=== PATIENT | male | born 1935 | race Caucasian/White ===

== ENCOUNTER 2016-06-22 13:12 | Emergency (ER) | payer MEDICARE, BC ==
[2016-06-22 13:40] VITALS: BP 160/91; PULSE 67; RESP 18; TEMP 98
--- NOTE | 2016-06-22 14:08 | ED ---
Extremity Problem HPI - General Chief complaint: Extremity Problem,Nontraumatic Stated complaint: left foot pain Time Seen by Provider: 06/22/16 13:46 Source: patient Mode of arrival: ambulatory Limitations: no limitations - History of Present Illness Initial comments: Patient is an 81-year-old male presenting to the emergency department with complaints of left plantar mid foot and heel pain. Patient states that the bottom of his foot started hurting last night. Patient states that he was able to go to sleep but this morning the pain was worse especially with walking. Patient denies injury or trauma to foot. Patient was able to ambulate at home and in the emergency room. No treatment prior to arrival. Patient currently rates pain 8 out of 10, described as aching. Patient denies recent illness, fevers, chills, nausea, vomiting, shortness of breath, chest pain, abdominal pain, or leg swelling. - Related Data Home Medications Medication Instructions Recorded Confirmed Atenolol [Tenormin] 50 mg PO DAILY 03/13/16 06/22/16 Cholecalciferol [Vitamin D3] 2,000 unit PO DAILY 03/13/16 06/22/16 Gluc/Javier-MSM#1/C/Zach/[place]/Bor 1 each PO DAILY 03/13/16 06/22/16 [Glucosamine-Chondroitin Tablet] Isosorbide Mononitrate 20 mg PO DAILY 03/13/16 06/22/16 Multivitamins, Thera [Multivitamin] 1 tab PO DAILY 03/13/16 06/22/16 [place]-3 Fatty Acids/Fish Oil [Fish 1 each PO DAILY 03/13/16 06/22/16 Oil 1,000 mg Softgel] Omeprazole [PriLOSEC] 20 mg PO BID 03/13/16 06/22/16 Ubidecarenone [Co Q-10] 100 mg PO DAILY 03/13/16 06/22/16 Vitamin E (Dl,Tocopheryl Acet) 400 unit PO DAILY 03/13/16 06/22/16 [Vitamin E] Previous Rx's Medication Instructions Recorded Aspirin 325 mg PO DAILY #30 tab 03/18/16 Clopidogrel [Plavix] 75 mg PO DAILY #30 tab 03/18/16 Lisinopril [Zestril] 20 mg PO DAILY #30 tab 03/18/16 Nitroglycerin Sl Tabs [Nitrostat] 0.4 mg SUBLINGUAL Q5M PRN #25 tab 03/18/16 Naproxen [Naprosyn] 250 mg PO BID #14 tab 06/22/16 Allergies Allergy/AdvReac Type Severity Reaction Status Date / Time latex Allergy Rash/Hives Verified 06/22/16 14:20 venom-honey bee Allergy passed out Verified 06/22/16 14:20 [bee venom (honey bee)] venom-wasp [wasp venom] Allergy passed out Verified 06/22/16 14:20 Review of Systems ROS Statement: Those systems with pertinent positive or pertinent negative responses have been documented in the HPI. ROS Other: All systems not noted in ROS Statement are negative. Past Medical History Past Medical History: Coronary Artery Disease (CAD), COPD, Deep Vein Thrombosis (DVT), GERD/Reflux, Hyperlipidemia, Hypertension, Osteoarthritis (OA) Additional Past Medical History / Comment(s): Nephrolithiasis History of Any Multi-Drug Resistant Organisms: None Reported Past Surgical History: Appendectomy, Hernia Repair Additional Past Surgical History / Comment(s): lithotripsy x 4, 03-17-16 HEART CATH W/ STENT TO RCA Past Anesthesia/Blood Transfusion Reactions: Motion Sickness Additional Past Anesthesia/Blood Transfusion Reaction / Comment(s): HAD MOTION SICKNESS WHEN YOUNGER. Past Psychological History: No Psychological Hx Reported Smoking Status: Former smoker Past Alcohol Use History: None Reported Additional Past Alcohol Use History / Comment(s): quit smoking 40 yrs ago, smoked for 30 yrs- 1-2 PPD Past Drug Use History: None Reported - Past Family History Mother Family Medical History: Cancer, Diabetes Mellitus Father Family Medical History: Myocardial Infarction ([place]) Additional Family Medical History / Comment(s): PT STATED HIS FATHER HAD 14 CO' S AND AT THE AGE OF 58 General Exam Limitations: no limitations General appearance: alert, in no apparent distress Head exam: Present: atraumatic, normocephalic, normal inspection Eye exam: Present: normal appearance ENT exam: Present: normal exam Neck exam: Present: normal inspection Respiratory exam: Present: normal lung sounds bilaterally. Absent: respiratory distress, wheezes, rales, rhonchi, stridor Cardiovascular Exam: Present: regular rate, normal rhythm, normal heart sounds GI/Abdominal exam: Present: soft, normal bowel sounds. Absent: tenderness Left Ankle exam: Present: normal inspection, full ROM. Absent: tenderness, swelling Foot/Toe exam: Present: full ROM, tenderness (Tenderness to plantar aspect of the left midfoot and heel. Skin warm to touch. Mild swelling noted.). Absent : puncture wound, foreign body, calcaneal tenderness Neurovascular tendon exam: Present: no vascular compromise. Absent: abnormal cap refill, motor deficit, sensory deficit, tendon deficit, extremity cold to touch, abnormal 2-point discrimination, decreased fine/light touch, foot drop, peroneal nerve deficit, significant pain with passive ROM of distal joint Gait: observed and limited by pain Back exam: Present: normal inspection Neurological exam: Present: alert, oriented X3, CN II-XII intact Psychiatric exam: Present: normal affect, normal mood Skin exam: Present: warm, dry, intact, normal color. Absent: rash Course Vital Signs 06/22/16 13:37 Temperature 98 F Pulse Rate 67 Respiratory 18 Rate Blood Pressure 160/91 O2 Sat by Pulse 96 Oximetry Medical Decision Making - Medical Decision Making Patient is an 81-year-old male presenting to the emergency department with sudden onset of left mid and hindfoot pain suspect secondary to plantar fasciitis and calcaneal spur. Patient given prescription for naproxen and instructed to rest foot and use good heel insert and orthopedic shoes. Patient instructed to follow-up with primary care physician and orthopedic surgeon as directed. Patient agrees to treatment plan. Return parameters and discharge instructions reviewed. - Radiology Data Radiology results: report reviewed X-ray left foot: Bone mineralization is reduced. Mild degenerative change of the first metatarsophalangeal joint. Vascular calcification present within soft tissues. Spurring, hypertrophic change at the tarsometatarsal joints. There is plantar calcaneal spur. Disposition Clinical Impression: Plantar fasciitis of left foot, Calcaneal spur, left foot Disposition: HOME SELF-CARE Condition: Good Instructions: Plantar Fasciitis (ED) Additional Instructions: Rest foot as much as possible, continue naproxen twice daily for pain, get a good heel insert. Roll arch of the foot with a frozen juice can water bottle. Follow-up with primary care physician as directed. Orthopedic surgeon as needed. Prescriptions: Naproxen [Naprosyn] 250 mg PO BID #14 tab Referrals: Lisha Martinez MD [Primary Care Provider] - 1-2 days Gilson Casillas MD [STAFF PHYSICIAN] - 1-2 days (Follow-up as needed.) Time of Disposition: 15:06
[2016-06-22] MEDS ORDERED: NAPROXEN 250 MG TAB PO STA (14:19)
--- NOTE | 2016-06-22 14:52 | XR ---
Left foot HISTORY: Left foot pain 3 views of the left foot Bone mineralization is reduced. Mild degenerative change of the first metatarsophalangeal joint. Vasc ular calcifications present within the soft tissues. Spurring, hypertrophic change at the tarsometata rsal joints. There is a plantar calcaneal spur. IMPRESSION: Correlate for possible gout, diabetes, osteoarthritis.
== END 2016-06-22 15:28 | disposition home or self-care (01) ==
LOC: EC 13:12
DX: M72.2 Plantar fascial fibromatosis (principal); M77.32 Calcaneal spur, left foot; K21.9 Gastro-esophageal reflux disease without esophagitis; I10 Essential (primary) hypertension; M19.90 Unspecified osteoarthritis, unspecified site; I25.10 Atherosclerotic heart disease of native coronary artery without angina pectoris; Z86.718 Personal history of other venous thrombosis and embolism; Z87.891 Personal history of nicotine dependence; Z79.899 Other long term (current) drug therapy; Z91.030 Bee allergy status; Z91.040 Latex allergy status; Z91.048 Other nonmedicinal substance allergy status
CPT/HCPCS: 99283

== ENCOUNTER 2016-08-20 15:42 | Inpatient (IN) | payer MEDICARE, BC ==
[2016-08-20] MEDS ORDERED: SODIUM CHLORIDE 0.9% 1,000 ML IV STA (16:06)
[2016-08-20] MEDS ORDERED: PANTOPRAZOLE 40 MG/10 ML VIAL IVP STA (16:07)
--- NOTE | 2016-08-20 16:09 | ED ---
General Adult HPI - General Source: RN notes reviewed <Skip Morse - Last Filed: 08/20/16 18:47> <Erwin Rod - Last Filed: 08/20/16 18:57> - General Chief complaint: Syncope Stated complaint: GI BLEED Time Seen by Provider: 08/20/16 16:01 - History of Present Illness Initial comments: Patient a 81-year-old male who presents emergency room today by EMS, with chief complaint of syncopal episode that occurred just prior to arrival. Patient does admit that he was sitting at table picking out pictures for his waist visitation tomorrow when he began feeling very hot and sweaty. States tried to take office which appears his [id number] assumed table and states that he had a syncopal episode. States called EMS. States EMS arrived. States he used bathroom. States that he had an episode of loose stool and noticed some dark blood color in the toilet. Patient denies ever having similar symptoms in the past. States had colostomy approximately one year ago with 2 polyps removed. Patient states still feeling a little lightheaded at this time. Denies any pain. Denies any other complaints or symptoms. Patient denies any recent fever, chills, shortness of breath, chest pain, back pain, abdominal pain , vomiting, numbness or tingling, dysuria or hematuria, constipation or diarrhea , headaches or visual changes, or any other complaints. (Skip Morse) - Related Data Home Medications Medication Instructions Recorded Confirmed Atenolol [Tenormin] 50 mg PO DAILY 03/13/16 08/20/16 Cholecalciferol [Vitamin D3] 2,000 unit PO DAILY 03/13/16 08/20/16 Gluc/Javier-MSM#1/C/Zach/[place]/Bor 1 tab PO DAILY 03/13/16 08/20/16 [Glucosamine-Chondroitin Tablet] Multivitamins, Thera [Multivitamin 1 tab PO DAILY 03/13/16 08/20/16 (formulary)] [place]-3 Fatty Acids/Fish Oil [Fish 1 cap PO DAILY 03/13/16 08/20/16 Oil 1,000 mg Softgel] Omeprazole [PriLOSEC] 20 mg PO BID 03/13/16 08/20/16 Ubidecarenone [Co Q-10] 100 mg PO DAILY 03/13/16 08/20/16 Vitamin E (Dl,Tocopheryl Acet) 400 unit PO DAILY 03/13/16 08/20/16 [Vitamin E] Albuterol Nebulized [Ventolin 2.5 mg INHALATION RT-TID PRN 08/20/16 08/20/16 Nebulized] Isosorbide Mononitrate ER [Imdur] 30 mg PO DAILY 08/20/16 08/20/16 Pravastatin Sodium [Pravachol] 40 mg PO HS 08/20/16 08/20/16 Previous Rx's Medication Instructions Recorded Aspirin 325 mg PO DAILY #30 tab 03/18/16 Clopidogrel [Plavix] 75 mg PO DAILY #30 tab 03/18/16 Lisinopril [Zestril] 20 mg PO DAILY #30 tab 03/18/16 Nitroglycerin Sl Tabs [Nitrostat] 0.4 mg SUBLINGUAL Q5M PRN #25 tab 03/18/16 Allergies Allergy/AdvReac Type Severity Reaction Status Date / Time latex Allergy Rash/Hives Verified 08/20/16 16:45 venom-honey bee Allergy passed out Verified 08/20/16 16:45 [bee venom (honey bee)] venom-wasp [wasp venom] Allergy passed out Verified 08/20/16 16:45 Review of Systems ROS Other: All systems not noted in ROS Statement are negative. <Skip Morse - Last Filed: 08/20/16 18:47> ROS Other: All systems not noted in ROS Statement are negative. <Erwin Rod - Last Filed: 08/20/16 18:57> ROS Statement: Those systems with pertinent positive or pertinent negative responses have been documented in the HPI. Past Medical History Past Medical History: Coronary Artery Disease (CAD), COPD, Deep Vein Thrombosis (DVT), GERD/Reflux, Hyperlipidemia, Hypertension, Osteoarthritis (OA) Additional Past Medical History / Comment(s): Nephrolithiasis History of Any Multi-Drug Resistant Organisms: None Reported Past Surgical History: Appendectomy, Hernia Repair Additional Past Surgical History / Comment(s): lithotripsy x 4, 03-17-16 HEART CATH W/ STENT TO RCA Past Anesthesia/Blood Transfusion Reactions: Motion Sickness Additional Past Anesthesia/Blood Transfusion Reaction / Comment(s): HAD MOTION SICKNESS WHEN YOUNGER. Past Psychological History: No Psychological Hx Reported Smoking Status: Former smoker Past Alcohol Use History: None Reported Additional Past Alcohol Use History / Comment(s): quit smoking 40 yrs ago, smoked for 30 yrs- 1-2 PPD Past Drug Use History: None Reported - Past Family History Mother Family Medical History: Cancer, Diabetes Mellitus Father Family Medical History: Myocardial Infarction ([place]) Additional Family Medical History / Comment(s): PT STATED HIS FATHER HAD 14 NM' S AND AT THE AGE OF 58 <MorseSkip - Last Filed: 08/20/16 18:47> General Exam <LitoSkip - Last Filed: 08/20/16 18:47> General appearance: alert, in no apparent distress, anxious Head exam: Present: atraumatic, normocephalic, normal inspection Eye exam: Present: normal appearance, PERRL, EOMI. Absent: scleral icterus, conjunctival injection, periorbital swelling ENT exam: Present: normal exam, mucous membranes moist Neck exam: Present: normal inspection. Absent: tenderness, meningismus, lymphadenopathy Respiratory exam: Present: normal lung sounds bilaterally. Absent: respiratory distress, wheezes, rales, rhonchi, stridor Cardiovascular Exam: Present: regular rate, normal rhythm, normal heart sounds. Absent: systolic murmur, diastolic murmur, rubs, gallop, clicks GI/Abdominal exam: Present: soft, normal bowel sounds. Absent: distended, tenderness, guarding, rebound, rigid Extremities exam: Present: normal inspection, full ROM, normal capillary refill. Absent: tenderness, pedal edema, joint swelling, calf tenderness Back exam: Present: normal inspection Neurological exam: Present: alert, oriented X3, CN II-XII intact Psychiatric exam: Present: normal affect, normal mood Skin exam: Present: warm, dry, intact, normal color. Absent: rash <Erwin Rod - Last Filed: 08/20/16 18:57> - General Exam Comments Initial Comments: General: The patient is awake and alert, in no distress, and does not appear acutely ill. Eye: Pupils are equal, round and reactive to light, extra-ocular movements are intact. No nystagmus. There is normal conjunctiva bilaterally. No signs of icterus. Ears, nose, mouth and throat: There are moist mucous membranes and no oral lesions. Neck: The neck is supple, there is no tenderness or JVD. Cardiovascular: There is a regular rate and rhythm. No murmur, rub or gallop is appreciated. Respiratory: Lungs are clear to auscultation, respirations are non-labored, breath sounds are equal. No wheezes, stridor, rales, or rhonchi. Gastrointestinal: Soft, non-distended, non-tender abdomen without masses or organomegaly noted. There is no rebound or guarding present. No CVA tenderness. Bowel sounds are unremarkable. Musculoskeletal: Normal ROM, no tenderness. Strength 5/5. Sensation intact. Pulses equal bilaterally 2+. Neurological: A&O x 3. CN II-XII intact, There are no obvious motor or sensory deficits. Coordination appears grossly intact. Speech is normal. Skin: Skin is warm and dry and no rashes or lesions are noted. Psychiatric: Cooperative, appropriate mood & affect, normal judgment. : FLOW NURSEDOMENICA Lewis present for exam. Normal rectal tone. (Skip Morse) Course <Skip Morse - Last Filed: 08/20/16 18:47> <Erwin Rod - Last Filed: 08/20/16 18:57> Vital Signs 08/20/16 08/20/16 08/20/16 16:00 16:03 17:08 Temperature 97 F L Pulse Rate 62 87 59 L Respiratory 18 18 18 Rate Blood Pressure 97/54 122/63 140/64 O2 Sat by Pulse 97 99 100 Oximetry - Reevaluation(s) Reevaluation #1: 08/20/16 18:57 Patient is without symptoms of lightheadedness dizziness or weakness (Erwin Rod) Medical Decision Making - Lab Data Result diagrams: 08/20/16 16:20 08/20/16 16:20 <Skip Morse - Last Filed: 08/20/16 18:47> - Lab Data Result diagrams: 08/20/16 16:20 08/20/16 16:20 <Erwin Rod - Last Filed: 08/20/16 18:57> - Medical Decision Making Patient's labs reviewed. Shows hemoglobin 12.4. Positive guaiac. Patient currently on Plavix. Patient will be admitted to the hospital for serial H&H. Case discussed with attending physician . (Skip Morse) A female ER with near syncopal event, GI bleed, patient will be admitted for monitoring of GI bleed secondary Plavix, (Erwin Rod) - Lab Data Lab Results 08/20/16 08/20/16 08/20/16 Range/Units 15:53 16:20 16:20 WBC 8.6 (3.8-10.6) k/uL RBC 4.16 L (4.30-5.90) m/uL Hgb 12.4 L (13.0-17.5) gm/dL Hct 38.4 L (39.0-53.0) % MCV 92.2 (80.0-100.0) fL MCH 29.8 (25.0-35.0) pg MCHC 32.3 (31.0-37.0) g/dL RDW 13.6 (11.5-15.5) % Plt Count 252 (150-450) k/uL Neutrophils % 85 % Lymphocytes % 8 % Monocytes % 5 % Eosinophils % 1 % Basophils % 0 % Neutrophils # 7.3 (1.3-7.7) k/uL Lymphocytes # 0.7 L (1.0-4.8) k/uL Monocytes # 0.4 (0-1.0) k/uL Eosinophils # 0.0 (0-0.7) k/uL Basophils # 0.0 (0-0.2) k/uL PT (9.0-12.0) sec INR (<1.1) APTT (22.0-30.0) sec Sodium (137-145) mmol/L Potassium (3.5-5.1) mmol/L Chloride (98-107) mmol/L Carbon Dioxide (22-30) mmol/L Anion Gap mmol/L BUN (9-20) mg/dL Creatinine (0.66-1.25) mg/dL Est GFR (MDRD) Af Amer (>60 ml/min/1.73 sqM) Est GFR (MDRD) Non-Af (>60 ml/min/1.73 sqM) Glucose (74-99) mg/dL POC Glucose (mg/dL) 139 H (75-99) mg/dL POC Glu [employer] ID Annyitpren, Gudelia Calcium (8.4-10.2) mg/dL Magnesium (1.6-2.3) mg/dL Total Bilirubin (0.2-1.3) mg/dL AST (17-59) U/L ALT (21-72) U/L Alkaline Phosphatase (38-126) U/L Total Creatine Kinase 222 H (55-170) U/L CK-MB (CK-2) 4.3 H* (0.0-2.4) ng/mL CK-MB (CK-2) Rel Index 1.9 Troponin I <0.012 (0.000-0.034) ng/mL Total Protein (6.3-8.2) g/dL Albumin (3.5-5.0) g/dL Stool Occult Blood (Negative) 08/20/16 08/20/16 08/20/16 Range/Units 16:20 16:20 16:20 WBC (3.8-10.6) k/uL RBC (4.30-5.90) m/uL Hgb (13.0-17.5) gm/dL Hct (39.0-53.0) % MCV (80.0-100.0) fL MCH (25.0-35.0) pg MCHC (31.0-37.0) g/dL RDW (11.5-15.5) % Plt Count (150-450) k/uL Neutrophils % % Lymphocytes % % Monocytes % % Eosinophils % % Basophils % % Neutrophils # (1.3-7.7) k/uL Lymphocytes # (1.0-4.8) k/uL Monocytes # (0-1.0) k/uL Eosinophils # (0-0.7) k/uL Basophils # (0-0.2) k/uL PT 11.7 (9.0-12.0) sec INR 1.2 (<1.1) APTT 20.9 L (22.0-30.0) sec Sodium 143 (137-145) mmol/L Potassium 5.0 (3.5-5.1) mmol/L Chloride 108 H (98-107) mmol/L Carbon Dioxide 27 (22-30) mmol/L Anion Gap 8 mmol/L BUN 47 H (9-20) mg/dL Creatinine 1.27 H (0.66-1.25) mg/dL Est GFR (MDRD) Af Amer >60 (>60 ml/min/1.73 sqM) Est GFR (MDRD) Non-Af 54 (>60 ml/min/1.73 sqM) Glucose 114 H (74-99) mg/dL POC Glucose (mg/dL) (75-99) mg/dL POC Glu [facility] ID Calcium 9.1 (8.4-10.2) mg/dL Magnesium 2.0 (1.6-2.3) mg/dL Total Bilirubin 0.5 (0.2-1.3) mg/dL AST 22 (17-59) U/L ALT 35 (21-72) U/L Alkaline Phosphatase 50 (38-126) U/L Total Creatine Kinase (55-170) U/L CK-MB (CK-2) (0.0-2.4) ng/mL CK-MB (CK-2) Rel Index Troponin I (0.000-0.034) ng/mL Total Protein 6.0 L (6.3-8.2) g/dL Albumin 3.5 (3.5-5.0) g/dL Stool Occult Blood Positive (Negative) Critical Care Time Critical Care Time: Yes Total Critical Care Time: 31 <Erwin Rod - Last Filed: 08/20/16 18:57> Disposition Time of Disposition: 17:25 <Skip Morse - Last Filed: 08/20/16 18:47> <Erwin Rod - Last Filed: 08/20/16 18:57> Clinical Impression: GI bleed, Syncope Disposition: ADMITTED IP TO THIS HOSP Condition: Stable Referrals: Lisha Martinez MD [Primary Care Provider] - 1-2 days
[2016-08-20 16:19] LABS: Glucose,Whole Blood 139 mg/dL (75-99)
[2016-08-20 16:34] LABS: Basophils % (A) 0 %; CH 29.5; CHCM 32.2; Eosinophils % (A) 1 %; HCT 38.4 % (39.0-53.0); HDW 2.51; HGB 12.4 gm/dL (13.0-17.5); Luc # (Auto) 0.15; Luc % (Auto) 2; Lymphocytes # (A) 0.7 k/uL (1.0-4.8); Lymphocytes % (A) 8 %; MCH 29.8 pg (25.0-35.0); MCHC 32.3 g/dL (31.0-37.0); MCV 92.2 fL (80.0-100.0); Mean Platelet Volume 6.9; Monocytes # (A) 0.4 k/uL (0-1.0); Monocytes % (A) 5 %; Neutrophils # (A) 7.3 k/uL (1.3-7.7); Neutrophils % (A) 85 %; RBC 4.16 m/uL (4.30-5.90); RDW 13.6 % (11.5-15.5); WBC 8.6 k/uL (3.8-10.6); WBC (Perox) 9.13
[2016-08-20 16:47] LABS: INR 1.2 (<1.1)
[2016-08-20 16:48] LABS: Prothrombin Time 11.7 sec (9.0-12.0)
[2016-08-20 16:49] LABS: ALT 35 U/L (21-72); AST 22 U/L (17-59); Alkaline Phosphatase 50 U/L (38-126); Anion Gap 8 mmol/L; Blood Urea Nitrogen 47 mg/dL (9-20); Calcium 9.1 mg/dL (8.4-10.2); Carbon Dioxide 27 mmol/L (22-30); Chloride 108 mmol/L (98-107); Glucose 114 mg/dL (74-99); Non-African American GFR(MDRD) 54 (>60 ml/min/1.73 sqM); Sodium 143 mmol/L (137-145); Total Bilirubin 0.5 mg/dL (0.2-1.3)
--- NOTE | 2016-08-20 16:51 | XR ---
EXAMINATION TYPE: XR chest 2V DATE OF EXAM: 08/20/2016 4:48 PM COMPARISON: Chest x-ray June 15, 2012 HISTORY: History of COPD and coronary artery disease presents with chest pain. TECHNIQUE: Frontal and lateral views of the chest are obtained. FINDINGS: Elevated right hemidiaphragm is now present. There is no focal air space opacity, pleural e ffusion, or pneumothorax seen. The cardiac silhouette size is stable and upper limits of normal with atherosclerotic change in the aortic knob. There is prominent multilevel spurring in the spine. IMPRESSION: No acute cardiopulmonary process.
[2016-08-20 16:53] LABS: Creatine Kinase 222 U/L (55-170)
[2016-08-20 16:56] LABS: Partial Thromboplastin Time 20.9 sec (22.0-30.0)
[2016-08-20 17:06] LABS: Troponin I <0.012 ng/mL (0.000-0.034)
[2016-08-20 17:12] LABS: Creatine Kinase MB 4.3 ng/mL (0.0-2.4)
[2016-08-20] MEDS ORDERED: NALOXONE 0.4 MG/ML 1 ML VIAL IV PRN (17:28)
[2016-08-20] MEDS ORDERED: SODIUM CHLORIDE 0.9% 1,000 ML IV ONE (17:28)
[2016-08-20] MEDS ORDERED: ALPRAZolam 0.25 MG TAB PO PRN (22:42)
[2016-08-20] MEDS ORDERED: HYDROmorphone 1 MG/ML 1 ML SYRINGE IVP PRN (22:42)
[2016-08-20] MEDS ORDERED: TEMAZEPAM 15 MG CAP PO PRN (22:42)
[2016-08-20 23:28] LABS: Aty Lym Flag Slight; Basophils % (A) 1 %; CHCM 32.8; Eosinophils % (A) 1 %; HCT 37.2 % (39.0-53.0); HDW 2.51; HGB 12.1 gm/dL (13.0-17.5); Luc % (Auto) 5; Lymphocytes # (A) 1.2 k/uL (1.0-4.8); Lymphocytes % (A) 19 %; MCH 29.9 pg (25.0-35.0); MCHC 32.5 g/dL (31.0-37.0); MCV 91.9 fL (80.0-100.0); Mean Platelet Volume 7.6; Monocytes # (A) 0.4 k/uL (0-1.0); Monocytes % (A) 6 %; Neutrophils # (A) 4.3 k/uL (1.3-7.7); Neutrophils % (A) 69 %; RBC 4.05 m/uL (4.30-5.90); RDW 13.7 % (11.5-15.5); WBC 6.2 k/uL (3.8-10.6); WBC (Perox) 6.64
[2016-08-20 23:33] LABS: Creatine Kinase 164 U/L (55-170)
[2016-08-20 23:44] LABS: Manual Review Performed
[2016-08-20 23:45] LABS: Troponin I <0.012 ng/mL (0.000-0.034)
[2016-08-21 00:01] LABS: Creatine Kinase MB 3.4 ng/mL (0.0-2.4)
[2016-08-21 03:48] LABS: Basophils % (A) 0 %; CH 29.6; Eosinophils # (A) 0.1 k/uL (0-0.7); Eosinophils % (A) 2 %; HCT 35.3 % (39.0-53.0); HDW 2.49; HGB 11.4 gm/dL (13.0-17.5); Luc # (Auto) 0.26; Luc % (Auto) 4; Lymphocytes # (A) 1.3 k/uL (1.0-4.8); Lymphocytes % (A) 21 %; MCH 30.1 pg (25.0-35.0); MCHC 32.4 g/dL (31.0-37.0); MCV 92.8 fL (80.0-100.0); Mean Platelet Volume 6.8; Monocytes # (A) 0.4 k/uL (0-1.0); Monocytes % (A) 6 %; Neutrophils # (A) 4.2 k/uL (1.3-7.7); Neutrophils % (A) 67 %; RDW 13.6 % (11.5-15.5); WBC 6.3 k/uL (3.8-10.6); WBC (Perox) 6.31
[2016-08-21 04:11] LABS: Cholesterol 99 mg/dL (<200); HDL Cholesterol 32 mg/dL (40-60); Triglycerides 98 mg/dL (<150)
[2016-08-21 04:18] LABS: Creatine Kinase 138 U/L (55-170)
[2016-08-21 04:29] LABS: Troponin I <0.012 ng/mL (0.000-0.034)
[2016-08-21 04:33] LABS: Creatine Kinase MB 3.2 ng/mL (0.0-2.4)
[2016-08-21 04:55] LABS: Appearance,Urine Clear (Clear); Bilirubin,Urine Negative (Negative); Glucose,Urine (UA) Negative (Negative); Ketones,Urine Negative (Negative); Leukocyte Esterase,Urine Negative (Negative); Nitrite,Urine Negative (Negative); PH, Urine 5.5 (5.0-8.0); Protein,Urine Negative (Negative); Specific Gravity,Urine 1.019 (1.001-1.035); UA Billing (MACRO vs. MICRO) CHEM; Urobilinogen,Urine <2.0 mg/dL (<2.0)
[2016-08-21] MEDS ORDERED: FORMOTEROL FUMARATE 20 MCG/2 ML NEBU INHALATION SCH (08:00)
[2016-08-21] MEDS ORDERED: BUDESONIDE 1 MG/2 ML NEBU INHALATION SCH (08:00)
[2016-08-21 08:01] LABS: Basophils % (A) 0 %; CH 29.8; Eosinophils # (A) 0.1 k/uL (0-0.7); Eosinophils % (A) 1 %; HCT 36.9 % (39.0-53.0); HDW 2.44; HGB 11.8 gm/dL (13.0-17.5); Luc # (Auto) 0.29; Luc % (Auto) 4; Lymphocytes # (A) 1.3 k/uL (1.0-4.8); Lymphocytes % (A) 19 %; MCV 93.7 fL (80.0-100.0); Mean Platelet Volume 7.8; Monocytes # (A) 0.4 k/uL (0-1.0); Monocytes % (A) 6 %; Neutrophils # (A) 4.8 k/uL (1.3-7.7); Neutrophils % (A) 70 %; RBC 3.93 m/uL (4.30-5.90); RDW 13.6 % (11.5-15.5); WBC 6.8 k/uL (3.8-10.6); WBC (Perox) 6.76
[2016-08-21] MEDS ORDERED: PANTOPRAZOLE 40 MG/10 ML VIAL IVP SCH ×2 (09:00)
[2016-08-21] MEDS ORDERED: ISOSORBIDE MONONITRATE ER 30 MG TAB.ER.24H PO SCH (09:00)
[2016-08-21] MEDS ORDERED: ATENOLOL 50 MG TAB PO SCH (09:00)
[2016-08-21] MEDS: LEVALBUTEROL NEB (CONC) 1.25 MG/0.5 ML AMP INHALATION SCH ×2 (09:22→13:13)
[2016-08-21] MEDS: IPRATROPIUM 0.5 MG/2.5 ML NEBU INHALATION SCH ×2 (09:22→13:13)
--- NOTE | 2016-08-21 10:04 | P.CONS ---
History of Present Illness - Reason for Consult Consult date: 08/21/16 Rectal bleeding Requesting physician: Feroz Molina - History of Present Illness 81-year-old gentleman patient of Dr. Martinez admitted with syncope and rectal bleeding. Past medical history of CAD/PCI stent March 2016 on dual antiplatelet therapy, COPD, DVT, hyperlipidemia, hypertension, GERD, nephrolithiasis, and osteoarthritis. Patient's last day he was at the assisted yesterday with his [id number] became lightheaded and diaphoretic and passed out. Upon admission patient was examined with evidence of dark burgundy colored stool. Denies epigastric pain but reports mild lower abdominal discomfort. Hemoglobin 12.4 on arrival currently 11.8. MCV 93. Platelet 205. INR 1.2. BUN 47. Creatinine 1.2. Troponin less than 0.01 to 3. No history of GI bleeding or peptic ulcer disease. Colonoscopy 1-2 [address] Moody he thinks 2 polyps removed. Unsure if he has history of diverticulosis. No recent antibiotics fever chills gross hematemesis or melena. Denies excessive usage of aspirin or NSAIDs. No alcohol. Review of Systems Constitutional: Denies fever, chills, sweats, weight gain, or loss. HEENT: Negative for migraines, blurred vision or loss, earaches, drainage, tinnitus, oral mucosal lesions, dysphagia, or odynophagia. Cardiac: CAD. Hyperlipidemia. Hypertension. PCI stent. Negative for chest pain, arrhythmias, or palpitation. Respiratory: COPD. Negative for shortness of breath, hemoptysis, cough, or sputum production. Gastrointestinal: See HPI for pertinent findings. Genitourinary: Nephrolithiasis. Negative for hematuria, urgency, frequency, polyuria, dysuria, or penile discharge. Musculoskeletal: Osteoarthritis. Negative for muscle aches, swelling, arthritis , and arthralgias. Neurologic: Negative for stroke or TIA. Endocrine: Negative for thyroid problems. Hematologic: DVT. Skin: Negative for rash or itching. Psychiatric: Negative history for depression and anxiety All systems: negative (See HPI) Past Medical History Past Medical History: Coronary Artery Disease (CAD), COPD, Deep Vein Thrombosis (DVT), GERD/Reflux, Hyperlipidemia, Hypertension, Osteoarthritis (OA) Additional Past Medical History / Comment(s): Nephrolithiasis History of Any Multi-Drug Resistant Organisms: None Reported Past Surgical History: Appendectomy, Hernia Repair Additional Past Surgical History / Comment(s): lithotripsy x 4, 03-17-16 HEART CATH W/ STENT TO RCA Past Anesthesia/Blood Transfusion Reactions: Motion Sickness Additional Past Anesthesia/Blood Transfusion Reaction / Comm: HAD MOTION SICKNESS WHEN YOUNGER. Past Psychological History: No Psychological Hx Reported Smoking Status: Former smoker Past Alcohol Use History: None Reported Additional Past Alcohol Use History / Comment(s): quit smoking 40 yrs ago, smoked for 30 yrs- 1-2 PPD Past Drug Use History: None Reported - Past Family History Mother Family Medical History: Cancer, Diabetes Mellitus Father Family Medical History: Myocardial Infarction ([place]) Additional Family Medical History / Comment(s): PT STATED HIS FATHER HAD 14 AL' S AND AT THE AGE OF 58 Medications and Allergies Home Medications Medication Instructions Recorded Confirmed Type Atenolol [Tenormin] 50 mg PO DAILY 03/13/16 08/20/16 History Cholecalciferol [Vitamin D3] 2,000 unit PO DAILY 03/13/16 08/20/16 History Gluc/Javier-MSM#1/C/Zach/[place]/Bor 1 tab PO DAILY 03/13/16 08/20/16 History [Glucosamine-Chondroitin Tablet] Multivitamins, Thera [Multivitamin 1 tab PO DAILY 03/13/16 08/20/16 History (formulary)] Excel-3 Fatty Acids/Fish Oil [Fish 1 cap PO DAILY 03/13/16 08/20/16 History Oil 1,000 mg Softgel] Omeprazole [PriLOSEC] 20 mg PO BID 03/13/16 08/20/16 History Ubidecarenone [Co Q-10] 100 mg PO DAILY 03/13/16 08/20/16 History Vitamin E (Dl,Tocopheryl Acet) 400 unit PO DAILY 03/13/16 08/20/16 History [Vitamin E] Albuterol Nebulized [Ventolin 2.5 mg INHALATION RT-TID PRN 08/20/16 08/20/16 History Nebulized] Atorvastatin [Lipitor] 80 mg PO HS 08/20/16 08/20/16 History Isosorbide Mononitrate ER [Imdur] 30 mg PO DAILY 08/20/16 08/20/16 History Allergies Allergy/AdvReac Type Severity Reaction Status Date / Time latex Allergy Rash/Hives Verified 08/20/16 16:45 venom-honey bee Allergy passed out Verified 08/20/16 16:45 [bee venom (honey bee)] venom-wasp [wasp venom] Allergy passed out Verified 08/20/16 16:45 Physical Exam Vitals: Vital Signs Temp Pulse Pulse Resp BP BP BP 08/21/16 09:41 70 08/21/16 09:33 70 08/21/16 09:24 70 08/21/16 06:16 134/55 157/69 08/21/16 04:00 97.9 F 58 L 20 08/21/16 00:00 97.5 F L 53 L 22 08/20/16 23:00 54 L 18 08/20/16 22:22 97.3 F L 63 20 08/20/16 19:36 98.0 F 61 18 117/57 08/20/16 18:59 60 18 144/65 BP BP Pulse Ox 08/21/16 09:41 08/21/16 09:33 08/21/16 09:24 98 08/21/16 06:16 131/54 08/21/16 04:00 124/57 98 08/21/16 00:00 119/56 98 08/20/16 23:00 161/74 100 08/20/16 22:22 161/72 99 08/20/16 19:36 98 08/20/16 18:59 100 Intake and Output 08/20/16 08/21/16 08/21/16 22:59 06:59 14:59 Intake Total 600 Output Total 400 401 Balance -400 199 Intake: IV 600 Sodium Chloride 0.9% 1, 600 000 ml @ 50 mls/hr IV . Q20H ONE Rx#:[id number] Output: Urine 400 400 Stool 1 Other: Voiding Method Toilet Bedside Commode # Voids 1 # Bowel Movements 1 Weight 108.1 kg 106.5 kg General appearance: The patient is alert, oriented, in no acute distress. HET: Head is normocephalic and atraumatic. Pupils are equal and reactive. Oropharynx is clear without lesions. Neck: Supple without lymphadenopathy. Trachea midline. Heart: S1 S2. Regular rate and rhythm. Lungs: No crackles or wheezes are heard. Abdomen: Soft, nontender, nondistended with bowel sounds. No peritoneal signs. No palpable organomegaly or masses. Extremities: Normal skin color and turgor. No cyanosis, rash, ulceration, clubbing, or edema. Radial and pedal pulses are 2/4 bilaterally. Neurological: No focal deficits. Strength and sensation are grossly intact. Rectal: Gross amount of dark burgundy blood stool. No palpable masses. Results CBC & Chem 7: 08/21/16 06:49 08/20/16 16:20 Labs: Abnormal Lab Results - Last 24 Hours (Table) 08/20/16 08/20/16 08/21/16 Range/Units 22:18 23:13 03:28 RBC 4.05 L (4.30-5.90) m/uL Hgb 12.1 L (13.0-17.5) gm/dL Hct 37.2 L (39.0-53.0) % CK-MB (CK-2) 3.4 H* 3.2 H* (0.0-2.4) ng/mL HDL Cholesterol (40-60) mg/dL 08/21/16 08/21/16 08/21/16 Range/Units 03:28 03:28 06:49 RBC 3.80 L 3.93 L (4.30-5.90) m/uL Hgb 11.4 L 11.8 L (13.0-17.5) gm/dL Hct 35.3 L 36.9 L (39.0-53.0) % CK-MB (CK-2) (0.0-2.4) ng/mL HDL Cholesterol 32 L (40-60) mg/dL Assessment and Plan (1) GI bleed Narrative/Plan: Dark burgundy bowel movements possible ischemic colitis possible diverticular bleed colonoscopy performed 1-2 years ago reported pending at time of dictation. Status: Acute (2) CAD (coronary artery disease) Status: Acute (3) Acute blood loss anemia Status: Acute (4) Syncope Status: Acute Plan: 1. Colonoscopy report requested to be placed on chart for review. 2. Recommend continued observation today with monitoring of CBC. Recheck CBC at noon. 3. Will allow clear liquid diet. 4. Endoscopic exams not planned at this time but contingent on clinical course. Thank you for this kind referral and the opportunity to participate in the care of your patient. This consultation was discussed with Dr. Fink. The impression and plan of care have been directed as dictated.
--- NOTE | 2016-08-21 10:05 | HP ---
DATE OF ADMISSION: CHIEF COMPLAINT: Syncope and gastrointestinal bleed. HISTORY OF PRESENT ILLNESS: This 81-year-old gentleman with a past medical history of multiple problems, including history of COPD, history of CAD, history of deep venous thrombosis, history of gastroesophageal reflux disease, hypertension, hyperlipidemia, history of degenerative joint disease, history of nephrolithiasis being followed by Dr. Martinez in the outpatient setting had an episode of syncope today and the patient subsequently had an episode of significant gastrointestinal bleed, which was repeated in the ER also. Hemoglobin was found to be 12.5 and patient admitted for evaluation. There is no history of any fever, any abdominal pain, no evidence of any hematemesis. No history of nausea or diarrhea. Recently the patient's passed because of multiple myeloma according to him. The creatinine is 1.27. The patient also had a stent placed last year. Because of progressively worsening shortness of breath, component of COPD also diagnosed by Dr. Villa. PAST MEDICAL HISTORY: History of COPD, history of DVT, history of GERD, hypertension, hyperlipidemia, degenerative joint disease, history of appendectomy, hernia repair. Medications prior to admission include home medications: 1. Lipitor 80 mg q.h.s. 2. Multivitamin 400 mg daily. 3. Coenzyme Q 1000 mg. 4. Prilosec 20 mg b.i.d. 5. Stephenson-3 fatty acids 1 p.o. daily. 6. Nitrostat 0.4 sublingual p.r.n. 7. Multivitamins 1 p.o. daily. 8. Zestril 20 mg daily. 9. Imdur 30 mg daily. 10. Glucosamine chondroitin 1 tablet p.o. daily. 11. Plavix 75 mg daily. 12. Vitamin D3 2000. 13. Tenormin 50 mg p.o. daily. 14. Aspirin 325 mg daily. 15. Ventolin nebulizer 2.5 t.i.d. p.r.n. ALLERGIES: LATEX, HONEYBEE VENOM, AZTREONAM. FAMILY HISTORY: History of cancer, diabetes family. SOCIAL HISTORY: Previous history of smoking, no history of current smoking or alcohol intake. REVIEW OF SYSTEMS: ENT: Diminishing hearing, diminished vision. CARDIOVASCULAR: As mentioned earlier. RESPIRATORY: As mentioned earlier. GI: As mentioned earlier. : No dysuria or retention. NERVOUS SYSTEM: No numbness, weakness or hayfever. ALLERGY/IMMUNOLOGY: No asthma or hayfever. MUSCULOSKELETAL: As mentioned earlier. HEMATOLOGY: No history of anemia. ENDOCRINE: No history of diabetes or hypothyroidism. CONSTITUTIONAL: As mentioned earlier. DERMATOLOGY: Negative. RHEUMATOLOGY: Negative. PSYCHIATRY: As mentioned earlier. PHYSICAL EXAMINATION: Alert and oriented x3. Pulse 63, blood pressure 161/72, respiratory rate 20 temperature 97.3, pulse ox 90% on 2-L. HEENT: Conjunctivae pale. Oral mucosa moist. NECK: No jugular venous distention. No carotid bruit. No lymph node enlargement. CARDIOVASCULAR: S1, S2. RESPIRATORY: Breathing efforts are slightly increased. Bilateral scattered rhonchi and crackles. Expiratory wheezing also present. ABDOMEN: Soft, obese, nontender. No mass palpable. No hepatosplenomegaly. LEGS: No edema, no swelling. NERVOUS SYSTEM: Higher function as mentioned. Moves all four limbs. No focal motor deficits. LYMPHATIC: No lymphadenopathy in the neck, axillae or groin. SKIN: No ulcer, rash or bleeding. LABS: WBC 8, hemoglobin 12.4. Sodium 143, potassium 5, creatinine 1.27 and creatine kinase 222. Stool for O&P is positive. ASSESSMENT: 1. Acute lower gastrointestinal bleeding with acute blood loss anemia for evaluation. 2. Syncope secondary to gastrointestinal bleed. 3. Increased creatinine with acute renal failure, possible prerenal with dehydration. 4. Shortness of breath, possible chronic obstructive pulmonary disease exacerbation. 5. Increased creatine kinase. 6. History of coronary artery disease and stent. 7. History of chronic obstructive pulmonary disease. 8. History of deep venous thrombosis. 9. Gastroesophageal reflux disease. 10. Hypertension. 11. Hyperlipidemia. 12. History of nephrolithiasis. 13. History of hernia repair. 14. History of remote history of nicotine dependence. 15. Obesity; body mass index of 31.4. 16. FULL CODE. RECOMMENDATION: In this 81-year-old gentleman who presented with multiple complex medical issues, we will monitor the patient closely. Continue the current medications, symptomatic treatment. Initiate proton pump inhibitors. Otherwise, I would consult Dr. Moody and Gastroenterology. Otherwise, we will hold antiplatelet agents and bronchodilators. Cardiology and Pulmonary consultation. Guarded prognosis because of multiple complex medical issues. Further recommendations to follow. A copy of this dictation is being forwarded to Dr. Martinez who is the primary physician.
--- NOTE | 2016-08-21 10:56 | ECHOF ---
Referral Reason:Syncope MEASUREMENTS -------- HEIGHT: 180.3 cm WEIGHT: 106.1 kg BP: 131/54 IVSd: 1.5 cm (0.6 - 1.1) LVIDd: 4.7 cm (3.9 - 5.3) LVPWd: 1.5 cm (0.6 - 1.1) IVSs: 1.7 cm LVIDs: 2.2 cm LVPWs: 2.1 cm LAESV Index (A-L): 29.33 ml/m Ao Diam: 3.4 cm (2.0 - 3.7) AV Cusp: 1.5 cm (1.5 - 2.6) LA Diam: 4.9 cm (2.7 - 3.8) MV EXCURSION: 16.074 mm (> 18.000) MV EF SLOPE: 76 mm/s (70 - 150) EPSS: 0.2 cm MV E Jerry: 0.82 m/s MV DecT: 231 ms MV A Jerry: 0.91 m/s MV E/A Ratio: 0.90 AV maxP.09 mmHg AV meanP.19 mmHg RAP: 5.00 mmHg RVSP: 28.35 mmHg FINDINGS -------- Sinus rhythm. This was a technically good study. The left ventricular size is normal. There is moderate concentric left ventricular hypertrophy. Overall left ventricular systolic function is normal with, an EF between 55 - 60 %. The right ventricle is normal in size and function. LA is midly dilated 29-33ml/m2. The right atrium is normal in size. There is mild aortic valve sclerosis. There is mild aortic stenosis present. Peak/mean gradient across the Aortic Valve is 20.09mmHg / 8.19mmHg. Mild mitral annular calcification present. Mild mitral regurgitation is present. Mild tricuspid regurgitation present. The right ventricular systolic pressure, as measured by Doppler, is 28.35mmHg. Trace/mild (physiologic) pulmonic regurgitation. The aortic root size is normal. There is no pericardial effusion. CONCLUSIONS -------- 1. Sinus rhythm. 2. Mild mitral regurgitation is present. 3. Mild tricuspid regurgitation present. 4. The right ventricular systolic pressure, as measured by Doppler, is 28.35mmHg. 5. Trace/mild (physiologic) pulmonic regurgitation. 6. The aortic root size is normal. 7. There is no pericardial effusion. 8. This was a technically good study. 9. There is moderate concentric left ventricular hypertrophy. 10. Overall left ventricular systolic function is normal with, an EF between 55 - 60 %. 11. LA is midly dilated 29-33ml/m2. 12. There is mild aortic valve sclerosis. 13. There is mild aortic stenosis present. 14. Peak/mean gradient across the Aortic Valve is 20.09mmHg / 8.19mmHg. 15. Mild mitral annular calcification present. BALING MACHINE TENDER: Elena Moncada RDCS
--- NOTE | 2016-08-21 11:04 | P.CNPUL ---
History of Present Illness Consult date: 08/21/16 Requesting physician: Feroz Molina Reason for consult: dyspnea Chief complaint: Syncopal episode History of present illness: This is a very pleasant 81-year-old gentleman who follows with Dr. Martinez as his primary care physician. He has a history of coronary artery disease with recent stent placement to the RCA in March 2016, hypertension, hyperlipidemia , DVT, gastroesophageal reflux disease, nephrolithiasis with previous lithotripsy 4, osteoarthritis. He also has a history of chronic obstructive pulmonary disease and follows in our office with Dr. Villa. He has not had any recent episodes of COPD exacerbations. Unfortunately, the patient recently lost his Carlos to multiple myeloma. Yesterday he was sitting with his [id number]-[id number] looking at pictures for the service when he broke out in a sweat, became quite diaphoretic and passed out. He doesn't recall passing out. This was witnessed by his [id number]-ck-src who called EMS. The patient did awaken and needed to have a bowel movement and there was noted blood in the stool. He had a bloody bowel movement in the emergency room and another one while here on the selective care unit last evening. He had undergone a colonoscopy with polypectomy 2 approximately a year to year and half ago with Dr. Moody. No episodes of GI bleeding since that time. He is maintained on Plavix and aspirin due to the recent stenting. He is seen today in consultation. He is awake and alert in no acute distress. His chest x-ray did not reveal any evidence of an acute cardiopulmonary process. He is maintaining good O2 saturations in the upper 90s on 2 L/m per nasal cannula. His hemoglobin is remaining stable currently at 11.8 with a presenting hemoglobin of 12.1. GI services has seen the patient and are planning observation with a repeat CBC at noon today. Clear liquid diet was ordered. No plans for endoscopy. His troponins are negative 2. He denies any chest pain, palpitations, lightheadedness or dizziness. He has been hemodynamically stable. Review of Systems 14 point review of system was conducted. All negative other than as mentioned in the HPI. Past Medical History Past Medical History: Coronary Artery Disease (CAD), COPD, Deep Vein Thrombosis (DVT), GERD/Reflux, Hyperlipidemia, Hypertension, Osteoarthritis (OA) Additional Past Medical History / Comment(s): Nephrolithiasis, stenting to the RCA in March 2016 History of Any Multi-Drug Resistant Organisms: None Reported Past Surgical History: Appendectomy, Hernia Repair Additional Past Surgical History / Comment(s): lithotripsy x 4, 03-17-16 HEART CATH W/ STENT TO RCA Past Anesthesia/Blood Transfusion Reactions: Motion Sickness Additional Past Anesthesia/Blood Transfusion Reaction / Comment(s): HAD MOTION SICKNESS WHEN YOUNGER. Past Psychological History: No Psychological Hx Reported Smoking Status: Former smoker Past Alcohol Use History: None Reported Additional Past Alcohol Use History / Comment(s): quit smoking 40 yrs ago, smoked for 30 yrs- 1-2 PPD Past Drug Use History: None Reported - Past Family History Mother Family Medical History: Cancer, Diabetes Mellitus Father Family Medical History: Myocardial Infarction ([place]) Additional Family Medical History / Comment(s): PT STATED HIS FATHER HAD 14 NC' S AND AT THE AGE OF 58 Medications and Allergies Home Medications Medication Instructions Recorded Confirmed Type Atenolol [Tenormin] 50 mg PO DAILY 03/13/16 08/20/16 History Cholecalciferol [Vitamin D3] 2,000 unit PO DAILY 03/13/16 08/20/16 History Gluc/Javier-MSM#1/C/Zach/[place]/Bor 1 tab PO DAILY 03/13/16 08/20/16 History [Glucosamine-Chondroitin Tablet] Multivitamins, Thera [Multivitamin 1 tab PO DAILY 03/13/16 08/20/16 History (formulary)] Malcom-3 Fatty Acids/Fish Oil [Fish 1 cap PO DAILY 03/13/16 08/20/16 History Oil 1,000 mg Softgel] Omeprazole [PriLOSEC] 20 mg PO BID 03/13/16 08/20/16 History Ubidecarenone [Co Q-10] 100 mg PO DAILY 03/13/16 08/20/16 History Vitamin E (Dl,Tocopheryl Acet) 400 unit PO DAILY 03/13/16 08/20/16 History [Vitamin E] Albuterol Nebulized [Ventolin 2.5 mg INHALATION RT-TID PRN 08/20/16 08/20/16 History Nebulized] Atorvastatin [Lipitor] 80 mg PO HS 08/20/16 08/20/16 History Isosorbide Mononitrate ER [Imdur] 30 mg PO DAILY 08/20/16 08/20/16 History Allergies Allergy/AdvReac Type Severity Reaction Status Date / Time latex Allergy Rash/Hives Verified 08/20/16 16:45 venom-honey bee Allergy passed out Verified 08/20/16 16:45 [bee venom (honey bee)] venom-wasp [wasp venom] Allergy passed out Verified 08/20/16 16:45 Physical Exam Vitals: Vital Signs Temp Pulse Pulse Resp BP BP BP 08/21/16 09:41 70 08/21/16 09:33 70 08/21/16 09:24 70 08/21/16 06:16 134/55 157/69 08/21/16 04:00 97.9 F 58 L 20 08/21/16 00:00 97.5 F L 53 L 22 08/20/16 23:00 54 L 18 08/20/16 22:22 97.3 F L 63 20 08/20/16 19:36 98.0 F 61 18 117/57 08/20/16 18:59 60 18 144/65 BP BP Pulse Ox 08/21/16 09:41 08/21/16 09:33 08/21/16 09:24 98 08/21/16 06:16 131/54 08/21/16 04:00 124/57 98 08/21/16 00:00 119/56 98 08/20/16 23:00 161/74 100 08/20/16 22:22 161/72 99 08/20/16 19:36 98 08/20/16 18:59 100 Intake and Output 08/20/16 08/21/16 08/21/16 22:59 06:59 14:59 Intake Total 600 Output Total 400 401 Balance -400 199 Intake: IV 600 Sodium Chloride 0.9% 1, 600 000 ml @ 50 mls/hr IV . Q20H ONE Rx#:[id number] Output: Urine 400 400 Stool 1 Other: Voiding Method Toilet Bedside Commode # Voids 1 # Bowel Movements 1 Weight 108.1 kg 106.5 kg GENERAL EXAM: Alert, comfortable in no apparent distress. HEAD: Normocephalic. EYES: Normal reaction of pupils, equal size. NOSE: Clear with pink turbinates. THROAT: No erythema or exudates. NECK: No masses, no JVD. CHEST: No chest wall deformity. LUNGS: Equal air entry with no crackles, wheeze, rhonchi or dullness. CVS: S1 and S2 normal with no audible murmurs, regular rhythm. ABDOMEN: No hepatosplenomegaly, normal bowel sounds, no guarding or rigidity. SPINE: No scoliosis or deformity SKIN: No rashes CENTRAL NERVOUS SYSTEM: No focal deficits, tone is normal in all 4 extremities. Extremities: There is no significant peripheral edema. No clubbing, no cyanosis. Peripheral pulses are intact. Results - Laboratory Findings CBC and BMP: 08/21/16 06:49 08/20/16 16:20 PT/INR, D-dimer PT 11.7 sec (9.0-12.0) 08/20/16 16:20 INR 1.2 (<1.1) 08/20/16 16:20 Abnormal lab findings: Abnormal Labs 08/20/16 08/20/16 08/21/16 22:18 23:13 03:28 RBC 4.05 L Hgb 12.1 L Hct 37.2 L CK-MB (CK-2) 3.4 H* 3.2 H* HDL Cholesterol 08/21/16 08/21/16 08/21/16 03:28 03:28 06:49 RBC 3.80 L 3.93 L Hgb 11.4 L 11.8 L Hct 35.3 L 36.9 L CK-MB (CK-2) HDL Cholesterol 32 L - Diagnostic Findings Chest x-ray: image reviewed Assessment and Plan Plan: Impression: #1 Syncopal episode of unclear etiology, possible vasovagal in nature as the patient did have a bowel movement following the episode, also suspect secondary to anemia as there was burgundy stool. #2 Gastrointestinal bleeding with burgundy stool 3. #3 Mild anemia secondary to above current hemoglobin 11.8. #4 Coronary artery disease with stenting to the RCA in March 2016. Maintained on aspirin and Plavix. #5 Chronic obstructive pulmonary disease, currently inactive and stable. #6 Hypertension. #8 Hyperlipidemia. #9 History of DVT. #10 Gastroesophageal reflux disease. #11 Osteoarthritis. #12 Remote history of 30 years at 1-2 packs per day smoking however quit 40 years ago. #13 Anxiety secondary to the recent loss of his of 52 years and the need to get to her . Plan: The patient was seen and evaluated by Dr. Cervantes. His chest x-ray and labs were reviewed. The patient is stable from the pulmonary standpoint. GI and cardiology services are on the case as well. The patient is hoping to be discharged in time to attend the services today and attend the tomorrow but is aware of the continued risk of gastrointestinal bleeding and the need for further evaluation of his syncopal episode. If not home today we' ll continue to follow make further recommendations based on his clinical status.
--- NOTE | 2016-08-21 11:35 | CONS ---
DATE OF CONSULTATION: CLINICAL INFORMATION: Patient admitted to the hospital following a syncopal spell, which happened on the day his . The patient had no abdominal pain. Patient felt weak and had loose motions and had a syncopal spell without any injuries. Patient did not complain of any chest pain or shortness of breath. Patient is known to have long-standing history of atherosclerotic heart disease. The patient is a former smoker; quit smoking 40 years ago. Patient had a stenting of the right coronary done in March of last year without any anginal symptoms. Patient also had a colonoscopy done by Dr. Moody last year. A couple of years ago had 2 polyps removed. Patient did have a positive stools for occult blood test when he came in. Hemoglobins have been stable, 12.4 on admission. Today's hemoglobin is 11.8, which may be dilutional. Patient's has visitations today at 1 to 5. Cardiology-house cardiac enzymes have been normal and no chest pain or pressure. EKGs are unremarkable. In view of troponins being normal, no chest pain, he may be able to go for visitation and common back and have a colonoscopy done before going home, discharged from the hospital, possibly a stress test could be done in the next couple of weeks for followup, which has been scheduled already. Patient follows with my associate, Dr. Cosby. Patient's medications prior to admission include atenolol 50 mg p.o. daily, cholecalciferol 2000 units daily, omega-3 fatty acids 1000 mg p.o. daily, omeprazole 20 mg p.o. daily; Co Q-10, 100 mg p.o. daily; vitamin E 400 units daily, albuterol Ventolin inhaler, isosorbide mononitrate 30 mg, ( ) 40 mg p.o. daily. Patient's aspirin and Plavix on hold. Lisinopril is on hold. Sublingual nitroglycerin as needed. ALLERGIES: Allergic to LATEX, WASP BITES and HONEY BEE.. Review of systems are essentially unremarkable other than what is stated in the presenting illness. Patient quit smoking a long time ago. No history of any alcohol abuse. Patient might have smoked for 30 years prior to quitting smoking 40 years ago. History of nephrolithiasis. History of lithotripsy. History of motion sickness. History of polyp removal as mentioned above. Physical examination revealed well-developed, well-nourished 81-year-old gentleman, not in acute distress, oriented x3. Pulse rate of 53 beats per minute and regular, blood pressure of 119/56 with respirations 20. HEAD: Normocephalic. HEENT: Unremarkable. Patient is also a NO CODE but that could be suspended if needed. Conservative medical therapy recommended. Neck is supple. No JVD. CARDIAC EXAMINATION: Regular rate and rhythm. S1 and S2. Lungs are clinically clear to auscultation and percussion. ABDOMEN: Soft, no organomegaly. Active bowel sounds. No tenderness in the abdomen. EXTREMITIES: Decreased pedal pulses. No pedal edema. MAINTENANCE OPERATOR EXAMINATION: Grossly within normal limits. EKG is normal without any acute ischemic changes. Normal sinus rhythm. Troponin x3 are negative. Hemoglobin no major change from 12.4 on admission to 11. 8 now, which may be dilutional. Positive occult blood test, GI bleed. ASSESSMENT: 1. Syncope, most likely related to gastrointestinal bleed. 2. Atherosclerotic heart disease with stable angina. 3. Hyperlipidemia. 4. History of nephrolithiasis in the past. RECOMMENDATIONS: Cardiology-house the patient does not require any cardiac workup at this time and patient possibly needs coloscopy before he gets discharged from the hospital. Will have Dr. Moody see him for colonoscopy because of the positive occult blood, but patient definitely can go and do his 's visitation from 1 to 5 today then come back to the hospital to complete colonoscopy before he is discharged. Stress test can be done as an outpatient in the cardiology office with Dr. Cosby. Thanks again for this kind referral.
[2016-08-21 12:30] LABS: Basophils % (A) 1 %; CH 30.3; CHCM 33.4; Eosinophils # (A) 0.1 k/uL (0-0.7); Eosinophils % (A) 2 %; HDW 2.59; HGB 12.3 gm/dL (13.0-17.5); Luc # (Auto) 0.25; Luc % (Auto) 4; Lymphocytes # (A) 0.9 k/uL (1.0-4.8); Lymphocytes % (A) 13 %; MCH 31.1 pg (25.0-35.0); MCHC 34.2 g/dL (31.0-37.0); MCV 91.2 fL (80.0-100.0); Mean Platelet Volume 8.7; Monocytes # (A) 0.4 k/uL (0-1.0); Monocytes % (A) 6 %; Neutrophils # (A) 5.1 k/uL (1.3-7.7); Neutrophils % (A) 75 %; RBC 3.95 m/uL (4.30-5.90); RDW 13.7 % (11.5-15.5); WBC 6.8 k/uL (3.8-10.6); WBC (Perox) 6.54
[2016-08-21 17:18] VITALS: RESP 16
[2016-08-21 17:23] VITALS: BP 132/63; PULSE 60; TEMP 98
--- NOTE | 2016-08-21 20:17 | PN ---
DATE OF SERVICE: 08/21/2016 This 81-year-old gentleman who was admitted with acute lower gastrointestinal bleeding with acute blood loss anemia also had syncope. The patient creatinine with acute renal failure, possible prerenal with dehydration. The patient is being closely monitored. No chest pain. No palpitations. Some bleeding was noted. Hemoglobin is 12.3 at this time. On exam, alert and oriented x3. Pulse is 70. Blood pressure 130/58, respirations 20, temperature 97.4, pulse ox 98% on 2 L. HEENT: Conjunctivae normal. NECK: No jugular venous distention. CARDIOVASCULAR: S1, S2 muffled. RESPIRATORY: Breath sounds diminished at the bases. A few rhonchi. No crackles. ABDOMEN: Soft, obese, nontender. LEGS: No edema. No swelling. CENTRAL NERVOUS SYSTEM: No focal deficits. LABS: WBC 6.3, hemoglobin is 10.3. ASSESSMENT: 1. Acute lower gastrointestinal bleeding with acute blood loss anemia for evaluation. 2. Syncope secondary to acute gastrointestinal bleed. 3. Increased creatinine with mild acute renal failure, possible prerenal with dehydration. 4. Shortness of breath, possible chronic obstructive pulmonary disease, acute exacerbation. 5. Increased creatinine kinase. 6. History of coronary artery disease and stent. 7. History of chronic obstructive pulmonary disease. 8. History of deep venous thrombosis. 9. History of gastroesophageal reflux disease. 10. Hypertension. 11. Hyperlipidemia. 12. History of nephrolithiasis. 13. History of hernia repair. 14. History of remote history of nicotine dependence. 15. Obesity body mass index 31.4. 16. FULL CODE. RECOMMENDATIONS AND DISCUSSION: Recommend to continue current medications. Continue with monitoring. Symptomatic treatment. Continue with monitoring hemoglobin. Closely follow with gastroenterology. The patient's recently. The patient would like to attend the . manager sql to coordinate. Further recommendations to follow. Further recommendations to follow. MTDD
--- NOTE | 2016-08-22 14:17 | DS ---
DATE OF ADMISSION: 08/20/2016 DATE OF DISCHARGE: 08/21/2016 FINAL DIAGNOSIS(ES): 1. Acute lower gastrointestinal bleed, with acute blood loss anemia. 2. Syncope secondary to gastrointestinal bleed. 3. Increased creatinine with acute renal failure, possibly prerenal with dehydration. 4. Shortness of breath, possible chronic obstructive pulmonary disease acute exacerbation. 5. Increased creatinine kinase. 6. Coronary artery disease with stent. 7. Chronic obstructive pulmonary disease. 8. History of deep venous thrombosis. 9. History of gastroesophageal reflux disease. 10. Hypertension. 11. Hyperlipidemia. 12. History of nephrolithiasis. 13. History of hernia repair. 14. Remote history of nicotine dependence. 15. Obesity, body mass index 31.4. 16. FULL CODE. DISCHARGE DISPOSITION: The patient left the Hospital AGAINST MEDICAL ADVICE. HISTORY OF PRESENT ILLNESS: This 81 -year-old gentleman with past medical history of multiple medical problems was being followed by Dr. Martinez in the outpatient setting admitted to the hospital with syncope and gastrointestinal bleed. The patient left the Hospital against medical advice to attend the patient's 's . Please refer to the chart for further details. Prognosis remains guarded.
== END 2016-08-21 17:26 | disposition left against medical advice (07) | DRG 378 ==
LOC: EC 15:42 → 6SEL 18:53
PROVIDERS: ADMIT Hospitalist; ATTEND Hospitalist
DX: K92.2 Gastrointestinal hemorrhage, unspecified (principal); N17.9 Acute kidney failure, unspecified; E86.0 Dehydration; J44.9 Chronic obstructive pulmonary disease, unspecified; D62 Acute posthemorrhagic anemia; F06.4 Anxiety disorder due to known physiological condition; I10 Essential (primary) hypertension; K21.9 Gastro-esophageal reflux disease without esophagitis; I25.10 Atherosclerotic heart disease of native coronary artery without angina pectoris; R55 Syncope and collapse; M19.90 Unspecified osteoarthritis, unspecified site; E78.5 Hyperlipidemia, unspecified; H54.7 Unspecified visual loss; H91.90 Unspecified hearing loss, unspecified ear; R53.1 Weakness; E66.9 Obesity, unspecified; Z68.31 Body mass index [BMI] 31.0-31.9, adult; Z87.442 Personal history of urinary calculi; Z86.718 Personal history of other venous thrombosis and embolism; Z87.891 Personal history of nicotine dependence; Z95.5 Presence of coronary angioplasty implant and graft; Z90.49 Acquired absence of other specified parts of digestive tract; Z83.3 Family history of diabetes mellitus; Z79.899 Other long term (current) drug therapy; Z79.82 Long term (current) use of aspirin; Z79.02 Long term (current) use of antithrombotics/antiplatelets; Z82.49 Family history of ischemic heart disease and other diseases of the circulatory system; Z53.21 Procedure and treatment not carried out due to patient leaving prior to being seen by health care provider; Z91.030 Bee allergy status; Z91.040 Latex allergy status; Z80.9 Family history of malignant neoplasm, unspecified; Z86.010 Personal history of colon polyps; Z88.1 Allergy status to other antibiotic agents; Z63.4 Disappearance and death of family member
CPT/HCPCS: 36415; 71020; 80053; 80061; 81003; 82272; 82550; 82553; 83735; 84484; 85025; 85610; 85730; 93005; 93306; 94640; 96361; 96374; 99291

== ENCOUNTER 2016-08-22 15:24 | Inpatient (IN) | payer MEDICARE, BC ==
[2016-08-22] MEDS ORDERED: ONDANSETRON 4 MG/2 ML VIAL IVP STA (16:00)
[2016-08-22] MEDS ORDERED: SODIUM CHLORIDE 0.9% 1,000 ML IV STA (16:00)
[2016-08-22] MEDS ORDERED: PANTOPRAZOLE 40 MG/10 ML VIAL IVP STA (16:00)
[2016-08-22 16:19] LABS: Basophils # (A) 0.1 k/uL (0-0.2); Basophils % (A) 1 %; CH 29.8; CHCM 33.1; Eosinophils # (A) 0.1 k/uL (0-0.7); Eosinophils % (A) 1 %; HCT 37.2 % (39.0-53.0); HDW 2.59; HGB 12.4 gm/dL (13.0-17.5); Luc % (Auto) 3; Lymphocytes # (A) 0.9 k/uL (1.0-4.8); Lymphocytes % (A) 14 %; MCH 30.2 pg (25.0-35.0); MCHC 33.4 g/dL (31.0-37.0); MCV 90.5 fL (80.0-100.0); Mean Platelet Volume 7.6; Monocytes # (A) 0.4 k/uL (0-1.0); Monocytes % (A) 6 %; Neutrophils # (A) 4.8 k/uL (1.3-7.7); Neutrophils % (A) 75 %; RBC 4.11 m/uL (4.30-5.90); RDW 13.8 % (11.5-15.5); WBC 6.4 k/uL (3.8-10.6); WBC (Perox) 6.71
[2016-08-22 16:28] LABS: ALT 27 U/L (21-72); AST 24 U/L (17-59); Alkaline Phosphatase 57 U/L (38-126); Anion Gap 13 mmol/L; Blood Urea Nitrogen 18 mg/dL (9-20); Calcium 9.5 mg/dL (8.4-10.2); Carbon Dioxide 23 mmol/L (22-30); Chloride 107 mmol/L (98-107); Glucose 117 mg/dL (74-99); INR 1.1 (<1.1); Magnesium 1.9 mg/dL (1.6-2.3); Non-African American GFR(MDRD) >60 (>60 ml/min/1.73 sqM); Partial Thromboplastin Time 23.3 sec (22.0-30.0); Potassium 4.5 mmol/L (3.5-5.1); Prothrombin Time 11.3 sec (9.0-12.0); Sodium 143 mmol/L (137-145); Total Bilirubin 0.4 mg/dL (0.2-1.3); Total Protein 6.8 g/dL (6.3-8.2)
--- NOTE | 2016-08-22 16:35 | ED ---
General Adult HPI - General Chief complaint: GI Bleed Stated complaint: Blood in stool Time Seen by Provider: 08/22/16 16:00 Source: patient, family, RN notes reviewed, old records reviewed Mode of arrival: wheelchair Limitations: no limitations - History of Present Illness Initial comments: This is an 79-year-old male here for evaluation of GI bleed. Patient has no history of GI bleed. No recent history of colonoscopy. Patient is not on blood thinners. Patient recently came to the hospital for evaluation of weakness, positive GI bleed and recent or new onset of anemia. Patient is not having bowel movement disease been with no appetite but is not having any bloody stools. Patient denies any abdominal pain. Patient states when he is in the hospital he had to leave secondary to his 's . He relates to be admitted to further evaluate the cause of his GI bleed - Related Data Home Medications Medication Instructions Recorded Confirmed Atenolol [Tenormin] 50 mg PO DAILY 03/13/16 08/22/16 Cholecalciferol [Vitamin D3] 2,000 unit PO DAILY 03/13/16 08/22/16 Gluc/Javier-MSM#1/C/Zach/[place]/Bor 1 tab PO DAILY 03/13/16 08/22/16 [Glucosamine-Chondroitin Tablet] Multivitamins, Thera [Multivitamin 1 tab PO DAILY 03/13/16 08/22/16 (formulary)] Malone-3 Fatty Acids/Fish Oil [Fish 1 cap PO DAILY 03/13/16 08/22/16 Oil 1,000 mg Softgel] Omeprazole [PriLOSEC] 20 mg PO BID 03/13/16 08/22/16 Ubidecarenone [Co Q-10] 100 mg PO DAILY 03/13/16 08/22/16 Vitamin E (Dl,Tocopheryl Acet) 400 unit PO DAILY 03/13/16 08/22/16 [Vitamin E] Albuterol Nebulized [Ventolin 2.5 mg INHALATION RT-TID PRN 08/20/16 08/22/16 Nebulized] Atorvastatin [Lipitor] 80 mg PO HS 08/20/16 08/22/16 Isosorbide Mononitrate ER [Imdur] 30 mg PO DAILY 08/20/16 08/22/16 Previous Rx's Medication Instructions Recorded Lisinopril [Zestril] 20 mg PO DAILY #30 tab 03/18/16 Nitroglycerin Sl Tabs [Nitrostat] 0.4 mg SUBLINGUAL Q5M PRN #25 tab 03/18/16 Allergies Allergy/AdvReac Type Severity Reaction Status Date / Time latex Allergy Rash/Hives Verified 08/22/16 15:54 venom-honey bee Allergy passed out Verified 08/22/16 15:54 [bee venom (honey bee)] venom-wasp [wasp venom] Allergy passed out Verified 08/22/16 15:54 Review of Systems ROS Statement: Those systems with pertinent positive or pertinent negative responses have been documented in the HPI. ROS Other: All systems not noted in ROS Statement are negative. Past Medical History Past Medical History: Coronary Artery Disease (CAD), COPD, Deep Vein Thrombosis (DVT), GERD/Reflux, Hyperlipidemia, Hypertension, Osteoarthritis (OA) Additional Past Medical History / Comment(s): Nephrolithiasis, stenting to the RCA in March 2016 History of Any Multi-Drug Resistant Organisms: None Reported Past Surgical History: Appendectomy, Hernia Repair Additional Past Surgical History / Comment(s): lithotripsy x 4, 03-17-16 HEART CATH W/ STENT TO RCA Past Anesthesia/Blood Transfusion Reactions: Motion Sickness Additional Past Anesthesia/Blood Transfusion Reaction / Comment(s): HAD MOTION SICKNESS WHEN YOUNGER. Past Psychological History: No Psychological Hx Reported Smoking Status: Former smoker Past Alcohol Use History: None Reported Additional Past Alcohol Use History / Comment(s): quit smoking 40 yrs ago, smoked for 30 yrs- 1-2 PPD Past Drug Use History: None Reported - Past Family History Mother Family Medical History: Cancer, Diabetes Mellitus Father Family Medical History: Myocardial Infarction (MD) Additional Family Medical History / Comment(s): PT STATED HIS FATHER HAD 14 MD' S AND AT THE AGE OF 58 General Exam Limitations: no limitations General appearance: alert, in no apparent distress Head exam: Present: atraumatic, normocephalic, normal inspection Eye exam: Present: normal appearance, PERRL, EOMI. Absent: scleral icterus, conjunctival injection, periorbital swelling ENT exam: Present: normal exam, mucous membranes moist Neck exam: Present: normal inspection. Absent: tenderness, meningismus, lymphadenopathy Respiratory exam: Present: normal lung sounds bilaterally. Absent: respiratory distress, wheezes, rales, rhonchi, stridor Cardiovascular Exam: Present: regular rate, normal rhythm, normal heart sounds. Absent: systolic murmur, diastolic murmur, rubs, gallop, clicks GI/Abdominal exam: Present: soft, normal bowel sounds. Absent: distended, tenderness, guarding, rebound, rigid Extremities exam: Present: normal inspection, full ROM, normal capillary refill. Absent: tenderness, pedal edema, joint swelling, calf tenderness Back exam: Present: normal inspection Neurological exam: Present: alert, oriented X3, CN II-XII intact Psychiatric exam: Present: normal affect, normal mood Skin exam: Present: warm, dry, intact, normal color. Absent: rash Course Vital Signs 08/22/16 15:34 Temperature 97.6 F Pulse Rate 71 Respiratory 16 Rate Blood Pressure 175/79 O2 Sat by Pulse 95 Oximetry EKG Findings - EKG Comments: EKG Findings:: EKG shows normal sinus rhythm at 66, WV 170, QRS 88, QTC 421 Medical Decision Making - Medical Decision Making 81 LDF for evaluation of positive GI bleed, recent hospital admission for GI bleed although he had to leave for 's , they she'll be readmitted to be seen by GI for further evaluation and continued management of GI bleed, patient again not on blood thinners - Lab Data Result diagrams: 08/22/16 15:45 08/22/16 15:45 Lab Results 08/22/16 08/22/16 08/22/16 Range/Units 15:45 15:45 15:45 WBC 6.4 (3.8-10.6) k/uL RBC 4.11 L (4.30-5.90) m/uL Hgb 12.4 L (13.0-17.5) gm/dL Hct 37.2 L (39.0-53.0) % MCV 90.5 (80.0-100.0) fL MCH 30.2 (25.0-35.0) pg MCHC 33.4 (31.0-37.0) g/dL RDW 13.8 (11.5-15.5) % Plt Count 248 (150-450) k/uL Neutrophils % 75 % Lymphocytes % 14 % Monocytes % 6 % Eosinophils % 1 % Basophils % 1 % Neutrophils # 4.8 (1.3-7.7) k/uL Lymphocytes # 0.9 L (1.0-4.8) k/uL Monocytes # 0.4 (0-1.0) k/uL Eosinophils # 0.1 (0-0.7) k/uL Basophils # 0.1 (0-0.2) k/uL PT 11.3 (9.0-12.0) sec INR 1.1 (<1.1) APTT 23.3 (22.0-30.0) sec Sodium 143 (137-145) mmol/L Potassium 4.5 (3.5-5.1) mmol/L Chloride 107 (98-107) mmol/L Carbon Dioxide 23 (22-30) mmol/L Anion Gap 13 mmol/L BUN 18 (9-20) mg/dL Creatinine 0.89 (0.66-1.25) mg/dL Est GFR (MDRD) Af Amer >60 (>60 ml/min/1.73 sqM) Est GFR (MDRD) Non-Af >60 (>60 ml/min/1.73 sqM) Glucose 117 H (74-99) mg/dL Calcium 9.5 (8.4-10.2) mg/dL Magnesium 1.9 (1.6-2.3) mg/dL Total Bilirubin 0.4 (0.2-1.3) mg/dL AST 24 (17-59) U/L ALT 27 (21-72) U/L Alkaline Phosphatase 57 (38-126) U/L Total Protein 6.8 (6.3-8.2) g/dL Albumin 4.0 (3.5-5.0) g/dL Lipase 126 (23-300) U/L Disposition Clinical Impression: GI bleed, Acute blood loss anemia Disposition: ADMITTED IP TO THIS HOSP Condition: Fair Referrals: Lisha Martinez MD [Primary Care Provider] - 1-2 days
[2016-08-22 16:42] LABS: Creatine Kinase 116 U/L (55-170)
[2016-08-22 16:55] LABS: Troponin I <0.012 ng/mL (0.000-0.034)
[2016-08-22 16:57] LABS: Creatine Kinase MB 3.4 ng/mL (0.0-2.4)
[2016-08-22] MEDS ORDERED: NITROGLYCERIN SL TABS 0.4 MG TAB SUBLINGUAL PRN (18:49)
[2016-08-22] MEDS ORDERED: TEMAZEPAM 15 MG CAP PO PRN (18:50)
[2016-08-22 20:23] LABS: Appearance,Urine Clear (Clear); Bilirubin,Urine Negative (Negative); Glucose,Urine (UA) Negative (Negative); Ketones,Urine Negative (Negative); Leukocyte Esterase,Urine Negative (Negative); Nitrite,Urine Negative (Negative); PH, Urine 5.5 (5.0-8.0); Protein,Urine Negative (Negative); Specific Gravity,Urine 1.005 (1.001-1.035); UA Billing (MACRO vs. MICRO) CHEM; Urobilinogen,Urine <2.0 mg/dL (<2.0)
[2016-08-22] MEDS: SODIUM CHLORIDE 0.9% 1,000 ML IV SCH (21:26)
[2016-08-22] MEDS: ATORVASTATIN 80 MG TAB PO SCH (21:26)
[2016-08-22] MEDS: ISOSORBIDE MONONITRATE ER 30 MG TAB.ER.24H PO SCH (21:26)
[2016-08-22] MEDS: ATENOLOL 50 MG TAB PO SCH (21:26)
[2016-08-22] MEDS: LISINOPRIL 20 MG TAB PO SCH (21:26)
[2016-08-22] MEDS: PANTOPRAZOLE 40 MG/10 ML VIAL IVP SCH (21:27)
[2016-08-22] MEDS: LEVALBUTEROL NEB (CONC) 1.25 MG/0.5 ML AMP INHALATION SCH (21:43)
[2016-08-22] MEDS: IPRATROPIUM 0.5 MG/2.5 ML NEBU INHALATION SCH (21:43)
[2016-08-22] MEDS: SYMBICORT 160-4.5 MCG INHALER INHALATION SCH (21:44)
[2016-08-23 07:40] LABS: Basophils % (A) 0 %; CH 29.6; CHCM 32.1; Eosinophils # (A) 0.1 k/uL (0-0.7); Eosinophils % (A) 2 %; HCT 33.6 % (39.0-53.0); HGB 10.8 gm/dL (13.0-17.5); Luc # (Auto) 0.15; Luc % (Auto) 3; Lymphocytes # (A) 0.9 k/uL (1.0-4.8); Lymphocytes % (A) 20 %; MCH 29.9 pg (25.0-35.0); MCHC 32.2 g/dL (31.0-37.0); MCV 92.7 fL (80.0-100.0); Mean Platelet Volume 7.2; Monocytes # (A) 0.3 k/uL (0-1.0); Monocytes % (A) 7 %; Neutrophils % (A) 67 %; RBC 3.62 m/uL (4.30-5.90); WBC 4.5 k/uL (3.8-10.6); WBC (Perox) 4.85
[2016-08-23 08:01] LABS: Anion Gap 8 mmol/L; Blood Urea Nitrogen 15 mg/dL (9-20); Calcium 8.9 mg/dL (8.4-10.2); Carbon Dioxide 27 mmol/L (22-30); Chloride 110 mmol/L (98-107); Glucose 94 mg/dL (74-99); Non-African American GFR(MDRD) >60 (>60 ml/min/1.73 sqM); Potassium 4.1 mmol/L (3.5-5.1); Sodium 145 mmol/L (137-145)
--- NOTE | 2016-08-23 09:01 | HP ---
DATE OF ADMISSION: CHIEF COMPLAINT: Gastrointestinal bleed. HISTORY OF PRESENT ILLNESS: This 81-year-old gentleman with a past medical history of multiple medical problems including coronary artery disease, COPD, DVT, history of GERD, hypertension, hyperlipidemia, history of nephrolithiasis, stenting of the RCA, history of appendectomy, hernia repair, lithotripsy, being followed by Dr. Martinez in the outpatient setting was recently admitted with lower gastrointestinal bleeding to [facility]. The patient had acute blood loss anemia also. Apparently the patient left the hospital to attend the patient's 's and now the patient is coming back for further evaluation and treatment. There is no history of fever, rigors. No history of headache, loss of consciousness, seizures at this time. PAST MEDICAL HISTORY: History of CAD, history of COPD, DVT, GERD, hypertension, hyperlipidemia, DJD, history of nephrolithiasis, appendectomy, hernia repair. Medications prior to admission include: 1. Vitamin E 400 units daily. 2. Coenzyme Q 100 mg daily. 3. Prilosec 20 mg p.o. b.i.d. 4. Fish oil 1 p.o. daily. 5. Nitrostat 0.4 sublingual p.r.n. 6. Multivitamin 1 p.o. daily. 7. Zestril 20 mg p.o. daily. 8. Imdur 30 mg p.o. daily. 9. Glucosamine chondroitin 1 p.o. daily. 10. Vitamin D3 2000 daily. 11. Lipitor 80 mg q.6. 12. Tenormin 50 mg p.o. daily. 13. Ventolin 2.5 t.i.d. p.r.n. ALLERGIES: LATEX, BEE VENOM AND WASP VENOM. SOCIAL HISTORY: Remote history of smoking. No history of alcohol intake. REVIEW OF SYSTEMS: HEENT: Diminished hearing, diminished vision. CARDIOVASCULAR: No angina or palpitations. RESPIRATORY: No cough. GI: As mentioned earlier. : No dysuria. NERVOUS SYSTEM: No numbness or weakness. ALLERGY/IMMUNOLOGY: No asthma or hayfever. MUSCULOSKELETAL: As mentioned earlier. HEMATOLOGY/ONCOLOGY: No history of anemia. ENDOCRINE: No history of diabetes or hypothyroidism. CONSTITUTIONAL: As mentioned earlier. DERMATOLOGY: Negative. RHEUMATOLOGY: Negative. PSYCHIATRY: As mentioned earlier. PHYSICAL EXAMINATION: Alert and oriented x3. Pulse 67, blood pressure 172/76, respiratory rate 18, temperature 97.9, pulse ox 90% on room air. HEENT: Conjunctivae normal. Oral mucosa moist. NECK: No jugular venous distention. No carotid bruit. No lymph node enlargement. CARDIOVASCULAR: S1 and S2, muffled. No S3, no S4. RESPIRATORY: Breath sounds diminished at the bases. A few scattered rhonchi, no crackles. ABDOMEN: Soft, obese, nontender. No mass palpable. LEGS: No edema, no swelling. NERVOUS SYSTEM: Higher function as mentioned. Moves all four limbs. No focal motor deficits. LYMPHATIC: No lymphadenopathy in the neck, axillae or groin. SKIN: No ulcer, rash or bleeding. Labs are at this time WBC 6.2, hemoglobin is 12.4 and CK-MB 3.4. ASSESSMENT: 1. Acute lower gastrointestinal bleeding for evaluation, rule out colonic diverticulosis or polyps. 2. Acute blood loss anemia. 3. History of syncope secondary to gastrointestinal bleed. 4. Chronic obstructive pulmonary disease history. 5. History of coronary artery disease and stent. 6. History of deep venous thrombosis. 7. History of gastroesophageal reflux disease. 8. Hypertension. 9. Hyperlipidemia. 10. History of nephrolithiasis. 11. History of hernia repair. 12. Remote history of nicotine dependence. 13. Obesity with body mass index of 31. 14. FULL CODE. RECOMMENDATIONS AND DISCUSSION: In this 81-year-old gentleman who presented with multiple complex medical issues, we will monitor the patient closely. Continue the current medications. Continue symptomatic treatment. Continue proton pump inhibitors. I would recommend consultation with Dr. Moody. Continued monitoring. Otherwise, I would also recommend cardiology consultation as well. Resume the home medications. Hold off antiplatelet medications at this time. Remote tele. Guarded prognosis. Further recommendations to follow. Copy forwarded to Dr. Martinez who is the primary physician.
[2016-08-23] MEDS: ISOSORBIDE MONONITRATE ER 30 MG TAB.ER.24H PO SCH (09:07)
[2016-08-23] MEDS: LISINOPRIL 20 MG TAB PO SCH (09:07)
[2016-08-23] MEDS: ATENOLOL 50 MG TAB PO SCH (09:07)
[2016-08-23] MEDS: PANTOPRAZOLE 40 MG/10 ML VIAL IVP SCH ×2 (09:07→21:20)
[2016-08-23] MEDS: IPRATROPIUM 0.5 MG/2.5 ML NEBU INHALATION SCH ×4 (09:17→20:57)
[2016-08-23] MEDS: LEVALBUTEROL NEB (CONC) 1.25 MG/0.5 ML AMP INHALATION SCH ×4 (09:17→20:57)
[2016-08-23] MEDS: SYMBICORT 160-4.5 MCG INHALER INHALATION SCH ×2 (09:17→20:59)
--- NOTE | 2016-08-23 12:15 | CONS ---
DATE OF CONSULTATION: 08/23/2016 Requesting physician: Dr. Martinez. REASON FOR CONSULTATION: Acute GI bleed. HISTORY OF PRESENT ILLNESS: The patient is an 81-year-old pleasant, white male who was admitted to the hospital 2 weeks ago with acute lower gastrointestinal bleed. He had multiple episodes of bright red blood per rectum and had about 4 episodes. He passed out while he was at visitation for his 's . The patient was admitted to the hospital and he had a hemoglobin of 11.5 g/dL. The patient had to be discharged because of his 's on , however, after the was over, the patient decided to come back to the hospital. He was readmitted yesterday evening for further management. The patient did state that since he left the hospital, he did not have any bowel movements or further bleeding. He denies any abdominal pain. He reports no nausea or vomiting. No fever, chills, night sweats. He does not ever recall having these symptoms in the past. He did have a colonoscopy by Dr. Moody about 2 years ago and according to him it showed small polyps, but does not recall having any diverticulosis. PAST MEDICAL HISTORY: Significant for coronary artery disease, COPD, history of DVT in the past, hypertension, hyperlipidemia, degenerative joint disease. PAST SURGICAL HISTORY: Appendectomy, hernia repair, colonoscopy [address] Moody, report is not available. Medications at home include: 1. Vitamin E. 2. Coenzyme Q. 3. Prilosec. 4. Fish oil. 5. Nitrostat. 6. Multivitamin. 7. Zestril. 8. Imdur. 9. Glucosamine. 10. Vitamin D3. 11. Lipitor. 12. Tenormin. 13. Ventolin. ALLERGIES: LATEX. SOCIAL HISTORY: No smoking. No alcohol use. FAMILY HISTORY: Unremarkable. REVIEW OF SYSTEMS: CARDIOPULMONARY: No chest pain or shortness. GENITOURINARY: No dysuria or hematuria. MUSCULOSKELETAL: Unremarkable. SKIN: Unremarkable. ENDOCRINE: Unremarkable. PSYCHIATRIC: Unremarkable. NEUROLOGY: Unremarkable. ENT: Vision unremarkable. CONSTITUTIONAL: No recent weight loss. No fevers, chills or night sweats. Rheumatology unremarkable. HEMATOLOGY: Unremarkable. On physical examination, appears comfortable in no apparent distress. Vitals as are stable. Blood pressure is 132/63, pulse rate 50, temperature 97.2. HEENT: Unremarkable. Conjunctivae pink. Sclerae anicteric. Oral cavity, no lesions. NECK: No JVD or lymph node enlargement. CHEST: Clear to auscultation. HEART: Regular rate and rhythm. ABDOMEN: Soft. Bowel sounds are positive. No organomegaly. EXTREMITIES: No pedal edema. SKIN: No rashes. NEUROLOGICAL: Alert and oriented times three. No focal deficits. Labs from yesterday, hemoglobin 12.4, today it is 10.8, WBC 4.5, platelets normal. PT, INR is within normal limits. Basic metabolic panel is within normal limits. IMPRESSION: Acute lower gastrointestinal bleed, possibly diverticular in nature. Patient had episode of significant bleeding 3 days ago, but he was discharged from the hospital because of his 's and he was readmitted back yesterday. However, in the last 24 hours, he did not have any further episodes of bleeding. He denies any abdominal pain. He has been hemodynamically stable and hemoglobin is 10.8 g/dL. RECOMMENDATIONS: 1. Obtain a colonoscopy report done 2 years ago. 2. Start him on a clear liquid diet. 3. CBC every day. 4. At this time I would hold off on any endoscopic intervention since it appears most likely we are dealing with a diverticular bleed. The plan was discussed with the patient and he is agreeable to it. We will watch him closely for the next 24 hours and if he has no further bleeding, he will be discharged home tomorrow with outpatient follow-up. Thank you for this consultation.
[2016-08-23] MEDS: MULTIVITAMINS, THERA 1 EACH TAB PO SCH (12:19)
--- NOTE | 2016-08-23 12:20 | P.PN ---
Subjective Date of service 08/23/2016. Progress note being dictated for Dr. Clay. Interval history: This is an 81-year-old gentleman admitted with acute lower GI bleed, acute blood loss anemia in a patient with recent cardiac catheterization with stents in March 2016, and multiple other medical issues. Patient may was recently scheduled for stress test with [facility] on Thursday, but unable to attend, his had passed and attending to the arrangements/. No further bloody stools passed since this admission, but hemoglobin has decreased from 12.4 to 10.8, symptomatic. States upon standing to use urinal developed a headache, increased shortness of breath but without chest pain or palpitations. Denies chest pressure. Headache has subsided .Denies lightheadedness or dizziness, no blurred vision. States has been having exertional shortness prior to stent placement in the fall. Telemetry sinus bradycardia, heart rate in the mid 50s. Troponins negative 2. Objective - Vital Signs Vital signs: Vital Signs Temp 97.2 F L 08/23/16 07:00 Pulse 53 L 08/23/16 07:00 Resp 18 08/23/16 07:13 BP 132/63 08/23/16 07:00 Pulse Ox 96 08/23/16 07:00 Intake & Output 08/22/16 08/23/16 08/23/16 18:59 06:59 18:59 Intake Total 350 Balance 350 Intake: Intake, IV Titration 350 Amount Sodium Chloride 0.9% 1, 350 000 ml @ 50 mls/hr IV . Q20H [facility] Rx#:[id number] Other: Voiding Method Urinal Toilet Diaper Urinal # Voids 2 - Exam PHYSICAL EXAM: VITAL SIGNS: [As above] GENERAL: [Lying in bed, no acute distress] HEENT: [Pupils equal conjunctiva normal.] NECK: [Supple, no JVD] RESPIRATORY EFFORT:[Normal] LUNGS: [Clear with bilateral bases diminished, no wheezes rhonchi or crackles] CARDIOVASCULAR[regular S1 and S2,] GI: [Abdomen soft, nontender, positive bowel sounds.] PSYCH: [Alert and oriented -3, mood and affect normal.] NEURO: No focal deficits, moves all 4 extremities, strength and sensation grossly intact - Labs CBC & Chem 7: 08/23/16 07:12 08/23/16 07:12 Labs: Abnormal Lab Results - Last 24 Hours (Table) 08/23/16 08/23/16 Range/Units 07:12 07:12 RBC 3.62 L (4.30-5.90) m/uL Hgb 10.8 L (13.0-17.5) gm/dL Hct 33.6 L (39.0-53.0) % Lymphocytes # 0.9 L (1.0-4.8) k/uL Chloride 110 H (98-107) mmol/L Assessment and Plan Plan: 1. Acute lower GI bleed for evaluation, rule out colonic diverticulosis or polyps. 2. [Acute blood loss anemia, symptomatic]. 3. [History of syncope secondary to GI bleed]. 4. COPD, stable 5. [DVT history]. 6. Gastroesophageal reflux disease. 7. [Hypertension]. 8. Hyperlipidemia 9. History of nephrolithiasis 10. History of hernia repair 11. Remote history of nicotine dependence 12. Obesity, BMI 31 13. CAD with history of recent stents in March 2016 14. Grieving, 's was this week. Plan: Continue on current medication regime, PPI, monitoring and symptomatic treatment. Spiritual care consulted as patient's this week. Dr. Moody consult in place regarding workup for GI bleed with recommendations pending. Cardiology consult in place with recommendations pending. Repeat CBC at 1600. Maintain remote telemetry. Further recommendations to follow. The impression and plan of care has been dictated as directed. : I performed a H&P examination of this patient and discussed the same with the dictator. I agree with the dictator's note. Any additional findings/opinions/ etc. will be noted.
--- NOTE | 2016-08-23 15:08 | P.CON ---
Consult Note - . Consult date: 08/23/16 Assessment/Plan:: Thank you very much for asking me to see and alert. He is well-known to me. He's had colonoscopies by myself last one being about 2years ago that was unremarkable except for some mild diverticulosis and a benign polyp of the removed. He was admitted a few days ago with some acute lower GI bleed. He went home for his right saphenofemoral came back yesterday. Has not had any bleeding since his admission included today. In fact has not had any bowel movement the last few days. He had been on Plavix and aspirin regular basis but this was discontinued after his bleed. No past history of similar bleeding in the past. Past history social history family history well-documented on recent the admission and reviewed. System review as well was reviewed. On examination the patient is awake alert oriented in no distress. He is ambulating. The vitals are stable. Abdomen is soft and benign without mass or tenderness or organomegaly or hernias. Has surgical scar. Hemoglobin is 10.2 down from 12-2 days ago. However no active bleeding. Last at least 2-1/2 days now. Impression lower GI bleed in the face of Plavix and aspirin probably diverticular in nature now resolved. Recommendation :continued monitoring.If no bleeding in the next 24 hours may resume his Plavix.
--- NOTE | 2016-08-23 15:47 | CONS ---
DATE OF CONSULTATION: This patient's medical records reviewed. This patient was admitted with acute GI bleed and syncope. Patient subsequently left for his 's and came back. He has been feeling well. Denies any dizziness or lightheadedness. Denies any ongoing bleeding. Patient was seen by GI service and at present they are not planning to do any colonoscopy. Patient had small polyps removed about 2 years ago. This patient has a history of coronary artery disease with drug-eluting stent placed in March. Patient denies any history of angina or shortness of breath. Past medical history includes appendectomy, hernia repair, colonoscopy. Medications include Lipitor, Tenormin, Zestril, and Imdur. Physical examination at present reveals an 81-year-old gentleman who does not appear to be in any acute distress. Patient's blood pressure is 132/63 mmHg, heart rate is 60 per minute. Head/ENT examination is negative. Neck is supple. There is no increase in jugular venous pressure. Both the carotid pulses are felt. There is no bruit. Chest is symmetrical. HEART: The PMI is not felt. First and second heart sounds are normal. Lungs are clinically clear to auscultation and percussion. Abdomen is negative. EXTREMITIES: Peripheral pulsations are 2+. Patient's initial hemoglobin was 12.4. Hemoglobin now is 10.8. FINAL IMPRESSION: This patient is admitted with acute gastrointestinal bleeding. It has been stabilized now. The patient's vital signs remains stable. We will continue to observe him and if patient remains stable at the least I would recommend to start the patient back on Plavix 75 mg daily in view of the history of recent drug-eluting stent placed in March 2016.
[2016-08-23 16:20] LABS: Basophils % (A) 0 %; CH 29.7; CHCM 32.3; Eosinophils # (A) 0.1 k/uL (0-0.7); Eosinophils % (A) 1 %; HCT 35.4 % (39.0-53.0); HDW 2.59; HGB 11.4 gm/dL (13.0-17.5); Luc # (Auto) 0.21; Luc % (Auto) 4; Lymphocytes # (A) 0.9 k/uL (1.0-4.8); Lymphocytes % (A) 18 %; MCH 29.7 pg (25.0-35.0); MCV 92.6 fL (80.0-100.0); Mean Platelet Volume 8.1; Monocytes # (A) 0.4 k/uL (0-1.0); Monocytes % (A) 7 %; Neutrophils # (A) 3.7 k/uL (1.3-7.7); Neutrophils % (A) 69 %; RBC 3.83 m/uL (4.30-5.90); RDW 13.9 % (11.5-15.5); WBC 5.3 k/uL (3.8-10.6); WBC (Perox) 5.59
[2016-08-23] MEDS: SODIUM CHLORIDE 0.9% 1,000 ML IV SCH (16:22)
[2016-08-23 16:43] LABS: Glucose,Whole Blood 81 mg/dL (75-99)
--- NOTE | 2016-08-23 20:56 | PN ---
DATE OF SERVICE: 08/23/2016 This is an 81-year-old gentleman who was admitted with GI bleed is being closely monitored. The patient was continued on gastrointestinal bleed and melenic stools. Seen and evaluated the patient along with nurse practitioner. Please refer to the nurse practitioner notes and impression documented as a scribe for further information. Hemoglobin is 10.8, 11.4. Stool OB is positive. Past medical history reviewed. REVIEW OF SYSTEMS: CARDIOVASCULAR: No angina or palpitations. RESPIRATORY: As mentioned earlier. GASTROINTESTINAL: as mentioned earlier. GENITOURINARY: no dysuria. CENTRAL NERVOUS SYSTEM: No numbness or weakness. Current MEDICATIONS reviewed and include: 1. Xanax 0.25 t.i.d. 2. Tenormin. 3. Lipitor 80 mg 4. Symbicort 160/4.5 2 puffs b.i.d. 5. Atrovent 0.5 q.i.d. 6. Imdur 30 mg a day. 7. Xopenex 1.25 q.i.d. 8. Zestril 20 mg daily. 10. Nitrostat 0.4. 11. Protonix 40 mg IV b.i.d. 12. Restoril 15 mg q.h.s. RECOMMENDATIONS AND DISCUSSION: Recommend to continue current medications. Continue with monitoring. Symptomatic treatment. Otherwise, transfer to ICU. Monitor hemoglobin and hematocrit closely and transfuse p.r.n. Prognosis guarded. I had a detailed discussion with the family. Understands and agrees. Further recommendations to follow. MTDD
[2016-08-23] MEDS: ACETAMINOPHEN TAB 325 MG TAB PO PRN (21:19)
[2016-08-23] MEDS: ATORVASTATIN 80 MG TAB PO SCH (21:20)
--- NOTE | 2016-08-23 22:10 | P.CNPUL ---
History of Present Illness Consult date: 08/23/16 Requesting physician: Feroz Molian Reason for consult: other (GI bleeding, patient is in the ICU) Chief complaint: Black stools History of present illness: This is an 81-year-old white male who is familiar to my service, patient was admitted last week with acute lower GI bleeding. At the time he had multiple episodes of bright red blood per rectum, and he had 1 episode of syncope. Patient was admitted however he had to go to attend to his 's he was basically admitted overnight. His hemoglobin on the last admission was 11.5 , patient was discharged to attend his 's , and over the last couple of days the patient has been doing well until today he had a significant amount of black stools. Patient was readmitted and GI was consulted , general surgery was consulted, patient was actually admitted to [facility], but no beds available on [facility], patient ended up in the ICU. Presently the patient is relatively asymptomatic, no fever no chills no cough no wheezing no nausea no vomiting no abdominal pain. And he was ready seen by multiple consultants. Based on the history patient had his last colonoscopy [address] Moody and had some polyps removed. Official report of the colonoscopy is not available at this point, and that will be retrieved. Considering the patient was admitted to the ICU, I was asked to see him on consultation. Review of Systems 14 point review of systems were obtained, please refer to pertinent positives and negatives in HPI. Past Medical History Past Medical History: Coronary Artery Disease (CAD), COPD, Deep Vein Thrombosis (DVT), GERD/Reflux, Hyperlipidemia, Hypertension, Osteoarthritis (OA) Additional Past Medical History / Comment(s): "08/20/16 WAS ADMITTED - SYNCOPE, BLOOD IN STOOL BUT SIGNED OUT 08/21/16 BECAUSE (HE WENT TO HIS WIFES ) CAME BACK TO ER 08/22/16 TO F/U EVALUATION OF BLOOD IN STOOL. PT STATED HE HAS' NT HAD ANY STOOL SINCE 08/20.Nephrolithiasis, stenting to the RCA in March 2016 History of Any Multi-Drug Resistant Organisms: None Reported Past Surgical History: Appendectomy, Hernia Repair Additional Past Surgical History / Comment(s): lithotripsy x 4, 10--16 HEART CATH W/ STENT TO RCA Past Anesthesia/Blood Transfusion Reactions: Motion Sickness Additional Past Anesthesia/Blood Transfusion Reaction / Comment(s): HAD MOTION SICKNESS WHEN YOUNGER. Past Psychological History: No Psychological Hx Reported Additional Psychological History / Comment(s): PT CURRENTLY LIVING ALONE( JUST RECENTLY PASSED WAS TODAY) LIVES IN A SINGLE LEVEL HOME THAT HAS 1 STEP TO GET INTO. 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 Smoking Status: Former smoker Past Alcohol Use History: None Reported Additional Past Alcohol Use History / Comment(s): quit smoking 40 yrs ago, smoked for 30 yrs- 1-2 PPD Past Drug Use History: None Reported - Past Family History Mother Family Medical History: Cancer, Diabetes Mellitus Father Family Medical History: Myocardial Infarction ([place]) Additional Family Medical History / Comment(s): PT STATED HIS FATHER HAD 14 [place]' S AND AT THE AGE OF 58 Medications and Allergies Home Medications Medication Instructions Recorded Confirmed Type Atenolol [Tenormin] 50 mg PO DAILY 03/13/16 08/22/16 History Cholecalciferol [Vitamin D3] 2,000 unit PO DAILY 03/13/16 08/22/16 History Gluc/Javier-MSM#1/C/Zach/[place]/Bor 1 tab PO DAILY 03/13/16 08/22/16 History [Glucosamine-Chondroitin Tablet] Multivitamins, Thera [Multivitamin 1 tab PO DAILY 03/13/16 08/22/16 History (formulary)] Touchet-3 Fatty Acids/Fish Oil [Fish 1 cap PO DAILY 03/13/16 08/22/16 History Oil 1,000 mg Softgel] Omeprazole [PriLOSEC] 20 mg PO BID 03/13/16 08/22/16 History Ubidecarenone [Co Q-10] 100 mg PO DAILY 03/13/16 08/22/16 History Vitamin E (Dl,Tocopheryl Acet) 400 unit PO DAILY 03/13/16 08/22/16 History [Vitamin E] Albuterol Nebulized [Ventolin 2.5 mg INHALATION RT-TID PRN 08/20/16 08/22/16 History Nebulized] Atorvastatin [Lipitor] 80 mg PO HS 08/20/16 08/22/16 History Isosorbide Mononitrate ER [Imdur] 30 mg PO DAILY 08/20/16 08/22/16 History Allergies Allergy/AdvReac Type Severity Reaction Status Date / Time latex Allergy Rash/Hives Verified 08/22/16 15:54 venom-honey bee Allergy passed out Verified 08/22/16 15:54 [bee venom (honey bee)] venom-wasp [wasp venom] Allergy passed out Verified 08/22/16 15:54 Physical Exam Vitals: Vital Signs Temp Pulse Pulse Resp BP BP Pulse Ox 08/23/16 21:18 60 08/23/16 20:59 55 L 08/23/16 20:00 97.9 F 61 26 H 140/68 98 08/23/16 19:30 54 L 21 154/65 95 08/23/16 19:00 56 L 21 173/82 95 08/23/16 18:00 56 L 20 152/68 99 08/23/16 17:30 52 L 21 120/55 97 08/23/16 17:17 14 08/23/16 16:40 97.8 F 52 L 22 158/83 97 08/23/16 15:46 18 08/23/16 09:30 70 08/23/16 09:17 68 08/23/16 07:13 18 08/23/16 07:00 97.2 F L 53 L 18 132/63 96 08/23/16 00:00 67 18 Intake and Output 08/23/16 08/23/16 08/23/16 06:59 14:59 22:59 Intake Total 350 150 Output Total 200 425 Balance 150 -275 Intake: IV 150 Sodium Chloride 0.9% 1, 150 000 ml @ 50 mls/hr IV . Q20H [facility] Rx#:[id number] Intake, IV Titration 350 Amount Sodium Chloride 0.9% 1, 350 000 ml @ 50 mls/hr IV . Q20H [facility] Rx#:[id number] Output: Urine 200 425 Other: Voiding Method Urinal Toilet Toilet Diaper Urinal Urinal # Voids 2 # Bowel Movements 1 Physical Exam: Revealed an 81-year-old white male in no distress HEENT:[Neck is supple.] [No neck masses.] [No thyromegaly.] [No JVD.] Chest: [Clear throughout, no crackles, no rhonchi, no wheezes.] Cardiac Exam: [Normal S1 and S2, no S3 gallop, no murmur.] Abdomen: [Soft, nontender, no megaly, no rebound, no guarding, normal bowel sounds.] Extremities: [No clubbing, no edema, no cyanosis.] Neurological Exam: [No focal neurologic deficit.] Results - Laboratory Findings CBC and BMP: 08/23/16 16:10 08/23/16 07:12 PT/INR, D-dimer PT 11.3 sec (9.0-12.0) 08/22/16 15:45 INR 1.1 (<1.1) 08/22/16 15:45 Abnormal lab findings: Abnormal Labs 08/23/16 08/23/16 08/23/16 07:12 07:12 16:10 RBC 3.62 L 3.83 L Hgb 10.8 L 11.4 L Hct 33.6 L 35.4 L Lymphocytes # 0.9 L 0.9 L Chloride 110 H Assessment and Plan Plan: Impression: Acute GI bleeding, exact source is not clear, could be diverticular in nature, or could be upper GI in nature. Multiple comorbidities including recent episode of syncope secondary to GI bleeding, underlying COPD [id number], history of coronary artery disease and previous stent placement, history of deep vein thromboses, history of GERD, history of hypertension, history of hyperlipidemia, history of nephrolithiasis, remote nicotine dependence history, and history of hernia repair. Recommendation: Agree with the present treatment plan continue to monitor, repeat CBC in a.m., and decision regarding upper or lower endoscopies will be made by the consultants on the case. Patient is practically overflow in the intensive care unit, and we'll continue to follow. Time with Patient: Greater than 30
[2016-08-23] MEDS: ALPRAZolam 0.25 MG TAB PO PRN (22:24)
[2016-08-24 04:58] LABS: Basophils % (A) 0 %; CH 29.8; CHCM 32.4; Eosinophils # (A) 0.1 k/uL (0-0.7); Eosinophils % (A) 2 %; HCT 32.7 % (39.0-53.0); HDW 2.62; HGB 10.5 gm/dL (13.0-17.5); Luc # (Auto) 0.21; Luc % (Auto) 4; Lymphocytes # (A) 1.1 k/uL (1.0-4.8); Lymphocytes % (A) 23 %; MCH 29.9 pg (25.0-35.0); MCHC 32.3 g/dL (31.0-37.0); MCV 92.6 fL (80.0-100.0); Mean Platelet Volume 7.7; Monocytes # (A) 0.3 k/uL (0-1.0); Monocytes % (A) 6 %; Neutrophils # (A) 3.1 k/uL (1.3-7.7); Neutrophils % (A) 64 %; RBC 3.53 m/uL (4.30-5.90); WBC 4.8 k/uL (3.8-10.6); WBC (Perox) 4.79
[2016-08-24 05:13] LABS: Anion Gap 7 mmol/L; Blood Urea Nitrogen 11 mg/dL (9-20); Calcium 8.8 mg/dL (8.4-10.2); Carbon Dioxide 25 mmol/L (22-30); Chloride 111 mmol/L (98-107); Glucose 81 mg/dL (74-99); Magnesium 1.8 mg/dL (1.6-2.3); Non-African American GFR(MDRD) >60 (>60 ml/min/1.73 sqM); Sodium 143 mmol/L (137-145)
[2016-08-24] MEDS: IPRATROPIUM 0.5 MG/2.5 ML NEBU INHALATION SCH ×4 (07:59→20:26)
[2016-08-24] MEDS: LEVALBUTEROL NEB (CONC) 1.25 MG/0.5 ML AMP INHALATION SCH ×4 (07:59→20:26)
[2016-08-24] MEDS: SYMBICORT 160-4.5 MCG INHALER INHALATION SCH ×2 (07:59→20:26)
[2016-08-24] MEDS: ATENOLOL 50 MG TAB PO SCH (08:10)
[2016-08-24] MEDS: LISINOPRIL 20 MG TAB PO SCH (08:10)
[2016-08-24] MEDS: ISOSORBIDE MONONITRATE ER 30 MG TAB.ER.24H PO SCH (08:10)
[2016-08-24] MEDS: PANTOPRAZOLE 40 MG/10 ML VIAL IVP SCH ×2 (10:00→19:36)
--- NOTE | 2016-08-24 10:20 | P.PN ---
Progress Note - Text Patient is stable. He apparently had a Doppler stool yesterday and was transferred to the ICU. No real evidence of active bleeding. His vitals have remained stable. After emanation his vitals are stable. He's awake alert and in no distress. His abdomen is very soft and benign and nontender especially in the left lower quadrant and epigastric area. Hemoglobin 10.5 slightly diminished but otherwise fairly stable. Impression GI bleed most likely diverticular in nature. Recommendation is doing. The agree diet may be advanced. Resume anticoagulation and 3-4 days for no no evidence of any further bleeding.
--- NOTE | 2016-08-24 11:23 | P.PN ---
Subjective Principal diagnosis: GI bleeding This is an 81-year-old white male who is familiar to my service, patient was admitted last week with acute lower GI bleeding. At the time he had multiple episodes of bright red blood per rectum, and he had 1 episode of syncope. Patient was admitted however he had to go to attend to his 's he was basically admitted overnight. His hemoglobin on the last admission was 11.5 , patient was discharged to attend his 's , and over the last couple of days the patient has been doing well until today he had a significant amount of black stools. Patient was readmitted and GI was consulted , general surgery was consulted, patient was actually admitted to [facility], but no beds available on [facility], patient ended up in the ICU. Presently the patient is relatively asymptomatic, no fever no chills no cough no wheezing no nausea no vomiting no abdominal pain. And he was ready seen by multiple consultants. Based on the history patient had his last colonoscopy [address] Moody and had some polyps removed. Official report of the colonoscopy is not available at this point, and that will be retrieved. Considering the patient was admitted to the ICU, I was asked to see him on consultation. Patient was reevaluated today on 08/24/2016, he is mostly a selective overflow, remains in the ICU, no major issues overnight, no melena no hematemesis, patient did not even have any bowel movements since last night. Hemoglobin seems to be relatively stable. And I believe patient is not having any active bleeding clinically. Gastroenterology and general surgery remain on the case. Patient did not require any blood transfusions. He remains on Protonix. Hemoglobin today is 10.5, it was 11.4 yesterday. Electrolytes and renal profile are normal. Objective - Vital Signs Vital signs: Vital Signs Temp 97.8 F 08/24/16 08:00 Pulse 52 L 08/24/16 11:14 Resp 18 08/24/16 08:00 BP 154/71 08/24/16 08:00 Pulse Ox 100 08/24/16 08:00 Intake & Output 08/23/16 08/24/16 08/24/16 18:59 06:59 18:59 Intake Total 450 500 50 Output Total 500 1375 150 Balance -50 -875 -100 Weight 104.2 kg 104.2 kg Intake: IV 100 500 50 Sodium Chloride 0.9% 1, 100 500 50 000 ml @ 50 mls/hr IV . Q20H [facility] Rx#:[id number] Intake, IV Titration 350 Amount Sodium Chloride 0.9% 1, 350 000 ml @ 50 mls/hr IV . Q20H [facility] Rx#:[id number] Output: Urine 500 1375 150 Other: Voiding Method Toilet Toilet Toilet Urinal Urinal Urinal # Bowel Movements 1 - Exam Physical Exam: Revealed an 81-year-old white male in no distress HEENT:[Neck is supple.] [No neck masses.] [No thyromegaly.] [No JVD.] Chest: [Clear throughout, no crackles, no rhonchi, no wheezes.] Cardiac Exam: [Normal S1 and S2, no S3 gallop, no murmur.] Abdomen: [Soft, nontender, no megaly, no rebound, no guarding, normal bowel sounds.] Extremities: [No clubbing, no edema, no cyanosis.] Neurological Exam: [No focal neurologic deficit.] - Labs CBC & Chem 7: 08/24/16 04:14 08/24/16 04:14 Labs: Abnormal Lab Results - Last 24 Hours (Table) 08/23/16 08/24/16 08/24/16 Range/Units 16:10 04:14 04:14 RBC 3.83 L 3.53 L (4.30-5.90) m/uL Hgb 11.4 L 10.5 L (13.0-17.5) gm/dL Hct 35.4 L 32.7 L (39.0-53.0) % Lymphocytes # 0.9 L (1.0-4.8) k/uL Chloride 111 H (98-107) mmol/L Assessment and Plan Plan: Impression: Acute GI bleeding, exact source is not clear, could be diverticular in nature, or could be upper GI in nature. Multiple comorbidities including recent episode of syncope secondary to GI bleeding, underlying COPD [id number], history of coronary artery disease and previous stent placement, history of deep vein thromboses, history of GERD, history of hypertension, history of hyperlipidemia, history of nephrolithiasis, remote nicotine dependence history, and history of hernia repair. Recommendation: Agree with the present treatment plan continue to monitor, consider transferring the patient to a regular medical floor today or possibly selective with monitor bed. We'll continue to follow. Time with Patient: Less than 30
--- NOTE | 2016-08-24 12:49 | PN ---
DATE OF SERVICE: 08/24/2016 Patient is an 81-year-old pleasant white male who was admitted to the hospital with acute GI bleed. He had multiple episodes of maroon colored and bright red blood per rectum that last for a day and the patient had to be discharged for his 's and he was readmitted 48 hours later to the hospital. Since being in the hospital he had only one episode of solid dark black bowel movement so far. Apparently last night because of this black bowel movement and black, tarry stools the floor nursing staff became concerned and transferred him to the intensive care unit. The patient since being here did not have any episodes of bleeding. He denies any abdominal pain. Reports no nausea or vomiting. Complains of left shoulder pain. On physical examination, he appears comfortable in no apparent distress. Vitals as are stable. Blood pressure is 100/46, pulse rate 58, temperature 98. HEENT: Unremarkable. Conjunctivae pink. Sclerae anicteric. Oral cavity no lesions. Neck no JVD or lymph node enlargement. Chest was clear to auscultation. HEART: Regular rate and rhythm. ABDOMEN: Soft. It was nontender, nondistended. Bowel sounds are positive. No organomegaly. EXTREMITIES: No pedal edema. SKIN: No rashes. NEURO: He is alert and oriented x3. No focal deficits. Labs done today: Hemoglobin is 10.5, yesterday 11.4, WBC 4.8, platelets are normal. The rest of the basic metabolic panel is within normal limits. IMPRESSION: Acute gastrointestinal bleed, possibly lower etiology most likely diverticular in nature, last colonoscopy [address] Moody. Apparently showed small polyp, but report is still not available at the time of this dictation. Currently hemodynamically stable and last hemoglobin is 10.5 g/dL. RECOMMENDATIONS: 1. Will advance to a full liquid diet. 2. At this point since the bleeding appears to have spontaneously subsided, we will not plan any endoscopic intervention and will continue to follow the patient closely during his hospital stay. Thank you for this consultation.
[2016-08-24] MEDS: SODIUM CHLORIDE 0.9% 1,000 ML IV SCH (13:30)
[2016-08-24] MEDS: MULTIVITAMINS, THERA 1 EACH TAB PO SCH (13:31)
--- NOTE | 2016-08-24 18:46 | PN ---
DATE OF SERVICE: 08/24/2016 This 81-year-old gentleman who was admitted with GI bleed is being closely monitored at this time. The patient was monitored in the ICU overnight. The hemoglobin did drop to 10.5. No fresh active recent bleeding is noted. Stool OB is positive. Multiple consultants are following the patient including Dr. Moody the surgeon. Past medical history reviewed. REVIEW OF SYSTEMS: CARDIOVASCULAR: No angina or palpitations. RESPIRATORY: No cough. GASTROINTESTINAL: As mentioned earlier. : No dysuria. CENTRAL NERVOUS SYSTEM: No numbness. Generalized weakness. Current medications: 1. Tylenol 650 q6h p.r.n. 2. Xanax 0.25 t.i.d. 3. Tenormin 50 mg p.o. daily. 4. Lipitor 80 mg p.o. q.h.s. 5. Symbicort 160/4.5, 2 puffs b.i.d. 6. Atrovent 0.5 q.i.d. 7. Imdur 30 mg daily. 8. Xopenex 1.25 q.i.d. 10. Multivitamins one p.o. daily. 11. Nitrostat 0.4 sublingual p.r.n. 12. Protonix 40 mg daily. 13. Restoril 15 mg q.h.s. p.r.n. PHYSICAL EXAMINATION: The patient is alert and oriented times three. Pulse 59, blood pressure 179/78. Respiration 18, temperature 97.9, pulse ox 97% on room air. HEENT: Conjunctivae normal. Oral mucosa moist. NECK: No jugular venous distention. No carotid bruit. No lymph node enlargement. CARDIOVASCULAR: S1, S2 muffled. No S3, no S4. RESPIRATORY: Breath sounds diminished at the bases. No rhonchi. No crackles. ABDOMEN: Soft, obese, nontender. No mass palpable. LEGS: No edema. No swelling. CENTRAL NERVOUS SYSTEM: Higher functions as mentioned earlier. Moves all four limbs. No focal motor or sensory deficits at this time. LYMPHATICS: No lymph nodes palpable in the neck, axillae or groin. SKIN: No ulcer, rash or bleeding. LABS: At this time shows WBC is 4.8, hemoglobin 10.5, sodium 143, potassium 4. Other labs are noted. ASSESSMENT: 1. Acute lower gastrointestinal bleeding for evaluation with acute blood loss anemia, possibly diverticular bleed. 2. Acute blood loss anemia asymptomatic. 3. History of syncope secondary to gastrointestinal bleed. 4. Chronic obstructive pulmonary disease, stable. 5. Deep venous thrombosis. 6. History of gastroesophageal reflux disease. 7. Hypertension. 8. Hyperlipidemia. 9. History of nephrolithiasis. 10. History of hernia repairs. 11. Remote history of nicotine dependence. 12. Obesity with body mass index of 31. 13. Coronary artery disease history of recent stents in March 2016. 14. FULL CODE. RECOMMENDATIONS AND DISCUSSION: In this 81-year-old gentleman who presented with multiple complex medical issues, we will monitor the patient closely. Continue the current medications, continue symptomatic treatment. Otherwise, at this time, recommend repeat hemoglobin. Closely follow with gastroenterology. Guarded prognosis because of multiple complex medical issues. Further recommendations to follow. MTDD
[2016-08-24] MEDS: ATORVASTATIN 80 MG TAB PO SCH (19:37)
[2016-08-24] MEDS: amLODIPine 5 MG TAB PO SCH (20:50)
[2016-08-25] MEDS: ACETAMINOPHEN TAB 325 MG TAB PO PRN (02:23)
[2016-08-25] MEDS ORDERED: HYDROcodone/APAP 5-325MG 1 EACH TAB PO PRN (03:27)
[2016-08-25] MEDS: SODIUM CHLORIDE 0.9% 1,000 ML IV SCH (06:19)
[2016-08-25 06:53] LABS: Basophils % (A) 0 %; CH 29.2; CHCM 31.2; Eosinophils # (A) 0.1 k/uL (0-0.7); Eosinophils % (A) 2 %; HCT 34.5 % (39.0-53.0); HDW 2.55; HGB 11.1 gm/dL (13.0-17.5); Hypochromasia Slight; Luc # (Auto) 0.17; Luc % (Auto) 3; Lymphocytes % (A) 17 %; MCH 30.1 pg (25.0-35.0); MCV 93.9 fL (80.0-100.0); Mean Platelet Volume 7.7; Monocytes # (A) 0.4 k/uL (0-1.0); Monocytes % (A) 6 %; Neutrophils # (A) 4.3 k/uL (1.3-7.7); Neutrophils % (A) 72 %; RBC 3.68 m/uL (4.30-5.90); WBC (Perox) 5.85
[2016-08-25 06:58] LABS: Anion Gap 5 mmol/L; Carbon Dioxide 24 mmol/L (22-30); Chloride 112 mmol/L (98-107); Glucose 82 mg/dL (74-99); Non-African American GFR(MDRD) >60 (>60 ml/min/1.73 sqM); Sodium 141 mmol/L (137-145)
[2016-08-25 07:02] LABS: Blood Urea Nitrogen 8 mg/dL (9-20)
[2016-08-25] MEDS: SYMBICORT 160-4.5 MCG INHALER INHALATION SCH ×2 (08:26→20:02)
[2016-08-25] MEDS: LEVALBUTEROL NEB (CONC) 1.25 MG/0.5 ML AMP INHALATION SCH ×4 (08:26→20:02)
[2016-08-25] MEDS: IPRATROPIUM 0.5 MG/2.5 ML NEBU INHALATION SCH ×4 (08:26→20:02)
--- NOTE | 2016-08-25 09:10 | PN ---
This patient was recently admitted with GI bleed. He came back. He had some black stool yesterday, which is felt to be old blood. He remains stable. Vital signs are stable. Hemoglobin is 10.5. First and second heart sounds are normal. Lungs are clinically clear to auscultation and percussion. If patient remains stable without bleeding, we will resume the aspirin from tomorrow. At present, we will continue the patient on single antiplatelet agent.
[2016-08-25] MEDS: LISINOPRIL 20 MG TAB PO SCH (09:23)
[2016-08-25] MEDS: ISOSORBIDE MONONITRATE ER 30 MG TAB.ER.24H PO SCH (09:23)
[2016-08-25] MEDS: PANTOPRAZOLE 40 MG/10 ML VIAL IVP SCH ×2 (09:23→21:34)
[2016-08-25] MEDS: amLODIPine 5 MG TAB PO SCH (09:23)
[2016-08-25] MEDS: ATENOLOL 50 MG TAB PO SCH (09:23)
[2016-08-25] MEDS: MULTIVITAMINS, THERA 1 EACH TAB PO SCH (09:24)
[2016-08-25] MEDS: ALPRAZolam 0.25 MG TAB PO PRN (09:27)
--- NOTE | 2016-08-25 10:57 | P.PN ---
Subjective Principal diagnosis: GI bleed This is a pleasant 81-year-old gentleman who presented to the hospital with acute GI bleed and syncope. He was actually in the hospital a few days earlier with the symptoms, he had subsequently left because his had , he went to her and again was readmitted. He has had no further bleeding, has not had a bowel movement since his admission here. Cardiology was following the patient, because he had a recent stent in March of last year. Any recent chest pain or difficulty in breathing. Blood pressure this morning 122/60 with a heart rate in the 60s. Hemoglobin 11.1, potassium 5.0, BUN 8, creatinine 0.8. Cardiology's recommendation is to resume the Plavix when it is okay with GI service. Objective - Vital Signs Vital signs: Vital Signs Temp 97.6 F 08/25/16 04:00 Pulse 72 08/25/16 08:37 Resp 16 08/25/16 04:00 BP 123/60 08/25/16 04:00 Pulse Ox 97 08/25/16 04:00 Intake & Output 08/24/16 08/25/16 08/25/16 18:59 06:59 18:59 Intake Total 460 300 300 Output Total 1050 1100 150 Balance -590 -800 150 Weight 104.2 kg 107.2 kg Intake: IV 100 Sodium Chloride 0.9% 1, 100 000 ml @ 50 mls/hr IV . Q20H [facility] Rx#:[id number] Oral 360 300 300 Output: Urine 1050 1100 150 Other: Voiding Method Toilet Toilet Urinal Urinal # Voids 2 1 1 - Exam PHYSICAL EXAMINATION: HEENT: Head is atraumatic, normocephalic. Pupils equal, round. Neck is supple. There is no elevated jugular venous pressure. HEART EXAMINATION: R S1 and S2 systolic murmur is heard. CHEST EXAMINATION: Lungs are clear to auscultation and precussion. No chest wall tenderness is noted on palpation or with deep breathing. ABDOMEN: Soft, nontender. Bowel sounds are heard. No organomegaly noted. EXTREMITIES: 2+ peripheral pulses with no evidence of peripheral edema and no calf tenderness noted. NEUROLOGIC patient is awake, alert and oriented -3. . - Labs CBC & Chem 7: 08/25/16 05:58 08/25/16 06:10 Labs: Abnormal Lab Results - Last 24 Hours (Table) 08/25/16 08/25/16 Range/Units 05:58 06:10 RBC 3.68 L (4.30-5.90) m/uL Hgb 11.1 L (13.0-17.5) gm/dL Hct 34.5 L (39.0-53.0) % Chloride 112 H (98-107) mmol/L BUN 8 L (9-20) mg/dL Assessment and Plan (1) S/P right coronary artery (RCA) stent placement Status: Acute (2) Syncope Status: Acute (3) GI bleed Status: Acute (4) CAD (coronary artery disease) Status: Acute (5) Family history of coronary arteriosclerosis Status: Acute (6) HTN (hypertension) Status: Acute (7) Hyperlipemia Status: Acute (8) PVD (peripheral vascular disease) Status: Acute Plan: From cardiology's perspective, we will recommend to resume the patient on his Plavix whenever it is okay with GI service. Continue other medications. DNP note has been reviewed, I agree with a documented findings and plan of care. Patient was seen and examined.
--- NOTE | 2016-08-25 12:12 | P.PN ---
Subjective This is an 81-year-old white male who is familiar to my service, patient was admitted last week with acute lower GI bleeding. At the time he had multiple episodes of bright red blood per rectum, and he had 1 episode of syncope. Patient was admitted however he had to go to attend to his 's he was basically admitted overnight. His hemoglobin on the last admission was 11.5 , patient was discharged to attend his 's , and over the last couple of days the patient has been doing well until today he had a significant amount of black stools. Patient was readmitted and GI was consulted , general surgery was consulted, patient was actually admitted to [facility], but no beds available on [facility], patient ended up in the ICU. Presently the patient is relatively asymptomatic, no fever no chills no cough no wheezing no nausea no vomiting no abdominal pain. And he was ready seen by multiple consultants. Based on the history patient had his last colonoscopy [address] Moody and had some polyps removed. Official report of the colonoscopy is not available at this point, and that will be retrieved. Considering the patient was admitted to the ICU, I was asked to see him on consultation. Patient was reevaluated today on 08/24/2016, he is mostly a selective overflow, remains in the ICU, no major issues overnight, no melena no hematemesis, patient did not even have any bowel movements since last night. Hemoglobin seems to be relatively stable. And I believe patient is not having any active bleeding clinically. Gastroenterology and general surgery remain on the case. Patient did not require any blood transfusions. He remains on Protonix. Hemoglobin today is 10.5, it was 11.4 yesterday. Electrolytes and renal profile are normal. The patient is seen again today 08/25/2016 in follow-up. He is awake and alert in no acute distress. He is currently sitting up in the chair at the bedside. He did have a bowel movement this morning that was black in color but no bright red bleeding noted. His hemoglobin is stable at 11.1. He is maintaining good O2 saturations in the mid 90s on room air. He is afebrile. No pulmonary complaints. No dizziness or lightheadedness. Objective - Vital Signs Vital signs: Vital Signs Temp 97.6 F 08/25/16 08:00 Pulse 74 08/25/16 11:52 Resp 18 03/27/17 08:00 BP 201/84 08/25/16 08:00 Pulse Ox 95 08/25/16 08:00 Intake & Output 08/24/16 08/25/16 08/25/16 18:59 06:59 18:59 Intake Total 460 300 300 Output Total 1050 1100 150 Balance -590 -800 150 Weight 104.2 kg 107.2 kg Intake: IV 100 Sodium Chloride 0.9% 1, 100 000 ml @ 50 mls/hr IV . Q20H [facility] Rx#:[id number] Oral 360 300 300 Output: Urine 1050 1100 150 Other: Voiding Method Toilet Toilet Toilet Urinal Urinal Urinal # Voids 2 1 1 - Exam GENERAL EXAM: Alert, active, comfortable in no apparent distress. HEAD: Normocephalic. EYES: Normal reaction of pupils, equal size. NOSE: Clear with pink turbinates. THROAT: No erythema or exudates. NECK: No masses, no JVD. CHEST: No chest wall deformity. LUNGS: Equal air entry with no crackles, wheeze, rhonchi or dullness. CVS: S1 and S2 normal with no audible mumurs, regular rhythm. ABDOMEN: No hepatosplenomegaly, normal bowel sounds, no guarding or rigidity. SPINE: No scoliosis or deformity SKIN: No rashes CENTRAL NERVOUS SYSTEM: No focal deficits, tone is normal in all 4 extremities. Extremities: There is no significant peripheral edema. No clubbing, no cyanosis. Peripheral pulses are intact. - Labs CBC & Chem 7: 08/25/16 05:58 08/25/16 06:10 Labs: Abnormal Lab Results - Last 24 Hours (Table) 08/25/16 08/25/16 Range/Units 05:58 06:10 RBC 3.68 L (4.30-5.90) m/uL Hgb 11.1 L (13.0-17.5) gm/dL Hct 34.5 L (39.0-53.0) % Chloride 112 H (98-107) mmol/L BUN 8 L (9-20) mg/dL Assessment and Plan Plan: Impression: Acute GI bleeding, exact source is not clear, could be diverticular in nature, or could be upper GI in nature. Multiple comorbidities including recent episode of syncope secondary to GI bleeding, underlying COPD [id number], history of coronary artery disease and previous stent placement, history of deep vein thromboses, history of GERD, history of hypertension, history of hyperlipidemia, history of nephrolithiasis, remote nicotine dependence history, and history of hernia repair. Plan: The patient was seen and evaluated by Dr. Spence. The patient is stable from the pulmonary standpoint. There are no further plans for intervention per GI services. We will see the patient on as-needed basis.
--- NOTE | 2016-08-25 13:44 | P.PN ---
Progress Note - Text No active bleeding. Had one along the dark stool. Blood pressure is a little bit up. No nausea or vomiting. Hemoglobin is better today compared to yesterday at 11.5. Examination is otherwise unremarkable. Abdomen is fairly soft and benign with no tenderness or mass or organomegaly. Impression recent lower GI bleed appears to be stable with no evidence of any active bleeding and stable hemoglobin. Recommend increase his diet to soft diet. Continued medical management. Kimmitt discharge in the next day or 2 to remained stable. We'll see him back in the office in 2 weeks. May resume anticoagulants in about 3-4 days.
--- NOTE | 2016-08-25 21:40 | PN ---
DATE OF SERVICE: 08/25/2016 This 81-year-old gentleman who was admitted with acute lower GI bleeding also had acute blood loss anemia. The patient does not have any acute bleeding at this time; however, Dr. Moody and multiple consultants are following the patient closely. On exam, alert and oriented x3. Pulse is 77, blood pressure 157/78, respiration 16, temperature 97.7, pulse ox 97% on room air. HEENT: Conjunctivae normal. NECK: No jugular venous distention. CARDIOVASCULAR SYSTEM: S1, S2 muffled. RESPIRATORY: Breath sounds diminished at the bases. No rhonchi. No crackles. ABDOMEN: Soft, non-tender. No mass palpable. LEGS: No edema. No swelling. NERVOUS SYSTEM: No focal deficit. LABS: Hemoglobin 11.1. ASSESSMENT: 1. Acute lower gastrointestinal bleeding for evaluation with acute blood loss anemia, possibly diverticular bleed. 2. Acute blood loss anemia that is symptomatic. 3. History of syncope, possibly secondary to gastrointestinal bleed. 4. Chronic obstructive pulmonary disease, stable. 5. History of deep venous thrombosis. 6. History of gastroesophageal reflux disease. 7. Hypertension. 8. Hyperlipidemia. 9. History of nephrolithiasis. 10. History of hernia repair. 11. Remote history of nicotine dependence. 12. Obesity with body mass index of 31. 13. Coronary artery disease with history of recent stent in March of 2016. 14. FULL CODE. RECOMMENDATIONS AND DISCUSSION: I recommend to continue with the current medications, continue with the monitoring, symptomatic treatment. Hold the antiplatelet agents. Closely follow with Cardiology. Further recommendations to follow. MTDD
[2016-08-25] MEDS: ATORVASTATIN 80 MG TAB PO SCH (22:26)
[2016-08-26] MEDS: SODIUM CHLORIDE 0.9% 1,000 ML IV SCH ×2 (04:45→08:33)
[2016-08-26] MEDS: IPRATROPIUM-ALBUTEROL 3 ML NEB INHALATION SCH ×4 (07:36→19:51)
[2016-08-26] MEDS: SYMBICORT 160-4.5 MCG INHALER INHALATION SCH ×2 (07:36→19:51)
[2016-08-26] MEDS: amLODIPine 5 MG TAB PO SCH (08:27)
[2016-08-26] MEDS: ATENOLOL 50 MG TAB PO SCH (08:27)
[2016-08-26] MEDS: LISINOPRIL 20 MG TAB PO SCH (08:27)
[2016-08-26] MEDS: ISOSORBIDE MONONITRATE ER 30 MG TAB.ER.24H PO SCH (08:27)
[2016-08-26] MEDS: PANTOPRAZOLE 40 MG TABLET PO SCH ×2 (08:28→20:09)
[2016-08-26 08:47] LABS: Basophils % (A) 0 %; CH 29.5; CHCM 31.8; Eosinophils # (A) 0.1 k/uL (0-0.7); Eosinophils % (A) 2 %; HCT 38.9 % (39.0-53.0); HGB 12.5 gm/dL (13.0-17.5); Luc # (Auto) 0.16; Luc % (Auto) 3; Lymphocytes # (A) 1.1 k/uL (1.0-4.8); Lymphocytes % (A) 18 %; MCH 29.9 pg (25.0-35.0); MCV 93.5 fL (80.0-100.0); Mean Platelet Volume 7.2; Monocytes # (A) 0.3 k/uL (0-1.0); Monocytes % (A) 5 %; Neutrophils # (A) 4.4 k/uL (1.3-7.7); Neutrophils % (A) 72 %; RBC 4.16 m/uL (4.30-5.90); WBC 6.1 k/uL (3.8-10.6); WBC (Perox) 6.07
[2016-08-26] MEDS: MULTIVITAMINS, THERA 1 EACH TAB PO SCH (11:32)
[2016-08-26] MEDS: CLOPIDOGREL 75 MG TAB PO SCH ×3 (11:32→20:10)
[2016-08-26] MEDS: LACTATED RINGERS 1,000 ML IV SCH ×2 (11:32→20:54)
[2016-08-26] MEDS: ASPIRIN 81 MG CHEW PO SCH ×2 (11:32→11:38)
--- NOTE | 2016-08-26 12:39 | PN ---
The patient is an 81-year-old admitted with acute blood loss anemia secondary to GI bleed. Patient is believed to have lower GI bleed, which is a diverticular bleed and patient is on aspirin and Plavix for his recent cardiac catheterization and stent placement. Although he had melenic stools, consistent with upper GI bleed today morning, last night and a little bit today, which appears to be the old blood, I will hold his discharge, monitor him one more night and patient probably can be re-initiated back on aspirin and Plavix, but I will leave that decision to Cardiology who is following the patient. After starting on aspirin and Plavix probably will need to monitor for a day. REVIEW OF SYSTEMS: CARDIOVASCULAR: No chest pain, no orthopnea, no PND, no palpitations. PULMONARY: Denied any shortness of breath. No cough or hemoptysis. GASTROINTESTINAL: No diarrhea, nausea or vomiting. No abdominal pain. Normoactive bowel sounds. NEUROLOGIC: No headaches, no weakness, no numbness. Medications were reviewed. PHYSICAL EXAMINATION: VITAL SIGNS: Temperature 97.5, pulse of 68, respiratory rate of 18, blood pressure 192/89, although his lowest blood pressure since yesterday was within normal limits and medications were reviewed. GENERAL: The patient is alert and oriented x3, not in any acute distress. Well developed, well nourished. HEENT: Pupils are round and equally reacting to light. EOMI. No scleral icterus. No conjunctival pallor. Normocephalic, atraumatic. No pharyngeal erythema. No thyromegaly. CARDIOVASCULAR: S1 and S2 present. No murmurs, rubs, or gallops. PULMONARY: Chest is clear to auscultation, no wheezing or crackles. ABDOMEN: Soft, nontender, nondistended, normoactive bowel sounds. No palpable organomegaly. MUSCULOSKELETAL: No joint swelling or deformity. EXTREMITIES: No cyanosis, clubbing, or pedal edema. NEUROLOGICAL: Gross neurological examination did not reveal any focal deficits. SKIN: No rashes. LABORATORY DATA: Hemoglobin remains stable at 12.5. ASSESSMENT AND PLAN: 1. Possible lower gastrointestinal bleed. 2. Chronic obstructive pulmonary disease without any acute exacerbation. 3. History of deep venous thrombosis in the past, although not on anticoagulation at this point of time. 4. Hypertension. 5. Hyperlipidemia. 6. Coronary artery disease, recent cardiac catheterization with stent placement in March because of which he will need aspirin and Plavix. 7. Hernia repair. 8. Nicotine dependence. PLAN: Continue to monitor him one more day, probably re-initiate back on his aspirin and Plavix before we send him home. I will actually go ahead and start him on aspirin and Plavix, watch him one more day on these medications.
[2016-08-26] MEDS: ATORVASTATIN 80 MG TAB PO SCH (20:09)
[2016-08-27 07:53] LABS: Basophils % (A) 0 %; CH 29.9; CHCM 32.9; Eosinophils # (A) 0.1 k/uL (0-0.7); Eosinophils % (A) 1 %; HCT 36.7 % (39.0-53.0); HDW 2.67; Luc # (Auto) 0.21; Luc % (Auto) 3; Lymphocytes # (A) 0.8 k/uL (1.0-4.8); Lymphocytes % (A) 10 %; MCHC 32.8 g/dL (31.0-37.0); MCV 91.6 fL (80.0-100.0); Mean Platelet Volume 7.5; Monocytes # (A) 0.4 k/uL (0-1.0); Monocytes % (A) 6 %; Neutrophils % (A) 80 %; RBC 4.01 m/uL (4.30-5.90); RDW 14.1 % (11.5-15.5); WBC 7.5 k/uL (3.8-10.6); WBC (Perox) 7.76
[2016-08-27 07:55] VITALS: TEMP 98.4
[2016-08-27] MEDS: IPRATROPIUM-ALBUTEROL 3 ML NEB INHALATION SCH ×2 (07:59→11:22)
[2016-08-27] MEDS: SYMBICORT 160-4.5 MCG INHALER INHALATION SCH (07:59)
[2016-08-27 08:13] LABS: Anion Gap 10 mmol/L; Blood Urea Nitrogen 8 mg/dL (9-20); Calcium 9.7 mg/dL (8.4-10.2); Carbon Dioxide 28 mmol/L (22-30); Chloride 106 mmol/L (98-107); Glucose 96 mg/dL (74-99); Non-African American GFR(MDRD) >60 (>60 ml/min/1.73 sqM); Potassium 4.5 mmol/L (3.5-5.1); Sodium 144 mmol/L (137-145)
[2016-08-27] MEDS: ASPIRIN 81 MG CHEW PO SCH (09:10)
[2016-08-27] MEDS: amLODIPine 5 MG TAB PO SCH (09:10)
[2016-08-27] MEDS: ATENOLOL 50 MG TAB PO SCH (09:10)
[2016-08-27] MEDS: PANTOPRAZOLE 40 MG TABLET PO SCH (09:11)
[2016-08-27] MEDS: ISOSORBIDE MONONITRATE ER 30 MG TAB.ER.24H PO SCH (09:11)
[2016-08-27] MEDS: LISINOPRIL 20 MG TAB PO SCH (09:11)
[2016-08-27] MEDS: MULTIVITAMINS, THERA 1 EACH TAB PO SCH (09:11)
[2016-08-27] MEDS: LACTATED RINGERS 1,000 ML IV SCH (11:32)
[2016-08-27 12:14] VITALS: BP 111/61; PULSE 58; RESP 18
[2016-08-27] MEDS: CLOPIDOGREL 75 MG TAB PO SCH (15:33)
--- NOTE | 2016-08-28 09:55 | P.DS ---
Providers Date of admission: 08/22/16 16:36 Expected date of discharge: 08/27/16 Attending physician: Feroz Shook. Consults: 08/22/16 18:51 Consult Physician Routine Consulting Provider: Lenny Moody Consult Reason/Comments: lower gi bleeding Do you want consulting provider notified?: Yes 08/22/16 18:52 Consult Physician Routine Consulting Provider: Paty Pierson Consult Reason/Comments: cad Do you want consulting provider notified?: Yes 08/23/16 16:16 Consult Physician Stat Consulting Provider: Angela Cervantes Consult Reason/Comments: ICU Management Do you want consulting provider notified?: Yes [facility] Primary care physician: Lisha Martinez Hospital Course: Final Diagnoses: 1. Acute lower GI bleed for evaluation, with acute blood loss anemia, possibly diverticular bleed. 2. COPD without any acute exacerbation 3. History of DVT 4. Hypertension 5. Hyperlipidemia 6. Gastroesophageal reflux disease. 7. CAD with history of recent cardiac catheterization with stents in March 2016, Plavix and aspirin resumed. 8. Remote history of nicotine dependence 9. Obesity, BMI 31 10. History of hernia repair. Hospital course:This is an 81-year-old gentleman admitted with acute lower GI bleed, acute blood loss anemia in a patient with recent cardiac catheterization with stents in March 2016, and multiple other medical issues. Hemoglobin on admission 12.4. Colonoscopy [address] Moody (report being obtained- currently unavailable), evaluated by GI with no endoscopy intervention recommended at this time, suspecting diverticular bleed. Patient was also recently scheduled for stress test with [facility] but unable to attend/proceed, as his had passed and attended arrangements/ . Patient was also evaluated by cardiology, and surgery. Hemoglobin had dropped to 10.5, black tarry stool, positive stool for occult blood , without active bleeding noted. 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 No further episodes of bleeding. Plavix and aspirin had been placed on hold, resumed yesterday as per recommendations of cardiology ,GI as well as our internal medicine group. Patient had recent cardiac stents placed in March 2016. On day of discharge, hemoglobin 12 having brown BMs. Patient has been cleared for discharge by all consults and being discharged home in a stable condition with guarded prognosis. The impression and plan of care has been dictated as directed. : I performed a H&P examination of this patient and discussed the same with the dictator. I agree with the dictator's note. Any additional findings/opinions/ etc. will be noted. Patient Condition at Discharge: Stable Plan - Discharge Summary New Discharge Prescriptions: Aspirin EC [Ecotrin Low Dose] 81 mg PO DAILY #30 tablet. Omeprazole [PriLOSEC] 20 mg PO AC-BID #1 cap amLODIPine [Norvasc] 5 mg PO DAILY #30 tab Discharge Medication List Atenolol [Tenormin] 50 mg PO DAILY 03/13/16 [History] Cholecalciferol [Vitamin D3] 2,000 unit PO DAILY 03/13/16 [History] Gluc/Javier-MSM#1/C/Zach/[place]/Bor [Glucosamine-Chondroitin Tablet] 1 tab PO DAILY 03/13/16 [History] Multivitamins, Thera [Multivitamin (formulary)] 1 tab PO DAILY 03/13/16 [History ] [place]-3 Fatty Acids/Fish Oil [Fish Oil 1,000 mg Softgel] 1 cap PO DAILY [History] Ubidecarenone [Co Q-10] 100 mg PO DAILY 03/13/16 [History] Vitamin E (Dl,Tocopheryl Acet) [Vitamin E] 400 unit PO DAILY 03/13/16 [History] Lisinopril [Zestril] 20 mg PO DAILY #30 tab 03/18/16 [Rx] Nitroglycerin Sl Tabs [Nitrostat] 0.4 mg SUBLINGUAL Q5M PRN #25 tab 03/18/16 [Rx ] Atorvastatin [Lipitor] 80 mg PO HS 08/20/16 [History] Isosorbide Mononitrate ER [Imdur] 30 mg PO DAILY 08/20/16 [History] Albuterol Nebulized [Ventolin Nebulized] 2.5 mg INHALATION RT-TID #0 08/27/16 [ Rx] Aspirin EC [Ecotrin Low Dose] 81 mg PO DAILY #30 tablet. 08/27/16 [Rx] Clopidogrel [Plavix] 75 mg PO DAILY tab 08/27/16 [Rx] Omeprazole [PriLOSEC] 20 mg PO AC-BID #1 cap 08/27/16 [Rx] amLODIPine [Norvasc] 5 mg PO DAILY #30 tab 08/27/16 [Rx] Follow up Appointment(s)/Referral(s): [facility] [Provider Group] - 1 Week Fabiola Cosby MD [STAFF PHYSICIAN] - 09/08/16 4:30 pm Lisha Martinez MD [Primary Care Provider] - 09/02/16 3:00 pm Ambulatory/Diagnostic Orders: Complete Blood Count w/diff [LAB.AMB] Time Frame: 3 Days, Location: Determined By Patient Patient Instructions/Handouts: Gastrointestinal Bleeding (DC) Activity/Diet/Wound Care/Special Instructions: Diet: Soft foods Activity: Limited until follow up Discharge Disposition: HOME SELF-CARE
== END 2016-08-27 15:40 | disposition home or self-care (01) | DRG 378 ==
LOC: EC 15:24 → 5MS5E 16:36 → OBSVTOIN 16:36 → 6ICU 08-23 16:25 → 6SEL 08-24 14:05 → 5MS5E 08-25 16:15
PROVIDERS: ADMIT Hospitalist; ATTEND Hospitalist
DX: K57.91 Diverticulosis of intestine, part unspecified, without perforation or abscess with bleeding (principal); D62 Acute posthemorrhagic anemia; J44.9 Chronic obstructive pulmonary disease, unspecified; I73.9 Peripheral vascular disease, unspecified; E78.5 Hyperlipidemia, unspecified; I10 Essential (primary) hypertension; K21.9 Gastro-esophageal reflux disease without esophagitis; M19.91 Primary osteoarthritis, unspecified site; I25.10 Atherosclerotic heart disease of native coronary artery without angina pectoris; E66.9 Obesity, unspecified; Z68.31 Body mass index [BMI] 31.0-31.9, adult; Z95.5 Presence of coronary angioplasty implant and graft; Z86.718 Personal history of other venous thrombosis and embolism; Z87.891 Personal history of nicotine dependence; Z87.442 Personal history of urinary calculi; Z90.49 Acquired absence of other specified parts of digestive tract; Z79.899 Other long term (current) drug therapy
CPT/HCPCS: 36415; 80048; 80053; 81003; 82272; 82550; 82553; 83690; 83735; 84100; 84484; 85025; 85610; 85730; 86850; 86900; 86901; 93005; 94640; 96361; 96374; 99285

== ENCOUNTER → 2017-11-02 | Outpatient (CLI) | payer MEDICARE, BC ==
--- NOTE | 2017-11-02 14:56 | US ---
EXAMINATION TYPE: US venous doppler duplex LE LT DATE OF EXAM: 11/02/2017 2:24 PM COMPARISON: NONE CLINICAL HISTORY: Pain of left lower extremity M79.605. H/O DVT IN RIGHT LEG A FEW YEARS AGO, PAIN AN D MILD SWELLING IN LEFT LEG NOW, NOT ON THINNERS SIDE PERFORMED: LEFT TECHNIQUE: The lower extremity deep venous system is examined utilizing real time linear array sonog anabela with graded compression, doppler sonography and color-flow sonography. VESSELS IMAGED: External Iliac Vein (EIV) Common Femoral Vein Deep Femoral Vein Greater Saphenous Vein * Femoral Vein Popliteal Vein Small Saphenous Vein * Proximal Calf Veins (* superficial vessels) Grayscale, color doppler, spectral doppler imaging performed of the deep veins of the lower extremiti es. There is normal flow, compressibility, vascular waveforms. Left Leg: Appears negative for DVT tech results to Dr Martinez at office IMPRESSION: No evidence for DVT at this time.
== END | disposition home or self-care (01) ==
LOC: RADUSWWP 13:29
PROVIDERS: ATTEND Internal Medicine
DX: M79.605 Pain in left leg (principal)

== ENCOUNTER → 2017-11-26 | Outpatient (CLI) | payer MEDICARE, BC ==
--- NOTE | 2017-11-26 11:32 | XR ---
EXAMINATION TYPE: XR shoulder complete 3 views RT, XR knee limited 2 views LT DATE OF EXAM: 11/26/2017 COMPARISON: NONE HISTORY: 82-year-old male with right shoulder and left knee pain FINDINGS: Right shoulder: Mild to moderate degenerative joint space narrowing with marginal spurring at the acromioclavicular j oint. There is loss of the subacromial space with [id number] abutment of the humeral head and under surface of the acromion. Mild degenerative spurring at the glenohumeral joint. No acute fracture or d islocation. Old healed right-sided rib fracture deformity. Left knee: Vascular calcifications are present. There seems to be a moderate underlying knee joint effusion. Obl iquity limits assessment. Extensor mechanism appears intact. No acute fracture or dislocation seen. IMPRESSION: 1. Right shoulder: Loss of the subacromial space; correlate for a full-thickness rotator cuff tear. M oderate AC joint OA. Mild glenohumeral joint OA. 2. Left knee: There may be a moderate knee joint effusion. Obliquity on the lateral view limits asses sment. No acute osseous abnormality seen. If concern for internal derangement, MRI can be performed.
== END | disposition home or self-care (01) ==
LOC: RADXRYALE 10:51
PROVIDERS: ATTEND Internal Medicine
DX: M19.011 Primary osteoarthritis, right shoulder (principal); M25.562 Pain in left knee

== ENCOUNTER → 2018-03-19 | Outpatient (CLI) | payer MEDICARE, BC ==
[2018-03-19 07:39] LABS: Blood Urea Nitrogen 22 mg/dL (9-20)
--- NOTE | 2018-03-19 10:17 | FL ---
EXAMINATION TYPE: FL sniff test without CXR DATE OF EXAM: 03/19/2018 COMPARISON: NONE HISTORY: TECHNIQUE: Status post was performed with normal breathing followed by rapid sniffing. [address] Gutierres. FINDINGS: There is elevation of the right hemidiaphragm with the paradoxical motion noted upon sniffi ng. IMPRESSION: Findings suggest right hemidiaphragmatic paralysis.
--- NOTE | 2018-03-19 10:22 | CT ---
EXAMINATION TYPE: CT chest w con DATE OF EXAM: 03/19/2018 COMPARISON: None HISTORY: Dyspnea on exertion CT DLP: 764 mGycm Automated exposure control for dose reduction was used. CONTRAST: CT scan of the chest is performed with IV Contrast, patient injected with 100 ml mL of Isovue 300. FINDINGS: LUNGS: There is elevation of the right hemidiaphragm. Mild emphysematous changes noted. No evidence o f pulmonary nodule or mass. Right basilar parenchymal scarring. There is no pleural effusion or pneum othorax seen. The tracheobronchial tree is patent. MEDIASTINUM: There are no greater than 1 cm hilar or mediastinal lymph nodes. No pericardial effusi on is seen. Thoracic aorta is of normal caliber. The heart is not enlarged. UPPER ABDOMEN: Renal cystic changes noted. OTHER: No additional significant abnormality is seen. IMPRESSION: 1. Elevation right hemidiaphragm. 2. COPD changes.
== END | disposition home or self-care (01) ==
LOC: RADCTMAIN 06:51
PROVIDERS: ATTEND Internal Medicine Critical Care Medicine
DX: J44.9 Chronic obstructive pulmonary disease, unspecified (principal); J98.6 Disorders of diaphragm
CPT/HCPCS: 82565; 84520; 76000; 71260; 36415; Q9967

== ENCOUNTER 2020-07-25 10:41 | Day surgery (SDC) | payer MEDICARE, BC ==
[2020-07-20 12:51] VITALS: BMI 29.7
[~2020-07-25 10:41] MED LIST: CYCLOPENTOLATE 1% OPHTH SOLN 2 ML BTL OP PRN; LACTATED RINGERS 1,000 ML IV SCH; LIDOCAINE 1% (10MG/ML) FOR IV START INTRADERMA PRN; MOXIFLOXACIN HCL 0.5% DROPS 3 ML BTL OP PRN; PHENYLEPHRINE 2.5% OPHTH DRP 2ML OP PRN; TETRACAINE 0.5% OPHTH (PF) DROPS 4 ML BTL OP PRN; TIMOLOL 0.5% OPHTH DROPS 5 ML BTL OP PRN
[2020-07-25 12:17] VITALS: RESP 16; TEMP 98.2
[2020-07-25] MEDS ORDERED: fentaNYL (PF) 50 MCG/ML 2 ML AMP ONE (12:38)
[2020-07-25] MEDS ORDERED: PROPOFOL 10 MG/ML 20 ML VIAL IV ONE (12:38)
[2020-07-25] MEDS ORDERED: BALANCED SALT IRRIG SOLN COMB2 15 ML IRRIG.SOLN IRRIGATION ONE (12:59)
[2020-07-25] MEDS ORDERED: LIDOCAINE 1% (PF) 10MG/ML VIAL MISCELLANE ONE (13:00)
[2020-07-25] MEDS ORDERED: DUOVISC KIT (GREEN BOX) INTRAOCULA ONE (13:00)
[2020-07-25] MEDS ORDERED: EPINEPHrine (PF) 0.5 ML in BALANCED SALT IRRIG SOLN COMB2 500 ML IRRIGATION ONE (13:01)
--- NOTE | 2020-07-25 13:13 | P.OP ---
Date of Procedure: 07/25/20 Preoperative Diagnosis: NS & PSC Postoperative Diagnosis: same Procedure(s) Performed: PIOL, OS Implants: MX60E 20.00 Anesthesia: MAC Surgeon: Alf Guerrero Pathology: none sent Condition: stable Disposition: same day Indications for Procedure: blurry vision Operative Findings: no complications
[2020-07-25 14:03] VITALS: BP 145/73; PULSE 57
--- NOTE | 2020-07-25 20:12 | OP ---
OPERATIVE REPORT DATE OF SURGERY: 07/25/2020 PROCEDURE: Phacoemulsification of cataract and intraocular lens implant of the left eye. PREOPERATIVE DIAGNOSIS: Nuclear sclerosis, posterior subcapsular cataract. POSTOPERATIVE DIAGNOSIS: ESTIMATED BLOOD LOSS: Zero. SPECIMEN TAKEN: None. NARRATIVE: After obtaining the appropriate consent, the patient was brought to the operating room, where the patient was placed under cardiac monitoring and prepped and draped in the usual sterile manner. At the 5 o'clock position a 15-degree super sharp blade was used to create a paracentesis followed by instillation of 1% Xylocaine MPF 50:50 mix with BSS into the anterior chamber. This was followed by Duovisc to stabilize the anterior chamber. At the 3 o'clock position a self-sealing corneal flap incision was created using 2.8 mm tara keratome. A cystotome was used to initiate a continuous tear capsulorrhexis which was completed with the Utrata forceps. A Binkhorst cannula was used to hydrodissect the lens nucleus followed by hydrodelineation. Phacoemulsification of the lens was performed utilizing phacochop in 17.33 seconds at 20% power. The remaining cortical material was removed using the irrigation aspiration mode followed by additional 1% Xylocaine MPF into the anterior chamber followed by viscoelastic Duovisc to stabilize the capsular bag. A [employer]ch [employer] Lomb MX 60E 20.0 diopters posterior chamber lens was placed into the capsular bag without difficulty. The remaining viscoelastic material was removed from the anterior chamber with the irrigation/aspiration. Balanced salt solution was used to normalize the intraocular pressure. The incision was checked for watertight integrity. The patient then received two drops of 0.5% timolol followed by two drops Vigamox, was lightly patched and shielded in the usual manner. There were no complications from the procedure. The patient tolerated the procedure well and was returned to recovery in good condition. MMODL / IJN: [id number] /
== END 2020-07-25 14:33 | disposition home or self-care (01) ==
LOC: OR 10:41
PROVIDERS: ATTEND Ophthalmology
DX: H25.042 Posterior subcapsular polar age-related cataract, left eye (principal); H35.3211 Exudative age-related macular degeneration, right eye, with active choroidal neovascularization; H43.22 Crystalline deposits in vitreous body, left eye; H25.12 Age-related nuclear cataract, left eye; H52.4 Presbyopia; Z96.1 Presence of intraocular lens; I10 Essential (primary) hypertension; K21.9 Gastro-esophageal reflux disease without esophagitis; H35.30 Unspecified macular degeneration; Z87.81 Personal history of (healed) traumatic fracture; Z90.89 Acquired absence of other organs; Z87.442 Personal history of urinary calculi; Z98.890 Other specified postprocedural states; Z79.02 Long term (current) use of antithrombotics/antiplatelets; Z79.899 Other long term (current) drug therapy; Z91.030 Bee allergy status; Z91.038 Other insect allergy status

== ENCOUNTER → 2020-10-01 | Outpatient (CLI) | payer MEDICARE, BC ==
--- NOTE | 2020-10-01 14:33 | XR ---
EXAMINATION TYPE: XR hand complete LT DATE OF EXAM: 10/01/2020 CLINICAL HISTORY: Swelling and pain. TECHNIQUE: Frontal, lateral and oblique images of the left hand are obtained. COMPARISON: None. FINDINGS: There is no acute fracture/dislocation evident in the left hand. Severe narrowing with het erotopic ossification and joint space sclerosis base of first metacarpal. Mild to moderate narrowing of the PIP and the DIP joints of the phalanges . Osseous structures are somewhat demineralized. Mild diffuse soft tissue swelling throughout the fingers. IMPRESSION: As above.
== END | disposition home or self-care (01) ==
LOC: RADXRYALE 13:35
PROVIDERS: ATTEND Internal Medicine
DX: M25.842 Other specified joint disorders, left hand (principal)

== ENCOUNTER → 2020-12-05 | Outpatient (CLI) | payer MEDICARE, BC | END | disposition home or self-care (01) | CPT/HCPCS: 36415; 85027; 85652; 86140 ==

== ENCOUNTER 2021-09-21 16:51 | Emergency (ER) | payer MEDICARE, BC ==
[2021-09-21 16:58] VITALS: TEMP 98.7
[2021-09-21] MEDS ORDERED: DIPH,PERTUS(ACELL)TETVAC-LF 0.5 ML VIAL IM ONE (17:52)
--- NOTE | 2021-09-21 18:04 | ED ---
Head Injury HPI - General Chief complaint: Head Injury Stated complaint: Head Injury/Fall Time Seen by Provider: 09/21/21 17:37 Source: patient, family Mode of arrival: wheelchair Limitations: no limitations - History of Present Illness Initial comments: This is a pleasant 86-year-old male with a history of coronary artery disease, COPD, hypertension, DVT, valvular heart disease. Patient states he was doing some yard work. Patient states he sits on a small stool and was bleeding. Patient states she leaned over too far and fell over forward striking his face on cement. No loss of consciousness, patient recalls the entire event. No preceding symptomology. Denied any symptoms of syncope. No chest pain. No shortness of breath. No ooziness. No numbness or tingling. No changes in vision or hearing. No focal deficit. No focal weakness. No slurred speech. Patient was able to get up and walk after the incident. Presents with laceratio ns to the forehead and nose. Last tetanus unknown. Patient does take Plavix but is on no other anticoagulation. - Related Data Home Medications Medication Instructions Recorded Confirmed Aspirin [Adult Low Dose Aspirin EC] 81 mg PO DAILY 02/21/20 07/25/20 Pantoprazole Sodium [Protonix] 40 mg PO DAILY 02/21/20 07/25/20 Rosuvastatin Calcium [Crestor] 40 mg PO DAILY 02/21/20 07/25/20 Areds 1 tab PO DAILY 07/20/20 07/25/20 Previous Rx's Medication Instructions Recorded Nitroglycerin Sl Tabs [Nitrostat] 0.4 mg SUBLINGUAL Q5M PRN #25 tab 03/18/16 amLODIPine [Norvasc] 5 mg PO DAILY #30 tab 08/27/16 Clopidogrel [Plavix] 75 mg PO DAILY #1 tab 09/04/16 atenoloL [Tenormin] 25 mg PO DAILY #30 tab 09/04/16 Allergies/Adverse reactions: Allergies Allergy/AdvReac Type Severity Reaction Status Date / Time latex Allergy blisters Verified 09/21/21 16:52 in mouth venom-honey bee Allergy passed out Verified 09/21/21 16:52 [bee venom (honey bee)] venom-wasp [wasp venom] Allergy passed out Verified 09/21/21 16:52 Review of Systems ROS Statement: Those systems with pertinent positive or pertinent negative responses have been documented in the HPI. ROS Other: All systems not noted in ROS Statement are negative. Past Medical History Past Medical History: Coronary Artery Disease (CAD), COPD, Deep Vein Thrombosis (DVT), GERD/Reflux, GI Bleed, Hypertension, Osteoarthritis (OA) Additional Past Medical History / Comment(s): SOB, hx kidney stones, paralyzed diaphragm rt side, GI bleed 2017, History of Any Multi-Drug Resistant Organisms: None Reported Past Surgical History: Adenoidectomy, Appendectomy, Heart Catheterization With Stent, Hernia Repair, Tonsillectomy Additional Past Surgical History / Comment(s): lithotripsy x 4, 3 cardiac stents, rt cataract, oral surgery Past Anesthesia/Blood Transfusion Reactions: Motion Sickness, Postoperative Nausea & Vomiting (PONV) Additional Past Anesthesia/Blood Transfusion Reaction / Comment(s): HAD MOTION SICKNESS WHEN YOUNGER. paralyzed diaphragm rt side Date of Last Stent Placement:: 03/2019 Past Psychological History: No Psychological Hx Reported Smoking Status: Former smoker Past Alcohol Use History: None Reported Past Drug Use History: None Reported - Past Family History Mother Family Medical History: Cancer Father Family Medical History: Myocardial Infarction ([place]), Mitral Valve Prolapse (MVP) Additional Family Medical History / Comment(s): PT STATED HIS FATHER HAD 14 CA'S AND AT THE AGE OF 58 General Exam - General Exam Comments Initial Comments: Elderly male in no acute distress. Does not appear to be ill or toxic. Cranial nerves II through XII intact. No focal neurologic deficits. Alert and oriented 4. Baudilio Coma Scale is 15. Limitations: no limitations General appearance: alert, in no apparent distress Head exam: Present: other (Superficial lacerations noted to the forehead and the bridge of the nose. No septal hematoma. No other injuries. No maxillofacial injury otherwise. Remainder of the head is normocephalic/atraumatic.) Eye exam: Present: normal appearance, PERRL, EOMI. Absent: scleral icterus, conjunctival injection, periorbital swelling Pupils: Present: normal accommodation ENT exam: Present: normal exam, normal oropharynx, mucous membranes moist, TM's normal bilaterally, normal external ear exam. Absent: mucous membranes dry Neck exam: Present: normal inspection, full ROM. Absent: tenderness, meningismus, lymphadenopathy Respiratory exam: Present: normal lung sounds bilaterally. Absent: respiratory distress, wheezes, rales, rhonchi, stridor, accessory muscle use, decreased breath sounds, prolonged expiratory Cardiovascular Exam: Present: regular rate, normal rhythm, normal heart sounds. Absent: systolic murmur, diastolic murmur, rubs, gallop, clicks GI/Abdominal exam: Present: soft, normal bowel sounds. Absent: distended, tend erness, guarding, rebound, rigid Extremities exam: Present: normal inspection, full ROM, normal capillary refill. Absent: tenderness, pedal edema, joint swelling, calf tenderness Back exam: Present: normal inspection Neurological exam: Present: alert, oriented X3, CN II-XII intact, normal gait, other (Cerebellar testing is normal). Absent: altered, abnormal gait, motor sensory deficit Psychiatric exam: Present: normal affect, normal mood Skin exam: Present: warm, dry, intact, normal color. Absent: rash Course Vital Signs 09/21/21 09/21/21 16:52 18:51 Temperature 98.7 F Pulse Rate 62 64 Respiratory 16 18 Rate Blood Pressure 149/70 144/72 O2 Sat by Pulse 96 97 Oximetry Procedures - Laceration Laceration #1 Consent Obtained: verbal consent Indication: laceration Site: scalp (Forehead) Size (cm): 4 Depth: simple, single layer Pre-repair: wound explored, irrigated extensively Size of Sutures: other (Tissue adhesive) Technique: simple, interrupted Patient Tolerated Procedure: well, no complications Additional Comments: Last solution used for local anesthesia. 200 mL of normal saline used for cleansing. Medical Decision Making - Medical Decision Making Mechanical fall with isolated facial abrasions and lacerations. Neurologically intact otherwise. No preceding symptomology. No anticoagulation therapy. CT indicated as the patient's over 65 years old. Patient has no neck pain. Musculoskeletal exam benign otherwise. Tetanus updated. Patient counseled on wound care. Counseled on signs and symptoms of infection. Counseled on head injury instructions. Patient released with family. Family will stay with the patient for the next 24 hours. Return if all parents discussed in detail. All questions answered. The case was discussed in detail with ED attending physician. Presentation, findings, treatment plan discussed in detail. Dr. Thakur Patient was told to return to the ER for any signs or symptoms worsen. Told to return immediately if any other problems arise. All questions answered. Treatment plan discussed. Patient in agreement Every effort has been made to ensure accuracy of this dictation. However, due to the limitations of electronic medical records and dictation devices, errors in charting still occur. Disposition Clinical Impression: Closed head injury, Forehead laceration, Nose abrasion, Fall Narrative: Mechanical fall Disposition: HOME SELF-CARE Condition: Good Instructions (If sedation given, give patient instructions): Head Injury (ED), Skin Adhesive Care (ED) Additional Instructions: Follow-up with your regular physician as directed. Return to the ER immediately if any symptoms worsen, new symptoms arise, or any other problems develop. Review the head injury instructions. Make sure somebody stays with him at all times for the next 24 hours. Is patient prescribed a controlled substance at d/c from ED?: No Referrals: Lisha Martinez MD [Primary Care Provider] - 1-2 days Time of Disposition: 18:52
--- NOTE | 2021-09-21 18:39 | CT ---
EXAMINATION TYPE: CT facial bones wo con DATE OF EXAM: 09/21/2021 COMPARISON: None HISTORY: Fall, injury to nose and forehead. CT DLP: 1376.9 mGycm Automated exposure control for dose reduction was used. Images obtained from the bottom of the mandible to the top of the frontal sinuses without contrast. The mandibular ring is intact. The temporomandibular joints appear intact. Zygomatic arches appear no rmal. Maxilla is intact. Orbital margins are intact. There is no evidence of orbital blowout fracture . There is no retro-orbital mass. There is fairly normal aeration of the paranasal sinuses. There is normal aeration of the mastoid sinuses. The nasal bone appears intact. IMPRESSION: Negative CT scan of the facial bones.
--- NOTE | 2021-09-21 18:45 | CT ---
EXAMINATION TYPE: CT brain raymundo hendrickson DATE OF EXAM: 09/21/2021 COMPARISON: None HISTORY: Fall, injury to nose and forehead. CT DLP: 1376.9 mGycm Automated exposure control for dose reduction was used. There is cerebral cortical atrophy. There is no mass effect or midline shift. There is no sign of int racranial hemorrhage. There is some mild hypodensity in the periventricular white matter. Calvarium i s intact. There is normal aeration of the mastoid sinuses. The cervical vertebra show straightening with anterior subluxation at C3-4 and C4-5. There is disc sp alejandra narrowing from C4 to T1. Facet joints are intact. No fracture seen. There is a large anterior vandana dging osteophyte formation. IMPRESSION: Cerebral atrophy and chronic small vessel ischemia. No acute intracranial abnormality. Moderate multilevel cervical spondylotic changes. No fracture seen.
[2021-09-21] MEDS ORDERED: TOPICAL SKIN ADHESIVE 1 EACH AMP TOPICAL ONE (18:49)
[2021-09-21] MEDS ORDERED: LIDOCAINE/EPINEPHR/TETRACAINE 5 ML BOTTLE TOPICAL ONE (18:49)
[2021-09-21 18:53] VITALS: BP 144/72; PULSE 64; RESP 18
== END 2021-09-21 19:35 | disposition home or self-care (01) ==
LOC: EC 16:51
DX: S01.81XA Laceration without foreign body of other part of head, initial encounter (principal); S00.31XA Abrasion of nose, initial encounter; I10 Essential (primary) hypertension; J44.9 Chronic obstructive pulmonary disease, unspecified; K21.9 Gastro-esophageal reflux disease without esophagitis; I25.10 Atherosclerotic heart disease of native coronary artery without angina pectoris; Z79.82 Long term (current) use of aspirin; Z87.891 Personal history of nicotine dependence; Z91.030 Bee allergy status; Z91.040 Latex allergy status; Z79.899 Other long term (current) drug therapy; Z23 Encounter for immunization; W01.198A Fall on same level from slipping, tripping and stumbling with subsequent striking against other object, initial encounter; Y93.H2 Activity, gardening and landscaping; Y92.096 Garden or yard of other non-institutional residence as the place of occurrence of the external cause
CPT/HCPCS: 12013; 70450; 70486; 72125; 90471; 90715; 99284

== ENCOUNTER 2021-11-26 12:29 | Emergency (ER) | payer MEDICARE, BC ==
[2021-11-26 13:20] VITALS: RESP 18; TEMP 97.5
--- NOTE | 2021-11-26 13:25 | ED ---
General Adult HPI - General Source: patient, RN notes reviewed Mode of arrival: ambulatory Limitations: no limitations - History of Present Illness -: days(s) (1) Location: buttocks (rectum) Severity scale (1-10): 0 Treatments Prior to Arrival: other (PCP office) <Hardy Shaffer - Last Filed: 11/26/21 13:21> - General Source: patient, RN notes reviewed <Shivam Garcia - Last Filed: 11/26/21 20:02> - General Chief complaint: Skin/Abscess/Foreign Body Stated complaint: Rectal pain Time Seen by Provider: 11/26/21 13:18 - History of Present Illness Initial comments: Well-appearing 86-year-old male, alert and oriented 4, presents to emergency room, sent by primary care doctor for possible rectal prolapse. Patient states he tried to have a bowel movement this morning and was unable. Sates he reached back with toilet paper and felt a large protrusion. He states he has no pain. He is unable to pass gas, denies any abdominal pain and no nausea or vomiting. They did try to contact a surgeon who were unable to get the patient into the office today so they recommended he be seen in the emergency department. He does have a history of umbilical hernia repair no other abdominal surgeries. (Hardy Shaffer) Patient is a pleasant 86-year-old male presenting to the emergency department with concern for rectal mass. Onset of symptoms was this morning. Patient was trying to have a bowel movement and he could not. Patient felt down there and felt there may be a mass. Patient did go to his doctor and was advised come the emergency Department. No history of similar symptoms previously. Patient has had discomfort since this morning, constant. No abdominal pain. (Shivam Garcia) - Related Data Home Medications Medication Instructions Recorded Confirmed Aspirin [Adult Low Dose Aspirin EC] 81 mg PO DAILY 02/21/20 07/25/20 Pantoprazole Sodium [Protonix] 40 mg PO DAILY 02/21/20 07/25/20 Rosuvastatin Calcium [Crestor] 40 mg PO DAILY 02/21/20 07/25/20 Areds 1 tab PO DAILY 07/20/20 07/25/20 Previous Rx's Medication Instructions Recorded Nitroglycerin Sl Tabs [Nitrostat] 0.4 mg SUBLINGUAL Q5M PRN #25 tab 03/18/16 amLODIPine [Norvasc] 5 mg PO DAILY #30 tab 08/27/16 Clopidogrel [Plavix] 75 mg PO DAILY #1 tab 09/04/16 atenoloL [Tenormin] 25 mg PO DAILY #30 tab 09/04/16 Allergies Allergy/AdvReac Type Severity Reaction Status Date / Time latex Allergy blisters Verified 11/26/21 13:20 in mouth venom-honey bee Allergy passed out Verified 11/26/21 13:20 [bee venom (honey bee)] venom-wasp [wasp venom] Allergy passed out Verified 11/26/21 13:20 Review of Systems ROS Other: All systems not noted in ROS Statement are negative. <Hardy Shaffer - Last Filed: 11/26/21 13:21> ROS Other: All systems not noted in ROS Statement are negative. Constitutional: Denies: fever Eyes: Denies: eye pain ENT: Denies: ear pain Respiratory: Denies: cough Cardiovascular: Denies: chest pain Endocrine: Denies: fatigue Gastrointestinal: Reports: as per HPI. Denies: abdominal pain Genitourinary: Denies: dysuria Musculoskeletal: Denies: back pain Skin: Denies: rash <Shivam Garcia - Last Filed: 11/26/21 20:02> ROS Statement: Those systems with pertinent positive or pertinent negative responses have been documented in the HPI. Past Medical History Past Medical History: Coronary Artery Disease (CAD), COPD, Deep Vein Thrombosis (DVT), GERD/Reflux, GI Bleed, Hypertension, Osteoarthritis (OA) Additional Past Medical History / Comment(s): SOB, hx kidney stones, paralyzed diaphragm rt side, GI bleed 2016, History of Any Multi-Drug Resistant Organisms: None Reported Past Surgical History: Adenoidectomy, Appendectomy, Heart Catheterization With Stent, Hernia Repair, Tonsillectomy Additional Past Surgical History / Comment(s): lithotripsy x 4, 3 cardiac stents, rt cataract, oral surgery Past Anesthesia/Blood Transfusion Reactions: Motion Sickness, Postoperative Nausea & Vomiting (PONV) Additional Past Anesthesia/Blood Transfusion Reaction / Comment(s): HAD MOTION SICKNESS WHEN YOUNGER. paralyzed diaphragm rt side Date of Last Stent Placement:: 03/2019 Past Psychological History: No Psychological Hx Reported Smoking Status: Former smoker Past Alcohol Use History: None Reported Past Drug Use History: None Reported - Past Family History Mother Family Medical History: Cancer Father Family Medical History: Myocardial Infarction ([place]), Mitral Valve Prolapse (MVP) Additional Family Medical History / Comment(s): PT STATED HIS FATHER HAD 14 WI'S AND AT THE AGE OF 58 <Hardy Shaffer - Last Filed: 11/26/21 13:21> General Exam Limitations: no limitations General appearance: alert, in no apparent distress Head exam: Present: atraumatic Respiratory exam: Present: normal lung sounds bilaterally. Absent: respiratory distress, chest wall tenderness Cardiovascular Exam: Present: bradycardia Neurological exam: Present: alert, oriented X3 Psychiatric exam: Present: normal affect, normal mood Skin exam: Present: warm, dry, normal color. Absent: cyanosis, diaphoretic <Hardy Shaffer - Last Filed: 11/26/21 13:21> Limitations: no limitations General appearance: alert, in no apparent distress Head exam: Present: normocephalic Eye exam: Present: normal appearance Neck exam: Present: normal inspection Respiratory exam: Present: normal lung sounds bilaterally Cardiovascular Exam: Present: regular rate, normal rhythm GI/Abdominal exam: Present: soft, normal bowel sounds. Absent: distended, tenderness, guarding, rebound, rigid, pulsatile mass Rectal exam: Present: fecal impaction. Absent: hemorrhoids, mass Extremities exam: Present: normal inspection Neurological exam: Present: alert Psychiatric exam: Present: normal affect, normal mood Skin exam: Present: normal color <Shivam Garcia - Last Filed: 11/26/21 20:02> Course Vital Signs 11/26/21 13:16 Temperature 97.5 F L Pulse Rate 53 L Respiratory 18 Rate Blood Pressure 153/73 O2 Sat by Pulse 96 Oximetry Medical Decision Making <Shivam Garcia - Last Filed: 11/26/21 20:02> - Medical Decision Making Patient reevaluated. Patient had 2 large bowel movements following enema and feels much better. (Shivam Garcia) Disposition <Hardy Shaffer - Last Filed: 11/26/21 13:21> Is patient prescribed a controlled substance at d/c from ED?: No Time of Disposition: 20:02 <Shivam Garcia - Last Filed: 11/26/21 20:02> Clinical Impression: Fecal impaction Disposition: HOME SELF-CARE Condition: Stable Instructions (If sedation given, give patient instructions): Fecal Impaction (E D) Additional Instructions: Continue with a good diet and exercise. Please follow-up with your primary care doctor in the next couple of days for recheck. Return for increased pain, swelling, worsening or changing symptoms or other concerns. Referrals: Lisha Martinez MD [Primary Care Provider] - 1-2 days
[2021-11-26] MEDS ORDERED: bisacodyL 10 MG SUPP RECTAL STA ×2 (19:36)
[2021-11-26 20:06] VITALS: BP 169/89; PULSE 54
== END 2021-11-26 20:30 | disposition home or self-care (01) ==
LOC: EC 12:29
DX: K56.41 Fecal impaction (principal); I10 Essential (primary) hypertension; J44.9 Chronic obstructive pulmonary disease, unspecified; I25.10 Atherosclerotic heart disease of native coronary artery without angina pectoris; K21.9 Gastro-esophageal reflux disease without esophagitis; M19.90 Unspecified osteoarthritis, unspecified site; Z86.718 Personal history of other venous thrombosis and embolism; Z87.891 Personal history of nicotine dependence; Z91.040 Latex allergy status; Z91.030 Bee allergy status; Z79.899 Other long term (current) drug therapy; Z79.82 Long term (current) use of aspirin; Z79.02 Long term (current) use of antithrombotics/antiplatelets
CPT/HCPCS: 99283

== ENCOUNTER 2023-01-01 12:02 | Inpatient (IN) | payer MEDICARE, BC ==
--- NOTE | 2023-01-01 13:08 | ED ---
General Adult HPI - General Chief complaint: Fall Stated complaint: Fall Time Seen by Provider: 01/01/23 12:20 Source: EMS Mode of arrival: EMS Limitations: no limitations - History of Present Illness Initial comments: Dictation was produced using [employer] dictation software. please excuse any grammatical, word or spelling errors. Chief Complaint: 87-year-old male presents after fall History of Present Illness: Patient is an 79 memq-zjad-ygn male he has multiple comorbidities. Patient allegedly fell some point last night. Patient states he did not feel well when he went to the [facility] with a friend. He was help get into the hospital by a friend when patient fell. Does not really recall falling. Patient was too weak to get up. He complains of bilateral myalgias to the thighs. Denies any other complaints. Denies any head trauma or head pain or neck pain. Denies any abdominal pain. States that he feels significantly w eak. The ROS documented in this emergency department record has been reviewed and confirmed by me. Those systems with pertinent positive or negative responses have been documented in the HPI. All other systems are other negative and/or noncontributory. - Related Data Home Medications Medication Instructions Recorded Confirmed Aspirin [Adult Low Dose Aspirin EC] 81 mg PO DAILY 02/21/20 01/01/23 Pantoprazole Sodium [Protonix] 40 mg PO DAILY 02/21/20 01/01/23 Tamsulosin [Flomax] 0.4 mg PO DAILY 01/01/23 01/01/23 Vit C/E/Zn/Coppr/Lutein/Zeaxan 1 cap PO DAILY 01/01/23 01/01/23 [Preservision Areds 2 Softgel] Previous Rx's Medication Instructions Recorded Nitroglycerin Sl Tabs [Nitrostat] 0.4 mg SUBLINGUAL Q5M PRN #25 tab 03/18/16 amLODIPine [Norvasc] 5 mg PO DAILY #30 tab 08/27/16 Clopidogrel [Plavix] 75 mg PO DAILY #1 tab 09/04/16 atenoloL [Tenormin] 25 mg PO DAILY #30 tab 09/04/16 Allergies Allergy/AdvReac Type Severity Reaction Status Date / Time latex Allergy blisters Verified 01/01/23 15:45 in mouth venom-honey bee Allergy passed out Verified 01/01/23 15:45 [bee venom (honey bee)] venom-wasp [wasp venom] Allergy passed out Verified 01/01/23 15:45 Review of Systems ROS Statement: Those systems with pertinent positive or pertinent negative responses have been documented in the HPI. ROS Other: All systems not noted in ROS Statement are negative. Past Medical History Past Medical History: Coronary Artery Disease (CAD), COPD, Deep Vein Thrombosis (DVT), GERD/Reflux, GI Bleed, Hypertension, Osteoarthritis (OA) Additional Past Medical History / Comment(s): SOB, hx kidney stones, paralyzed diaphragm rt side, GI bleed 2017, History of Any Multi-Drug Resistant Organisms: None Reported Past Surgical History: Adenoidectomy, Appendectomy, Heart Catheterization With Stent, Hernia Repair, Tonsillectomy Additional Past Surgical History / Comment(s): lithotripsy x 4, 3 cardiac stents, rt cataract, oral surgery Past Anesthesia/Blood Transfusion Reactions: Motion Sickness, Postoperative Na usea & Vomiting (PONV) Additional Past Anesthesia/Blood Transfusion Reaction / Comment(s): HAD MOTION SICKNESS WHEN YOUNGER. paralyzed diaphragm rt side Date of Last Stent Placement:: 03/2019 Past Psychological History: No Psychological Hx Reported Smoking Status: Former smoker Past Alcohol Use History: None Reported Past Drug Use History: None Reported - Past Family History Mother Family Medical History: Cancer Father Family Medical History: Myocardial Infarction ([place]), Mitral Valve Prolapse (MVP) Additional Family Medical History / Comment(s): PT STATED HIS FATHER HAD 14 [place]'S AND AT THE AGE OF 58 General Exam - General Exam Comments Initial Comments: PHYSICAL EXAM: General Impression: Alert and oriented x3, not in acute distress HEENT: Normocephalic atraumatic, extra-ocular movements intact, pupils equal and reactive to light bilaterally, mucous membranes moist. Cardiovascular: Heart regular rate and rhythm Chest: Able to complete full sentences, no retractions, no tachypnea Abdomen: abdomen soft, non-tender, non-distended, no organomegaly Musculoskeletal: Pulses present and equal in all extremities, no peripheral edema, all extremities ranged with no antalgia Motor: no focal deficits noted Neurological: CN II-XII grossly intact, no focal motor or sensory deficits noted Skin: Abrasion to the left elbow Psych: Normal affect and mood Limitations: no limitations Course Vital Signs 01/01/23 01/01/23 01/01/23 12:03 15:09 15:45 Temperature 97.8 F Pulse Rate 52 L 82 77 Respiratory 18 20 20 Rate Blood Pressure 176/95 153/83 155/83 O2 Sat by Pulse 82 L 98 98 Oximetry 01/01/23 18:25 Temperature Pulse Rate 75 Respiratory 22 Rate Blood Pressure 126/69 O2 Sat by Pulse 98 Oximetry Medical Decision Making - Medical Decision Making Was pt. sent in by a medical professional or institution (, [employer], COMPUTERIZED MACHINE FABRIC CUTTER, urgent care, hospital, or care home...) When possible be specific @ -No Did you speak to anyone other than the patient for history (EMS, parent, family, police, friend...)? What history was obtained from this source @ -No Did you review nursing and triage notes (agree or disagree)? Why? @ -I reviewed and agree with nursing and triage notes Were old charts reviewed (outside hosp., previous admission, EMS record, old EK G, old radiological studies, urgent care reports/EKG's, care home records)? Report findings @ -No old charts were reviewed Differential Diagnosis (chest pain, altered mental status, abdominal pain women, abdominal pain men, vaginal bleeding, musculoskeletal, weakness, fever, dyspnea, syncope, headache, dizziness, GI bleed, back pain, seizure, CVA, palpatations, mental health)? @ -not applicable EKG interpreted by me (3pts min.). @ -My EKG interpretation: Ventricular rate 69, sinus rhythm,. 186, QRS 80, QTc 386. No TX prolongation, no QTC prolongation, no ST or T-wave changes noted. . Overall, this EKG is unremarkable X-rays interpreted by me (1pt min.). @ -Chest x-ray and pelvis x-ray shows no acute processes CT interpreted by me (1pt min.). @ -Computed tomography scan of the head and C-spine shows no acute processes U/S interpreted by me (1pt. min.). @ -None done What testing was considered but not performed or refused? (CT, X-rays, U/S, labs)? Why? @ -None What meds were considered but not given or refused? Why? @ -None Did you discuss the management of the patient with other professionals (professionals i.e. , [employer], COMPUTERIZED MACHINE FABRIC CUTTER, lab, RT, psych nurse, community mental health social worker, athletic gear custodian, teacher, medical laboratory technical officer, piano case maker)? Give summary @ -Discussed with hospitalist for admission Was smoking cessation discussed for >3mins.? @ -No Was critical care preformed (if so, how long)? @ -33 minutes Were there social determinants of health that impacted care today? How? (Home lessness, low income, unemployed, alcoholism, drug addiction, transportation, low edu. Level, literacy, decrease access to med. care, prison, rehab)? @ -No Was there de-escalation of care discussed even if they declined (Discuss DNR or withdrawal of care, Hospice)? DNR status @ -No What co-morbidities impacted this encounter? (DM, HTN, Smoking, COPD, CAD, Cancer, CVA, ARF, Chemo, Hep., AIDS, mental health diagnosis, sleep apnea, morbid obesity)? @ -None Was patient admitted / discharged? Hospital course, mention meds given and route, prescriptions, significant lab abnormalities, going to OR and other pertinent info. @ 87-Year-old male presents to emergency by with generalized weakness. Vital signs upon arrival shows. Patient denies any chest pain. No shortness of breath. Denies any pain complaints. CBC, coag panel is negative. Metabolic panel is within acceptable limits. Troponin is elevated 0.070. Urinalysis is negative. Covid test is positive. Patient reevaluated bedside still very debilitated. Patient be admitted. CT angios does not show any definitive pulmonary embolism. There does appear to be some groundglass opacity is in the lower lung cummins. Undiagnosed new problem with uncertain prognosis? @ -No Drug Therapy requiring intensive monitoring for toxicity (Heparin, Nitro, Insulin, Cardizem)? @ -No Were any procedures done? @ -No Diagnosis/symptom? Acute, or Chronic, or Acute on Chronic? Uncomplicated (without systemic symptoms) or Complicated (systemic symptoms)? @ -1. Gravely disabled, 2. COVID-19 complicated by hypoxia Side effects of treatment? @ -No Exacerbation, Progression, or Severe Exacerbation? @ -No Poses a threat to life or bodily function? How? (Chest pain, [place], [place], pneumonia, PE, COPD, DKA, ARF, appy, cholecystitis, CVA, Diverticulitis, Homicidal, Suicida l, threat to staff... and all critical care pts) @ -yes - Lab Data Result diagrams: 01/01/23 13:00 01/01/23 13:00 Lab Results 01/01/23 01/01/23 01/01/23 Range/Units 13:00 13:00 13:00 WBC 9.3 (3.8-10.6) k/uL RBC 5.59 (4.30-5.90) m/uL Hgb 17.4 (13.0-17.5) gm/dL Hct 52.3 (39.0-53.0) % MCV 93.6 (80.0-100.0) fL MCH 31.1 (25.0-35.0) pg MCHC 33.2 (31.0-37.0) g/dL RDW 13.7 (11.5-15.5) % Plt Count 147 L (150-450) k/uL MPV 7.6 Neutrophils % 87 % Lymphocytes % 4 % Monocytes % 7 % Eosinophils % 0 % Basophils % 0 % Neutrophils # 8.0 H (1.3-7.7) k/uL Lymphocytes # 0.4 L (1.0-4.8) k/uL Monocytes # 0.6 (0-1.0) k/uL Eosinophils # 0.0 (0-0.7) k/uL Basophils # 0.0 (0-0.2) k/uL PT 10.9 (9.0-12.0) sec INR 1.0 (<1.2) APTT 24.3 (22.0-30.0) sec Sodium 136 L (137-145) mmol/L Potassium 4.0 (3.5-5.1) mmol/L Chloride 98 (98-107) mmol/L Carbon Dioxide 33 H (22-30) mmol/L Anion Gap 5 mmol/L BUN 19 (9-20) mg/dL Creatinine 0.72 (0.66-1.25) mg/dL Est GFR (CKD-EPI)AfAm >90 (>60 ml/min/1.73 sqM) Est GFR (CKD-EPI)NonAf 83 (>60 ml/min/1.73 sqM) Glucose 82 (74-99) mg/dL Plasma Lactic Acid William (0.7-2.0) mmol/L Calcium 9.2 (8.4-10.2) mg/dL Magnesium 1.9 (1.6-2.3) mg/dL Total Bilirubin 0.7 (0.2-1.3) mg/dL AST 43 (17-59) U/L ALT 30 (4-49) U/L Alkaline Phosphatase 78 (38-126) U/L Ammonia (<30) umol/L Creatine Kinase 515 H (55-170) U/L Troponin I (0.000-0.034) ng/mL Total Protein 7.1 (6.3-8.2) g/dL Albumin 4.0 (3.5-5.0) g/dL Urine Color Urine Appearance (Clear) Urine pH (5.0-8.0) Ur Specific [place] (1.001-1.035) Urine Protein (Negative) Urine Glucose (UA) (Negative) Urine Ketones (Negative) Urine Blood (Negative) Urine Nitrite (Negative) Urine Bilirubin (Negative) Urine Urobilinogen (<2.0) mg/dL Ur Leukocyte Esterase (Negative) Urine RBC (0-5) /hpf Urine WBC (0-5) /hpf Ur Squamous Epith Cells (0-4) /hpf Urine Mucus (None) /hpf Serum Alcohol <10 mg/dL Coronavirus (PCR) (Not Detectd) Blood Type Blood Type Recheck Bld Type Recheck Status Antibody Screen Spec Expiration Date 01/01/23 01/01/23 01/01/23 Range/Units 13:00 13:00 13:00 WBC (3.8-10.6) k/uL RBC (4.30-5.90) m/uL Hgb (13.0-17.5) gm/dL Hct (39.0-53.0) % MCV (80.0-100.0) fL MCH (25.0-35.0) pg MCHC (31.0-37.0) g/dL RDW (11.5-15.5) % Plt Count (150-450) k/uL MPV Neutrophils % % Lymphocytes % % Monocytes % % Eosinophils % % Basophils % % Neutrophils # (1.3-7.7) k/uL Lymphocytes # (1.0-4.8) k/uL Monocytes # (0-1.0) k/uL Eosinophils # (0-0.7) k/uL Basophils # (0-0.2) k/uL PT (9.0-12.0) sec INR (<1.2) APTT (22.0-30.0) sec Sodium (137-145) mmol/L Potassium (3.5-5.1) mmol/L Chloride (98-107) mmol/L Carbon Dioxide (22-30) mmol/L Anion Gap mmol/L BUN (9-20) mg/dL Creatinine (0.66-1.25) mg/dL Est GFR (CKD-EPI)AfAm (>60 ml/min/1.73 sqM) Est GFR (CKD-EPI)NonAf (>60 ml/min/1.73 sqM) Glucose (74-99) mg/dL Plasma Lactic Acid William 1.3 (0.7-2.0) mmol/L Calcium (8.4-10.2) mg/dL Magnesium (1.6-2.3) mg/dL Total Bilirubin (0.2-1.3) mg/dL AST (17-59) U/L ALT (4-49) U/L Alkaline Phosphatase (38-126) U/L Ammonia <9 (<30) umol/L Creatine Kinase (55-170) U/L Troponin I 0.070 H* (0.000-0.034) ng/mL Total Protein (6.3-8.2) g/dL Albumin (3.5-5.0) g/dL Urine Color Urine Appearance (Clear) Urine pH (5.0-8.0) Ur Specific [place] (1.001-1.035) Urine Protein (Negative) Urine Glucose (UA) (Negative) Urine Ketones (Negative) Urine Blood (Negative) Urine Nitrite (Negative) Urine Bilirubin (Negative) Urine Urobilinogen (<2.0) mg/dL Ur Leukocyte Esterase (Negative) Urine RBC (0-5) /hpf Urine WBC (0-5) /hpf Ur Squamous Epith Cells (0-4) /hpf Urine Mucus (None) /hpf Serum Alcohol mg/dL Coronavirus (PCR) Detected A (Not Detectd) Blood Type Blood Type Recheck Bld Type Recheck Status Antibody Screen Spec Expiration Date 01/01/23 01/01/23 Range/Units 13:00 13:16 WBC (3.8-10.6) k/uL RBC (4.30-5.90) m/uL Hgb (13.0-17.5) gm/dL Hct (39.0-53.0) % MCV (80.0-100.0) fL MCH (25.0-35.0) pg MCHC (31.0-37.0) g/dL RDW (11.5-15.5) % Plt Count (150-450) k/uL MPV Neutrophils % % Lymphocytes % % Monocytes % % Eosinophils % % Basophils % % Neutrophils # (1.3-7.7) k/uL Lymphocytes # (1.0-4.8) k/uL Monocytes # (0-1.0) k/uL Eosinophils # (0-0.7) k/uL Basophils # (0-0.2) k/uL PT (9.0-12.0) sec INR (<1.2) APTT (22.0-30.0) sec Sodium (137-145) mmol/L Potassium (3.5-5.1) mmol/L Chloride (98-107) mmol/L Carbon Dioxide (22-30) mmol/L Anion Gap mmol/L BUN (9-20) mg/dL Creatinine (0.66-1.25) mg/dL Est GFR (CKD-EPI)AfAm (>60 ml/min/1.73 sqM) Est GFR (CKD-EPI)NonAf (>60 ml/min/1.73 sqM) Glucose (74-99) mg/dL Plasma Lactic Acid William (0.7-2.0) mmol/L Calcium (8.4-10.2) mg/dL Magnesium (1.6-2.3) mg/dL Total Bilirubin (0.2-1.3) mg/dL AST (17-59) U/L ALT (4-49) U/L Alkaline Phosphatase (38-126) U/L Ammonia (<30) umol/L Creatine Kinase (55-170) U/L Troponin I (0.000-0.034) ng/mL Total Protein (6.3-8.2) g/dL Albumin (3.5-5.0) g/dL Urine Color Yellow Urine Appearance Clear (Clear) Urine pH 5.5 (5.0-8.0) Ur Specific [place] 1.025 (1.001-1.035) Urine Protein 1+ H (Negative) Urine Glucose (UA) Negative (Negative) Urine Ketones 2+ H (Negative) Urine Blood Moderate (Negative) Urine Nitrite Negative (Negative) Urine Bilirubin Negative (Negative) Urine Urobilinogen <2.0 (<2.0) mg/dL Ur Leukocyte Esterase Negative (Negative) Urine RBC 8 H (0-5) /hpf Urine WBC <1 (0-5) /hpf Ur Squamous Epith Cells <1 (0-4) /hpf Urine Mucus Rare H (None) /hpf Serum Alcohol mg/dL Coronavirus (PCR) (Not Detectd) Blood Type O Positive Blood Type Recheck O Pos Bld Type Recheck Status No Antibody Screen NEGATIVE Spec Expiration Date 01/04/20232315 Disposition Clinical Impression: Hypoxia, COVID-19 Disposition: ADMITTED IP TO THIS HOSP Condition: Serious Decision Time: 17:00
[2023-01-01 13:36] LABS: Basophils % (A) 0 %; Eosinophils % (A) 0 %; HCT 52.3 % (39.0-53.0); HGB 17.4 gm/dL (13.0-17.5); Lymphocytes # (A) 0.4 k/uL (1.0-4.8); Lymphocytes % (A) 4 %; MCH 31.1 pg (25.0-35.0); MCHC 33.2 g/dL (31.0-37.0); MCV 93.6 fL (80.0-100.0); Mean Platelet Volume 7.6; Monocytes # (A) 0.6 k/uL (0-1.0); Monocytes % (A) 7 %; Neutrophils % (A) 87 %; Platelet Count 147 k/uL (150-450); RBC 5.59 m/uL (4.30-5.90); RDW 13.7 % (11.5-15.5); WBC 9.3 k/uL (3.8-10.6)
[2023-01-01 13:44] LABS: Lactic Acid, Venous 1.3 mmol/L (0.7-2.0)
[2023-01-01 13:45] LABS: Partial Thromboplastin Time 24.3 sec (22.0-30.0); Prothrombin Time 10.9 sec (9.0-12.0)
[2023-01-01 13:46] LABS: ALT 30 U/L (4-49); AST 43 U/L (17-59); African American GFR (CKD) >90 (>60 ml/min/1.73 sqM); Alcohol <10 mg/dL; Alkaline Phosphatase 78 U/L (38-126); Anion Gap 5 mmol/L; Blood Urea Nitrogen 19 mg/dL (9-20); Calcium 9.2 mg/dL (8.4-10.2); Carbon Dioxide 33 mmol/L (22-30); Chloride 98 mmol/L (98-107); Creatine Kinase 515 U/L (55-170); Glucose 82 mg/dL (74-99); Magnesium 1.9 mg/dL (1.6-2.3); Non-African American GFR(CKD) 83 (>60 ml/min/1.73 sqM); Sodium 136 mmol/L (137-145); Total Bilirubin 0.7 mg/dL (0.2-1.3); Total Protein 7.1 g/dL (6.3-8.2)
[2023-01-01 13:51] LABS: Appearance,Urine Clear (Clear); Color,Urine Yellow; Glucose,Urine (UA) Negative (Negative); Ketones,Urine 2+ (Negative); PH, Urine 5.5 (5.0-8.0); Protein,Urine 1+ (Negative); Specific Gravity,Urine 1.025 (1.001-1.035)
[2023-01-01 13:52] LABS: Bilirubin,Urine Negative (Negative); Blood,Urine Moderate (Negative); Leukocyte Esterase,Urine Negative (Negative); Nitrite,Urine Negative (Negative); Urobilinogen,Urine <2.0 mg/dL (<2.0)
[2023-01-01 13:53] LABS: Mucus,Urine Rare /hpf; RBC,Urine 8 /hpf (0-5); Squamous Epithelial Cell,Urine <1 /hpf (0-4); WBC,Urine <1 /hpf (0-5)
--- NOTE | 2023-01-01 14:23 | XR ---
EXAMINATION TYPE: XR chest 2V DATE OF EXAM: 01/01/2023 2:14 PM COMPARISON: Chest radiographs from 10/10/2021 TECHNIQUE: XR chest 2V Frontal and lateral views of the chest. CLINICAL INDICATION:Male, 87 years old with history of fall; FINDINGS: Lungs/Pleura: There is no evidence of pleural effusion, focal consolidation, or pneumothorax. Scatte red chronic senescent parenchymal change. Redemonstration of elevation the right hemidiaphragm. Pulmonary vascularity: Unremarkable. Heart/mediastinum: Cardiomediastinal silhouette is unremarkable. Musculoskeletal: Multiple level degenerative disc disease changes seen throughout the spine. No acute osseous abnormality. IMPRESSION: No acute cardiopulmonary disease/process.
--- NOTE | 2023-01-01 14:24 | XR ---
EXAMINATION TYPE: XR pelvis AP view DATE OF EXAM: 01/01/2023 2:14 PM INDICATION: Patient age:Male; 87 years old; Reason for study: fall; PHH. COMPARISON: [facility] 03/24/2016 TECHNIQUE: The pelvis was examined in a single projection. FINDINGS: There is no evidence of fracture or dislocation. There is no soft tissue abnormality. Few pelvic phleboliths. Multilevel degenerative changes of the lower spine. IMPRESSION: No acute osseous pathology.
--- NOTE | 2023-01-01 14:37 | CT ---
EXAMINATION TYPE: CT brain raymundo wo con DATE OF EXAM: 01/01/2023 COMPARISON: 09/21/2021 HISTORY: 87-year-old male with pain after Fall CT DLP: 1739.5 mGycm Automated exposure control for dose reduction was used. Technique: Examination of the head was done in axial plane without intravenous contrast. Coronal and sagittal reconstructions performed. CT of the cervical spine was obtained in axial plane without intravenous injection of contrast mater ial. Coronal and sagittal reformatted images were obtained from the axial views for evaluation of f ractures, spinal alignment and canal. FINDINGS: Head: There is no evidence of acute intracranial hemorrhage, acute ischemic changes, mass, mass-effect, or extra-axial fluid collection. There is no effacement of cerebral sulci or basal subarachnoid cister ns. There is no midline shift. Morrell-white matter distinction is preserved. There is mild ventriculomegaly likely secondary to central cerebral atrophy. Moderate patchy white ma tter hypodensities in both cerebral hemispheres. Atherosclerotic calcifications in both carotid sipho ns. Moderate mucosal thickening anterior ethmoid air cells. Trace air-fluid level left maxillary sinus. L obulated mucosal thickening floor of the left maxillary sinus. Mastoid air cells are well pneumatized . Orbits and globes are intact. Cervical spine: No craniocervical junction abnormally, predental space widening, or prevertebral soft tissue swelling . Degenerative change of the C1 dens articulation. Moderate to advanced multilevel spondylotic changes present. Degenerative grade 1 anterolisthesis C3-C4 and C4-C5. Degenerative grade 1 retrolisthesis C5-C6 and C 6-C7. Air-filled geode within the right posterior T1 vertebral body, unchanged from prior. There is reversal of the normal cervical lordosis with variable mild to moderate spinal canal stenose s particularly at C5-C6. Overall appearance is similar prior exam. No acute fracture seen of the cervical spine. Severe left and moderate right neuroforaminal stenosis at C3-C4. At C4-C5, severe right neural foraminal stenosis. At C5-C6, severe left and moderate to severe right neuroforaminal stenosis. At C6/C7, moderate to severe bilateral foraminal stenoses. At C7-T1, severe right and moderate to severe left neural foraminal stenosis. At T1-T2, moderate right and mild left neuroforaminal stenosis. Sagittal and coronal reformatted images confirm above findings. COMBINED IMPRESSION: 1. Mild ventriculomegaly likely in part due to central cerebral atrophy. Correlate to exclude a compo nent of NPH. 2. Moderate patchy chronic small vessel ischemic disease. No acute intracranial abnormality seen. 3. Similar advanced spondylotic change throughout the cervical spine. Degenerative grade 1 spondyloli sthesis C3-C7 levels. No acute fracture seen of the cervical spine. 4. Possible acute on chronic left maxillary sinusitis.
[2023-01-01] MEDS ORDERED: ACETAMINOPHEN TAB 325 MG TAB PO PRN (17:10)
[2023-01-01] MEDS ORDERED: NALOXONE 0.4 MG/ML 1 ML VIAL IV PRN (17:10)
[2023-01-01] MEDS ORDERED: DEXAMETHASONE SOD PHOSPHATE 10 MG/ML 1 ML VIAL IV STA (17:16)
[2023-01-01] MEDS: SODIUM CHLORIDE 0.9% 1,000 ML IV SCH (18:13)
--- NOTE | 2023-01-01 18:26 | CT ---
EXAMINATION TYPE: CT angio chest DATE OF EXAM: 01/01/2023 COMPARISON: Radiograph 01/01/2023 HISTORY: 87-year-old male with shortness of breath, elevated d-dimer and covid + TECHNIQUE: Contiguous axial scanning of the chest performed with IV Contrast, patient injected with 7 0ml mL of Isovue 370. Coronal and sagittal MIP reconstructions performed. CT DLP: 485.2 mGycm Automated exposure control for dose reduction was used. FINDINGS: Heart is upper limits of normal in size. Mild left ventricular wall hypertrophy. Prosthetic endovascu lar aortic valve replacement. Prominent coronary artery calcifications throughout. No flattening of t he interventricular septum or reflux of contrast into the hepatic veins. Mild atherosclerotic arch calcifications. There may be mild atherosclerotic narrowing of the origin o f the left subclavian artery. Unable to exclude a severe stenosis at the origin of the right common c arotid artery, axial image 24. Large caliber to the main right and left pulmonary arteries measuring up to 3.5 cm each suggesting un derlying pulmonary hypertension. There is breathing motion artifact limiting assessment for pulmonary emboli especially within segment al and more distal branches filling defects seen to localize to pulmonary vein. No definite pulmonary embolus is seen. No thoracic lymphadenopathy by CT size criteria. Mild emphysematous change. Mild patchy peripheral groundglass change mid and lower lungs. No gail co nsolidation or pleural effusion. Upper abdomen is very limited due to patient breathing. 6 mm nonobstructive right renal stone. Multip le cysts within the right kidney measuring up to 3.2 cm. Left kidney appears to be surgically absent. 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 Sternal offsets related to diffuse patient b reathing. IMPRESSION: 1. THE PATIENT IS BREATHING THROUGH THE SCAN. THE EXAM IS MARKEDLY LIMITED. NO DEFINITE PULMONARY EMB OLUS ALLOWING FOR THESE LIMITATIONS. 2. MILD PERIPHERAL GROUNDGLASS CHANGE IN THE MID AND LOWER LUNGS MAY RELATE TO A MILD COVID PNEUMONIA . 3. THERE IS UNDERLYING PULMONARY ARTERIAL HYPERTENSION. CAD WITH A EXTENSIVE CORONARY ARTERY CALCIFIC ATIONS. 4. Possible severe stenosis at the origin of the right common carotid artery. 5. Prosthetic endovascular aortic valve replacement. Left ventricular wall hypertrophy.
[2023-01-02] MEDS: ASPIRIN 81 MG PO SCH (13:14)
[2023-01-02] MEDS: DEXAMETHASONE SOD PHOSPHATE 10 MG/ML 1 ML VIAL IVP SCH (13:14)
[2023-01-02] MEDS: TAMSULOSIN 0.4 MG CAP.ER.24H PO SCH (13:14)
[2023-01-02] MEDS: amLODIPine 5 MG TAB PO SCH (13:14)
[2023-01-02] MEDS: CLOPIDOGREL 75 MG TAB PO SCH (13:14)
[2023-01-02] MEDS: atenoloL 25 MG TAB PO SCH (13:14)
[2023-01-02] MEDS: ENOXAPARIN 40 MG/0.4 ML SYRINGE SQ SCH (13:14)
--- NOTE | 2023-01-02 14:04 | P.CNPUL ---
History of Present Illness Consult date: 01/02/23 Reason for consult: dyspnea History of present illness: 87-year-old male patient diagnosed having a Covid 19 infection. The patient has been experiencing generalized weakness. The patient was doing well and he was investigated female with a friend and on the way back, he felt extremely tired and weak and he ultimately collapsed at home. He was having diffuse myalgias. No significant respiratory distress. No cough or sputum production. No chest pain. No change in taste. No nausea. No vomiting. No diarrhea. He has been vaccinated. This is first infection with Covid 19. Symptoms started approximately 2-3 days ago. No fever. No chills. No sweats. No altered mentation. He collapsed at home. However, he did not lose any consciousness. He was brought into the emergency department. He was found to be hypoxic and he is currently on 4 L of oxygen nasal cannula. He was given a dose of Decadron. His chest x-ray showed no acute abnormalities. CAT scan of the chest was done and it was negative for pulmonary embolism. That showed some vague ground glass changes in the mid and lower lung cummins bilaterally suspicious for Covid 19 related pneumonia. There was also underlying pulmonary arterial hypertension. There was evidence of coronary artery calcifications. The patient is currently hemodynamically stable. D-dimer is 0.68. LFTs are normal. Troponins are 0.07 and the CPKs at 517. UA showing +1 protein, +2 ketones as the patient's oral intake is poor and the patient states that he hasn't been eating a lot over the past several days due to loss of appetite. No significant weight loss. His resting comfortably in bed. Review of Systems Constitutional: Reports fatigue, Reports poor appetite, Reports weakness Eyes: denies as per HPI, denies blurred vision, denies bulging eye, denies decreased vision, denies diplopia, denies discharge, denies dry eye, denies irritation, denies itching, denies pain, denies photophobia, denies loss of pe ripheral vision, denies loss of vision, denies tunnel vision/blind spots Ears: deny: decreased hearing, ear discharge, earache, tinnitus Ears, nose, mouth and throat: Reports as per HPI Breasts: absent: as per HPI, gynecomastia Cardiovascular: Reports decreased exercise tolerance, Reports dyspnea on exertion, Reports shortness of breath Respiratory: Reports dyspnea Gastrointestinal: Reports loss of appetite Genitourinary: Reports as per HPI Musculoskeletal: Reports myalgias Musculoskeletal: absent: ankle pain, ankle stiffness, ankle swelling Integumentary: Reports as per HPI Neurological: Reports as per HPI Psychiatric: Reports as per HPI Endocrine: Reports as per HPI, Reports fatigue Hematologic/Lymphatic: Reports as per HPI Allergic/Immunologic: Reports as per HPI Past Medical History Past Medical History: Coronary Artery Disease (CAD), COPD, Deep Vein Thrombosis (DVT), GERD/Reflux, GI Bleed, Hypertension, Osteoarthritis (OA) Additional Past Medical History / Comment(s): SOB, hx kidney stones, paralyzed diaphragm rt side, GI bleed 2017, History of Any Multi-Drug Resistant Organisms: None Reported Past Surgical History: Adenoidectomy, Appendectomy, Heart Catheterization With Stent, Hernia Repair, Tonsillectomy Additional Past Surgical History / Comment(s): lithotripsy x 4, 3 cardiac stents, rt cataract, oral surgery Past Anesthesia/Blood Transfusion Reactions: Motion Sickness, Postoperative Nausea & Vomiting (PONV) Additional Past Anesthesia/Blood Transfusion Reaction / Comment(s): HAD MOTION SICKNESS WHEN YOUNGER. paralyzed diaphragm rt side Date of Last Stent Placement:: 03/2019 Past Psychological History: No Psychological Hx Reported Smoking Status: Former smoker Past Alcohol Use History: None Reported Past Drug Use History: None Reported - Past Family History Mother Family Medical History: Cancer Father Family Medical History: Myocardial Infarction (PR), Mitral Valve Prolapse (MVP) Additional Family Medical History / Comment(s): PT STATED HIS FATHER HAD 14 PR'S AND AT THE AGE OF 58 Medications and Allergies Home Medications Medication Instructions Recorded Confirmed Type Nitroglycerin Sl Tabs [Nitrostat] 0.4 mg SUBLINGUAL Q5M PRN #25 tab 03/18/16 01/01/23 Rx amLODIPine [Norvasc] 5 mg PO DAILY #30 tab 08/27/16 01/01/23 Rx Clopidogrel [Plavix] 75 mg PO DAILY #1 tab 09/04/16 01/01/23 Rx atenoloL [Tenormin] 25 mg PO DAILY #30 tab 09/04/16 01/01/23 Rx Aspirin [Adult Low Dose Aspirin EC] 81 mg PO DAILY 02/21/20 01/01/23 History Pantoprazole Sodium [Protonix] 40 mg PO DAILY 02/21/20 01/01/23 History Tamsulosin [Flomax] 0.4 mg PO DAILY 01/01/23 01/01/23 History Vit C/E/Zn/Coppr/Lutein/Zeaxan 1 cap PO DAILY 01/01/23 01/01/23 History [Preservision Areds 2 Softgel] Allergies Allergy/AdvReac Type Severity Reaction Status Date / Time latex Allergy blisters Verified 01/01/23 15:45 in mouth venom-honey bee Allergy passed out Verified 01/01/23 15:45 [bee venom (honey bee)] venom-wasp [wasp venom] Allergy passed out Verified 01/01/23 15:45 Physical Exam Vitals: Vital Signs Temp Pulse Pulse Resp BP BP Pulse Ox 01/02/23 09:51 64 19 01/02/23 06:59 64 19 148/81 93 L 01/02/23 02:00 97.6 F 75 20 138/79 99 01/01/23 20:00 98.4 F 84 20 138/72 97 01/01/23 18:25 75 22 126/69 98 01/01/23 15:45 77 20 155/83 98 01/01/23 15:09 82 20 153/83 98 01/01/23 12:03 97.8 F 52 L 18 176/95 82 L Intake and Output 01/01/23 01/02/23 01/02/23 22:59 06:59 14:59 Other: Weight 98.43 kg Gen. appearance, the patient is, comfortable on 4 L of oxygen by nasal cannula, no signs of any acute respiratory distress Head exam was generally normal. There was no scleral icterus or corneal arcus. Mucous membranes were moist. Neck was supple and without jugular venous distension, thyromegaly, or carotid bruits. Carotids were easily palpable bilaterally. There was no adenopathy. Lungs sounds are diminished bilaterally along with some few rales in the lung bases Cardiac exam revealed the PMI to be normally situated and sized. The rhythm was regular and no extrasystoles were noted during several minutes of auscultation. The first and second heart sounds were normal and physiologic splitting of the second heart sound was noted. There were no murmurs, rubs, clicks, or gallops. Abdominal exam revealed normal bowel sounds. The abdomen was soft, non-tender, and without masses, organomegaly, or appreciable enlargement of the abdominal aorta. Examination of the extremities revealed easily palpable radial, femoral and pedal pulses. There was no cyanosis, clubbing or edema. Examination of the skin revealed no evidence of significant rashes, suspicious appearing nevi or other concerning lesions. Neurologically, the patient is awake and alert and the patient does not have any focal neurological deficit. Cranial nerves are essentially intact. Results - Laboratory Findings CBC and BMP: 01/01/23 13:00 01/01/23 13:00 PT/INR, D-dimer PT 10.9 sec (9.0-12.0) 01/01/23 13:00 INR 1.0 (<1.2) 01/01/23 13:00 D-Dimer 1.68 mg/L FEU (<0.60) H 01/01/23 18:29 Abnormal lab findings: Abnormal Labs 01/01/23 01/01/23 01/01/23 13:00 13:00 13:00 Plt Count 147 L Neutrophils # 8.0 H Lymphocytes # 0.4 L D-Dimer Sodium 136 L Carbon Dioxide 33 H Creatine Kinase 515 H Troponin I 0.070 H* Urine Protein Urine Ketones Urine RBC Urine Mucus Coronavirus (PCR) 01/01/23 01/01/23 01/01/23 13:00 13:00 18:29 Plt Count Neutrophils # Lymphocytes # D-Dimer 1.68 H Sodium Carbon Dioxide Creatine Kinase Troponin I Urine Protein 1+ H Urine Ketones 2+ H Urine RBC 8 H Urine Mucus Rare H Coronavirus (PCR) Detected A - Diagnostic Findings Chest x-ray: image reviewed CT scan - chest: image reviewed Assessment and Plan Plan: Acute Covid 19 infection, patient is previously vaccinated. Symptoms are mainly constitutional generalized weakness and fatigue. There may be some also some limited pneumonia as the patient's hypoxic and the patient is demonstrated some groundglass pulmonary infiltrates in lung bases bilaterally. Acute Covid 19 related pneumonia Acute hypoxic respiratory failure currently on 4 L of oxygen by nasal cannula COPD Chronic right hemidiaphragmatic elevation/paralysis Coronary artery disease with previous coronary intervention and stenting. cardiac revascularization through stenting of RCA and OM branch of circumflex. He is on a combination of medication including aspirin, Plavix, Tenormin and I mdur. he is on high-dose statin. He was further seen by Dr. Diggs and [facility] and the patient underwent further stenting of the RCA were 3 additional stents were inserted. Previous history of a transcatheter valve replacement/TAVR Hypertension Osteoarthritis Remote history of DVT. hyperlipidemia the patient is currently Crestor 40 mg peripheral arterial occlusive disease undergoing further evaluation at [facility] regarding previous vascular disease. 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 No need for any further treatment at this point in time. Patient is vaccinated and disease mild. We'll check LDH and CRP We'll continue to follow
[2023-01-02 21:05] LABS: C Reactive Protein 6.9 mg/dL (0.00-0.80)
[2023-01-03] MEDS: SODIUM CHLORIDE 0.9% 1,000 ML IV SCH (03:51)
[2023-01-03] MEDS: amLODIPine 5 MG TAB PO SCH (09:27)
[2023-01-03] MEDS: ENOXAPARIN 40 MG/0.4 ML SYRINGE SQ SCH (09:27)
[2023-01-03] MEDS: PANTOPRAZOLE 40 MG TABLET PO SCH (09:27)
[2023-01-03] MEDS: DEXAMETHASONE SOD PHOSPHATE 10 MG/ML 1 ML VIAL IVP SCH (09:27)
[2023-01-03] MEDS: TAMSULOSIN 0.4 MG CAP.ER.24H PO SCH (09:27)
[2023-01-03] MEDS: atenoloL 25 MG TAB PO SCH (09:28)
[2023-01-03] MEDS: ASPIRIN 81 MG PO SCH (09:28)
[2023-01-03] MEDS: CLOPIDOGREL 75 MG TAB PO SCH (09:28)
--- NOTE | 2023-01-03 16:35 | P.PN ---
Subjective Progress Note Date: 01/03/23 87-year-old male patient diagnosed having a Covid 19 infection. The patient has been experiencing generalized weakness. The patient was doing well and he was investigated female with a friend and on the way back, he felt extremely tired and weak and he ultimately collapsed at home. He was having diffuse myalgias. No significant respiratory distress. No cough or sputum production. No chest pain. No change in taste. No nausea. No vomiting. No diarrhea. He has been vaccinated. This is first infection with Covid 19. Symptoms started approximately 2-3 days ago. No fever. No chills. No sweats. No altered mentation. He collapsed at home. However, he did not lose any consciousness. He was brought into the emergency department. He was found to be hypoxic and he is currently on 4 L of oxygen nasal cannula. He was given a dose of Decadron. His chest x-ray showed no acute abnormalities. CAT scan of the chest was done and it was negative for pulmonary embolism. That showed some vague ground glass changes in the mid and lower lung cummins bilaterally suspicious for Covid 19 related pneumonia. There was also underlying pulmonary arterial hypertension. There was evidence of coronary artery calcifications. The patient is currently hemodynamically stable. D-dimer is 0.68. LFTs are normal. Troponins are 0.07 and the CPKs at 517. UA showing +1 protein, +2 ketones as the patient's oral intake is poor and the patient states that he hasn't been eating a lot over the past several days due to loss of appetite. No significant weight loss. His resting comfortably in bed. On today's evaluation of 01/03/2023, the patient is more alert and awake and communicating in the reports improved energy level and appetite and the patient was able to eat breakfast. Doing well. No significant respiratory distress at this point in time and the patient remains on Decadron. Inflammatory markers are not elevated. Specifically, the LDH level was at 333 and a CRP level was elevated at 6.9. Patient remains on Decadron. No other significant events otherwise for now. He remains on 4 L of oxygen by nasal cannula and this can be weaned as the patient's pulse ox is ranging between 97-100%. No nausea. No vomiting. No diarrhea. No chest pain. No shortness of breath. Objective - Vital Signs Vital signs: Vital Signs Temp 97.9 F 01/03/23 07:25 Pulse 58 L 01/03/23 09:28 Resp 20 01/03/23 09:28 BP 161/83 01/03/23 07:25 Pulse Ox 97 01/03/23 07:25 FiO2 Intake & Output 01/02/23 01/03/23 01/03/23 18:59 06:59 18:59 Intake Total 720 Output Total 300 1125 Balance -300 -405 Intake: Intake, IV Titration 240 Amount Sodium Chloride 0.9% 1, 240 000 ml @ 20 mls/hr IV . Q24H LOGAN Rx#:[id number] Oral 480 Output: Urine 300 1125 Other: # Voids 2 # Bowel Movements 1 - Exam Gen. appearance, the patient is, comfortable on 4 L of oxygen by nasal cannula, no signs of any acute respiratory distress Head exam was generally normal. There was no scleral icterus or corneal arcus. Mucous membranes were moist. Neck was supple and without jugular venous distension, thyromegaly, or carotid bruits. Carotids were easily palpable bilaterally. There was no adenopathy. Lungs sounds are diminished bilaterally along with some few rales in the lung bases Cardiac exam revealed the PMI to be normally situated and sized. The rhythm was regular and no extrasystoles were noted during several minutes of auscultation. The first and second heart sounds were normal and physiologic splitting of the second heart sound was noted. There were no murmurs, rubs, clicks, or gallops. Abdominal exam revealed normal bowel sounds. The abdomen was soft, non-tender, and without masses, organomegaly, or appreciable enlargement of the abdominal aorta. Examination of the extremities revealed easily palpable radial, femoral and pedal pulses. There was no cyanosis, clubbing or edema. Examination of the skin revealed no evidence of significant rashes, suspicious appearing nevi or other concerning lesions. Neurologically, the patient is awake and alert and the patient does not have any focal neurological deficit. Cranial nerves are essentially intact. - Labs CBC & Chem 7: 01/01/23 13:00 01/01/23 13:00 Labs: Abnormal Lab Results - Last 24 Hours (Table) 01/02/23 Range/Units 14:46 Lactate Dehydrogenase 333 H (120-246) U/L C-Reactive Protein 6.90 H (0.00-0.80) mg/dL Assessment and Plan Plan: Acute Covid 19 infection, patient is previously vaccinated. Symptoms are mainly constitutional generalized weakness and fatigue. There may be some also some limited pneumonia as the patient's hypoxic and the patient is demonstrated some groundglass pulmonary infiltrates in lung bases bilaterally. The patient is currently on 4 L of oxygen by nasal cannula Acute Covid 19 related pneumonia Acute hypoxic respiratory failure currently on 4 L of oxygen by nasal cannula COPD Chronic right hemidiaphragmatic elevation/paralysis Coronary artery disease with previous coronary intervention and stenting. cardiac revascularization through stenting of RCA and OM branch of circumflex. He is on a combination of medication including aspirin, Plavix, Tenormin and Imdur. he is on high-dose statin. He was further seen by Dr. Diggs and [facility] and the patient underwent further stenting of the RCA were 3 additional stents were inserted. Previous history of a transcatheter valve replacement/TAVR Hypertension Osteoarthritis Remote history of DVT. hyperlipidemia, the patient is currently Crestor 40 mg peripheral arterial occlusive disease undergoing further evaluation at [facility] regarding previous vascular disease. 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 No need for any further treatment at this point in time. Patient is vaccinated and disease mild. LDH is mildly elevated We'll continue to follow
--- NOTE | 2023-01-03 20:12 | P.HPIM ---
History of Present Illness H&P Date: 01/02/23 Chief Complaint: Shortness of breath 87-year-old male patient diagnosed having a Covid 19 infection. The patient has been experiencing generalized weakness. The patient was doing well and he was investigated female with a friend and on the way back, he felt extremely tired and weak and he ultimately collapsed at home. He was having diffuse myalgias. He has been vaccinated. This is first infection with Covid 19. Symptoms started approximately 2-3 days ago. No fever. No chills. No sweats. No altered mentation. He collapsed at home. However, he did not lose any consciousness. --He was brought into the emergency department. He was found to be hypoxic and he is currently on 4 L of oxygen nasal cannula. He was given a dose of Decadron. Chest x-ray showed no acute abnormalities. CAT scan of the chest was done and it was negative for pulmonary embolism. That showed some vague ground glass changes in the mid and lower lung cummins bilaterally suspicious for Covid 19 related pneumonia. There was also underlying pulmonary arterial hypertension. There was evidence of coronary artery calcifications. Blood work review D-dimer is 0.68. LFTs are normal. Troponins are 0.07 and the CPKs at 517. UA showing +1 protein, +2 ketones as the patient's oral intake is poor and the patient states that he hasn't been eating a lot over the past several days due to loss of appetite. Review of Systems REVIEW OF SYSTEMS: CONSTITUTIONAL: No fever, no malaise, no fatigue. HEENT: No recent visual problems or hearing problems. Denied any sore throat. CARDIOVASCULAR: No chest pain, orthopnea, PND, no palpitations, no syncope. PULMONARY: No shortness of breath, no cough, no hemoptysis. GASTROINTESTINAL: No diarrhea, no nausea, no vomiting, no abdominal pain. NEUROLOGICAL: No headaches, no weakness, no numbness. HEMATOLOGICAL: Denies any bleeding or petechiae. GENITOURINARY: Denies any burning micturition, frequency, or urgency. MUSCULOSKELETAL/RHEUMATOLOGICAL: Denies any joint pain, swelling, or any muscle pain. ENDOCRINE: Denies any polyuria or polydipsia. The rest of the 14-point review of systems is negative. Past Medical History Past Medical History: Coronary Artery Disease (CAD), COPD, Deep Vein Thrombosis (DVT), GERD/Reflux, GI Bleed, Hypertension, Osteoarthritis (OA) Additional Past Medical History / Comment(s): SOB, hx kidney stones, paralyzed diaphragm rt side, GI bleed 2017, History of Any Multi-Drug Resistant Organisms: None Reported Past Surgical History: Adenoidectomy, Appendectomy, Heart Catheterization With Stent, Hernia Repair, Tonsillectomy Additional Past Surgical History / Comment(s): lithotripsy x 4, 3 cardiac stents, rt cataract, oral surgery Past Anesthesia/Blood Transfusion Reactions: Motion Sickness, Postoperative Nausea & Vomiting (PONV) Additional Past Anesthesia/Blood Transfusion Reaction / Comment(s): HAD MOTION SICKNESS WHEN YOUNGER. paralyzed diaphragm rt side Date of Last Stent Placement:: 03/2019 Past Psychological History: No Psychological Hx Reported Smoking Status: Former smoker Past Alcohol Use History: None Reported Past Drug Use History: None Reported - Past Family History Mother Family Medical History: Cancer Father Family Medical History: Myocardial Infarction (OR), Mitral Valve Prolapse (MVP) Additional Family Medical History / Comment(s): PT STATED HIS FATHER HAD 14 OR'S AND AT THE AGE OF 58 Medications and Allergies Home Medications Medication Instructions Recorded Confirmed Type Nitroglycerin Sl Tabs [Nitrostat] 0.4 mg SUBLINGUAL Q5M PRN #25 tab 03/18/16 01/01/23 Rx amLODIPine [Norvasc] 5 mg PO DAILY #30 tab 08/27/16 01/01/23 Rx Clopidogrel [Plavix] 75 mg PO DAILY #1 tab 09/04/16 01/01/23 Rx atenoloL [Tenormin] 25 mg PO DAILY #30 tab 09/04/16 01/01/23 Rx Aspirin [Adult Low Dose Aspirin EC] 81 mg PO DAILY 02/21/20 01/01/23 History Pantoprazole Sodium [Protonix] 40 mg PO DAILY 02/21/20 01/01/23 History Tamsulosin [Flomax] 0.4 mg PO DAILY 01/01/23 01/01/23 History Vit C/E/Zn/Coppr/Lutein/Zeaxan 1 cap PO DAILY 01/01/23 01/01/23 History [Preservision Areds 2 Softgel] Allergies Allergy/AdvReac Type Severity Reaction Status Date / Time latex Allergy blisters Verified 01/01/23 15:45 in mouth venom-honey bee Allergy passed out Verified 01/01/23 15:45 [bee venom (honey bee)] venom-wasp [wasp venom] Allergy passed out Verified 01/01/23 15:45 Physical Exam Vitals: Vital Signs Temp Pulse Pulse Resp BP BP Pulse Ox 01/02/23 09:51 64 19 01/02/23 06:59 64 19 148/81 93 L 01/02/23 02:00 97.6 F 75 20 138/79 99 01/01/23 20:00 98.4 F 84 20 138/72 97 01/01/23 18:25 75 22 126/69 98 01/01/23 15:45 77 20 155/83 98 01/01/23 15:09 82 20 153/83 98 Intake and Output 01/01/23 01/02/23 01/02/23 22:59 06:59 14:59 Other: Weight 98.43 kg Gen. appearance, the patient is, comfortable on 4 L of oxygen by nasal cannula, no signs of any acute respiratory distress Head exam was generally normal. There was no scleral icterus or corneal arcus. Mucous membranes were moist. Neck was supple and without jugular venous distension, thyromegaly, or carotid bruits. Carotids were easily palpable bilaterally. There was no adenopathy. Lungs sounds are diminished bilaterally along with some few rales in the lung bases Cardiac exam revealed the PMI to be normally situated and sized. The rhythm was regular and no extrasystoles were noted during several minutes of auscultation. The first and second heart sounds were normal and physiologic splitting of the second heart sound was noted. There were no murmurs, rubs, clicks, or gallops. Abdominal exam revealed normal bowel sounds. The abdomen was soft, non-tender, and without masses, organomegaly, or appreciable enlargement of the abdominal aorta. Examination of the extremities revealed easily palpable radial, femoral and pedal pulses. There was no cyanosis, clubbing or edema. Examination of the skin revealed no evidence of significant rashes, suspicious appearing nevi or other concerning lesions. Neurologically, the patient is awake and alert and the patient does not have any focal neurological deficit. Cranial nerves are essentially intact. Results CBC & Chem 7: 01/01/23 13:00 01/01/23 13:00 Labs: Abnormal Lab Results - Last 24 Hours (Table) 01/01/23 01/01/23 01/01/23 Range/Units 13:00 13:00 13:00 Plt Count 147 L (150-450) k/uL Neutrophils # 8.0 H (1.3-7.7) k/uL Lymphocytes # 0.4 L (1.0-4.8) k/uL D-Dimer (<0.60) mg/L FEU Sodium 136 L (137-145) mmol/L Carbon Dioxide 33 H (22-30) mmol/L Creatine Kinase 515 H (55-170) U/L Troponin I 0.070 H* (0.000-0.034) ng/mL Urine Protein (Negative) Urine Ketones (Negative) Urine RBC (0-5) /hpf Urine Mucus (None) /hpf Coronavirus (PCR) (Not Detectd) 01/01/23 01/01/23 01/01/23 Range/Units 13:00 13:00 18:29 Plt Count (150-450) k/uL Neutrophils # (1.3-7.7) k/uL Lymphocytes # (1.0-4.8) k/uL D-Dimer 1.68 H (<0.60) mg/L FEU Sodium (137-145) mmol/L Carbon Dioxide (22-30) mmol/L Creatine Kinase (55-170) U/L Troponin I (0.000-0.034) ng/mL Urine Protein 1+ H (Negative) Urine Ketones 2+ H (Negative) Urine RBC 8 H (0-5) /hpf Urine Mucus Rare H (None) /hpf Coronavirus (PCR) Detected A (Not Detectd) Thrombosis Risk Factor Assmnt - Choose All That Apply Any of the Below Risk Factors Present?: No Other Risk Factors: Yes Each Risk Factor Represents 3 Points: Age 75 years or older Other congenital or acquired thrombophilia - If yes, enter type in comment: No Thrombosis Risk Factor Assessment Total Risk Factor Score: 3 Thrombosis Risk Factor Assessment Level: Moderate Risk Assessment and Plan Assessment: 1. Acute Covid 19 infection, patient is previously vaccinated. Symptoms are ma inly constitutional generalized weakness and fatigue. There may be some also some limited pneumonia as the patient's hypoxic and the patient is demonstrated some groundglass pulmonary infiltrates in lung bases bilaterally. -- Acute Covid 19 related pneumonia 2. Acute hypoxic respiratory failure currently on 4 L of oxygen by nasal cannula 3. COPD; not in exacerbation; continue with home inhaler therapy 4. Coronary artery disease with previous coronary intervention and stenting. cardiac revascularization through stenting of RCA and OM branch of circumflex. He is on a combination of medication including aspirin, Plavix, Tenormin and Imdur. he is on high-dose statin. He was further seen by Dr. Diggs and [facility] and the patient underwent further stenting of the RCA were 3 additional stents were inserted. 5. History of a transcatheter valve replacement/TAVR 6. Hypertension; atenolol 25 mg daily 7. Osteoarthritis 8. Hyperlipidemia; currently Crestor 40 mg 9. Peripheral arterial occlusive disease; follows up at [facility] regarding previous vascular disease; remains on aspirin and Plavix. DVT prophylaxis; SCDs/subcu Lovenox CODE STATUS; full code
[2023-01-04] MEDS: SODIUM CHLORIDE 0.9% 1,000 ML IV SCH ×2 (02:14→06:49)
[2023-01-04] MEDS: CLOPIDOGREL 75 MG TAB PO SCH (08:35)
[2023-01-04] MEDS: ASPIRIN 81 MG PO SCH (08:35)
[2023-01-04] MEDS: ENOXAPARIN 40 MG/0.4 ML SYRINGE SQ SCH (08:35)
[2023-01-04] MEDS: atenoloL 25 MG TAB PO SCH (08:35)
[2023-01-04] MEDS: PANTOPRAZOLE 40 MG TABLET PO SCH (08:35)
[2023-01-04] MEDS: DEXAMETHASONE SOD PHOSPHATE 10 MG/ML 1 ML VIAL IVP SCH (08:35)
[2023-01-04] MEDS: amLODIPine 5 MG TAB PO SCH (08:35)
[2023-01-04] MEDS: TAMSULOSIN 0.4 MG CAP.ER.24H PO SCH (08:35)
[2023-01-04 09:01] LABS: Basophils # (A) 0.01 X 10*3/uL (0.00-0.10); Basophils % (A) 0.1 %; Eosinophils # (A) 0 X 10*3/uL (0.04-0.35); Eosinophils % (A) 0 %; HGB 16.9 d/dL (13.0-17.0); Lymphocytes # (A) 0.54 X 10*3/uL (0.90-5.00); Lymphocytes % (A) 4.5 %; MCH 29.4 pg (27.0-32.0); MCHC 31.3 d/dL (32.0-37.0); MCV 94.1 FL (80.0-97.0); Mean Platelet Volume 10.2 FL (9.5-12.2); Monocytes # (A) 0.82 X 10*3/uL (0.20-1.00); Monocytes % (A) 6.8 %; NRBC Per 100 WBC 0 X 10*3/uL (0.00-0.01); Neutrophils # (A) 10.69 X 10*3/uL (1.80-7.70); Neutrophils % (A) 88.2 %; Platelet Count 181 X 10*3/uL (140-440); RBC 5.74 X 10*6/uL (4.40-5.60); RDW 13.5 % (11.5-14.5); WBC 12.11 X 10*3/uL (4.50-10.00)
[2023-01-04 10:27] LABS: BUN/Creat Ratio 28.56 Ratio (12.00-20.00); Blood Urea Nitrogen 25.7 mg/dL (9.0-27.0); Calcium 9.4 mg/dL (8.7-10.3); Carbon Dioxide 27.4 mmol/L (21.6-31.8); Chloride 102 mmol/L (96-109); Glucose 100 mg/dL (70-110); Potassium 5.5 mmol/L (3.5-5.5); Sodium 140 mmol/L (135-145)
--- NOTE | 2023-01-04 11:36 | P.PN ---
Subjective Progress Note Date: 01/04/23 87-year-old male patient diagnosed having a Covid 19 infection. The patient has been experiencing generalized weakness. The patient was doing well and he was investigated female with a friend and on the way back, he felt extremely tired and weak and he ultimately collapsed at home. He was having diffuse myalgias. No significant respiratory distress. No cough or sputum production. No chest pain. No change in taste. No nausea. No vomiting. No diarrhea. He has been vaccinated. This is first infection with Covid 19. Symptoms started approximately 2-3 days ago. No fever. No chills. No sweats. No altered mentation. He collapsed at home. However, he did not lose any consciousness. He was brought into the emergency department. He was found to be hypoxic and he is currently on 4 L of oxygen nasal cannula. He was given a dose of Decadron. His chest x-ray showed no acute abnormalities. CAT scan of the chest was done and it was negative for pulmonary embolism. That showed some vague ground glass changes in the mid and lower lung cummins bilaterally suspicious for Covid 19 related pneumonia. There was also underlying pulmonary arterial hypertension. There was evidence of coronary artery calcifications. The patient is currently hemodynamically stable. D-dimer is 0.68. LFTs are normal. Troponins are 0.07 and the CPKs at 517. UA showing +1 protein, +2 ketones as the patient's oral intake is poor and the patient states that he hasn't been eating a lot over the past several days due to loss of appetite. No significant weight loss. His resting comfortably in bed. On today's evaluation of 01/03/2023, the patient is more alert and awake and communicating in the reports improved energy level and appetite and the patient was able to eat breakfast. Doing well. No significant respiratory distress at this point in time and the patient remains on Decadron. Inflammatory markers are not elevated. Specifically, the LDH level was at 333 and a CRP level was elevated at 6.9. Patient remains on Decadron. No other significant events otherwise for now. He remains on 4 L of oxygen by nasal cannula and this can be weaned as the patient's pulse ox is ranging between 97-100%. No nausea. No vomiting. No diarrhea. No chest pain. No shortness of breath. On 01/04/2023, the patient is sitting up on a chair and tolerating diet. No respiratory distress. His energy level is gradually improving. He remains on Decadron 6 mg IV every 24 hours and is also on Lovenox 40 mg subcu on a daily basis. Is a case of Covid 19 infection. The patient is vaccinated. Inf lammatory markers are low. White cell count is 12, hemoglobin 16.9, platelet count is at 181, X are all within normal limits with a BUN of 25 and a creatinine of 0.9 and a sodium level is at 140. LDH level is at 333 Objective - Vital Signs Vital signs: Vital Signs Temp 97.9 F 01/04/23 07:11 Pulse 61 01/04/23 07:11 Resp 16 01/04/23 07:11 BP 158/80 01/04/23 07:11 Pulse Ox 98 01/04/23 07:11 FiO2 Intake & Output 01/03/23 01/04/23 01/04/23 18:59 06:59 18:59 Intake Total 720 Output Total 475 500 300 Balance -475 220 -300 Intake: Intake, IV Titration 240 Amount Sodium Chloride 0.9% 1, 240 000 ml @ 20 mls/hr IV . Q24H [facility] Rx#:[id number] Oral 480 Output: Urine 475 500 300 Other: # Voids 4 # Bowel Movements 1 - Exam Gen. appearance, the patient is, comfortable on 4 L of oxygen by nasal cannula, no signs of any acute respiratory distress Head exam was generally normal. There was no scleral icterus or corneal arcus. Mucous membranes were moist. Neck was supple and without jugular venous distension, thyromegaly, or carotid bruits. Carotids were easily palpable bilaterally. There was no adenopathy. Lungs sounds are diminished bilaterally along with some few rales in the lung bases Cardiac exam revealed the PMI to be normally situated and sized. The rhythm was regular and no extrasystoles were noted during several minutes of auscultation. The first and second heart sounds were normal and physiologic splitting of the second heart sound was noted. There were no murmurs, rubs, clicks, or gallops. Abdominal exam revealed normal bowel sounds. The abdomen was soft, non-tender, and without masses, organomegaly, or appreciable enlargement of the abdominal aorta. Examination of the extremities revealed easily palpable radial, femoral and pedal pulses. There was no cyanosis, clubbing or edema. Examination of the skin revealed no evidence of significant rashes, suspicious appearing nevi or other concerning lesions. Neurologically, the patient is awake and alert and the patient does not have any focal neurological deficit. Cranial nerves are essentially intact. - Labs CBC & Chem 7: 01/04/23 05:18 01/04/23 05:18 Labs: Abnormal Lab Results - Last 24 Hours (Table) 01/04/23 01/04/23 Range/Units 05:18 05:18 WBC 12.11 H (4.50-10.00) X 10*3/uL RBC 5.74 H (4.40-5.60) X 10*6/uL Hct 54.0 H (39.6-50.0) % MCHC 31.3 L (32.0-37.0) d/dL Neutrophils # 10.69 H (1.80-7.70) X 10*3/uL Lymphocytes # 0.54 L (0.90-5.00) X 10*3/uL Eosinophils # 0 L (0.04-0.35) X 10*3/uL BUN/Creatinine Ratio 28.56 H (12.00-20.00) Ratio Assessment and Plan Plan: Acute Covid 19 infection, patient is previously vaccinated. Symptoms are mainly constitutional generalized weakness and fatigue. There may be some also some limited pneumonia as the patient's hypoxic and the patient is demonstrated some groundglass pulmonary infiltrates in lung bases bilaterally. The patient is currently on 4 L of oxygen by nasal cannula Acute Covid 19 related pneumonia, previously vaccinated Acute hypoxic respiratory failure currently on 4 L of oxygen by nasal cannula COPD Chronic right hemidiaphragmatic elevation/paralysis Coronary artery disease with previous coronary intervention and stenting. cardiac revascularization through stenting of RCA and OM branch of circumflex. He is on a combination of medication including aspirin, Plavix, Tenormin and Imdur. he is on high-dose statin. He was further seen by Dr. Diggs and [facility] and the patient underwent further stenting of the RCA were 3 additional stents were inserted. Previous history of a transcatheter valve replacement/TAVR Hypertension Osteoarthritis Remote history of DVT. hyperlipidemia, the patient is currently Crestor 40 mg peripheral arterial occlusive disease undergoing further evaluation at [facility] regarding previous vascular disease. 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 No need for any further treatment at this point in time. Patient is vaccinated and disease mild. LDH is mildly elevated and the patient has been vaccinated for Covid 19. We'll continue to follow
--- NOTE | 2023-01-04 14:01 | P.PN ---
Subjective Progress Note Date: 01/03/23 87-year-old male patient diagnosed having a Covid 19 infection. The patient has been experiencing generalized weakness. The patient was doing well and he was investigated female with a friend and on the way back, he felt extremely tired and weak and he ultimately collapsed at home. He was having diffuse myalgias. He has been vaccinated. This is first infection with Covid 19. Symptoms started approximately 2-3 days ago. No fever. No chills. No sweats. No altered mentation. He collapsed at home. However, he did not lose any consciousness. --He was brought into the emergency department. He was found to be hypoxic and he is currently on 4 L of oxygen nasal cannula. He was given a dose of Decadron. Chest x-ray showed no acute abnormalities. CAT scan of the chest was done and it was negative for pulmonary embolism. That showed some vague ground glass changes in the mid and lower lung cummins bilaterally suspicious for Covid 19 related pneumonia. There was also underlying pulmonary arterial hypertension. There was evidence of coronary artery calcifications. Blood work review D-dimer is 0.68. LFTs are normal. Troponins are 0.07 and the CPKs at 517. UA showing +1 protein, +2 ketones as the patient's oral intake is poor and the patient states that he hasn't been eating a lot over the past several days due to loss of appetite. Objective - Vital Signs Vital signs: Vital Signs Temp 98.0 F 01/03/23 13:30 Pulse 58 L 01/03/23 13:30 Resp 20 01/03/23 13:30 BP 127/56 01/03/23 13:30 Pulse Ox 100 01/03/23 13:30 FiO2 Intake & Output 01/02/23 01/03/23 01/03/23 18:59 06:59 18:59 Intake Total 720 Output Total 300 1125 300 Balance -300 -405 -300 Intake: Intake, IV Titration 240 Amount Sodium Chloride 0.9% 1, 240 000 ml @ 20 mls/hr IV . Q24H [facility] Rx#:[id number] Oral 480 Output: Urine 300 1125 300 Other: # Voids 2 1 # Bowel Movements 1 1 - Exam Gen. appearance, the patient is, comfortable on 4 L of oxygen by nasal cannula, no signs of any acute respiratory distress Head exam was generally normal. There was no scleral icterus or corneal arcus. Mucous membranes were moist. Neck was supple and without jugular venous distension, thyromegaly, or carotid bruits. Carotids were easily palpable bilaterally. There was no adenopathy. Lungs sounds are diminished bilaterally along with some few rales in the lung bases Cardiac exam revealed the PMI to be normally situated and sized. The rhythm was regular and no extrasystoles were noted during several minutes of auscultation. The first and second heart sounds were normal and physiologic splitting of the second heart sound was noted. There were no murmurs, rubs, clicks, or gallops. Abdominal exam revealed normal bowel sounds. The abdomen was soft, non-tender, and without masses, organomegaly, or appreciable enlargement of the abdominal aorta. Examination of the extremities revealed easily palpable radial, femoral and pedal pulses. There was no cyanosis, clubbing or edema. Examination of the skin revealed no evidence of significant rashes, suspicious appearing nevi or other concerning lesions. Neurologically, the patient is awake and alert and the patient does not have any focal neurological deficit. Cranial nerves are essentially intact. - Labs CBC & Chem 7: 01/04/23 05:18 01/04/23 05:18 Labs: Abnormal Lab Results - Last 24 Hours (Table) 01/02/23 Range/Units 14:46 Lactate Dehydrogenase 333 H (120-246) U/L C-Reactive Protein 6.90 H (0.00-0.80) mg/dL Assessment and Plan Assessment: 1. Acute Covid 19 infection, patient is previously vaccinated. Symptoms are mainly constitutional generalized weakness and fatigue. There may be some also some limited pneumonia as the patient's hypoxic and the patient is demonstrated some groundglass pulmonary infiltrates in lung bases bilaterally. -- Acute Covid 19 related pneumonia 2. Acute hypoxic respiratory failure currently on 4 L of oxygen by nasal cannula 3. COPD; not in exacerbation; continue with home inhaler therapy 4. Coronary artery disease with previous coronary intervention and stenting. cardiac revascularization through stenting of RCA and OM branch of circumflex. He is on a combination of medication including aspirin, Plavix, Tenormin and Imdur. he is on high-dose statin. He was further seen by Dr. Diggs and [facility] and the patient underwent further stenting of the RCA were 3 additional stents were inserted. 5. History of a transcatheter valve replacement/TAVR 6. Hypertension; atenolol 25 mg daily 7. Osteoarthritis 8. Hyperlipidemia; currently Crestor 40 mg 9. Peripheral arterial occlusive disease; follows up at [facility] regarding previous vascular disease; remains on aspirin and Plavix. DVT prophylaxis; SCDs/subcu Lovenox CODE STATUS; full code
--- NOTE | 2023-01-04 18:52 | P.PN ---
Subjective Progress Note Date: 01/04/23 87-year-old male patient diagnosed having a Covid 19 infection. The patient has been experiencing generalized weakness. The patient was doing well and he was investigated female with a friend and on the way back, he felt extremely tired and weak and he ultimately collapsed at home. He was having diffuse myalgias. He has been vaccinated. This is first infection with Covid 19. Symptoms started approximately 2-3 days ago. No fever. No chills. No sweats. No altered mentation. He collapsed at home. However, he did not lose any consciousness. --He was brought into the emergency department. He was found to be hypoxic and he is currently on 4 L of oxygen nasal cannula. He was given a dose of Decadron. Chest x-ray showed no acute abnormalities. CAT scan of the chest was done and it was negative for pulmonary embolism. That showed some vague ground glass changes in the mid and lower lung cummins bilaterally suspicious for Covid 19 related pneumonia. There was also underlying pulmonary arterial hypertension. There was evidence of coronary artery calcifications. Blood work review D-dimer is 0.68. LFTs are normal. Troponins are 0.07 and the CPKs at 517. UA showing +1 protein, +2 ketones as the patient's oral intake is poor and the patient states that he hasn't been eating a lot over the past several days due to loss of appetite. 01/04/2023 the patient is seen and evaluated sitting up on a chair and tolerating diet. No respiratory distress. His energy level is gradually improving. Inflammatory markers are low. White cell count is 12, hemoglobin 16.9, platelet count is at 181, X are all within normal limits with a BUN of 25 and a creati nine of 0.9 and a sodium level is at 140. LDH level is at 333 Patient remains on Decadron 6 mg IV every 24 hours and is also on Lovenox 40 mg subcu on a daily basis. Is a case of Covid 19 infection. The patient is vaccinated. Patient continues to show slow improvement in strength and overall well- appearing; plan is to continue with supplemental O2 and titrate/wean FiO2 keeping O2 saturation greater than 90% - Pulmonary service on board and recommending to continue with current treatment Objective - Vital Signs Vital signs: Vital Signs Temp 97.9 F 01/04/23 07:11 Pulse 61 01/04/23 07:11 Resp 16 01/04/23 07:11 BP 158/80 01/04/23 07:11 Pulse Ox 98 01/04/23 07:11 FiO2 Intake & Output 01/03/23 01/04/23 01/04/23 18:59 06:59 18:59 Intake Total 720 Output Total 475 500 300 Balance -475 220 -300 Intake: Intake, IV Titration 240 Amount Sodium Chloride 0.9% 1, 240 000 ml @ 20 mls/hr IV . Q24H [facility] Rx#:[id number] Oral 480 Output: Urine 475 500 300 Other: # Voids 4 # Bowel Movements 1 - Exam Gen. appearance, the patient is, comfortable on 4 L of oxygen by nasal cannula, no signs of any acute respiratory distress Head exam was generally normal. There was no scleral icterus or corneal arcus. Mucous membranes were moist. Neck was supple and without jugular venous distension, thyromegaly, or carotid bruits. Carotids were easily palpable bilaterally. There was no adenopathy. Lungs sounds are diminished bilaterally along with some few rales in the lung bases Cardiac exam revealed the PMI to be normally situated and sized. The rhythm was regular and no extrasystoles were noted during several minutes of auscultation. The first and second heart sounds were normal and physiologic splitting of the second heart sound was noted. There were no murmurs, rubs, clicks, or gallops. Abdominal exam revealed normal bowel sounds. The abdomen was soft, non-tender, and without masses, organomegaly, or appreciable enlargement of the abdominal aorta. Examination of the extremities revealed easily palpable radial, femoral and pedal pulses. There was no cyanosis, clubbing or edema. Examination of the skin revealed no evidence of significant rashes, suspicious appearing nevi or other concerning lesions. Neurologically, the patient is awake and alert and the patient does not have any focal neurological deficit. Cranial nerves are essentially intact. - Labs CBC & Chem 7: 01/04/23 05:18 01/04/23 05:18 Labs: Abnormal Lab Results - Last 24 Hours (Table) 01/04/23 01/04/23 Range/Units 05:18 05:18 WBC 12.11 H (4.50-10.00) X 10*3/uL RBC 5.74 H (4.40-5.60) X 10*6/uL Hct 54.0 H (39.6-50.0) % MCHC 31.3 L (32.0-37.0) d/dL Neutrophils # 10.69 H (1.80-7.70) X 10*3/uL Lymphocytes # 0.54 L (0.90-5.00) X 10*3/uL Eosinophils # 0 L (0.04-0.35) X 10*3/uL BUN/Creatinine Ratio 28.56 H (12.00-20.00) Ratio Assessment and Plan Assessment: 1. Acute Covid 19 infection, patient is previously vaccinated. Symptoms are mainly constitutional generalized weakness and fatigue. There may be some also some limited pneumonia as the patient's hypoxic and the patient is demonstrated some groundglass pulmonary infiltrates in lung bases bilaterally. -- Acute Covid 19 related pneumonia 2. Acute hypoxic respiratory failure currently on 4 L of oxygen by nasal cannula 3. COPD; not in exacerbation; continue with home inhaler therapy 4. Coronary artery disease with previous coronary intervention and stenting. cardiac revascularization through stenting of RCA and OM branch of circumflex. He is on a combination of medication including aspirin, Plavix, Tenormin and Imdur. he is on high-dose statin. He was further seen by Dr. Diggs and [facility] and the patient underwent further stenting of the RCA were 3 additional stents were inserted. 5. History of a transcatheter valve replacement/TAVR 6. Hypertension; atenolol 25 mg daily 7. Osteoarthritis 8. Hyperlipidemia; currently Crestor 40 mg 9. Peripheral arterial occlusive disease; follows up at [facility] regarding previous vascular disease; remains on aspirin and Plavix. DVT prophylaxis; SCDs/subcu Lovenox CODE STATUS; full code
[2023-01-05] MEDS: amLODIPine 5 MG TAB PO SCH (09:03)
[2023-01-05] MEDS: atenoloL 25 MG TAB PO SCH (09:03)
[2023-01-05] MEDS: CLOPIDOGREL 75 MG TAB PO SCH (09:03)
[2023-01-05] MEDS: ASPIRIN 81 MG PO SCH (09:03)
[2023-01-05] MEDS: DEXAMETHASONE SOD PHOSPHATE 10 MG/ML 1 ML VIAL IVP SCH (09:03)
[2023-01-05] MEDS: PANTOPRAZOLE 40 MG TABLET PO SCH (09:05)
[2023-01-05] MEDS: ENOXAPARIN 40 MG/0.4 ML SYRINGE SQ SCH (09:05)
[2023-01-05] MEDS: TAMSULOSIN 0.4 MG CAP.ER.24H PO SCH (09:05)
[2023-01-05 11:39] LABS: Basophils # (A) 0.01 X 10*3/uL (0.00-0.10); Basophils % (A) 0.1 %; Eosinophils # (A) 0 X 10*3/uL (0.04-0.35); Eosinophils % (A) 0 %; HGB 17.5 d/dL (13.0-17.0); Lymphocytes # (A) 0.66 X 10*3/uL (0.90-5.00); Lymphocytes % (A) 4.8 %; MCHC 31.8 d/dL (32.0-37.0); MCV 94.2 FL (80.0-97.0); Mean Platelet Volume 9.4 FL (9.5-12.2); Monocytes # (A) 0.81 X 10*3/uL (0.20-1.00); Monocytes % (A) 5.8 %; NRBC Per 100 WBC 0 X 10*3/uL (0.00-0.01); Neutrophils # (A) 12.33 X 10*3/uL (1.80-7.70); Neutrophils % (A) 88.9 %; Platelet Count 168 X 10*3/uL (140-440); RBC 5.84 X 10*6/uL (4.40-5.60); RDW 13.3 % (11.5-14.5); WBC 13.86 X 10*3/uL (4.50-10.00)
[2023-01-05 12:19] LABS: Blood Urea Nitrogen 25.2 mg/dL (9.0-27.0); Calcium 9.6 mg/dL (8.7-10.3); Carbon Dioxide 25.1 mmol/L (21.6-31.8); Chloride 101 mmol/L (96-109); Glucose 100 mg/dL (70-110); Sodium 140 mmol/L (135-145)
--- NOTE | 2023-01-05 13:22 | P.PN ---
Subjective Progress Note Date: 01/05/23 87-year-old male patient diagnosed having a Covid 19 infection. The patient has been experiencing generalized weakness. The patient was doing well and he was investigated female with a friend and on the way back, he felt extremely tired and weak and he ultimately collapsed at home. He was having diffuse myalgias. No significant respiratory distress. No cough or sputum production. No chest pain. No change in taste. No nausea. No vomiting. No diarrhea. He has been vaccinated. This is first infection with Covid 19. Symptoms started approximately 2-3 days ago. No fever. No chills. No sweats. No altered mentation. He collapsed at home. However, he did not lose any consciousness. He was brought into the emergency department. He was found to be hypoxic and he is currently on 4 L of oxygen nasal cannula. He was given a dose of Decadron. His chest x-ray showed no acute abnormalities. CAT scan of the chest was done and it was negative for pulmonary embolism. That showed some vague ground glass changes in the mid and lower lung cummins bilaterally suspicious for Covid 19 related pneumonia. There was also underlying pulmonary arterial hypertension. There was evidence of coronary artery calcifications. The patient is currently hemodynamically stable. D-dimer is 0.68. LFTs are normal. Troponins are 0.07 and the CPKs at 517. UA showing +1 protein, +2 ketones as the patient's oral intake is poor and the patient states that he hasn't been eating a lot over the past several days due to loss of appetite. No significant weight loss. His resting comfortably in bed. On today's evaluation of 01/03/2023, the patient is more alert and awake and communicating in the reports improved energy level and appetite and the patient was able to eat breakfast. Doing well. No significant respiratory distress at this point in time and the patient remains on Decadron. Inflammatory markers are not elevated. Specifically, the LDH level was at 333 and a CRP level was elevated at 6.9. Patient remains on Decadron. No other significant events otherwise for now. He remains on 4 L of oxygen by nasal cannula and this can be weaned as the patient's pulse ox is ranging between 97-100%. No nausea. No vomiting. No diarrhea. No chest pain. No shortness of breath. On 01/04/2023, the patient is sitting up on a chair and tolerating diet. No respiratory distress. His energy level is gradually improving. He remains on Decadron 6 mg IV every 24 hours and is also on Lovenox 40 mg subcu on a daily basis. Is a case of Covid 19 infection. The patient is vaccinated. Infl ammatory markers are low. White cell count is 12, hemoglobin 16.9, platelet count is at 181, X are all within normal limits with a BUN of 25 and a creatinine of 0.9 and a sodium level is at 140. LDH level is at 333. The patient is seen today 01/05/2023 in follow-up on the regular medical floor. He is currently sitting up awake and alert in no acute distress. He remains quite weak and debilitated. He has ongoing cough and congestion. He is maintaining O2 saturations in the 90s on 3 L/m per nasal cannula. White count 13.8. Hemoglobin 17.5. Platelets 168. Lymphocytes 0.66. Sodium 140. Potassium 5.0. Bicarb 25. BUN 25. Creatinine 0.8. He is continued on Decadron 6 mg daily. Lovenox for DVT prophylaxis. Objective - Vital Signs Vital signs: Vital Signs Temp 98.3 F 01/05/23 07:30 Pulse 61 01/05/23 07:30 Resp 22 01/05/23 08:00 BP 127/77 01/05/23 07:30 Pulse Ox 94 L 01/05/23 07:30 FiO2 Intake & Output 01/04/23 01/05/23 01/05/23 18:59 06:59 18:59 Intake Total 1080 Output Total 600 400 Balance 480 -400 Intake: Oral 1080 Output: Urine 600 400 Other: # Voids 3 1 # Bowel Movements 1 - Exam Gen. appearance, an 87-year-old male patient, comfortable on 3 L of oxygen by nasal cannula, no signs of any acute respiratory distress Head exam was generally normal. There was no scleral icterus or corneal arcus. Mucous membranes were moist. Neck was supple and without jugular venous distension, thyromegaly, or carotid bruits. Carotids were easily palpable bilaterally. There was no adenopathy. Lungs sounds are diminished bilaterally along with some few rales in the lung bases Cardiac exam revealed the PMI to be normally situated and sized. The rhythm was regular and no extrasystoles were noted during several minutes of auscultation. The first and second heart sounds were normal and physiologic splitting of the second heart sound was noted. There were no murmurs, rubs, clicks, or gallops. Abdominal exam revealed normal bowel sounds. The abdomen was soft, non-tender, and without masses, organomegaly, or appreciable enlargement of the abdominal aorta. Examination of the extremities revealed easily palpable radial, femoral and pedal pulses. There was no cyanosis, clubbing or edema. Examination of the skin revealed no evidence of significant rashes, suspicious appearing nevi or other concerning lesions. Neurologically, the patient is awake and alert and the patient does not have any focal neurological deficit. Cranial nerves are essentially intact. - Labs CBC & Chem 7: 01/05/23 08:20 01/05/23 08:20 Labs: Abnormal Lab Results - Last 24 Hours (Table) 01/05/23 01/05/23 Range/Units 08:20 08:20 WBC 13.86 H (4.50-10.00) X 10*3/uL RBC 5.84 H (4.40-5.60) X 10*6/uL Hgb 17.5 H (13.0-17.0) d/dL Hct 55.0 H (39.6-50.0) % MCHC 31.8 L (32.0-37.0) d/dL MPV 9.4 L (9.5-12.2) FL Neutrophils # 12.33 H (1.80-7.70) X 10*3/uL Lymphocytes # 0.66 L (0.90-5.00) X 10*3/uL Eosinophils # 0 L (0.04-0.35) X 10*3/uL Anion Gap 13.90 H (4.00-12.00) mmol/L BUN/Creatinine Ratio 31.50 H (12.00-20.00) Ratio Assessment and Plan Assessment: Acute Covid 19 infection, patient is previously vaccinated. Symptoms are mainly constitutional generalized weakness and fatigue. There may be some also some limited pneumonia as the patient's hypoxic and the patient is demonstrated some groundglass pulmonary infiltrates in lung bases bilaterally. The patient is currently on 4 L of oxygen by nasal cannula Acute Covid 19 related pneumonia, previously vaccinated Acute hypoxic respiratory failure currently on 3 L of oxygen by nasal cannula COPD Chronic right hemidiaphragmatic elevation/paralysis Coronary artery disease with previous coronary intervention and multiple stenting Previous history of a transcatheter valve replacement/TAVR Hypertension Osteoarthritis Remote history of DVT. 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 Number of minutes spent on the visit: 10.
[2023-01-05] MEDS: SODIUM CHLORIDE 0.9% 1,000 ML IV SCH (18:25)
--- NOTE | 2023-01-06 07:26 | PN ---
PROGRESS NOTE DATE OF SERVICE: 01/05/2023 SUBJECTIVE: This is an 87-year-old gentleman admitted with acute COVID-19 infection and acute COVID- 19 pneumonia is complaining of generalized weakness. No chest pain. No palpitations. No fever. EXAMINATION: VITAL SIGNS: Pulse is 61, blood pressure 127/76, and respirations 20. CHEST: A few scattered rhonchi and crackles. ABDOMEN: Soft. NERVOUS SYSTEM: Nonfocal. LABORATORIES: Reviewed. ASSESSMENT: 1. Acute coronavirus disease 2019 infection with acute coronavirus disease 2019 pneumonia. 2. Chronic obstructive pulmonary disease. 3. Acute hypoxic respiratory failure. 4. Coronary artery disease. 5. Multiple medical issues. 6. Gait dysfunction. RECOMMENDATION: PT and OT evaluation. Repeat labs. Continue current symptomatic management. Closely follow with Pulmonary. Possible ECF rehab. Guarded prognosis. Further recommendations to follow. TOMMY / DAYNE: [id number] / MTDD
[2023-01-06 08:12] VITALS: BP 170/89; PULSE 62; RESP 18; TEMP 97.3
[2023-01-06] MEDS: PANTOPRAZOLE 40 MG TABLET PO SCH (09:31)
[2023-01-06] MEDS: CLOPIDOGREL 75 MG TAB PO SCH (09:31)
[2023-01-06] MEDS: DEXAMETHASONE SOD PHOSPHATE 10 MG/ML 1 ML VIAL IVP SCH (09:31)
[2023-01-06] MEDS: amLODIPine 5 MG TAB PO SCH (09:31)
[2023-01-06] MEDS: ENOXAPARIN 40 MG/0.4 ML SYRINGE SQ SCH (09:31)
[2023-01-06] MEDS: TAMSULOSIN 0.4 MG CAP.ER.24H PO SCH (09:31)
[2023-01-06] MEDS: atenoloL 25 MG TAB PO SCH (09:31)
[2023-01-06] MEDS: ASPIRIN 81 MG PO SCH (09:31)
[2023-01-06 11:03] LABS: Basophils # (A) 0.03 X 10*3/uL (0.00-0.10); Basophils % (A) 0.2 %; Eosinophils # (A) 0 X 10*3/uL (0.04-0.35); Eosinophils % (A) 0 %; HCT 51.3 % (39.6-50.0); HGB 16.7 d/dL (13.0-17.0); Lymphocytes # (A) 0.65 X 10*3/uL (0.90-5.00); Lymphocytes % (A) 4.7 %; MCH 30.4 pg (27.0-32.0); MCHC 32.6 d/dL (32.0-37.0); MCV 93.4 FL (80.0-97.0); Mean Platelet Volume 9.6 FL (9.5-12.2); Monocytes # (A) 0.78 X 10*3/uL (0.20-1.00); Monocytes % (A) 5.6 %; NRBC Per 100 WBC 0 X 10*3/uL (0.00-0.01); Neutrophils # (A) 12.25 X 10*3/uL (1.80-7.70); Neutrophils % (A) 88.7 %; Platelet Count 199 X 10*3/uL (140-440); RBC 5.49 X 10*6/uL (4.40-5.60); RDW 13.5 % (11.5-14.5); WBC 13.82 X 10*3/uL (4.50-10.00)
--- NOTE | 2023-01-06 11:38 | P.PN ---
Subjective Progress Note Date: 01/06/23 87-year-old male patient diagnosed having a Covid 19 infection. The patient has been experiencing generalized weakness. The patient was doing well and he was investigated female with a friend and on the way back, he felt extremely tired and weak and he ultimately collapsed at home. He was having diffuse myalgias. No significant respiratory distress. No cough or sputum production. No chest pain. No change in taste. No nausea. No vomiting. No diarrhea. He has been vaccinated. This is first infection with Covid 19. Symptoms started approximately 2-3 days ago. No fever. No chills. No sweats. No altered mentation. He collapsed at home. However, he did not lose any consciousness. He was brought into the emergency department. He was found to be hypoxic and he is currently on 4 L of oxygen nasal cannula. He was given a dose of Decadron. His chest x-ray showed no acute abnormalities. CAT scan of the chest was done and it was negative for pulmonary embolism. That showed some vague ground glass changes in the mid and lower lung cummins bilaterally suspicious for Covid 19 related pneumonia. There was also underlying pulmonary arterial hypertension. There was evidence of coronary artery calcifications. The patient is currently hemodynamically stable. D-dimer is 0.68. LFTs are normal. Troponins are 0.07 and the CPKs at 517. UA showing +1 protein, +2 ketones as the patient's oral intake is poor and the patient states that he hasn't been eating a lot over the past several days due to loss of appetite. No significant weight loss. His resting comfortably in bed. On today's evaluation of 01/03/2023, the patient is more alert and awake and communicating in the reports improved energy level and appetite and the patient was able to eat breakfast. Doing well. No significant respiratory distress at this point in time and the patient remains on Decadron. Inflammatory markers are not elevated. Specifically, the LDH level was at 333 and a CRP level was elevated at 6.9. Patient remains on Decadron. No other significant events otherwise for now. He remains on 4 L of oxygen by nasal cannula and this can be weaned as the patient's pulse ox is ranging between 97-100%. No nausea. No vomiting. No diarrhea. No chest pain. No shortness of breath. On 01/04/2023, the patient is sitting up on a chair and tolerating diet. No respiratory distress. His energy level is gradually improving. He remains on Decadron 6 mg IV every 24 hours and is also on Lovenox 40 mg subcu on a daily basis. Is a case of Covid 19 infection. The patient is vaccinated. Infl ammatory markers are low. White cell count is 12, hemoglobin 16.9, platelet count is at 181, X are all within normal limits with a BUN of 25 and a creatinine of 0.9 and a sodium level is at 140. LDH level is at 333. The patient is seen today 01/05/2023 in follow-up on the regular medical floor. He is currently sitting up awake and alert in no acute distress. He remains quite weak and debilitated. He has ongoing cough and congestion. He is maintaining O2 saturations in the 90s on 3 L/m per nasal cannula. White count 13.8. Hemoglobin 17.5. Platelets 168. Lymphocytes 0.66. Sodium 140. Potassium 5.0. Bicarb 25. BUN 25. Creatinine 0.8. He is continued on Decadron 6 mg daily. Lovenox for DVT prophylaxis. The patient is seen today 01/06/2023 in follow-up on the regular medical floor. He is awake and alert in no acute distress. Sitting up in bed. Maintaining O2 saturations in the 90s on 4 L/m per nasal cannula. No worsening shortness of breath, cough or congestion. White count 13.8. Hemoglobin 16.7. Platelets 199. He remains on Decadron, Lovenox. Objective - Vital Signs Vital signs: Vital Signs Temp 97.3 F L 01/06/23 08:00 Pulse 62 01/06/23 08:00 Resp 18 01/06/23 10:24 BP 170/89 01/06/23 08:00 Pulse Ox 95 01/06/23 08:00 FiO2 Intake & Output 01/05/23 01/06/23 01/06/23 18:59 06:59 18:59 Intake Total 358 Balance 358 Intake: Intake, IV Titration 240 Amount Sodium Chloride 0.9% 1, 240 000 ml @ 20 mls/hr IV . Q24H [facility] Rx#:[id number] Oral 118 Other: # Voids 1 2 # Bowel Movements 1 - Exam Gen. appearance, reveals an 87-year-old male patient, comfortable on 4 L of oxygen by nasal cannula, no signs of any acute respiratory distress Head exam was generally normal. There was no scleral icterus or corneal arcus. Mucous membranes were moist. Neck was supple and without jugular venous distension, thyromegaly, or carotid bruits. Carotids were easily palpable bilaterally. There was no adenopathy. Lungs sounds are diminished bilaterally along with some few rales in the lung bases Cardiac exam revealed the PMI to be normally situated and sized. The rhythm was regular and no extrasystoles were noted during several minutes of auscultation. The first and second heart sounds were normal. Abdominal exam revealed normal bowel sounds. The abdomen was soft, non-tender, and without masses, organomegaly, or appreciable enlargement of the abdominal aorta. Examination of the extremities revealed easily palpable radial, femoral and pedal pulses. There was no cyanosis, clubbing or edema. Examination of the skin revealed no evidence of significant rashes, suspicious appearing nevi or other concerning lesions. Neurologically, the patient is awake and alert and the patient does not have any focal neurological deficit. Cranial nerves are essentially intact. - Labs CBC & Chem 7: 01/06/23 05:57 01/05/23 08:20 Labs: Abnormal Lab Results - Last 24 Hours (Table) 01/05/23 01/05/23 01/06/23 Range/Units 08:20 08:20 05:57 WBC 13.86 H 13.82 H (4.50-10.00) X 10*3/uL RBC 5.84 H (4.40-5.60) X 10*6/uL Hgb 17.5 H (13.0-17.0) d/dL Hct 55.0 H 51.3 H (39.6-50.0) % MCHC 31.8 L (32.0-37.0) d/dL MPV 9.4 L (9.5-12.2) FL Neutrophils # 12.33 H 12.25 H (1.80-7.70) X 10*3/uL Lymphocytes # 0.66 L 0.65 L (0.90-5.00) X 10*3/uL Eosinophils # 0 L 0 L (0.04-0.35) X 10*3/uL Anion Gap 13.90 H (4.00-12.00) mmol/L BUN/Creatinine Ratio 31.50 H (12.00-20.00) Ratio Assessment and Plan Assessment: Acute Covid 19 infection, patient is previously vaccinated. Symptoms are mainly constitutional generalized weakness and fatigue. There may be some also some limited pneumonia as the patient's hypoxic and the patient is demonstrated some groundglass pulmonary infiltrates in lung bases bilaterally. The patient is currently on 4 L of oxygen by nasal cannula. Remains on Decadron. Acute Covid 19 related pneumonia, previously vaccinated Acute hypoxic respiratory failure currently on 4 L of oxygen by nasal cannula COPD Chronic right hemidiaphragmatic elevation/paralysis Coronary artery disease with previous coronary intervention and multiple stenting Previous history of a transcatheter valve replacement/TAVR Hypertension Osteoarthritis Remote history of DVT. 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 Number of minutes spent on the visit: 10.
[2023-01-06 12:12] LABS: ALT 38 U/L (10-49); AST 25 U/L (14-35); Albumin 3.5 d/dL (3.8-4.9); Albumin/Globulin Ratio 1.46 Ratio (1.60-3.17); Alkaline Phosphatase 68 U/L (41-126); BUN/Creat Ratio 30.43 Ratio (12.00-20.00); Blood Urea Nitrogen 21.3 mg/dL (9.0-27.0); Calcium 9.3 mg/dL (8.7-10.3); Carbon Dioxide 28.5 mmol/L (21.6-31.8); Chloride 102 mmol/L (96-109); Globulin 2.4 d/dL (1.6-3.3); Glucose 104 mg/dL (70-110); Sodium 141 mmol/L (135-145); Total Bilirubin 0.3 mg/dL (0.3-1.2); Total Protein 5.9 d/dL (6.2-8.2)
[2023-01-06 12:17] LABS: Glucose,Whole Blood 105 mg/dL (70-110)
--- NOTE | 2023-01-06 12:44 | P.DS ---
Providers Date of admission: 01/01/23 17:12 Expected date of discharge: 01/06/23 Attending physician: Feroz Molina Consults: 01/01/23 17:16 Consult Physician Routine Consulting Provider: Nancy Villa Consult Reason/Comments: covid, hypoxia Do you want consulting provider notified?: Yes Primary care physician: Lisha Martinez Hospital Course: Final diagnosis Acute COVID-19 infection with acute COVID-19 pneumonia Acute hypoxic respiratory failure secondary to above Chronic obstructive pulmonary disease, acute exacerbation History of coronary artery disease Gait dysfunction with generalized weakness History of DVT GERD Hypertension history Osteoarthritis history GI prophylaxis DVT prophylaxis Full code Discharge disposition Patient is being discharged in a stable condition with guarded prognosis to [facility]. Patient will follow-up with Dr. Cervantes as well as Dr. Martinez in the outpatient setting upon discharge. Patient is to continue with oral dexamethasone for the next 6 days to complete the course along with vitamin and zinc supplements. Total time taken is greater than 35 minutes. Hospital course This is a 87-year-old male who was recently admitted with increased shortness of breath with hypoxia found to have acute COVID-19 infection with acute COVID-19 pneumonia. Patient is having significant weakness and evaluated by physical therapy recommending subacute rehab and patient is now agreeable as he reports he lives alone and cannot go home alone with this weakness. Patient also requiring 4 L of oxygen via nasal cannula to manage hypoxia from Covid. Patient will continue on oral dexamethasone 6 mg daily for the next 6 days along with vitamin and zinc supplements. Patient with weakness would recommend subcutaneous Lovenox daily for DVT prophylaxis as well. Patient has been cleared by consultations. Please refer to consultation notes for further HPI. Currently no reports of chest pain, worsening shortness of breath, or palpita tions. Patient is afebrile. No reports of nausea or vomiting and patient is tolerating diet. Patient will be going to [facility] today. Physical exam: Gen: This is a 87-year-old male who is awake, alert and oriented 3, well- developed, well-nourished, elderly-appearing HEENT: Head is atraumatic, normocephalic. Pupils equal, round. Sclerae is anicteric. NECK: Supple. No JVD. No lymphadenopathy. No thyromegaly. LUNGS: Diminished breath sounds bilaterally with scattereds. HEART: S1, S2 muffled ABDOMEN: Soft. Bowel sounds are present. No masses. No tenderness. EXTREMITIES: No pedal edema. No calf tenderness. NEUROLOGICAL: Patient is awake, alert and oriented x3. Cranial nerves 2 through 12 are grossly intact. diffusely weak Please refer to medication reconciliation sheet for a list of medications. The impression and plan of care has been dictated by Sheri Solano, Nurse Practitioner as directed. Dr. Jesse MD I have performed a history and examination and MDM of this patient, discussed the same with the dictator, and agree with the dictator's assessment and plan as written ,documented as a scribe. Based on total visit time, I have performed more than 50% of the visit. Patient Condition at Discharge: Stable Plan - Discharge Summary Discharge Rx Participant: Yes New Discharge Prescriptions: New dexAMETHasone [Decadron] 6 mg PO DAILY 7 Days #7 tablet Ascorbic Acid [Vitamin C] 500 mg PO DAILY #30 tablet Acetaminophen Tab [Tylenol] 650 mg PO Q6HR PRN tab PRN Reason: Mild Pain Or Fever > 100.5 Zinc Sulfate 220 mg PO DAILY 14 Days #14 capsule Continue Nitroglycerin Sl Tabs [Nitrostat] 0.4 mg SUBLINGUAL Q5M PRN #25 tab PRN Reason: Chest Pain amLODIPine [Norvasc] 5 mg PO DAILY #30 tab atenoloL [Tenormin] 25 mg PO DAILY #30 tab Clopidogrel [Plavix] 75 mg PO DAILY #1 tab Pantoprazole Sodium [Protonix] 40 mg PO DAILY Aspirin [Adult Low Dose Aspirin EC] 81 mg PO DAILY Vit C/E/Zn/Coppr/Lutein/Zeaxan [Preservision Areds 2 Softgel] 1 cap PO DAILY Tamsulosin [Flomax] 0.4 mg PO DAILY Discharge Medication List Nitroglycerin Sl Tabs [Nitrostat] 0.4 mg SUBLINGUAL Q5M PRN #25 tab 03/18/16 [Rx] amLODIPine [Norvasc] 5 mg PO DAILY #30 tab 08/27/16 [Rx] Clopidogrel [Plavix] 75 mg PO DAILY #1 tab 09/04/16 [Rx] atenoloL [Tenormin] 25 mg PO DAILY #30 tab 09/04/16 [Rx] Aspirin [Adult Low Dose Aspirin EC] 81 mg PO DAILY 02/21/20 [History] Pantoprazole Sodium [Protonix] 40 mg PO DAILY 02/21/20 [History] Tamsulosin [Flomax] 0.4 mg PO DAILY 01/01/23 [History] Vit C/E/Zn/Coppr/Lutein/Zeaxan [Preservision Areds 2 Softgel] 1 cap PO DAILY 01/01/23 [History] Acetaminophen Tab [Tylenol] 650 mg PO Q6HR PRN tab 01/05/23 [Rx] Ascorbic Acid [Vitamin C] 500 mg PO DAILY #30 tablet 01/05/23 [Rx] Zinc Sulfate 220 mg PO DAILY 14 Days #14 capsule 01/05/23 [Rx] dexAMETHasone [Decadron] 6 mg PO DAILY 7 Days #7 tablet 01/05/23 [Rx] Follow up Appointment(s)/Referral(s): Angela Cervnates MD [STAFF PHYSICIAN] - 01/30/23 9:45 am Lisha Martinez MD [Primary Care Provider] - 01/07/23 12:00 pm Activity/Diet/Wound Care/Special Instructions: [facility] [place] [facility] Activity Limited until follow-up Follow-up with primary care provider on discharge Follow-up with pulmonary outpatient 1-2 weeks Continue dexamethasone until finished Continue vitamin and zinc supplements Continue supplemental oxygen to manage Covid Discharge Disposition: TRANSFER TO SNF/ECF
[2023-01-06] MEDS ORDERED: ALPRAZolam 0.25 MG TAB PO STA (13:26)
[2023-01-06] MEDS: SODIUM CHLORIDE 0.9% 1,000 ML IV SCH (14:20)
== END 2023-01-06 15:26 | DRG 177 ==
LOC: EC 12:02 → 4SSUR 17:12
PROVIDERS: ADMIT Hospitalist; ATTEND Hospitalist
DX: U07.1 COVID-19 (principal); J12.82 Pneumonia due to coronavirus disease 2019; J96.01 Acute respiratory failure with hypoxia; J44.0 Chronic obstructive pulmonary disease with (acute) lower respiratory infection; J44.1 Chronic obstructive pulmonary disease with (acute) exacerbation; W19.XXXA Unspecified fall, initial encounter; J98.6 Disorders of diaphragm; R53.83 Other fatigue; R53.1 Weakness; I10 Essential (primary) hypertension; E78.5 Hyperlipidemia, unspecified; H35.30 Unspecified macular degeneration; I25.10 Atherosclerotic heart disease of native coronary artery without angina pectoris; I27.21 Secondary pulmonary arterial hypertension; K21.9 Gastro-esophageal reflux disease without esophagitis; M19.90 Unspecified osteoarthritis, unspecified site
CPT/HCPCS: 36415; 70450; 71046; 71275; 72125; 72170; 80048; 80053; 80320; 81001; 82140; 82550; 83605; 83615; 83735; 84484; 85025; 85379; 85610; 85730; 86140; 86850; 86900; 86901; 87635; 93005; 96374; 99291

== ENCOUNTER 2023-03-31 09:14 | Emergency (ER) | payer MEDICARE, BC ==
--- NOTE | 2023-03-31 09:26 | ED ---
Head Injury HPI - General Chief complaint: Head Injury Stated complaint: Fall Time Seen by Provider: 03/31/23 09:20 Source: patient, EMS, RN notes reviewed Mode of arrival: EMS Limitations: no limitations - History of Present Illness Initial comments: Patient is an 87-year-old male presented ER via EMS with a chief complaint of a fall. Patient states he was getting out of bed this morning and tripped and fell hitting his head on a side table. Patient denies loss of consciousness. Patient is taking Plavix. Patient denies any other injuries. Patient denies feeling lightheaded weak or dizzy before the fall. - Related Data Home Medications Medication Instructions Recorded Confirmed Aspirin [Adult Low Dose Aspirin EC] 81 mg PO DAILY 02/21/20 01/01/23 Pantoprazole Sodium [Protonix] 40 mg PO DAILY 02/21/20 01/01/23 Tamsulosin [Flomax] 0.4 mg PO DAILY 01/01/23 01/01/23 Vit C/E/Zn/Coppr/Lutein/Zeaxan 1 cap PO DAILY 01/01/23 01/01/23 [Preservision Areds 2 Softgel] Previous Rx's Medication Instructions Recorded Nitroglycerin Sl Tabs [Nitrostat] 0.4 mg SUBLINGUAL Q5M PRN #25 tab 03/18/16 amLODIPine [Norvasc] 5 mg PO DAILY #30 tab 08/27/16 Clopidogrel [Plavix] 75 mg PO DAILY #1 tab 09/04/16 atenoloL [Tenormin] 25 mg PO DAILY #30 tab 09/04/16 Acetaminophen Tab [Tylenol] 650 mg PO Q6HR PRN tab 01/05/23 Ascorbic Acid [Vitamin C] 500 mg PO DAILY #30 tablet 01/05/23 Zinc Sulfate 220 mg PO DAILY 14 Days #14 capsule 01/05/23 dexAMETHasone [Decadron] 6 mg PO DAILY 7 Days #7 tablet 01/05/23 Enoxaparin [Lovenox] 40 mg SQ DAILY each 01/06/23 Allergies/Adverse reactions: Allergies Allergy/AdvReac Type Severity Reaction Status Date / Time latex Allergy blisters Verified 01/01/23 15:45 in mouth venom-honey bee Allergy passed out Verified 01/01/23 15:45 [bee venom (honey bee)] venom-wasp [wasp venom] Allergy passed out Verified 01/01/23 15:45 Review of Systems ROS Statement: Those systems with pertinent positive or pertinent negative responses have been documented in the HPI. ROS Other: All systems not noted in ROS Statement are negative. Past Medical History Past Medical History: Coronary Artery Disease (CAD), COPD, Deep Vein Thrombosis (DVT), GERD/Reflux, GI Bleed, Hypertension, Osteoarthritis (OA) Additional Past Medical History / Comment(s): SOB, hx kidney stones, paralyzed diaphragm rt side, GI bleed 2017, History of Any Multi-Drug Resistant Organisms: None Reported Past Surgical History: Adenoidectomy, Appendectomy, Heart Catheterization With Stent, Hernia Repair, Tonsillectomy Additional Past Surgical History / Comment(s): lithotripsy x 4, 3 cardiac stents, rt cataract, oral surgery Past Anesthesia/Blood Transfusion Reactions: Motion Sickness, Postoperative Nausea & Vomiting (PONV) Additional Past Anesthesia/Blood Transfusion Reaction / Comment(s): HAD MOTION SICKNESS WHEN YOUNGER. paralyzed diaphragm rt side Date of Last Stent Placement:: 03/2019 Past Psychological History: No Psychological Hx Reported Smoking Status: Former smoker Past Alcohol Use History: None Reported Past Drug Use History: None Reported - Past Family History Mother Family Medical History: Cancer Father Family Medical History: Myocardial Infarction (NH), Mitral Valve Prolapse (MVP) Additional Family Medical History / Comment(s): PT STATED HIS FATHER HAD 14 NH'S AND AT THE AGE OF 58 General Exam Limitations: no limitations General appearance: alert, in no apparent distress Head exam: Present: other (Hematoma and ecchymosis noted on right forehead) Eye exam: Present: normal appearance, PERRL Pupils: Present: normal accommodation Respiratory exam: Present: normal lung sounds bilaterally. Absent: respiratory distress, wheezes, rales, rhonchi, stridor Cardiovascular Exam: Present: regular rate, normal rhythm, normal heart sounds. Absent: systolic murmur, diastolic murmur, rubs, gallop, clicks GI/Abdominal exam: Present: soft, normal bowel sounds. Absent: distended, tenderness, guarding, rebound, rigid Course Vital Signs 03/31/23 09:22 Temperature 98.5 F Pulse Rate 72 Respiratory 20 Rate Blood Pressure 174/86 O2 Sat by Pulse 96 Oximetry Medical Decision Making - Medical Decision Making Was pt. sent in by a medical professional or institution (Dr., PA, FIRE EXTINGUISHER TECHNICIAN, urgent care, hospital, or shelter...) When possible be specific @ -No Did you speak to anyone other than the patient for history (EMS, parent, family, police, friend...)? What history was obtained from this source @ -No Did you review nursing and triage notes (agree or disagree)? Why? @ -I reviewed and agree with nursing and triage notes Were old charts reviewed (outside hosp., previous admission, EMS record, old EKG, old radiological studies, urgent care reports/EKG's, shelter records)? Report findings @ -No old charts were reviewed Differential Diagnosis (chest pain, altered mental status, abdominal pain women, abdominal pain men, vaginal bleeding, weakness, fever, dyspnea, syncope, headache, dizziness, GI bleed, back pain, seizure, CVA, palpatations, mental health, musculoskeletal)? @ -Scalp hematoma, contusion, skull fracture, intracranial hemorrhage EKG interpreted by me (3pts min.). @ -None X-rays interpreted by me (1pt min.). @ -None done CT interpreted by me (1pt min.). @ -CT of brain and C-spine negative for acute intracranial hemorrhage/mass effe ct/fracture. U/S interpreted by me (1pt. min.). @ -None done What testing was considered but not performed or refused? (CT, X-rays, U/S, labs)? Why? @ -None What meds were considered but not given or refused? Why? @ -None Did you discuss the management of the patient with other professionals (professionals i.e. FÁTIMA Erazo, FIRE EXTINGUISHER TECHNICIAN, lab, RT, psych nurse, social psychologist, boat and plant utility supervisor, teacher, morale officer, case repairer)? Give summary @ -No Was smoking cessation discussed for >3mins.? @ -No Was critical care preformed (if so, how long)? @ -No Were there social determinants of health that impacted care today? How? (Homelessness, low income, unemployed, alcoholism, drug addiction, transportation, low edu. Level, literacy, decrease access to med. care, nursing home, rehab)? @ -No Was there de-escalation of care discussed even if they declined (Discuss DNR or withdrawal of care, Hospice)? DNR status @ -No What co-morbidities impacted this encounter? (DM, HTN, Smoking, COPD, CAD, Cancer, CVA, ARF, Chemo, Hep., AIDS, mental health diagnosis, sleep apnea, morbid obesity)? @ -None Was patient admitted / discharged? Hospital course, mention meds given and route, prescriptions, significant lab abnormalities, going to OR and other pertinent info. @ -Discharge. Patient is an 87-year-old male presenting to the ER via EMS with a chief complaint of a head injury. CT of brain and cspine performed in the ER was negative for acute intracranial process/mass effect/fracture. Patient will be discharged home in stable condition with follow-up PCP. Patient expressed verbal understanding. Undiagnosed new problem with uncertain prognosis? @ -No Drug Therapy requiring intensive monitoring for toxicity (Heparin, Nitro, Insulin, Cardizem)? @ -No Were any procedures done? @ -No Diagnosis/symptom? @ -Scalp contusion Acute, or Chronic, or Acute on Chronic? @ -Acute Uncomplicated (without systemic symptoms) or Complicated (systemic symptoms)? @ -Uncomplicated Side effects of treatment? @ -No Exacerbation, Progression, or Severe Exacerbation? @ -No Poses a threat to life or bodily function? How? (Chest pain, USA, NH, pneumonia, PE, COPD, DKA, ARF, appy, cholecystitis, CVA, Diverticulitis, Homicidal, Suicidal, threat to staff... and all critical care pts) @ -No - Radiology Data Radiology results: report reviewed, image reviewed Disposition Clinical Impression: Contusion of scalp, Hematoma of scalp Disposition: HOME SELF-CARE Condition: Stable Instructions (If sedation given, give patient instructions): Fall Prevention for Older Adults (ED) Additional Instructions: Please return to the Emergency Department if symptoms worsen or any other concerns. Is patient prescribed a controlled substance at d/c from ED?: No Referrals: Lisha Martinez MD [Primary Care Provider] - 1-2 days Time of Disposition: 10:55
[2023-03-31 09:36] VITALS: TEMP 98.5
--- NOTE | 2023-03-31 10:35 | CT ---
EXAMINATION TYPE: CT brain raymundo wo con DATE OF EXAM: 03/31/2023 COMPARISON: 01/01/2023 HISTORY: 87-year-old male with pain after Fall, bruising over Rt eye CT DLP: 1500.6 mGycm Automated exposure control for dose reduction was used. Technique: Examination of the head was done in axial plane without intravenous contrast. Coronal and sagittal reconstructions performed. CT of the cervical spine was obtained in axial plane without intravenous injection of contrast mater ial. Coronal and sagittal reformatted images were obtained from the axial views for evaluation of f ractures, spinal alignment and canal. FINDINGS: Head: There is no evidence of acute intracranial hemorrhage, acute ischemic changes, mass, mass-effect, or extra-axial fluid collection. There is no effacement of cerebral sulci or basal subarachnoid cister ns. There is no midline shift. Morrell-white matter distinction is preserved. There is a right frontal scalp contusion. No underlying calvarial fracture. Moderate white matter hypodensities in both cervical hemispheres. Mild ventriculomegaly is unchanged, Nielson ratio calculated at 0.32, likely in part due to central cerebral atrophy. Atherosclerotic arch calcifications. Lobulated mucosal thickening left maxillary sinus. Some layering fluid is also present. Scattered mil d mucosal thickening right maxillary sinus and ethmoid air cells. Globes are intact. Mastoid air cell s well pneumatized. Cervical spine: 1.2 cm hypodense left thyroid lobe nodule can be further assessed with dedicated outpatient thyroid u ltrasound. Prominent degenerative change of the right sternoclavicular joint. No craniocervical junction anomaly, predental space widening, or prevertebral soft tissue swelling. D egenerative change C1 dens articulation. Advanced spondylotic change mid to lower cervical spine. Reversal of the normal cervical lordosis. Nearly grade 2 anterolisthesis C4-C5. Grade 1 anterolisthes is C3-C4 and grade 1 retrolisthesis C5-C6 and C6-C7. Disc osteophyte complex at C5-C6 contributing to a mild to moderate focal spinal canal stenosis. Hypertrophic facet and uncovertebral joint arthropathy throughout with variable moderate to severe bi lateral neuroforaminal stenoses. Redemonstrated intraosseous cyst and nitrogen gas at the right posterior T1 vertebral body, unchanged from prior. Sagittal and coronal reformatted images confirm above findings. COMBINED IMPRESSION: 1. Right frontal scalp contusion. No underlying calvarial fracture or acute intracranial abnormality seen. 2. Similar mild ventriculomegaly likely in part due to central cerebral atrophy. Correlate to exclude a component of NPH. Similar moderate burden of chronic small vessel ischemic disease. 3. Moderate to advanced multilevel spondylotic changes cervical spine with degenerative grade 1 spond ylolisthesis as outlined above. Nearly grade 2 anterolisthesis C4-C5. There is variable moderate to s evere neuroforaminal stenoses throughout. No acute fracture seen. 4. Incidental: A 1.2 cm left thyroid lobe nodule which can be further assessed with dedicated outpati ent thyroid ultrasound.
[2023-03-31 11:29] VITALS: BP 145/86; PULSE 86; RESP 16
== END 2023-03-31 11:29 | disposition home or self-care (01) ==
LOC: EC 09:14
DX: S00.03XA Contusion of scalp, initial encounter (principal); S00.83XA Contusion of other part of head, initial encounter; J44.9 Chronic obstructive pulmonary disease, unspecified; K21.9 Gastro-esophageal reflux disease without esophagitis; I10 Essential (primary) hypertension; I25.10 Atherosclerotic heart disease of native coronary artery without angina pectoris; Z79.82 Long term (current) use of aspirin; Z79.899 Other long term (current) drug therapy; Z91.040 Latex allergy status; Z91.030 Bee allergy status; Z91.038 Other insect allergy status; Z87.891 Personal history of nicotine dependence; W06.XXXA Fall from bed, initial encounter
CPT/HCPCS: 70450; 72125; 99284

== ENCOUNTER 2023-06-13 11:16 | Inpatient (IN) | payer MEDICARE, BC ==
[2023-06-13] MEDS ORDERED: SODIUM CHLORIDE 0.9% 500 ML 500 ML IV STA (11:39)
[2023-06-13 12:18] LABS: Basophils % (A) 0 %; Eosinophils % (A) 0 %; HGB 17.8 gm/dL (13.0-17.5); Lymphocytes # (A) 0.5 k/uL (1.0-4.8); Lymphocytes % (A) 3 %; MCH 30.2 pg (25.0-35.0); MCHC 32.9 g/dL (31.0-37.0); MCV 91.7 fL (80.0-100.0); Mean Platelet Volume 7.4; Monocytes # (A) 0.8 k/uL (0-1.0); Monocytes % (A) 5 %; Neutrophils # (A) 15.6 k/uL (1.3-7.7); Neutrophils % (A) 91 %; Platelet Count 239 k/uL (150-450); RBC 5.89 m/uL (4.30-5.90); RDW 13.4 % (11.5-15.5); WBC 17.2 k/uL (3.8-10.6)
[2023-06-13 12:27] LABS: INR 1.2 (<1.2); Partial Thromboplastin Time 25.7 sec (22.0-30.0); Prothrombin Time 12.6 sec (10.0-12.5)
[2023-06-13 12:37] LABS: ALT 47 U/L (4-49); AST 117 U/L (17-59); African American GFR (CKD) >90 (>60 ml/min/1.73 sqM); Alkaline Phosphatase 89 U/L (38-126); Anion Gap 14 mmol/L; Appearance,Urine Cloudy (Clear); Bilirubin,Urine Negative (Negative); Blood Urea Nitrogen 26 mg/dL (9-20); Blood,Urine Moderate (Negative); Calcium 9.6 mg/dL (8.4-10.2); Carbon Dioxide 22 mmol/L (22-30); Chloride 103 mmol/L (98-107); Color,Urine Yellow; Glucose 114 mg/dL (74-99); Glucose,Urine (UA) Negative (Negative); Hyaline Casts,Urine 16 /lpf (0-2); Ketones,Urine 2+ (Negative); Leukocyte Esterase,Urine Negative (Negative); Magnesium 1.8 mg/dL (1.6-2.3); Mucus,Urine Many /hpf; Nitrite,Urine Negative (Negative); Non-African American GFR(CKD) 80 (>60 ml/min/1.73 sqM); PH, Urine 5.5 (5.0-8.0); Potassium 4.5 mmol/L (3.5-5.1); Protein,Urine 2+ (Negative); RBC,Urine 66 /hpf (0-5); Sodium 139 mmol/L (137-145); Specific Gravity,Urine 1.025 (1.001-1.035); Squamous Epithelial Cell,Urine 1 /hpf (0-4); Urobilinogen,Urine <2.0 mg/dL (<2.0); WBC,Urine 5 /hpf (0-5)
[2023-06-13 12:43] LABS: NT-Pro-B-Type Natriuretic Pept 6950 pg/mL
[2023-06-13 13:01] LABS: Creatine Kinase 2198 U/L (55-170)
--- NOTE | 2023-06-13 13:42 | ED ---
Fall HPI - General Chief Complaint: Fall Stated Complaint: FALL Source: patient, EMS Mode of arrival: EMS - History of Present Illness Initial Comments: 88-year-old male with past medical history of coronary artery disease, COPD, hypertension who presents to the emergency department after he sustained a fall. He states that he had some rectal incontinence last night. He was attempting to get into the shower to clean himself up. States he slipped and fell and pulled the shower curtain down on top of himself. Patient landed in the tub and was unable to get back out. Daughter was able to speak to him on however she did not speak with the patient yesterday. There is concern that the patient had been in the tub for greater than 24 hours. When her could not get a hold of the patient today, she had a well check performed. Patient believes that he did lose consciousness some time throughout the episode. He reports to left shoulder pain, bilateral hip pain and lower back pain. States that the low back pain is chronic for him. He did hit his head. He denies any chest pain or shortness of breath. Patient is covered in stool. He denies any abdominal pain. No numbness in his extremities. No other alleviating, precipitating or modifying factors - Related Data Home Medications Medication Instructions Recorded Confirmed Aspirin [Adult Low Dose Aspirin EC] 81 mg PO DAILY 02/21/20 06/13/23 Pantoprazole Sodium [Protonix] 40 mg PO DAILY 02/21/20 06/13/23 Vit C/E/Zn/Coppr/Lutein/Zeaxan 1 cap PO DAILY 01/01/23 06/13/23 [Preservision Areds 2 Softgel] Multivitamins, Thera [Multivitamin 1 tab PO DAILY 06/13/23 06/13/23 (formulary)] Previous Rx's Medication Instructions Recorded Nitroglycerin Sl Tabs [Nitrostat] 0.4 mg SUBLINGUAL Q5M PRN #25 tab 03/18/16 Clopidogrel [Plavix] 75 mg PO DAILY #1 tab 09/04/16 Acetaminophen Tab [Tylenol] 650 mg PO Q6HR PRN tab 01/05/23 ALPRAZolam [Xanax] 0.25 mg PO DAILY PRN #4 tab 06/18/23 Amoxic-Pot Clav 875-125Mg 1 tab PO BID 7 Days #14 tab 06/18/23 [Augmentin 875-125] Atorvastatin [Lipitor] 40 mg PO HS tab 06/18/23 Budesonide-Formot 160-4.5 Mcg 2 puff INHALATION RT-BID each 06/18/23 [Symbicort 160-4.5 Mcg Inhaler] HYDROcodone/APAP 5-325MG [Benedict 1 each PO Q6HR PRN #4 tab 06/18/23 5-325] Heparin Sodium,Porcine (1 ml) 5,000 unit SQ Q12HR each 06/18/23 [Heparin Sodium] Ipratropium-Albuterol Nebulize 3 ml INHALATION RT-QID each 06/18/23 [Duoneb 0.5 mg-3 mg/3 ml Soln] Nystatin 100,000 Unit/gm Powd 1 applic TOPICAL BID PRN each 06/18/23 [Mycostatin Powder] QUEtiapine [SEROquel] 12.5 mg PO HS #10 tab 06/18/23 Tamsulosin [Flomax] 0.4 mg PO PC-BRKFST cap 06/18/23 polyethylene glycoL 3350 [Miralax] 17 gm PO DAILY packet 06/18/23 Allergies Allergy/AdvReac Type Severity Reaction Status Date / Time latex Allergy blisters Verified 06/13/23 15:39 in mouth venom-honey bee Allergy passed out Verified 06/13/23 15:39 [bee venom (honey bee)] venom-wasp [wasp venom] Allergy passed out Verified 06/13/23 15:39 Review of Systems ROS Statement: Those systems with pertinent positive or pertinent negative responses have been documented in the HPI. ROS Other: All systems not noted in ROS Statement are negative. Past Medical History Past Medical History: Coronary Artery Disease (CAD), COPD, Deep Vein Thrombosis (DVT), GERD/Reflux, GI Bleed, Hypertension, Osteoarthritis (OA) Additional Past Medical History / Comment(s): SOB, hx kidney stones, paralyzed diaphragm rt side, GI bleed 2016, History of Any Multi-Drug Resistant Organisms: None Reported Past Surgical History: Adenoidectomy, Appendectomy, Heart Catheterization With Stent, Hernia Repair, Tonsillectomy Additional Past Surgical History / Comment(s): lithotripsy x 4, 3 cardiac sandra nts, rt cataract, oral surgery Past Anesthesia/Blood Transfusion Reactions: Motion Sickness, Postoperative Nausea & Vomiting (PONV) Additional Past Anesthesia/Blood Transfusion Reaction / Comment(s): HAD MOTION SICKNESS WHEN YOUNGER. paralyzed diaphragm rt side Date of Last Stent Placement:: 03/2019 Past Psychological History: No Psychological Hx Reported Smoking Status: Former smoker Past Alcohol Use History: None Reported Past Drug Use History: None Reported - Past Family History Mother Family Medical History: Cancer Father Family Medical History: Myocardial Infarction (DC), Mitral Valve Prolapse (MVP) Additional Family Medical History / Comment(s): PT STATED HIS FATHER HAD 14 DC'S AND AT THE AGE OF 58 General Exam Limitations: physical limitation General appearance: alert, other (covered in stool) Head exam: Present: atraumatic, normocephalic, normal inspection ENT exam: Present: mucous membranes dry Neck exam: Present: other (c-collar) Respiratory exam: Present: normal lung sounds bilaterally. Absent: respiratory distress, wheezes, rales, rhonchi, stridor Cardiovascular Exam: Present: normal rhythm, tachycardia GI/Abdominal exam: Present: soft, normal bowel sounds. Absent: distended, tenderness, guarding, rebound, rigid Skin exam: Present: other (skin tear left elbow) Course Vital Signs 06/13/23 06/13/23 06/13/23 11:51 11:52 12:00 Temperature 97.6 F Pulse Rate 108 H 108 H 96 Respiratory 22 Rate Blood Pressure 168/103 168/103 O2 Sat by Pulse Oximetry 06/13/23 06/13/23 06/13/23 12:30 13:15 13:30 Temperature Pulse Rate 111 H 89 81 Respiratory 22 20 Rate Blood Pressure 158/105 174/126 174/126 O2 Sat by Pulse 94 L Oximetry 06/13/23 06/13/23 06/13/23 13:45 14:00 14:30 Temperature Pulse Rate 81 84 Respiratory 19 19 Rate Blood Pressure 147/79 147/79 139/84 O2 Sat by Pulse 95 94 L Oximetry 06/13/23 06/13/23 06/13/23 15:00 16:00 17:00 Temperature Pulse Rate 99 76 Respiratory Rate Blood Pressure 139/84 176/93 128/67 O2 Sat by Pulse 94 L 94 L 94 L Oximetry 06/13/23 06/13/23 06/13/23 17:40 17:52 18:00 Temperature Pulse Rate 73 67 74 Respiratory Rate Blood Pressure 139/78 O2 Sat by Pulse 92 L Oximetry 06/13/23 19:00 Temperature Pulse Rate 65 Respiratory 20 Rate Blood Pressure 128/76 O2 Sat by Pulse 100 Oximetry Medical Decision Making - Medical Decision Making Was pt. sent in by a medical professional or institution (, [facility], OPERATIONAL RISK CONSULTANT, urgent care, hospital, or halfway...) When possible be specific @ -No Did you speak to anyone other than the patient for history (EMS, parent, family, police, friend...)? What history was obtained from this source @ -EMS Did you review nursing and triage notes (agree or disagree)? Why? @ -I reviewed and agree with nursing and triage notes Were old charts reviewed (outside hosp., previous admission, EMS record, old EKG, old radiological studies, urgent care reports/EKG's, halfway records)? Report findings @ -No old charts were reviewed Differential Diagnosis (chest pain, altered mental status, abdominal pain women, abdominal pain men, vaginal bleeding, weakness, fever, dyspnea, syncope, headache, dizziness, GI bleed, back pain, seizure, CVA, palpatations, mental health, musculoskeletal)? @ -Differential Weakness: Hypoglycemia, shock, sepsis, hyponatremia, anemia, infection, DC, ETOH, adverse medicine reaction, overdose, stroke, this is not meant to be an all-inclusive list. EKG interpreted by me (3pts min.). @ -Yes and demonstrates sinus rhythm with a rate of 93. AL interval 163. QRS 106. QTC 417. No acute ST segment elevations or depressions X-rays interpreted by me (1pt min.). @ -Yes and demonstrates no acute fractures CT interpreted by me (1pt min.). @ -Yes and demonstrates no acute intracranial process U/S interpreted by me (1pt. min.). @ -None done What testing was considered but not performed or refused? (CT, X-rays, U/S, labs)? Why? @ -None What meds were considered but not given or refused? Why? @ -None Did you discuss the management of the patient with other professionals (professionals i.e. , F[facility]TIMA, OPERATIONAL RISK CONSULTANT, lab, RT, psych nurse, home health care social worker, literature teacher, teacher, juvenile probation officer, case managers)? Give summary @ -dr carbajal who accepts patient, dr rushing in regards to elevated trop Was smoking cessation discussed for >3mins.? @ -No Was critical care preformed (if so, how long)? @ -No Were there social determinants of health that impacted care today? How? (Homelessness, low income, unemployed, alcoholism, drug addiction, brown sportation, low edu. Level, literacy, decrease access to med. care, [facility], rehab)? @ -No Was there de-escalation of care discussed even if they declined (Discuss DNR or withdrawal of care, Hospice)? DNR status @ -yes, patient is DNR What co-morbidities impacted this encounter? (DM, HTN, Smoking, COPD, CAD, Cancer, CVA, ARF, Chemo, Hep., AIDS, mental health diagnosis, sleep apnea, morbid obesity)? @ -advanced age, copd, ascad Was patient admitted / discharged? Hospital course, mention meds given and route, prescriptions, significant lab abnormalities, going to OR and other pertinent info. @ -Upon arrival patient was placed into room 27. A thorough history and physical exam was performed. Laboratory studies were conducted. White count is 17.2. Lactic acid of 2.5. Troponin of 0.172. BNP is 6950. CT of the brain, cervical spine and thoracic/lumbar spine demonstrates no acute fractures. Pelvis, shoulder and chest x-ray additionally performed per chest x-ray does demonstrate bilateral pleural effusions. Patient does have some tachypnea. He does have rhabdomyolysis. I did call and speak with Dr. Rushing in regards to administering fluids as I am concerned about the patient's respiratory status with pulmonary edema. He felt that the patient should receive Lasix rather then fluids at this time. He was challenged with 20 mg of Lasix. Spoke with Dr. Cabrajal who will admit the patient. Patient would like to be a DO NOT RESUSCITATE. Has daughter at bedside was agreeable to this. Patient admitted to the floor in stable condition with consult to cardiology Undiagnosed new problem with uncertain prognosis? @ -yes Drug Therapy requiring intensive monitoring for toxicity (Heparin, Nitro, Insulin, Cardizem)? @ -No Were any procedures done? @ -No Diagnosis/symptom? @ -acute fall, prolonged downtime, elevated ck, nstemi, pulmonary edema, b/l hip pain Acute, or Chronic, or Acute on Chronic? @ -acute Uncomplicated (without systemic symptoms) or Complicated (systemic symptoms)? @ -complicated Side effects of treatment? @ -No Exacerbation, Progression, or Severe Exacerbation? @ -No Poses a threat to life or bodily function? How? (Chest pain, USA, DC, pneumonia, PE, COPD, DKA, ARF, appy, cholecystitis, CVA, Diverticulitis, Homicidal, Suicidal, threat to staff... and all critical care pts) @ -No - Lab Data Result diagrams: 06/16/23 07:39 06/18/23 06:53 Lab Results 06/13/23 06/13/23 06/13/23 Range/Units 11:42 11:42 11:42 WBC 17.2 H (3.8-10.6) k/uL RBC 5.89 (4.30-5.90) m/uL Hgb 17.8 H (13.0-17.5) gm/dL Hct 54.0 H (39.0-53.0) % MCV 91.7 (80.0-100.0) fL MCH 30.2 (25.0-35.0) pg MCHC 32.9 (31.0-37.0) g/dL RDW 13.4 (11.5-15.5) % Plt Count 239 (150-450) k/uL MPV 7.4 Neutrophils % 91 % Lymphocytes % 3 % Monocytes % 5 % Eosinophils % 0 % Basophils % 0 % Neutrophils # 15.6 H (1.3-7.7) k/uL Lymphocytes # 0.5 L (1.0-4.8) k/uL Monocytes # 0.8 (0-1.0) k/uL Eosinophils # 0.0 (0-0.7) k/uL Basophils # 0.0 (0-0.2) k/uL PT 12.6 H (10.0-12.5) sec INR 1.2 H (<1.2) APTT 25.7 (22.0-30.0) sec Sodium (137-145) mmol/L Potassium (3.5-5.1) mmol/L Chloride (98-107) mmol/L Carbon Dioxide (22-30) mmol/L Anion Gap mmol/L BUN (9-20) mg/dL Creatinine (0.66-1.25) mg/dL Est GFR (CKD-EPI)AfAm (>60 ml/min/1.73 sqM) Est GFR (CKD-EPI)NonAf (>60 ml/min/1.73 sqM) Glucose (74-99) mg/dL Lactic Ac Sepsis Rflx Plasma Lactic Acid William (0.7-2.0) mmol/L Calcium (8.4-10.2) mg/dL Magnesium (1.6-2.3) mg/dL Total Bilirubin (0.2-1.3) mg/dL AST (17-59) U/L ALT (4-49) U/L Alkaline Phosphatase (38-126) U/L Creatine Kinase (55-170) U/L Troponin I (0.000-0.034) ng/mL NT-Pro-B Natriuret Pep pg/mL Total Protein (6.3-8.2) g/dL Albumin (3.5-5.0) g/dL Urine Color Yellow Urine Appearance Cloudy (Clear) Urine pH 5.5 (5.0-8.0) Ur Specific Milam 1.025 (1.001-1.035) Urine Protein 2+ H (Negative) Urine Glucose (UA) Negative (Negative) Urine Ketones 2+ H (Negative) Urine Blood Moderate H (Negative) Urine Nitrite Negative (Negative) Urine Bilirubin Negative (Negative) Urine Urobilinogen <2.0 (<2.0) mg/dL Ur Leukocyte Esterase Negative (Negative) Urine RBC 66 H (0-5) /hpf Urine WBC 5 (0-5) /hpf Ur Squamous Epith Cells 1 (0-4) /hpf Hyaline Casts 16 H (0-2) /lpf Urine Mucus Many H (None) /hpf 06/13/23 06/13/23 06/13/23 Range/Units 11:42 11:42 11:42 WBC (3.8-10.6) k/uL RBC (4.30-5.90) m/uL Hgb (13.0-17.5) gm/dL Hct (39.0-53.0) % MCV (80.0-100.0) fL MCH (25.0-35.0) pg MCHC (31.0-37.0) g/dL RDW (11.5-15.5) % Plt Count (150-450) k/uL MPV Neutrophils % % Lymphocytes % % Monocytes % % Eosinophils % % Basophils % % Neutrophils # (1.3-7.7) k/uL Lymphocytes # (1.0-4.8) k/uL Monocytes # (0-1.0) k/uL Eosinophils # (0-0.7) k/uL Basophils # (0-0.2) k/uL PT (10.0-12.5) sec INR (<1.2) APTT (22.0-30.0) sec Sodium 139 (137-145) mmol/L Potassium 4.5 (3.5-5.1) mmol/L Chloride 103 (98-107) mmol/L Carbon Dioxide 22 (22-30) mmol/L Anion Gap 14 mmol/L BUN 26 H (9-20) mg/dL Creatinine 0.80 (0.66-1.25) mg/dL Est GFR (CKD-EPI)AfAm >90 (>60 ml/min/1.73 sqM) Est GFR (CKD-EPI)NonAf 80 (>60 ml/min/1.73 sqM) Glucose 114 H (74-99) mg/dL Lactic Ac Sepsis Rflx Plasma Lactic Acid William 2.5 H* (0.7-2.0) mmol/L Calcium 9.6 (8.4-10.2) mg/dL Magnesium 1.8 (1.6-2.3) mg/dL Total Bilirubin 1.0 (0.2-1.3) mg/dL AST 117 H (17-59) U/L ALT 47 (4-49) U/L Alkaline Phosphatase 89 (38-126) U/L Creatine Kinase 2198 H* (55-170) U/L Troponin I 0.172 H* (0.000-0.034) ng/mL NT-Pro-B Natriuret Pep 6950 pg/mL Total Protein 7.0 (6.3-8.2) g/dL Albumin 4.0 (3.5-5.0) g/dL Urine Color Urine Appearance (Clear) Urine pH (5.0-8.0) Ur Specific Milam (1.001-1.035) Urine Protein (Negative) Urine Glucose (UA) (Negative) Urine Ketones (Negative) Urine Blood (Negative) Urine Nitrite (Negative) Urine Bilirubin (Negative) Urine Urobilinogen (<2.0) mg/dL Ur Leukocyte Esterase (Negative) Urine RBC (0-5) /hpf Urine WBC (0-5) /hpf Ur Squamous Epith Cells (0-4) /hpf Hyaline Casts (0-2) /lpf Urine Mucus (None) /hpf 06/13/23 06/13/23 Range/Units 13:00 15:54 WBC (3.8-10.6) k/uL RBC (4.30-5.90) m/uL Hgb (13.0-17.5) gm/dL Hct (39.0-53.0) % MCV (80.0-100.0) fL MCH (25.0-35.0) pg MCHC (31.0-37.0) g/dL RDW (11.5-15.5) % Plt Count (150-450) k/uL MPV Neutrophils % % Lymphocytes % % Monocytes % % Eosinophils % % Basophils % % Neutrophils # (1.3-7.7) k/uL Lymphocytes # (1.0-4.8) k/uL Monocytes # (0-1.0) k/uL Eosinophils # (0-0.7) k/uL Basophils # (0-0.2) k/uL PT (10.0-12.5) sec INR (<1.2) APTT (22.0-30.0) sec Sodium (137-145) mmol/L Potassium (3.5-5.1) mmol/L Chloride (98-107) mmol/L Carbon Dioxide (22-30) mmol/L Anion Gap mmol/L BUN (9-20) mg/dL Creatinine (0.66-1.25) mg/dL Est GFR (CKD-EPI)AfAm (>60 ml/min/1.73 sqM) Est GFR (CKD-EPI)NonAf (>60 ml/min/1.73 sqM) Glucose (74-99) mg/dL Lactic Ac Sepsis Rflx Y Plasma Lactic Acid William 1.6 (0.7-2.0) mmol/L Calcium (8.4-10.2) mg/dL Magnesium (1.6-2.3) mg/dL Total Bilirubin (0.2-1.3) mg/dL AST (17-59) U/L ALT (4-49) U/L Alkaline Phosphatase (38-126) U/L Creatine Kinase (55-170) U/L Troponin I (0.000-0.034) ng/mL NT-Pro-B Natriuret Pep pg/mL Total Protein (6.3-8.2) g/dL Albumin (3.5-5.0) g/dL Urine Color Urine Appearance (Clear) Urine pH (5.0-8.0) Ur Specific Milam (1.001-1.035) Urine Protein (Negative) Urine Glucose (UA) (Negative) Urine Ketones (Negative) Urine Blood (Negative) Urine Nitrite (Negative) Urine Bilirubin (Negative) Urine Urobilinogen (<2.0) mg/dL Ur Leukocyte Esterase (Negative) Urine RBC (0-5) /hpf Urine WBC (0-5) /hpf Ur Squamous Epith Cells (0-4) /hpf Hyaline Casts (0-2) /lpf Urine Mucus (None) /hpf Disposition Clinical Impression: CHF (congestive heart failure), NSTEMI (non-ST elevated myocardial infarction), Rhabdomyolysis, Fall Disposition: ADMITTED IP TO THIS HOSP Condition: Fair Is patient prescribed a controlled substance at d/c from ED?: No Time of Disposition: 15:57 Decision to Admit Reason: Admit from EC Decision Date: 06/13/23 Decision Time: 15:57
[2023-06-13] MEDS ORDERED: SODIUM CHLORIDE 0.9% 1,000 ML IV SCH (13:45)
--- NOTE | 2023-06-13 13:55 | CT ---
EXAMINATION TYPE: CT brain rossine wo con DATE OF EXAM: 06/13/2023 COMPARISON: 03/31/2023 HISTORY: PT FALL CT DLP: 4048.3 mGycm, Automated exposure control for dose reduction was used. CONTRAST: Patient injected with 0 mL of Isovue 300. CT of the brain is performed utilizing 3 mm thick sections through the posterior fossa and 3 mm thick sections through the remaining calvarium. Study is performed within 24 hours of arrival to the hospital. No abnormal hyperdensity is present to suggest an acute intracranial hemorrhage. No mass lesion is evident. No acute infarcts are evident. There is some mild. Intranodular white matter hypodensity, likely on the basis of chronic white matter ischemic changes. This was present previously Ventricles and sulci are somewhat prominent for the patient age. There is a retention cyst within the left maxillary sinus. Remaining paranasal sinuses are clear. Mas toid air cells are clear. No acute fractures are evident. IMPRESSIONS: 1. No acute intracranial process. Follow-up MRI can be performed as clinically indicated. 2. Stable chronic appearing. Ventricular white matter ischemic changes. CT cervical spine. COMPARISON: None CT of the cervical spine is performed in the axial plane at 2 mm thick sections. Reconstructed image s in the coronal, and sagittal plane are reviewed on the computer. No acute fractures are evident. There is a grade 1 spondylolisthesis of C4 anteriorly on C5. Loss of disc height is evident throughou t the cervical spine appears most notable at C5-6 C6-7. Posterior endplate spurring is present C5-6 C 6-7 level. Anterior vertebral body spurring is present C4-C7. There appears to be some vacuum phenome non within the posterior superior T1 vertebral body. Uncovertebral joint hypertrophy and foraminal stenosis is present throughout the cervical spine. No A P spinal canal stenosis is present. Some endplate spurring is noted with moderate thecal sac compress ion at C5-6. Findings appear stable from the comparison IMPRESSION: 1. Chronic degenerative changes in the cervical spine. No acute osseous abnormality radiographically apparent. MRI can be performed as clinically indicated.
--- NOTE | 2023-06-13 14:09 | CT ---
EXAMINATION TYPE: CT thor lumbar spine wo con DATE OF EXAM: 06/13/2023 COMPARISON: None HISTORY: PT FALL BACK PAIN CT DLP: 1552 mGycm Automated exposure control for dose reduction was used. Contrast: None Technique: Axial images 3 mm thick sections. Reconstructed images in the coronal and sagittal planes. FINDINGS: Degenerative disc changes are within the lower cervical spine. There is loss of disc height through t he vertebral bodies within the thoracic spine. Anterior vertebral body spurring is within the lower t horacic spine. There is loss of disc height within the lumbar spine greatest at L2-3 and L4-5. Vacuum disc phenomenon and narrowing is present L3-4. There is narrowing of the L5-S1 disc height. Grade 1 spondylolisthesis of L4 anteriorly on L5 is present. Severe bilateral foraminal stenosis is present L4-5 and L5-S1. Additional foraminal stenosis L1-2 thr ough L3-4 levels moderate degree. Vertebral body heights are preserved. No suspicious compression deformities evident. Note is made of large anterior vertebral body spurs L3-4 and T9-T12. No posterior wall displacement is identified. No suspicious focal disc herniation is evident. IMPRESSION: 1. NO ACUTE POSTTRAUMATIC CHANGES THORACIC AND LUMBAR SPINE. 2. ADVANCED DEGENERATIVE DISC CHANGES THROUGHOUT THE VISUALIZED AXIAL SPINE. 3. GRADE 1 SPONDYLOLISTHESIS L4 AND L5
--- NOTE | 2023-06-13 14:56 | XR ---
EXAMINATION TYPE: XR pelvis AP view DATE OF EXAM: 06/13/2023 2:40 PM CLINICAL INDICATION:Male, 88 years old with history of fall, b/l hip pain; PHH COMPARISON: None TECHNIQUE: The pelvis was examined in a single projection. FINDINGS: Moderate degenerative changes of the lower lumbar spine. Mild degenerative change of the SI joints and left hip. Moderate right hip osteoarthropathy, with likely small supra-acetabular spur. N o evidence of a pelvic fracture. No visible hip fracture or dislocation bilaterally. Proximal femurs appear to be intact on this single view. Small cortical bump at the right femoral head/neck junction can be seen with cam-type femoral acetabular impingement. No acute soft tissue abnormality or radiopa que foreign body. A couple calcifications are seen projected to the left of L3-L4 uncertain etiology. There are probably injection granulomas projected over the left iliac wing region. IMPRESSION: No acute fracture or dislocation identified, on this single view of the pelvis. Moderate right and mild left hip arthropathy.
--- NOTE | 2023-06-13 15:10 | XR ---
EXAMINATION TYPE: XR shoulder complete LT DATE OF EXAM: 06/13/2023 2:40 PM CLINICAL INDICATION:Male, 88 years old with history of shoulder pain; PHH Pain after fall. COMPARISON: None TECHNIQUE: XR shoulder complete LT; shoulder was examined in AP, internally rotated and scapular Y p rojections. FINDINGS: No evidence of acute osseous pathology, joint dislocation, or soft tissue swelling. Mild degenerative change of the glenohumeral and AC joints. IMPRESSION: No acute osseous pathology. Mild degenerative changes.
--- NOTE | 2023-06-13 15:17 | XR ---
EXAMINATION TYPE: XR chest 2V DATE OF EXAM: 06/13/2023 2:40 PM CLINICAL INDICATION:Male, 88 years old with history of Weakness; PHH. Patient fell. COMPARISON: 04/06/2023 TECHNIQUE: XR chest 2V. Frontal and lateral views of the chest. FINDINGS: Lines/Tubes/Devices: EKG leads overlie the chest. No indwelling lines are seen. Heart/mediastinum: Heart appears moderately enlarged. Tortuous aorta with atherosclerotic calcificat ion. Pulmonary vascularity: Pulmonary vascular congestion. Increased interstitial markings can be seen wit h edema or pneumonitis superimposed on chronic changes. Lungs/Pleura: Hyperinflation with flattening of the diaphragm widening of the AP dimension of the [address] and mild interstitial changes. Asymmetric elevation of the right hemidiaphragm again seen. Right b tino atelectasis without otherwise evidence of focal consolidation, sizeable pleural effusion, or pn eumothorax. Any possible underlying pulmonary nodularity cannot be excluded. Musculoskeletal: No acute osseous abnormality demonstrated in the limits of the exam. Moderate degen erative changes of the spine and shoulders. Other findings: None. IMPRESSION: * Cardiomegaly and mild pulmonary vascular congestion and probable interstitial edema. Correlate cli nically for congestive heart failure. * COPD changes.
[2023-06-13] MEDS ORDERED: FUROSEMIDE 10 MG/ML 4 ML VIAL IV STA (15:51)
[2023-06-13] MEDS ORDERED: FUROSEMIDE 10 MG/ML 2 ML VIAL IV ONE (15:53)
[2023-06-13] MEDS ORDERED: ACETAMINOPHEN TAB 325 MG TAB PO PRN (15:54)
[2023-06-13] MEDS ORDERED: NALOXONE 0.4 MG/ML 1 ML VIAL IV PRN (15:57)
[2023-06-13] MEDS: atenoloL 25 MG TAB PO SCH (16:06)
[2023-06-13] MEDS: amLODIPine 5 MG TAB PO SCH (16:06)
[2023-06-13] MEDS ORDERED: NITROGLYCERIN SL TABS 0.4 MG TAB SUBLINGUAL PRN (16:13)
[2023-06-13] MEDS: SYMBICORT 160-4.5 MCG INHALER INHALATION SCH (17:39)
[2023-06-13] MEDS: IPRATROPIUM-ALBUTEROL 3 ML NEB INHALATION SCH (17:39)
--- NOTE | 2023-06-13 20:37 | CT ---
CT CHEST FOR PULMONARY EMBOLISM. EXAMINATION TYPE: CT chest angio for PE DATE OF EXAM: 06/13/2023 INDICATION: elevated dimer, SOB. CT DLP: 538.1 mGycm, Automated exposure control for dose reduction was used. CONTRAST: Patient injected with 100 ml mL of Isovue 370. COMPARISON: 323 TECHNIQUE: CT of the chest is performed on a spiral scan at 2 mm thick sections. Study is performed with intravenous contrast timed for evaluation for pulmonary embolism. This will limit additional po rtions of the evaluation. 3-D MIP images reconstructed by the technologist are reviewed on the compu ter in the coronal and sagittal planes. FINDINGS: No persistent filling defects are evident to suggest an acute pulmonary embolism. No mediastinal or hilar adenopathy enlarged by CT criteria is evident. The ascending aorta diameter at the level of the main pulmonary artery is 3.4 cm. The main pulmonary artery diameter at the bifur cation is 3.2 cm. There is a consolidation at the right lung base. Mass and pneumonia could be considered. Follow-up is recommended. This finding appears new from comparison. Limited CT section through the upper abdomen are unremarkable. IMPRESSION: 1. No acute pulmonary embolism. 2. Right lower lobe consolidation with air bronchograms. Correlate for pneumonia. Underlying mass anish uld be considered. Follow-up is recommended.
[2023-06-13] MEDS ORDERED: HEPARIN SODIUM 1,000 UN/ML (10ML VL) IV PRN (20:45)
[2023-06-13] MEDS ORDERED: HEPARIN SODIUM 1,000 UN/ML (10ML VL) IV ONE (20:45)
[2023-06-13] MEDS ORDERED: HEPARIN SODIUM,PORCINE 5,000 UNIT/ML 1 ML VIAL SQ SCH (21:00)
[2023-06-13] MEDS: HEPARIN SOD,PORK IN 0.45% NACL 25,000 UNIT in 0.45% NACL 1 250ML.BAG IV SCH (21:08)
--- NOTE | 2023-06-14 00:26 | HP ---
HISTORY AND PHYSICAL CHIEF COMPLAINT: Fall. HISTORY OF PRESENT ILLNESS: This 88-year-old gentleman with a past medical history of multiple medical illnesses including COPD, history of DVT, seen by Dr. Martinez in the outpatient, living by himself. The patient apparently had a fall and the patient unable to get up from the tub and the patient came to [facility]. The patient had features of CHF and COPD. The patient is short of breath. The patient also had low back pain. The patient also had elevated CK indicating rhabdomyolysis also. There is no history of fever, rigors, chills at this time. 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 PAST MEDICAL HISTORY: CAD, COPD, DVT, rest of the history and rest of the chart is also reviewed. MEDICATIONS: Home medications are reviewed and include vitamin C, dose and rest of medications reviewed. ALLERGIES: Latex. FAMILY HISTORY: History of cancer in the family. SOCIAL HISTORY: Previous smoker. REVIEW OF SYSTEMS: A 14-point review is negative except as mentioned earlier. PHYSICAL EXAM: VITAL SIGNS: Pulse 84, blood pressure 147/79, respirations 19. HEENT: Conjunctivae normal. NECK: No jugular venous distention. CARDIOVASCULAR: S1, S2. RESPIRATIONS: bilateral scattered rhonchi and expiratory wheezing and crackles. ABDOMEN: Soft, nontender. LEGS: No edema. NERVOUS SYSTEM: Nonfocal. LABORATORY DATA: WBC 17.2, hemoglobin 17.8. Lactic acid 2.5. CK noted. ASSESSMENT: 1. Shortness of breath, possibly congestive heart failure acute exacerbation and chronic obstructive pulmonary disease acute exacerbation. 2. Possible acute rhabdomyolysis. 3. Fall and gait dysfunction. 4. Elevated WBC, rule out sepsis. 5. History of CAD. 6. History of deep venous thrombosis. 7. Hypertension history of degenerative joint disease. 8. History of gastrointestinal bleed. 9. History of right diaphragmatic paralysis. RECOMMENDATIONS: This 88-year-old gentleman presented with multiple complex medical issues. We will monitor the patient closely. I would recommend cautious diuresis and monitor fluid closely. I would also recommend empiric antibiotics and monitor. Monitor CK closely. PT/OT evaluation, possible rehab. Otherwise, we would also recommend COVID-19 testing also. Overall, prognosis extremely guarded because of multiple complex medical issues. Further recommendations to follow. We will obtain serum cultures also. See orders for details. Discussed at length with the family and home medications will be continued once they are confirmed. MMODL / IJN: [id number] / GIGI
[2023-06-14] MEDS: HYDROcodone/APAP 5-325MG 1 EACH TAB PO PRN ×3 (03:21→20:28)
[2023-06-14 03:30] LABS: Basophils % (A) 0 %; Eosinophils % (A) 0 %; HCT 51.9 % (39.0-53.0); HGB 16.7 gm/dL (13.0-17.5); Lymphocytes # (A) 0.7 k/uL (1.0-4.8); Lymphocytes % (A) 5 %; MCH 29.7 pg (25.0-35.0); MCHC 32.3 g/dL (31.0-37.0); Mean Platelet Volume 7.7; Monocytes # (A) 0.8 k/uL (0-1.0); Monocytes % (A) 6 %; Neutrophils # (A) 11.8 k/uL (1.3-7.7); Neutrophils % (A) 87 %; Platelet Count 225 k/uL (150-450); RBC 5.64 m/uL (4.30-5.90); RDW 13.6 % (11.5-15.5); WBC 13.6 k/uL (3.8-10.6)
[2023-06-14 03:44] LABS: ALT 46 U/L (4-49); AST 90 U/L (17-59); African American GFR (CKD) 76 (>60 ml/min/1.73 sqM); Albumin 3.6 g/dL (3.5-5.0); Alkaline Phosphatase 78 U/L (38-126); Anion Gap 12 mmol/L; Blood Urea Nitrogen 39 mg/dL (9-20); Calcium 9.4 mg/dL (8.4-10.2); Carbon Dioxide 23 mmol/L (22-30); Chloride 102 mmol/L (98-107); Creatine Kinase 925 U/L (55-170); Glucose 98 mg/dL (74-99); Non-African American GFR(CKD) 66 (>60 ml/min/1.73 sqM); Potassium 4.1 mmol/L (3.5-5.1); Sodium 137 mmol/L (137-145); Total Bilirubin 0.8 mg/dL (0.2-1.3); Total Protein 6.6 g/dL (6.3-8.2)
[2023-06-14 04:32] LABS: INR 1.1 (<1.2); Partial Thromboplastin Time 36.1 sec (22.0-30.0); Prothrombin Time 12.2 sec (10.0-12.5)
[2023-06-14] MEDS: HYDROmorphone 0.5 MG/0.5 ML SYRINGE IVP PRN ×2 (06:01→23:18)
--- NOTE | 2023-06-14 07:34 | XR ---
EXAMINATION TYPE: XR hand complete LT DATE OF EXAM: 06/14/2023 COMPARISON: None HISTORY: Fall, pain TECHNIQUE: 3 view left hand FINDINGS: Degenerative changes are at the first carpometacarpal junction. Remaining joint spaces appe ar preserved. No acute fracture or dislocations are evident. Soft tissues appear normal. Follow up exams can be performed 7-10 days from acute trauma for continued pain. IMPRESSION: 1. No acute osseous abnormality left hand
--- NOTE | 2023-06-14 07:59 | US ---
EXAMINATION TYPE: US venous doppler duplex UE LT DATE OF EXAM: 06/14/2023 COMPARISON: NONE CLINICAL INDICATION: Male, 88 years old with history of left arm/hand pain; Fall, let arm and hand pa in SIDE PERFORMED: left Left Arm: Negative for DVT exam limited by patient pain and limited mobility IMPRESSION: 1. Left upper extremity ultrasound negative for deep venous thrombosis
--- NOTE | 2023-06-14 08:23 | P.CRDCN ---
History of Present Illness Consult date: 06/14/23 Chief complaint: Change in mental status History of present illness: The patient is an 88-year-old gentleman with a past medical history significant for coronary artery disease and prior stenting of the RCA was performed in 2016 and also valvular heart disease a status post transcatheter aortic valve replacement as well as hypertension and dyslipidemia. The patient was brought into the hospital by his family after he fell in the bathtub and apparently possibly lost his consciousness. He developed injury on the left arm. His arm was extremely painful and he underwent venous to the x-ray showed no evidence of a DVT. Subsequently he underwent workup in the emergency department including an EKG showing sinus mechanism with diffuse nonspecific ST and T wave abnormalities and troponin came in to be slightly abnormal. The chest x-ray did not show any acute abnormalities. NT proBNP came in to be elevated. He underwent a d-dimer came in to be abnormal and subsequent the CT of the chest showed no evidence of pulmonary embolism. He has no pain in the chest and no shortness of breath and he doesn't seems to be in any overt heart failure at this point. Examination is remarkable for stable vital signs was diminished breathing sounds bilaterally and regular rate and rhythm with a systolic murmur at the right upper sternal border and no edema was noted in the lower extremity is Assessment Change in mental status/syncope Mildly elevated troponin Coronary artery disease as described above Valvular heart disease as described above Multiple comorbid conditions Plan Consider medical treatment for the abnormal troponin Further risk stratification including an echocardiogram Continue aspirin and beta jewel and add statin Continue heparin for additional 24 hours Follow-up the patient Past Medical History Past Medical History: Coronary Artery Disease (CAD), COPD, Deep Vein Thrombosis (DVT), GERD/Reflux, GI Bleed, Hypertension, Osteoarthritis (OA) Additional Past Medical History / Comment(s): SOB, hx kidney stones, paralyzed diaphragm rt side, GI bleed 2016 History of Any Multi-Drug Resistant Organisms: None Reported Past Surgical History: Adenoidectomy, Appendectomy, Heart Catheterization With Stent, Hernia Repair, Tonsillectomy Additional Past Surgical History / Comment(s): lithotripsy x4, 3 cardiac stents, rt cataract, oral surgery Past Anesthesia/Blood Transfusion Reactions: Motion Sickness, Postoperative Nausea & Vomiting (PONV) Additional Past Anesthesia/Blood Transfusion Reaction / Comment(s): HAD MOTION SICKNESS WHEN YOUNGER, paralyzed diaphragm rt side Date of Last Stent Placement:: 03/2019 Past Psychological History: No Psychological Hx Reported Smoking Status: Former smoker Past Alcohol Use History: None Reported Additional Past Alcohol Use History / Comment(s): Smoked for 30 years, 1-2 PPD. Past Drug Use History: None Reported - Past Family History Mother Family Medical History: Cancer Father Family Medical History: Myocardial Infarction (UT), Mitral Valve Prolapse (MVP) Additional Family Medical History / Comment(s): PT STATED HIS FATHER HAD 14 UT'S AND AT THE AGE OF 58 Medications and Allergies Home Medications Medication Instructions Recorded Confirmed Type Nitroglycerin Sl Tabs [Nitrostat] 0.4 mg SUBLINGUAL Q5M PRN #25 tab 03/18/16 06/13/23 Rx amLODIPine [Norvasc] 5 mg PO DAILY #30 tab 08/27/16 06/13/23 Rx Clopidogrel [Plavix] 75 mg PO DAILY #1 tab 09/04/16 06/13/23 Rx atenoloL [Tenormin] 25 mg PO DAILY #30 tab 09/04/16 06/13/23 Rx Aspirin [Adult Low Dose Aspirin EC] 81 mg PO DAILY 02/21/20 06/13/23 History Pantoprazole Sodium [Protonix] 40 mg PO DAILY 02/21/20 06/13/23 History Vit C/E/Zn/Coppr/Lutein/Zeaxan 1 cap PO DAILY 01/01/23 06/13/23 History [Preservision Areds 2 Softgel] Acetaminophen Tab [Tylenol] 650 mg PO Q6HR PRN tab 01/05/23 06/13/23 Rx Multivitamins, Thera [Multivitamin 1 tab PO DAILY 06/13/23 06/13/23 History (formulary)] Allergies Allergy/AdvReac Type Severity Reaction Status Date / Time latex Allergy blisters Verified 06/13/23 15:39 in mouth venom-honey bee Allergy passed out Verified 06/13/23 15:39 [bee venom (honey bee)] venom-wasp [wasp venom] Allergy passed out Verified 06/13/23 15:39 Physical Exam Vitals: Vital Signs Temp Pulse Pulse Resp BP BP Pulse Ox 06/14/23 03:49 97.6 F 60 18 136/72 92 L 06/13/23 23:53 62 18 124/74 95 06/13/23 22:00 97.7 F 65 18 127/76 97 06/13/23 19:00 65 20 128/76 100 06/13/23 18:00 74 139/78 92 L 06/13/23 17:52 67 06/13/23 17:40 73 06/13/23 17:00 76 128/67 94 L 06/13/23 16:00 99 176/93 94 L 06/13/23 15:00 139/84 94 L 06/13/23 14:30 139/84 06/13/23 14:00 84 19 147/79 94 L 06/13/23 13:45 81 19 147/79 95 06/13/23 13:30 81 20 174/126 94 L 06/13/23 13:15 89 174/126 06/13/23 12:30 111 H 22 158/105 06/13/23 12:00 96 168/103 06/13/23 11:52 108 H 06/13/23 11:51 97.6 F 108 H 22 168/103 Intake and Output 06/13/23 06/14/23 06/14/23 22:59 06:59 14:59 Intake Total 10 75.818 Balance 10 75.818 Intake: IV 10 Invasive Line 1 10 Intake, IV Titration 75.818 Amount Heparin Sod,Pork in 0.45% 75.818 NaCl 25,000 unit In 0.45 % NaCl 1 250ml.bag @ 10.3 UNITS/KG/HR 9.998 mls/hr IV .Q24H [facility] Rx#: [id number] Other: Voiding Method External Catheter External Catheter # Bowel Movements 0 Weight 97.069 kg Results 06/14/23 03:06 06/14/23 03:06 Cardiac Enzymes 06/13/23 06/13/23 06/13/23 Range/Units 11:42 11:42 18:07 AST 117 H (17-59) U/L Troponin I 0.172 H* 0.222 H* (0.000-0.034) ng/mL 06/13/23 06/14/23 Range/Units 21:37 03:06 AST 90 H (17-59) U/L Troponin I 0.251 H* (0.000-0.034) ng/mL Coagulation 06/13/23 06/14/23 Range/Units 11:42 04:03 PT 12.6 H 12.2 (10.0-12.5) sec APTT 25.7 36.1 H (22.0-30.0) sec CBC 06/13/23 06/14/23 Range/Units 11:42 03:06 WBC 17.2 H 13.6 H (3.8-10.6) k/uL RBC 5.89 5.64 (4.30-5.90) m/uL Hgb 17.8 H 16.7 (13.0-17.5) gm/dL Hct 54.0 H 51.9 (39.0-53.0) % Plt Count 239 225 (150-450) k/uL Comprehensive Metabolic Panel 06/13/23 06/14/23 Range/Units 11:42 03:06 Sodium 139 137 (137-145) mmol/L Potassium 4.5 4.1 (3.5-5.1) mmol/L Chloride 103 102 (98-107) mmol/L Carbon Dioxide 22 23 (22-30) mmol/L BUN 26 H 39 H (9-20) mg/dL Creatinine 0.80 1.01 (0.66-1.25) mg/dL Glucose 114 H 98 (74-99) mg/dL Calcium 9.6 9.4 (8.4-10.2) mg/dL AST 117 H 90 H (17-59) U/L ALT 47 46 (4-49) U/L Alkaline Phosphatase 89 78 (38-126) U/L Total Protein 7.0 6.6 (6.3-8.2) g/dL Albumin 4.0 3.6 (3.5-5.0) g/dL Current Medications Generic Name Dose Route Start Last Admin Trade Name Freq PRN Reason Stop Dose Admin Acetaminophen 650 mg 06/13/23 15:54 Acetaminophen Tab 325 Mg Tab PO Q6HR PRN Mild Pain or Fever > 100.5 Hydrocodone Bitart/Acetaminophen 1 each 06/13/23 16:11 06/14/23 03:21 Hydrocodone/Apap 5-325mg 1 Each Tab PO 1 each Q6HR PRN Administration Pain Albuterol/Ipratropium 3 ml 06/13/23 20:00 06/13/23 17:39 Ipratropium-Albuterol 3 Ml Neb INHALATION 3 ml RT-QID LOGAN Administration Amlodipine Besylate 5 mg 06/13/23 16:00 06/13/23 16:06 Amlodipine 5 Mg Tab PO 5 mg DAILY [facility] Administration Aspirin 81 mg 06/14/23 09:00 Aspirin 81 Mg PO DAILY [facility] Atenolol 25 mg 06/13/23 16:00 06/13/23 16:06 Atenolol 25 Mg Tab PO 25 mg DAILY [facility]AN Administration Budesonide/Formoterol Fumarate 2 puff 06/13/23 20:00 06/13/23 17:39 Symbicort 160-4.5 Mcg Inhaler INHALATION 2 puff RT-BID LOGAN Administration Clopidogrel Bisulfate 75 mg 06/14/23 09:00 Clopidogrel 75 Mg Tab PO DAILY [facility] Heparin Sodium (Porcine) 0 unit 06/13/23 20:45 Heparin Sodium 1,000 Un/Ml (10ml Vl) IV PER PROTOCOL PRN Low PTT Protocol Hydromorphone HCl 0.5 mg 06/14/23 05:58 06/14/23 06:01 Hydromorphone 0.5 Mg/0.5 Ml Syringe IVP 0.5 mg Q4HR PRN Administration Pain Ceftriaxone Sodium 1 gm/ 50 mls @ 100 mls/hr 06/13/23 16:15 06/13/23 16:27 Sodium Chloride IVPB 100 mls/hr Q24HR LOGAN Administration Protocol Heparin Sodium/Sodium Chloride 250 mls @ 9.998 mls/hr 06/13/23 20:45 06/14/23 04:43 25,000 unit/ Sodium Chloride IV 12.3 units/kg/hr .Q24H [facility]AN 11.939 mls/hr Titration Protocol 10.3 UNITS/KG/HR Multivitamins 1 each 06/14/23 09:00 Multivitamins, Thera 1 Each Tab PO DAILY [facility] Multivitamins/Minerals 1 each 06/14/23 09:00 Vit A,C & N-Hqrjvk-Fkhsmgux 1 Each Tab PO DAILY [facility] Naloxone HCl 0.2 mg 06/13/23 15:57 Naloxone 0.4 Mg/Ml 1 Ml Vial IV Q2M PRN Opioid Reversal Nitroglycerin 0.4 mg 06/13/23 16:13 Nitroglycerin Sl Tabs 0.4 Mg Tab SUBLINGUAL Q5M PRN Chest Pain Pantoprazole Sodium 40 mg 06/14/23 09:00 Pantoprazole 40 Mg Tablet PO DAILY [facility] Intake and Output 06/13/23 06/14/23 06/14/23 22:59 06:59 14:59 Intake Total 10 75.818 Balance 10 75.818 Intake: IV 10 Invasive Line 1 10 Intake, IV Titration 75.818 Amount Heparin Sod,Pork in 0.45% 75.818 NaCl 25,000 unit In 0.45 % NaCl 1 250ml.bag @ 10.3 UNITS/KG/HR 9.998 mls/hr IV .Q24H [facility] Rx#: [id number] Other: Voiding Method External Catheter External Catheter # Bowel Movements 0 Weight 97.069 kg 06/14/23 03:06 06/14/23 03:06
[2023-06-14] MEDS: IPRATROPIUM-ALBUTEROL 3 ML NEB INHALATION SCH ×4 (09:27→21:37)
[2023-06-14] MEDS: SYMBICORT 160-4.5 MCG INHALER INHALATION SCH ×2 (09:28→21:37)
[2023-06-14] MEDS: CLOPIDOGREL 75 MG TAB PO SCH (09:40)
[2023-06-14] MEDS: amLODIPine 5 MG TAB PO SCH (09:40)
[2023-06-14] MEDS: atenoloL 25 MG TAB PO SCH (09:40)
[2023-06-14] MEDS: PANTOPRAZOLE 40 MG TABLET PO SCH (09:40)
[2023-06-14] MEDS: VIT A,C & E-LUTEIN-MINERALS 1 EACH TAB PO SCH (09:40)
[2023-06-14] MEDS: ASPIRIN 81 MG PO SCH (09:40)
[2023-06-14] MEDS: MULTIVITAMINS, THERA 1 EACH TAB PO SCH (09:40)
[2023-06-14] MEDS: FUROSEMIDE 10 MG/ML 2 ML VIAL IV SCH (14:34)
[2023-06-14] MEDS: HEPARIN SOD,PORK IN 0.45% NACL 25,000 UNIT in 0.45% NACL 1 250ML.BAG IV SCH (17:22)
[2023-06-14] MEDS: ATORVASTATIN 40 MG TAB PO SCH (20:28)
[2023-06-15] MEDS: HYDROcodone/APAP 5-325MG 1 EACH TAB PO PRN ×2 (05:09→11:32)
--- NOTE | 2023-06-15 05:20 | PN ---
PROGRESS NOTE DATE OF SERVICE: 06/14/2023 SUBJECTIVE: This is an 88-year-old gentleman admitted with a fall, also complaining of shortness of breath, possibly a combination of COPD and CHF. The patient is being closely monitored at this time. The patient also complained of severe pain after Dilaudid. The patient is sedated. Ultrasound is negative for DVT. The hand x-ray showed no abnormality. The chest CTA, which I reviewed personally showed no evidence of any pulmonary embolism. Right lower lobe consolidation with possible pneumonia was suspected. PAST MEDICAL HISTORY: Reviewed. REVIEW OF SYSTEMS: Could not be taken. CURRENT MEDICATIONS: Reviewed and include Bartley. Doses and rest of the medications are noted. PHYSICAL EXAM: VITAL SIGNS: Pulse is 60, blood pressure n, respirations 18. CHEST: Few scattered rhonchi. ABDOMEN: Soft. NERVOUS SYSTEM: Nonfocal. LABORATORY DATA: WBC 13.6. Sodium 137. Troponin 0.251. ASSESSMENT: 1. Shortness of breath, possibly congestive heart failure acute exacerbation chronic obstructive pulmonary disease exacerbation. 2. Right lower lobe pneumonia. 3. Possible acute rhabdomyolysis. 4. Fall and gait dysfunction. 5. Elevated WBC. 6. History of coronary artery disease. 7. History of deep venous thrombosis. 8. Hypertension. 9. History of degenerative joint disease. 10.History of gastrointestinal bleed. 11.Right diaphragmatic paralysis. RECOMMENDATIONS AND DISCUSSION: Recommended to continue current management, continue symptomatic treatment. The patient is on IV antibiotics empirically. I would recommend Infectious Disease evaluation also. Cardiology is already following the patient closely. Cultures, bronchodilators. PT, OT evaluation. Pain management. Overall prognosis is extremely guarded because of multiple complex medical issues. Further recommendations to follow. The patient has received 1 dose of Lasix. Recommend a small dose of daily Lasix also. MMODL / IJN: [id number] / MTDD
[2023-06-15 07:16] LABS: Basophils % (A) 0 %; Eosinophils # (A) 0.1 k/uL (0-0.7); Eosinophils % (A) 1 %; HCT 42.8 % (39.0-53.0); HGB 14.1 gm/dL (13.0-17.5); Lymphocytes # (A) 0.8 k/uL (1.0-4.8); Lymphocytes % (A) 7 %; MCH 30.5 pg (25.0-35.0); MCHC 32.9 g/dL (31.0-37.0); MCV 92.6 fL (80.0-100.0); Mean Platelet Volume 8.5; Monocytes # (A) 0.7 k/uL (0-1.0); Monocytes % (A) 6 %; Neutrophils # (A) 8.4 k/uL (1.3-7.7); Neutrophils % (A) 82 %; Platelet Count 199 k/uL (150-450); RBC 4.62 m/uL (4.30-5.90); RDW 13.6 % (11.5-15.5); WBC 10.2 k/uL (3.8-10.6)
--- NOTE | 2023-06-15 07:23 | P.CONS ---
History of Present Illness - Reason for Consult Consult date: 06/14/23 Pneumonia Requesting physician: Feroz Molina - Chief Complaint Weakness and fall x 1 day - History of Present Illness Patient is a 88-year-old male with a past medical history significant for hypertension COPD, osteoarthritis coronary artery disease former smoker patient was brought into the hospital after the patient did have a fall at home apparently the patient did have some stool incontinence the night before presentation to the hospital and the patient was trying to take a shower to clean himself up and the patient slipped and fell landed on the top patient was unable to get out the next day if the daughter was able to speak to him and the patient has been in the tub for more than 24 hours patient denies hitting his head or loss of consciousness EMS was called and the patient was brought into the hospital patient was complaining of left shoulder pain and bilateral hip pain. Patient denies any high-grade fever or any chills no headache no fever has been documented since admission to the hospital patient was tachycardic but not hypotensive mild hypoxia requiring supplemental oxygen currently on 2 L nasal cannula did have a white count of 13.6 with a left shift creatinine 0.8 influenza RSV COVID testing was negative urine did not show any pyuria levels of the normal troponins are elevated patient did have a CT angiogram of the chest that was negative for PE right lower lobe consolidation with air bronchograms correlate for pneumonia patient was started on ceftriaxone infectious disease was consulted for further management of antibiotic therapy Review of Systems Positive point and negatives has been mentioned in the HPI, complete review of systems was performed and all other systems are negative Past Medical History Past Medical History: Coronary Artery Disease (CAD), COPD, Deep Vein Thrombosis (DVT), GERD/Reflux, GI Bleed, Hypertension, Osteoarthritis (OA) Additional Past Medical History / Comment(s): SOB, hx kidney stones, paralyzed diaphragm rt side, GI bleed 2016 History of Any Multi-Drug Resistant Organisms: None Reported Past Surgical History: Adenoidectomy, Appendectomy, Heart Catheterization With Stent, Hernia Repair, Tonsillectomy Additional Past Surgical History / Comment(s): lithotripsy x4, 3 cardiac stents, rt cataract, oral surgery Past Anesthesia/Blood Transfusion Reactions: Motion Sickness, Postoperative Nausea & Vomiting (PONV) Additional Past Anesthesia/Blood Transfusion Reaction / Comm: HAD MOTION SICKNESS WHEN YOUNGER, paralyzed diaphragm rt side Date of Last Stent Placement:: 03/2019 Past Psychological History: No Psychological Hx Reported Smoking Status: Former smoker Past Alcohol Use History: None Reported Additional Past Alcohol Use History / Comment(s): Smoked for 30 years, 1-2 PPD. Past Drug Use History: None Reported - Past Family History Mother Family Medical History: Cancer Father Family Medical History: Myocardial Infarction ([place]), Mitral Valve Prolapse (MVP) Additional Family Medical History / Comment(s): PT STATED HIS FATHER HAD 14 TX'S AND AT THE AGE OF 58 Medications and Allergies Home Medications Medication Instructions Recorded Confirmed Type Nitroglycerin Sl Tabs [Nitrostat] 0.4 mg SUBLINGUAL Q5M PRN #25 tab 03/18/16 06/13/23 Rx amLODIPine [Norvasc] 5 mg PO DAILY #30 tab 08/27/16 06/13/23 Rx Clopidogrel [Plavix] 75 mg PO DAILY #1 tab 09/04/16 06/13/23 Rx atenoloL [Tenormin] 25 mg PO DAILY #30 tab 09/04/16 06/13/23 Rx Aspirin [Adult Low Dose Aspirin EC] 81 mg PO DAILY 02/21/20 06/13/23 History Pantoprazole Sodium [Protonix] 40 mg PO DAILY 02/21/20 06/13/23 History Vit C/E/Zn/Coppr/Lutein/Zeaxan 1 cap PO DAILY 01/01/23 06/13/23 History [Preservision Areds 2 Softgel] Acetaminophen Tab [Tylenol] 650 mg PO Q6HR PRN tab 01/05/23 06/13/23 Rx Multivitamins, Thera [Multivitamin 1 tab PO DAILY 06/13/23 06/13/23 History (formulary)] Allergies Allergy/AdvReac Type Severity Reaction Status Date / Time latex Allergy blisters Verified 06/13/23 15:39 in mouth venom-honey bee Allergy passed out Verified 06/13/23 15:39 [bee venom (honey bee)] venom-wasp [wasp venom] Allergy passed out Verified 06/13/23 15:39 Physical Exam Vitals: Vital Signs Temp Pulse Pulse Resp BP BP Pulse Ox 06/14/23 12:26 76 06/14/23 12:15 78 06/14/23 09:38 75 06/14/23 09:31 90 L 06/14/23 09:30 74 06/14/23 03:49 97.6 F 60 18 136/72 92 L 06/13/23 23:53 62 18 124/74 95 06/13/23 22:00 97.7 F 65 18 127/76 97 06/13/23 19:00 65 20 128/76 100 06/13/23 18:00 74 139/78 92 L 06/13/23 17:52 67 06/13/23 17:40 73 06/13/23 17:00 76 128/67 94 L 06/13/23 16:00 99 176/93 94 L 06/13/23 15:00 139/84 94 L 06/13/23 14:30 139/84 06/13/23 14:00 84 19 147/79 94 L 06/13/23 13:45 81 19 147/79 95 06/13/23 13:30 81 20 174/126 94 L 06/13/23 13:15 89 174/126 Intake and Output 06/13/23 06/14/23 06/14/23 22:59 06:59 14:59 Intake Total 10 75.818 Balance 10 75.818 Intake: IV 10 Invasive Line 1 10 Intake, IV Titration 75.818 Amount Heparin Sod,Pork in 0.45% 75.818 NaCl 25,000 unit In 0.45 % NaCl 1 250ml.bag @ 10.3 UNITS/KG/HR 9.998 mls/hr IV .Q24H [facility] Rx#: [id number] Other: Voiding Method External Catheter External Catheter # Bowel Movements 0 Weight 97.069 kg GENERAL DESCRIPTION: Elderly male lying in bed, no distress. No tachypnea or accessory muscle of respiration use. HEENT: Shows Pallor , no scleral icterus. Oral mucous membrane is dry. No pharyngeal erythema or thrush NECK: Trachea central, no thyromegaly. LUNGS: Unlabored breathing. Decreased breath sound at the base no wheeze or crackle. HEART: S1, S2, regular rate and rhythm. No loud murmur ABDOMEN: Soft, no tenderness , guarding or rigidity, no organomegaly EXTREMITIES: No edema of feet. SKIN: No rash, no masses palpable. NEUROLOGICAL: The patient is sleepy lethargic but arousable, mood and affect normal. Results CBC & Chem 7: 06/15/23 06:07 06/14/23 03:06 Labs: Abnormal Lab Results - Last 24 Hours (Table) 06/13/23 06/13/23 06/13/23 Range/Units 11:42 11:42 11:42 WBC (3.8-10.6) k/uL Neutrophils # (1.3-7.7) k/uL Lymphocytes # (1.0-4.8) k/uL APTT (22.0-30.0) sec D-Dimer (<0.60) mg/L FEU BUN 26 H (9-20) mg/dL Glucose 114 H (74-99) mg/dL Plasma Lactic Acid William 2.5 H* (0.7-2.0) mmol/L AST 117 H (17-59) U/L Creatine Kinase 2198 H* (55-170) U/L Troponin I 0.172 H* (0.000-0.034) ng/mL 06/13/23 06/13/23 06/13/23 Range/Units 18:07 18:07 21:37 WBC (3.8-10.6) k/uL Neutrophils # (1.3-7.7) k/uL Lymphocytes # (1.0-4.8) k/uL APTT (22.0-30.0) sec D-Dimer 1.31 H (<0.60) mg/L FEU BUN (9-20) mg/dL Glucose (74-99) mg/dL Plasma Lactic Acid William (0.7-2.0) mmol/L AST (17-59) U/L Creatine Kinase (55-170) U/L Troponin I 0.222 H* 0.251 H* (0.000-0.034) ng/mL 06/14/23 06/14/23 06/14/23 Range/Units 03:06 03:06 04:03 WBC 13.6 H (3.8-10.6) k/uL Neutrophils # 11.8 H (1.3-7.7) k/uL Lymphocytes # 0.7 L (1.0-4.8) k/uL APTT 36.1 H (22.0-30.0) sec D-Dimer (<0.60) mg/L FEU BUN 39 H (9-20) mg/dL Glucose (74-99) mg/dL Plasma Lactic Acid William (0.7-2.0) mmol/L AST 90 H (17-59) U/L Creatine Kinase 925 H (55-170) U/L Troponin I (0.000-0.034) ng/mL Assessment and Plan (1) Pneumonia Current Visit: Yes Status: Acute Code(s): J18.9 - PNEUMONIA, UNSPECIFIED ORGANISM SNOMED Code(s): 300154255 (2) Leukocytosis Current Visit: Yes Status: Acute Code(s): D72.829 - ELEVATED WHITE BLOOD CELL COUNT, UNSPECIFIED SNOMED Code(s): 549149253 Plan: 1patient presented to hospital with weakness and fall patient did have elevated white count also noticed to have right lower lobe consolidation mildly hypoxic concerning for pneumonia with a question of community-acquired versus aspiration etiology 2-for now continue with Rocephin however the patient may benefit from Unasyn 3-try to obtain sputum for Gram stain culture check a CRP and procalcitonin Daughter at the bedside questions Answered We will follow on clinical condition and cultures to further adjust medication if needed Thank you for this consultation we will follow the patient along with you Dictation was produced using [employer] dictation software. please excuse any grammatical, word or spelling errors. Time with Patient: Greater than 30
[2023-06-15] MEDS ORDERED: AMPICILLIN-SULBACTAM 3 GM in SODIUM CHLORIDE 0.9% 100 ML IVPB SCH (08:00)
[2023-06-15 08:15] LABS: African American GFR (CKD) 35 (>60 ml/min/1.73 sqM); Anion Gap 7 mmol/L; Blood Urea Nitrogen 58 mg/dL (9-20); Calcium 8.6 mg/dL (8.4-10.2); Carbon Dioxide 23 mmol/L (22-30); Chloride 105 mmol/L (98-107); Creatine Kinase 346 U/L (55-170); Glucose 92 mg/dL (74-99); Non-African American GFR(CKD) 30 (>60 ml/min/1.73 sqM); Potassium 3.8 mmol/L (3.5-5.1); Sodium 135 mmol/L (137-145)
[2023-06-15] MEDS: SYMBICORT 160-4.5 MCG INHALER INHALATION SCH ×2 (09:10→21:07)
[2023-06-15] MEDS: IPRATROPIUM-ALBUTEROL 3 ML NEB INHALATION SCH ×4 (09:10→21:08)
[2023-06-15] MEDS: amLODIPine 5 MG TAB PO SCH (09:38)
[2023-06-15] MEDS: atenoloL 25 MG TAB PO SCH (09:38)
[2023-06-15] MEDS: ASPIRIN 81 MG PO SCH (09:38)
[2023-06-15] MEDS: MULTIVITAMINS, THERA 1 EACH TAB PO SCH (09:38)
[2023-06-15] MEDS: PANTOPRAZOLE 40 MG TABLET PO SCH (09:38)
[2023-06-15] MEDS: VIT A,C & E-LUTEIN-MINERALS 1 EACH TAB PO SCH (09:38)
[2023-06-15] MEDS: CLOPIDOGREL 75 MG TAB PO SCH (09:38)
[2023-06-15] MEDS: FUROSEMIDE 10 MG/ML 2 ML VIAL IV SCH (09:39)
[2023-06-15] MEDS: SODIUM CHLORIDE 0.9% 1,000 ML IV SCH (12:05)
--- NOTE | 2023-06-15 12:30 | P.NPCON ---
History of Present Illness - Reason for Consult acute renal failure - History of Present Illness Reason for consultation: Acute kidney injury History of present illness: Patient is a 88-year-old male seen in renal consultation for acute kidney injury. Creatinine on admission was 0.8 and is up to 1.92 today. Patient came to the hospital after he fell in the bathtub. Patient states he had a bowel movement and then when to take a shower. However he fell in the bathtub and was down for about 15 hours before he was found by EMS. Patient was initially brought to the hospital. Patient underwent chest CTA on 06/13/2023 which showed no acute PE. There was concern for underlying pneumonia. Patient denies history of diabetes. Denies use of nonsteroidals. Denies family history of kidney disease. Patient does have history of coronary disease with cardiac stents. Also has a history of aortic valve replacement. He denies any cough. No fever or chills. Hemodynamically stable. Patient is currently off IV fluids. He is receiving Lasix 20 mg IV once daily. Has been voiding. Denies gross hematuria. Patient's CK level was 2198 on admission and is down to 346 today. Vital signs are stable. General: No acute distress. HEENT: Head exam is unremarkable. On nasal cannula. LUNGS: Notable rhonchi or wheezes. HEART: Rate and Rhythm are regular. ABDOMEN: Nontender. EXTREMITITES: No edema. Past Medical History Past Medical History: Coronary Artery Disease (CAD), COPD, Deep Vein Thrombosis (DVT), GERD/Reflux, GI Bleed, Hypertension, Osteoarthritis (OA) Additional Past Medical History / Comment(s): SOB, hx kidney stones, paralyzed diaphragm rt side, GI bleed 2016 History of Any Multi-Drug Resistant Organisms: None Reported Past Surgical History: Adenoidectomy, Appendectomy, Heart Catheterization With Stent, Hernia Repair, Tonsillectomy Additional Past Surgical History / Comment(s): lithotripsy x4, 3 cardiac stents, rt cataract, oral surgery Past Anesthesia/Blood Transfusion Reactions: Motion Sickness, Postoperative N ausea & Vomiting (PONV) Additional Past Anesthesia/Blood Transfusion Reaction / Comment(s): HAD MOTION SICKNESS WHEN YOUNGER, paralyzed diaphragm rt side Date of Last Stent Placement:: 03/2019 Past Psychological History: No Psychological Hx Reported Smoking Status: Former smoker Past Alcohol Use History: None Reported Additional Past Alcohol Use History / Comment(s): Smoked for 30 years, 1-2 PPD. Past Drug Use History: None Reported - Past Family History Mother Family Medical History: Cancer Father Family Medical History: Myocardial Infarction ([place]), Mitral Valve Prolapse (MVP) Additional Family Medical History / Comment(s): PT STATED HIS FATHER HAD 14 CO'S AND AT THE AGE OF 58 Medications and Allergies Home Medications Medication Instructions Recorded Confirmed Type Nitroglycerin Sl Tabs [Nitrostat] 0.4 mg SUBLINGUAL Q5M PRN #25 tab 03/18/16 Rx amLODIPine [Norvasc] 5 mg PO DAILY #30 tab 08/27/16 06/13/23 Rx Clopidogrel [Plavix] 75 mg PO DAILY #1 tab 09/04/16 06/13/23 Rx atenoloL [Tenormin] 25 mg PO DAILY #30 tab 09/04/16 06/13/23 Rx Aspirin [Adult Low Dose Aspirin EC] 81 mg PO DAILY 02/21/20 06/13/23 History Pantoprazole Sodium [Protonix] 40 mg PO DAILY 02/21/20 06/13/23 History Vit C/E/Zn/Coppr/Lutein/Zeaxan 1 cap PO DAILY 01/01/23 06/13/23 History [Preservision Areds 2 Softgel] Acetaminophen Tab [Tylenol] 650 mg PO Q6HR PRN tab 01/05/23 06/13/23 Rx Multivitamins, Thera [Multivitamin 1 tab PO DAILY 06/13/23 06/13/23 History (formulary)] Allergies Allergy/AdvReac Type Severity Reaction Status Date / Time latex Allergy blisters Verified 06/13/23 15:39 in mouth venom-honey bee Allergy passed out Verified 06/13/23 15:39 [bee venom (honey bee)] venom-wasp [wasp venom] Allergy passed out Verified 06/13/23 15:39 Physical Exam Vitals: Vital Signs Temp Pulse Pulse Resp BP BP Pulse Ox 06/15/23 11:48 84 06/15/23 11:38 84 06/15/23 11:31 52 L 16 144/69 96 06/15/23 09:20 92 06/15/23 09:12 91 L 06/15/23 09:10 94 06/15/23 08:00 97.0 F L 58 L 16 133/71 92 L 06/15/23 04:00 97.8 F 62 16 147/72 91 L 06/15/23 00:05 18 91 L 06/15/23 00:00 97.7 F 60 18 116/67 87 L 06/14/23 21:48 76 06/14/23 21:37 72 06/14/23 20:00 96.8 F L 61 18 139/69 91 L 06/14/23 16:30 68 06/14/23 16:21 74 06/14/23 16:00 98.4 F 64 17 119/59 92 L 06/14/23 14:00 60 18 06/14/23 12:26 76 Intake and Output 06/14/23 06/15/23 06/15/23 22:59 06:59 14:59 Intake Total 397.029 10 128 Output Total 400 300 Balance -2.971 -290 128 Intake: IV 10 10 Invasive Line 1 10 10 Intake, IV Titration 39.029 Amount Heparin Sod,Pork in 0.45% 39.029 NaCl 25,000 unit In 0.45 % NaCl 1 250ml.bag @ 10.3 UNITS/KG/HR 9.998 mls/hr IV .Q24H [facility] Rx#: [id number] Oral 358 118 Output: Urine 400 300 Other: Voiding Method External Catheter External Catheter Results - Lab Results Most recent lab results Calcium 8.6 mg/dL (8.4-10.2) 06/15/23 06:07 Magnesium 1.8 mg/dL (1.6-2.3) 06/13/23 11:42 06/15/23 06:07 06/15/23 06:07 Assessment and Plan Plan: Assessment: 1. Acute kidney injury secondary to ATN. Creatinine 0.8 on admission and is up to 1.92 today. Patient received IV contrast for CTA on 06/13/2023. Rule out urinary retention. 2. Benign hypertension. 3. Rhabdomyolysis secondary to fall. CK level improved. 4. Pneumonia maintained on antibiotics. Plan: Resume IV fluids. Hold Lasix. Check bladder scan to rule out urinary retention. Check renal ultrasound. Avoid nephrotoxins. Thank you for the consultation. I will continue to follow the patient with you during his hospital stay.
--- NOTE | 2023-06-15 13:56 | P.PN ---
Subjective Progress Note Date: 06/15/23 Chief complaint: Change in mental status History of present illness: The patient is an 88-year-old gentleman with a past medical history significant for coronary artery disease and prior stenting of the RCA was performed in 2016 and also valvular heart disease a status post transcatheter aortic valve replacement as well as hypertension and dyslipidemia. The patient was brought into the hospital by his family after he fell in the bathtub and apparently possibly lost his consciousness. He developed injury on the left arm. His arm was extremely painful and he underwent venous to the x-ray showed no evidence of a DVT. Subsequently he underwent workup in the emergency department including an EKG showing sinus mechanism with diffuse nonspecific ST and T wave abnormalities and troponin came in to be slightly abnormal. The chest x-ray did not show any acute abnormalities. NT proBNP came in to be elevated. He underwent a d-dimer came in to be abnormal and subsequent the CT of the chest showed no evidence of pulmonary embolism. He has no pain in the chest and no shortness of breath and he doesn't seems to be in any overt heart failure at this point. 06/15 is seen today in follow-up. Patient states prior to admission he had kassie rrhea and had fallen and the tub as he was trying to clean himself up. That is where patient had possible syncopal episode. Echocardiogram is pending. He has had an increase in his kidney function with BUN 58 creatinine 1.9 to be started on IV fluids for the next 24 hours. Blood pressure 133/71, heart rate 58, pulse ox 91% on 2 L nasal cannula. He has been afebrile. Dr. Perla is following for possible pneumonia. Examination is remarkable for stable vital signs was diminished breathing sounds bilaterally and regular rate and rhythm with a systolic murmur at the right upper sternal border and no edema was noted in the lower extremities Assessment Change in mental status/syncope Diarrhea prior to hospitalization Possible pneumonia Mildly elevated troponin possible type II WA versus non-ST elevated WA Coronary artery disease as described above Valvular heart disease as described above Multiple comorbid conditions Acute kidney injury Plan Continue medical treatment for the abnormal troponin Obtain echocardiogram report Continue aspirin and beta jewel and statin Discontinue heparin gtt Plan for outpatient stress testing once patient is otherwise stabilized At consult for nephrology for acute kidney injury Start patient on IV fluids 75 mL per hour Follow-up the patient Nurse practitioner note has been reviewed, I agree with the documented findings and plan of care. Patient was seen and examined. Objective - Vital Signs Vital signs: Vital Signs Temp 97.0 F L 06/15/23 08:00 Pulse 92 06/15/23 09:20 Resp 16 06/15/23 08:00 BP 133/71 06/15/23 08:00 Pulse Ox 91 L 06/15/23 09:12 FiO2 Intake & Output 06/14/23 06/15/23 06/15/23 18:59 06:59 18:59 Intake Total 514.628 10 128 Output Total 400 300 Balance 114.628 -290 128 Intake: IV 10 10 Invasive Line 1 10 10 Intake, IV Titration 156.628 Amount Heparin Sod,Pork in 0.45% 156.628 NaCl 25,000 unit In 0.45 % NaCl 1 250ml.bag @ 10.3 UNITS/KG/HR 9.998 mls/hr IV .Q24H [facility] Rx#: [id number] Oral 358 118 Output: Urine 400 300 Other: Voiding Method External Catheter External Catheter - Labs CBC & Chem 7: 06/15/23 06:07 06/15/23 06:07 Labs: Abnormal Lab Results - Last 24 Hours (Table) 06/14/23 06/14/23 06/15/23 Range/Units 11:25 23:24 06:07 Neutrophils # (1.3-7.7) k/uL Lymphocytes # (1.0-4.8) k/uL APTT 43.4 H 55.6 H (22.0-30.0) sec Sodium 135 L (137-145) mmol/L BUN 58 H (9-20) mg/dL Creatinine 1.92 H (0.66-1.25) mg/dL Creatine Kinase 346 H (55-170) U/L 06/15/23 06/15/23 Range/Units 06:07 06:07 Neutrophils # 8.4 H (1.3-7.7) k/uL Lymphocytes # 0.8 L (1.0-4.8) k/uL APTT 57.6 H (22.0-30.0) sec Sodium (137-145) mmol/L BUN (9-20) mg/dL Creatinine (0.66-1.25) mg/dL Creatine Kinase (55-170) U/L Microbiology - Last 24 Hours (Table) 06/13/23 18:07 Blood Culture - Preliminary Blood
--- NOTE | 2023-06-15 14:08 | US ---
EXAMINATION TYPE: US kidneys/renal and bladder DATE OF EXAM: 06/15/2023 COMPARISON: NONE CLINICAL INDICATION: Male, 88 years old with history of ; Bebe. History of kidney stones and lithotrip sy EXAM MEASUREMENTS: Right Kidney: 10.9 x 5.7 x 4.8 cm Left Kidney: 9.6 x 5.4 x 5.0 cm Technical limitations due to large amount of overlying bowel gas and patient's limited mobility Right Kidney: multiple cortical cysts, largest = 2.7 x 2.3 x 3.2cm. No hydronephrosis. Left Kidney: Moderate hydronephrosis, shadowing stone at the midpole measuring 0.9cm . Small cortical cysts are present measuring up to 1.0 cm. Bladder: appears wnl Bilateral Jets seen: no *Incidental finding: Numerous gallstones measuring up to 1.7 cm. IMPRESSION: 1. A 9 mm left midpole renal calculus with moderate hydronephrosis on the left. Correlate for uretera l obstruction. 2. Multiple cortical cysts within the right kidney measuring up to 3.2 cm. 3. Incidental numerous gallstones measuring up to 1.7 cm.
[2023-06-15] MEDS ORDERED: ZINC OXIDE PASTE (Z-GUARD) 1 APPLIC TOPICAL PRN (15:35)
[2023-06-15] MEDS ORDERED: NYSTATIN 100,000 UNIT/GM POWD 15 GM TOPICAL PRN (15:35)
[2023-06-15] MEDS: ATORVASTATIN 40 MG TAB PO SCH (20:24)
[2023-06-15] MEDS: AMPICILLIN-SULBACTAM 3 GM in SODIUM CHLORIDE 0.9% 100 ML IVPB SCH (20:25)
--- NOTE | 2023-06-15 21:56 | P.PN ---
Subjective Progress Note Date: 06/15/23 Principal diagnosis: Reason for follow-up is leukocytosis and pneumonia Patient is a 88-year-old male with a past medical history significant for hypertension COPD, osteoarthritis coronary artery disease former smoker patient was brought into the hospital after the patient did have a fall at home, patient was in the bathtub for more than 24 hours on admission to the hospital CT of the chest concerning for right lower lobe consolidation. On today's evaluation that is 06/15/2023, the patient continues to be afebrile patient is breathing comfortably on 2 L nasal cannula supplemental oxygen the patient has been complaining of some right-sided chest pain did have occasional cough no sputum production patient denies abdominal pain no nausea no vomiting and no diarrhea has been reported. Patient white count normalized to 10.2, creatinine is 1.92 Objective - Vital Signs Vital signs: Vital Signs Temp 97.0 F L 06/15/23 08:00 Pulse 84 06/15/23 11:48 Resp 16 06/15/23 11:31 BP 144/69 06/15/23 11:31 Pulse Ox 96 06/15/23 11:31 FiO2 Intake & Output 06/14/23 06/15/23 06/15/23 18:59 06:59 18:59 Intake Total 514.628 10 128 Output Total 862 421 9834 Balance 114.628 -290 -1422 Intake: IV 10 10 Invasive Line 1 10 10 Intake, IV Titration 156.628 Amount Heparin Sod,Pork in 0.45% 156.628 NaCl 25,000 unit In 0.45 % NaCl 1 250ml.bag @ 10.3 UNITS/KG/HR 9.998 mls/hr IV .Q24H [facility] Rx#: [id number] Oral 358 118 Output: Urine 630 782 4894 Other: Voiding Method External Catheter External Catheter External Catheter - Exam GENERAL DESCRIPTION: An elderly male lying in bed in no distress RESPIRATORY SYSTEM: Unlabored breathing , decreased breath sounds at bases HEART: S1 S2 regular rate and rhythm , ABDOMEN: Soft , no tenderness EXTREMITIES: No edema feet - Labs CBC & Chem 7: 06/15/23 06:07 06/15/23 06:07 Labs: Abnormal Lab Results - Last 24 Hours (Table) 06/14/23 06/15/23 06/15/23 Range/Units 23:24 06:07 06:07 Neutrophils # 8.4 H (1.3-7.7) k/uL Lymphocytes # 0.8 L (1.0-4.8) k/uL APTT 55.6 H (22.0-30.0) sec Sodium 135 L (137-145) mmol/L BUN 58 H (9-20) mg/dL Creatinine 1.92 H (0.66-1.25) mg/dL Creatine Kinase 346 H (55-170) U/L 06/15/23 Range/Units 06:07 Neutrophils # (1.3-7.7) k/uL Lymphocytes # (1.0-4.8) k/uL APTT 57.6 H (22.0-30.0) sec Sodium (137-145) mmol/L BUN (9-20) mg/dL Creatinine (0.66-1.25) mg/dL Creatine Kinase (55-170) U/L Microbiology - Last 24 Hours (Table) 06/13/23 21:37 Blood Culture - Preliminary Blood 06/13/23 18:07 Blood Culture - Preliminary Blood Assessment and Plan (1) Pneumonia Current Visit: Yes Status: Acute Code(s): J18.9 - PNEUMONIA, UNSPECIFIED ORGANISM SNOMED Code(s): 826760331 (2) Leukocytosis Current Visit: Yes Status: Acute Code(s): D72.829 - ELEVATED WHITE BLOOD CELL COUNT, UNSPECIFIED SNOMED Code(s): 756409507 Plan: 1patient presented to hospital with weakness and fall patient did have elevated white count also noticed to have right lower lobe consolidation mildly hypoxic concerning for pneumonia with a question of community-acquired versus aspiration etiology 2- patient antibiotic adjusted to Unasyn,try to obtain sputum for Gram stain culture and wait for the CRP and procalcitonin Dictation was produced using [employer] dictation software. please excuse any gra mmatical, word or spelling errors. Time with Patient: Less than 30
--- NOTE | 2023-06-15 23:34 | PN ---
PROGRESS NOTE DATE OF SERVICE: 06/15/2023 SUBJECTIVE: This is an 88-year-old gentleman, who was admitted with shortness of breath due to CHF, COPD, also right lower lobe pneumonia. The patient also had weakness and fall. No chest pain. No palpitation. OBJECTIVE: VITAL SIGNS: Pulse 52, blood pressure 140/69, respirations 16. CHEST: A few scattered rhonchi and crackles. ABDOMEN: Soft. NERVOUS SYSTEM: Nonfocal. LABORATORY DATA: Sodium 135. Creatinine kinase is 346. ASSESSMENT: 1. Shortness of breath, multifactorial with congestive heart failure acute exacerbation as well as chronic obstructive pulmonary disease acute exacerbation. 2. Right lower lobe pneumonia. 3. Possible acute rhabdomyolysis. 4. Fall and gait dysfunction. 5. Increased WBC. 6. History of coronary artery disease. 7. History of deep venous thrombosis. 8. Multiple complex medical issues. 9. Right diaphragmatic hernia. RECOMMENDATIONS: Recommended to continue current medications, continue symptomatic treatment, otherwise at this time, I will recommend continue the antibiotics, bronchodilators, PT, OT, evaluation, possible ECF rehab. The patient is on IV Unasyn. Further recommendations to follow. MMODL / IJN: [id number] /
[2023-06-16] MEDS ORDERED: ALPRAZolam 0.25 MG TAB PO PRN (05:19)
[2023-06-16] MEDS: SODIUM CHLORIDE 0.9% 1,000 ML IV SCH ×2 (05:42→21:05)
[2023-06-16] MEDS: AMPICILLIN-SULBACTAM 3 GM in SODIUM CHLORIDE 0.9% 100 ML IVPB SCH ×3 (08:27→21:05)
[2023-06-16] MEDS: amLODIPine 5 MG TAB PO SCH (08:28)
[2023-06-16] MEDS: MULTIVITAMINS, THERA 1 EACH TAB PO SCH (08:28)
[2023-06-16] MEDS: VIT A,C & E-LUTEIN-MINERALS 1 EACH TAB PO SCH (08:28)
[2023-06-16] MEDS: ASPIRIN 81 MG PO SCH (08:28)
[2023-06-16] MEDS: PANTOPRAZOLE 40 MG TABLET PO SCH (08:28)
[2023-06-16] MEDS: CLOPIDOGREL 75 MG TAB PO SCH (08:28)
[2023-06-16] MEDS: atenoloL 25 MG TAB PO SCH (08:28)
[2023-06-16] MEDS: IPRATROPIUM-ALBUTEROL 3 ML NEB INHALATION SCH ×4 (09:44→22:45)
[2023-06-16] MEDS: SYMBICORT 160-4.5 MCG INHALER INHALATION SCH ×2 (09:44→22:45)
--- NOTE | 2023-06-16 09:46 | CA ---
Transthoracic Echo Report Name: Neto Barrett Age: 88 Gender: M : 1935 Exam Date: 06/15/2023 08:29 Exam Location: [facility] Ht (in): 70 Wt (lb): 214 Ordering Physician: Feroz Molina MD Attending/Referring Phys: Treatment Manager Sandy Pham RDCS Procedure CPT: Indications: chf Cardiac Hx: Hx of TAVR Technical Quality: Fair Contrast 1: Total Dose (mL): Contrast 2: Total Dose (mL): MEASUREMENTS (Male / Female) Normal Values 2D ECHO LV Diastolic Diameter PLAX 4.6 cm 4.2 - 5.9 / 3.9 - 5.3 cm LV Systolic Diameter PLAX 3.4 cm IVS Diastolic Thickness 1.7 cm 0.6 - 1.0 / 0.6 - 0.9 cm LVPW Diastolic Thickness 1.5 cm 0.6 - 1.0 / 0.6 - 0.9 cm LV Relative Wall Thickness 0.7 RV Internal Dim ED PLAX 3.7 cm LA Systolic Diameter LX 4.7 cm 3.0 - 4.0 / 2.7 - 3.8 cm LV Diastolic Volume MOD BP 95.0 cm??? 67 - 155 / 56 - 104 cm??? LV Systolic Volume MOD BP 42.7 cm??? 22 - 58 / 19 - 49 cm??? LV Ejection Fraction MOD BP 55.1 % >= 55 % LV Cardiac Index MOD BP 1417.1 cm???/min???m??? LV Diastolic Volume MOD 4C 106.4 cm??? LV Systolic Volume MOD 4C 50.3 cm??? LV Ejection Fraction MOD 4C 52.7 % LV Cardiac Index MOD 4C 1520.3 cm???/min???m??? LV Diastolic Length 4C 7.3 cm LV Systolic Length 4C 5.8 cm LV Diastolic Volume MOD 2C 81.4 cm??? LV Systolic Volume MOD 2C 35.6 cm??? LV Ejection Fraction MOD 2C 56.2 % LV Cardiac Index MOD 2C 1239.7 cm???/min???m??? LV Diastolic Length 2C 7.8 cm LV Systolic Length 2C 6.1 cm LA Volume 68.2 cm??? 18 - 58 / 22 - 52 cm??? LA Volume Index 30.8 cm???/m??? 16 - 28 cm???/m??? M-MODE IVS Diastolic Thickness MM 3.1 cm 0.6 - 1.0 / 0.6 - 0.9 cm MV E Point Septal Separation 0.5 cm DOPPLER AV Peak Velocity 195.3 cm/s AV Peak Gradient 15.2 mmHg AV Mean Velocity 135.7 cm/s AV Mean Gradient 8.4 mmHg AV Velocity Time Integral 47.6 cm LVOT Peak Velocity 99.2 cm/s LVOT Peak Gradient 3.9 mmHg MV Area PHT 3.3 cm??? Mitral E Point Velocity 74.9 cm/s Mitral A Point Velocity 88.7 cm/s Mitral E to A Ratio 0.8 MV Deceleration Time 230.7 ms MV E' Velocity 5.8 cm/s Mitral E to MV E' Ratio 13.0 FINDINGS Left Ventricle Left ventricular ejection fraction is estimated at 50-55 %. Left ventricular cavity size normal. Severely increased septal wall thickness. Right Ventricle Mild right ventricular dilatation. Unable to estimate the right ventricular systolic pressure. Right Atrium Normal right atrial size. Left Atrium Mildly increased left atrial diameter. Mildly increased left atrial volume. Mitral Valve Mitral valve thickened. Mild mitral annular calcification. Aortic Valve Normal functioning bioprosthetic valve ith max gradient 15 mmHg and mean gradient of 8 mmHg Tricuspid Valve Structurally normal tricuspid valve. No tricuspid regurgitation. Pulmonic Valve Pulmonic valve not well visualized. Pericardium No pericardial effusion. Aorta Normal size aortic root and proximal ascending aorta. CONCLUSIONS Preserved systolic function Bioprosthetic valve with acceptable gradients Previewed by: Dr. Mehran Arias MD (Electronically Signed) Final Date: 16 June 2023 09:45
[2023-06-16 09:51] LABS: ALT 37 U/L (4-49); AST 37 U/L (17-59); African American GFR (CKD) 81 (>60 ml/min/1.73 sqM); Albumin 2.9 g/dL (3.5-5.0); Alkaline Phosphatase 63 U/L (38-126); Anion Gap 7 mmol/L; Blood Urea Nitrogen 38 mg/dL (9-20); Calcium 8.6 mg/dL (8.4-10.2); Carbon Dioxide 26 mmol/L (22-30); Chloride 106 mmol/L (98-107); Creatine Kinase 165 U/L (55-170); Glucose 89 mg/dL (74-99); Non-African American GFR(CKD) 70 (>60 ml/min/1.73 sqM); Potassium 3.9 mmol/L (3.5-5.1); Sodium 139 mmol/L (137-145); Total Bilirubin 0.5 mg/dL (0.2-1.3); Total Protein 5.6 g/dL (6.3-8.2)
[2023-06-16 09:58] LABS: Basophils % (A) 0 %; Eosinophils # (A) 0.1 k/uL (0-0.7); Eosinophils % (A) 2 %; HCT 42.1 % (39.0-53.0); HGB 13.8 gm/dL (13.0-17.5); Lymphocytes # (A) 0.8 k/uL (1.0-4.8); Lymphocytes % (A) 12 %; MCH 30.7 pg (25.0-35.0); MCHC 32.9 g/dL (31.0-37.0); MCV 93.4 fL (80.0-100.0); Mean Platelet Volume 8.4; Monocytes # (A) 0.5 k/uL (0-1.0); Monocytes % (A) 8 %; Neutrophils # (A) 5.1 k/uL (1.3-7.7); Neutrophils % (A) 75 %; Platelet Count 185 k/uL (150-450); RDW 13.4 % (11.5-15.5); WBC 6.8 k/uL (3.8-10.6)
--- NOTE | 2023-06-16 11:28 | P.PN ---
Subjective Patient is seen in follow-up for acute kidney injury. Renal function better. Napier catheter inserted for urinary retention. Denies chest pain or shortness of breath. Daughter present at bedside. Vital signs are stable. General: No acute distress. HEENT: Head exam is unremarkable. LUNGS: No audible rhonchi or wheezes. HEART: Rate and Rhythm are regular. ABDOMEN: Nontender. EXTREMITITES: No edema. Objective - Vital Signs Vital signs: Vital Signs Temp 97.1 F L 06/15/23 20:00 Pulse 61 06/16/23 08:00 Resp 16 06/16/23 08:00 BP 110/63 06/16/23 08:00 Pulse Ox 97 06/16/23 08:00 FiO2 Intake & Output 06/15/23 06/16/23 06/16/23 18:59 06:59 18:59 Intake Total 246 Output Total 2550 1650 Balance -2304 -1650 Intake: IV 10 Invasive Line 1 10 Oral 236 Output: Urine 2550 1650 Uretheral (Napier) 700 Other: Voiding Method External Catheter Indwelling Catheter Indwelling Catheter - Labs CBC & Chem 7: 06/16/23 07:39 06/16/23 07:39 Labs: Abnormal Lab Results - Last 24 Hours (Table) 06/15/23 06/16/23 06/16/23 Range/Units 06:07 07:39 07:39 Lymphocytes # 0.8 L (1.0-4.8) k/uL BUN 38 H (9-20) mg/dL Total Protein 5.6 L (6.3-8.2) g/dL Albumin 2.9 L (3.5-5.0) g/dL Procalcitonin 0.18 H (0.02-0.09) ng/mL Microbiology - Last 24 Hours (Table) 06/13/23 18:07 Blood Culture - Preliminary Blood 06/13/23 02:00 Urine Culture - Final Urine,Voided 06/13/23 21:37 Blood Culture - Preliminary Blood Assessment and Plan Plan: Assessment: 1. Acute kidney injury secondary to urinary retention. Creatinine peaked at 1.9 to this admission and is 0.96 today. Patient received IV contrast for CTA on 06/13/2023. Left-sided hydronephrosis noted on kidney ultrasound. Urology consulted. 2. Benign hypertension. Controlled. 3. Rhabdomyolysis secondary to fall. CK level improved. 4. Pneumonia maintained on antibiotics. Plan: Decrease rate of normal saline 50 mL an hour. Add Flomax. Avoid nephrotoxins.
[2023-06-16] MEDS: TAMSULOSIN 0.4 MG CAP.ER.24H PO SCH (12:02)
--- NOTE | 2023-06-16 14:38 | P.PN ---
Subjective Progress Note Date: 06/16/23 Chief complaint: Change in mental status History of present illness: The patient is an 88-year-old gentleman with a past medical history significant for coronary artery disease and prior stenting of the RCA was performed in 2016 and also valvular heart disease a status post transcatheter aortic valve replacement as well as hypertension and dyslipidemia. The patient was brought into the hospital by his family after he fell in the bathtub and apparently possibly lost his consciousness. He developed injury on the left arm. His arm was extremely painful and he underwent venous to the x-ray showed no evidence of a DVT. Subsequently he underwent workup in the emergency department including an EKG showing sinus mechanism with diffuse nonspecific ST and T wave abnormalities and troponin came in to be slightly abnormal. The chest x-ray did not show any acute abnormalities. NT proBNP came in to be elevated. He underwent a d-dimer came in to be abnormal and subsequent the CT of the chest showed no evidence of pulmonary embolism. He has no pain in the chest and no shortness of breath and he doesn't seems to be in any overt heart failure at this point. 06/15 Patient is seen today in follow-up. Patient states prior to admission he had di arrhea and had fallen and the tub as he was trying to clean himself up. That is where patient had possible syncopal episode. Echocardiogram is pending. He has had an increase in his kidney function with BUN 58 creatinine 1.9 to be started on IV fluids for the next 24 hours. Blood pressure 133/71, heart rate 58, pulse ox 91% on 2 L nasal cannula. He has been afebrile. Dr. Perla is following for possible pneumonia. 06/16 Family member states the patient was quite uncomfortable yesterday and did have an exterior catheter in place found to have urinary retention a Napier catheter was put in with significant amount of urinary return. Patient was much more comfortable following that. Patient did have episode of chest pain this morning. EKG was reviewed. Patient was given Xanax and is somewhat sedated at the time of this evaluation. Blood pressure 110/63, heart rate in the 60s, pulse ox 97% on room air. Echocardiogram reveals preserved systolic function. Bioprosthetic valve with acceptable gradients. Yesterday, heparin drip was discontinued and we added a consult for nephrology, IV fluids were discontinued. Examination is remarkable for stable vital signs was diminished breathing sounds bilaterally and regular rate and rhythm with a systolic murmur at the right upper sternal border and no edema was noted in the lower extremities Assessment Change in mental status/syncope Diarrhea prior to hospitalization Possible pneumonia Mildly elevated troponin possible type II [place] versus non-ST elevated [place] Coronary artery disease as described above Valvular heart disease as described above Multiple comorbid conditions Acute kidney injury Plan Continue medical treatment for the abnormal troponin Continue aspirin and beta jewel and statin Plan for outpatient stress testing once patient is otherwise stabilized Consult for nephrology for acute kidney injury Follow-up the patient Nurse practitioner note has been reviewed, I agree with the documented findings and plan of care. Patient was seen and examined. Objective - Vital Signs Vital signs: Vital Signs Temp 97.1 F L 06/15/23 20:00 Pulse 61 06/16/23 08:00 Resp 16 06/16/23 08:00 BP 110/63 06/16/23 08:00 Pulse Ox 97 06/16/23 08:00 FiO2 Intake & Output 06/15/23 06/16/23 06/16/23 18:59 06:59 18:59 Intake Total 246 Output Total 2550 1650 Balance -2304 -1650 Intake: IV 10 Invasive Line 1 10 Oral 236 Output: Urine 2550 1650 Uretheral (Napier) 700 Other: Voiding Method External Catheter Indwelling Catheter - Labs CBC & Chem 7: 06/16/23 07:39 06/16/23 07:39 Labs: Abnormal Lab Results - Last 24 Hours (Table) 06/15/23 Range/Units 06:07 Procalcitonin 0.18 H (0.02-0.09) ng/mL Microbiology - Last 24 Hours (Table) 06/13/23 18:07 Blood Culture - Preliminary Blood 06/13/23 02:00 Urine Culture - Final Urine,Voided 06/13/23 21:37 Blood Culture - Preliminary Blood
--- NOTE | 2023-06-16 15:26 | P.PN ---
Subjective Progress Note Date: 06/16/23 Principal diagnosis: Reason for follow-up is leukocytosis and pneumonia Patient is a 88-year-old male with a past medical history significant for hypertension COPD, osteoarthritis coronary artery disease former smoker patient was brought into the hospital after the patient did have a fall at home, patient was in the bathtub for more than 24 hours on admission to the hospital CT of the chest concerning for right lower lobe consolidation. On today's evaluation that is 06/16/2023, the patient remains to be afebrile, the patient is complaining of shortness of breath however currently requiring only 2 L nasal cannula oxygen, the patient denies chest pain however he did have a cough but not bringing up any sputum, patient denies any nausea/vomiting abdominal pain or diarrhea Patient white count is 6.8,, creatinine is 0.96, blood cultures pending Objective - Vital Signs Vital signs: Vital Signs Temp 97.1 F L 06/15/23 20:00 Pulse 61 06/16/23 08:00 Resp 16 06/16/23 08:00 BP 110/63 06/16/23 08:00 Pulse Ox 97 06/16/23 08:00 FiO2 Intake & Output 06/15/23 06/16/23 06/16/23 18:59 06:59 18:59 Intake Total 246 118 Output Total 2550 1650 750 Balance -8471 -1146 -212 Intake: IV 10 Invasive Line 1 10 Oral 236 118 Output: Urine 2550 1650 750 Uretheral (Napier) 700 Other: Voiding Method External Catheter Indwelling Catheter Indwelling Catheter - Exam GENERAL DESCRIPTION: An elderly male lying in bed in no distress RESPIRATORY SYSTEM: Unlabored breathing , decreased breath sounds at bases HEART: S1 S2 regular rate and rhythm , ABDOMEN: Soft , no tenderness EXTREMITIES: No edema feet - Labs CBC & Chem 7: 06/16/23 07:39 06/16/23 07:39 Labs: Abnormal Lab Results - Last 24 Hours (Table) 06/15/23 06/16/23 06/16/23 Range/Units 06:07 07:39 07:39 Lymphocytes # 0.8 L (1.0-4.8) k/uL BUN 38 H (9-20) mg/dL Total Protein 5.6 L (6.3-8.2) g/dL Albumin 2.9 L (3.5-5.0) g/dL Procalcitonin 0.18 H (0.02-0.09) ng/mL Microbiology - Last 24 Hours (Table) 06/13/23 21:37 Blood Culture - Preliminary Blood 06/13/23 18:07 Blood Culture - Preliminary Blood 06/13/23 02:00 Urine Culture - Final Urine,Voided Assessment and Plan (1) Pneumonia Current Visit: Yes Status: Acute Code(s): J18.9 - PNEUMONIA, UNSPECIFIED ORGANISM SNOMED Code(s): 925143238 (2) Leukocytosis Current Visit: Yes Status: Acute Code(s): D72.829 - ELEVATED WHITE BLOOD CELL COUNT, UNSPECIFIED SNOMED Code(s): 497631133 Plan: 1patient presented to hospital with weakness and fall patient did have elevated white count also noticed to have right lower lobe consolidation mildly hypoxic concerning for pneumonia with a question of community-acquired versus aspiration etiology 2- patient is afebrile patient white count has normalized, patient to continue Unasyn and monitor clinical course closely Dictation was produced using SPO dictation software. please excuse any grammatical, word or spelling errors. Time with Patient: Less than 30
--- NOTE | 2023-06-16 18:32 | P.PN ---
Subjective Progress Note Date: 06/16/23 Patient is evaluated on the cardiac floor, he has been admitted for heart failure, nstemi and acute renal failure. Creatinine today is 0.96 peaked at 1.92. He was found to have urinary retention had an abdomen/bladder US done showing a 9mm left midpole renal calculus with moderate hydronephrosis on the left. Correlate for ureteral obstruction. Multiple cortical cysts within the right kidney measuring up to 3.2cm. Incidental numerous gallstones measuring up to 1.7 cm. Urology has been consulted. IDC remains in place. He remains on oxygen support 3L nasal cannula does not wear oxygen at home. Procalcitonin level 0.18. Review of Systems Constitutional: Denied any fatigue denied any fever. Cardio vascular: denied any chest pain, palpitations Gastrointestinal: denied any nausea, vomiting, diarrhea Pulmonary: Reports shortness of breath, cough Neurologic denied any new focal deficits All inpatient medications were reviewed and appropriate changes in these medications as dictated in the interval history and assessment and plan. PHYSICAL EXAMINATION: GENERAL: The patient is alert and oriented x3, not in any acute distress. Well developed, well nourished. on 2L nasal cannula HEENT: Pupils are round and equally reacting to light. EOMI. No scleral icterus. No conjunctival pallor. Normocephalic, atraumatic. No pharyngeal erythema. No thyromegaly. CARDIOVASCULAR: S1 and S2 present. No murmurs, rubs, or gallops. Diminished PULMONARY: Chest is clear to auscultation, no wheezing or crackles. ABDOMEN: Soft, nontender, nondistended, normoactive bowel sounds. No palpable organomegaly. MUSCULOSKELETAL: No joint swelling or deformity. EXTREMITIES: No cyanosis, clubbing, or pedal edema. Mild non pitting peripheral edema NEUROLOGICAL: Gross neurological examination did not reveal any focal deficits. Diffuse weakness no focal deficits SKIN: No rashes. Assessment Traumatic fall and acute rhabdomyolysis with elevated CK Troponin elevation and non ST elevation NH managed medically Acute hypoxic respiratory failure secondary to acute heart failure exacerbation and COPD exacerbation Acute diastolic dysfunction with normal LV function Obstructive uropathy due to left renal calculus with moderate hypdronephrosis Acute kidney injury due to the obstructive uropathy Right lower lobe pneumonia Coronary artery disease with prior cardiac stenting Elevated D Dimer CTA negative for PE Hx of COPD Hx of DVT Gastroesophageal reflux disease Former smoker Hx of kidney stone with lithotripsy 3 years ago GI prophylaxis DVT prophylaxis Do Not Resuscitate/Do Not Intubate Plan Continue on IV unasyn with ID following closely. Sputum culture pending Recommending incentive spirometer 10 x an hour while awake Normal saline has been decreased Continue with indwelling catheter and urology has been consulted Cardiology following Continue aspirin, statin, and beta jewel therapy for optimized medical therapy due to the troponin elevation Patient recommending to undergo outpatient stres test outpatient once medically stabilized Repeat labs in am Speech therapy consultation rule out aspiration PT/OT following patient may require ECF on discharge. The impression and plan of care has been dictated by Christin Johnson Nurse Practitioner as directed. Dr. Bouchra MD I have performed a history and physical examination and medical decision making of this patient, discussed the same with the dictator, and agree with the dictators assessment and plan as written, documented as a scribe. Based on total visit time, I have performed more than 50% of this visit. Objective - Vital Signs Vital signs: Vital Signs Temp 97.1 F L 06/15/23 20:00 Pulse 57 L 06/16/23 14:00 Resp 16 06/16/23 14:00 BP 136/76 06/16/23 14:00 Pulse Ox 93 L 06/16/23 14:00 FiO2 Intake & Output 06/15/23 06/16/23 06/16/23 18:59 06:59 18:59 Intake Total 246 818 Output Total 2550 1650 1000 Balance -2304 -1650 -182 Intake: IV 10 Invasive Line 1 10 Intake, IV Titration 700 Amount Ampicillin-Sulbactam 3 gm 100 In Sodium Chloride 0.9% 100 ml @ 200 mls/hr IVPB Q6H LOGAN Rx#:[id number] Sodium Chloride 0.9% 1, 600 000 ml @ 50 mls/hr IV . Q20H LOGAN Rx#:[id number] Oral 236 118 Output: Urine 2550 1650 1000 Uretheral (Napier) 700 Other: Voiding Method External Catheter Indwelling Catheter Indwelling Catheter - Labs CBC & Chem 7: 06/16/23 07:39 06/16/23 07:39 Labs: Abnormal Lab Results - Last 24 Hours (Table) 06/16/23 06/16/23 Range/Units 07:39 07:39 Lymphocytes # 0.8 L (1.0-4.8) k/uL BUN 38 H (9-20) mg/dL Total Protein 5.6 L (6.3-8.2) g/dL Albumin 2.9 L (3.5-5.0) g/dL Microbiology - Last 24 Hours (Table) 06/13/23 21:37 Blood Culture - Preliminary Blood 06/13/23 18:07 Blood Culture - Preliminary Blood 06/13/23 02:00 Urine Culture - Final Urine,Voided Assessment and Plan Time with Patient: Less than 30
--- NOTE | 2023-06-16 18:45 | P.GSCN ---
History of Present Illness Consult date: 06/16/23 Reason for Consult: Left hydronephrosis Requesting physician: Christin Johnson History of present illness: The patient is an 88-year-old white male evaluated by Dr. Artis last year for nocturia. He was taking tamsulosin at that time but no longer takes it. He was admitted following a fall. He reports weakness and dyspnea. A Napier catheter has been placed for urinary retention. The patient's daughter states that a large amount of urine drained upon catheter placement, and that the patient developed gross hematuria following that. The urine is now clearing. He has a history of urolithiasis, having undergone ESWL on [address] scan performed on June 13 showed a 9 x 14 mm left UPJ calculus. Ultrasound on June 15 showed evidence of moderate hydronephrosis. The patient does report intermittent left lower back pain. Review of Systems - Respiratory Reports dyspnea - Genitourinary Reports as per HPI Past Medical History Past Medical History: Coronary Artery Disease (CAD), COPD, Deep Vein Thrombosis (DVT), GERD/Reflux, GI Bleed, Hypertension, Osteoarthritis (OA) Additional Past Medical History / Comment(s): SOB, hx kidney stones, paralyzed diaphragm rt side, GI bleed 2016 History of Any Multi-Drug Resistant Organisms: None Reported Past Surgical History: Adenoidectomy, Appendectomy, Heart Catheterization With Stent, Hernia Repair, Tonsillectomy Additional Past Surgical History / Comment(s): lithotripsy x4, 3 cardiac stents, rt cataract, oral surgery Past Anesthesia/Blood Transfusion Reactions: Motion Sickness, Postoperative Shane sea & Vomiting (PONV) Additional Past Anesthesia/Blood Transfusion Reaction / Comm: HAD MOTION SICKNESS WHEN YOUNGER, paralyzed diaphragm rt side Date of Last Stent Placement:: 03/2019 Past Psychological History: No Psychological Hx Reported Smoking Status: Former smoker Past Alcohol Use History: None Reported Additional Past Alcohol Use History / Comment(s): Smoked for 30 years, 1-2 PPD. Past Drug Use History: None Reported - Past Family History Mother Family Medical History: Cancer Father Family Medical History: Myocardial Infarction ([place]), Mitral Valve Prolapse (MVP) Additional Family Medical History / Comment(s): PT STATED HIS FATHER HAD 14 OH'S AND AT THE AGE OF 58 Medications and Allergies Home Medications Medication Instructions Recorded Confirmed Type Nitroglycerin Sl Tabs [Nitrostat] 0.4 mg SUBLINGUAL Q5M PRN #25 tab 03/18/16 06/13/23 Rx amLODIPine [Norvasc] 5 mg PO DAILY #30 tab 08/27/16 06/13/23 Rx Clopidogrel [Plavix] 75 mg PO DAILY #1 tab 09/04/16 06/13/23 Rx atenoloL [Tenormin] 25 mg PO DAILY #30 tab 09/04/16 06/13/23 Rx Aspirin [Adult Low Dose Aspirin EC] 81 mg PO DAILY 02/21/20 06/13/23 History Pantoprazole Sodium [Protonix] 40 mg PO DAILY 02/21/20 06/13/23 History Vit C/E/Zn/Coppr/Lutein/Zeaxan 1 cap PO DAILY 01/01/23 06/13/23 History [Preservision Areds 2 Softgel] Acetaminophen Tab [Tylenol] 650 mg PO Q6HR PRN tab 01/05/23 06/13/23 Rx Multivitamins, Thera [Multivitamin 1 tab PO DAILY 06/13/23 06/13/23 History (formulary)] Allergies Allergy/AdvReac Type Severity Reaction Status Date / Time latex Allergy blisters Verified 06/13/23 15:39 in mouth venom-honey bee Allergy passed out Verified 06/13/23 15:39 [bee venom (honey bee)] venom-wasp [wasp venom] Allergy passed out Verified 06/13/23 15:39 Surgical - Exam Vital Signs Temp Pulse Resp BP 97.6 F 108 H 22 168/103 06/13/23 11:51 06/13/23 11:51 06/13/23 11:51 06/13/23 11:51 - General well developed, well nourished, no distress - Respiratory normal respiratory effort - Abdomen Abdomen: soft, non tender, no guarding, no rigid, no rebound - Genitourinary Normal phallus. Napier catheter in place, draining clear yellow urine. Normal right testicle. Large left hydrocele. - Psychiatric oriented to time, oriented to person, oriented to place, speech is normal, memory intact Results - Labs 06/16/23 07:39 06/16/23 07:39 Abnormal Lab Results - Last 24 Hours (Table) 06/16/23 06/16/23 Range/Units 07:39 07:39 Lymphocytes # 0.8 L (1.0-4.8) k/uL BUN 38 H (9-20) mg/dL Total Protein 5.6 L (6.3-8.2) g/dL Albumin 2.9 L (3.5-5.0) g/dL Microbiology - Last 24 Hours (Table) 06/13/23 21:37 Blood Culture - Preliminary Blood 06/13/23 18:07 Blood Culture - Preliminary Blood 06/13/23 02:00 Urine Culture - Final Urine,Voided Diabetes panel 06/16/23 Range/Units 07:39 Sodium 139 (137-145) mmol/L Potassium 3.9 (3.5-5.1) mmol/L Chloride 106 (98-107) mmol/L Carbon Dioxide 26 (22-30) mmol/L BUN 38 H (9-20) mg/dL Creatinine 0.96 (0.66-1.25) mg/dL Glucose 89 (74-99) mg/dL Calcium 8.6 (8.4-10.2) mg/dL AST 37 (17-59) U/L ALT 37 (4-49) U/L Alkaline Phosphatase 63 (38-126) U/L Total Protein 5.6 L (6.3-8.2) g/dL Albumin 2.9 L (3.5-5.0) g/dL Calcium panel 06/16/23 Range/Units 07:39 Calcium 8.6 (8.4-10.2) mg/dL Albumin 2.9 L (3.5-5.0) g/dL Pituitary panel 06/16/23 Range/Units 07:39 Sodium 139 (137-145) mmol/L Potassium 3.9 (3.5-5.1) mmol/L Chloride 106 (98-107) mmol/L Carbon Dioxide 26 (22-30) mmol/L BUN 38 H (9-20) mg/dL Creatinine 0.96 (0.66-1.25) mg/dL Glucose 89 (74-99) mg/dL Calcium 8.6 (8.4-10.2) mg/dL Adrenal panel 06/16/23 Range/Units 07:39 Sodium 139 (137-145) mmol/L Potassium 3.9 (3.5-5.1) mmol/L Chloride 106 (98-107) mmol/L Carbon Dioxide 26 (22-30) mmol/L BUN 38 H (9-20) mg/dL Creatinine 0.96 (0.66-1.25) mg/dL Glucose 89 (74-99) mg/dL Calcium 8.6 (8.4-10.2) mg/dL Total Bilirubin 0.5 (0.2-1.3) mg/dL AST 37 (17-59) U/L ALT 37 (4-49) U/L Alkaline Phosphatase 63 (38-126) U/L Total Protein 5.6 L (6.3-8.2) g/dL Albumin 2.9 L (3.5-5.0) g/dL - Imaging CT scan - abdomen: report reviewed, image reviewed Assessment and Plan Assessment: In summary, the patient has undergone Napier catheter placement for urinary retention. He developed hematuria following that, which is not uncommon, and this has improved. He has a large obstructing left UPJ calculus. His renal function has normalized, and he is currently comfortable. His troponin level is mildly elevated, consistent with possible type II [place] versus non-ST elevated [place]. (1) Hydronephrosis with renal and ureteral calculous obstruction Current Visit: Yes Status: Acute Code(s): N13.2 - HYDRONEPHROSIS WITH RENAL AND URETERAL CALCULOUS OBSTRUCTION SNOMED Code(s): 724264633 (2) Urinary retention Current Visit: Yes Status: Acute Code(s): R33.9 - RETENTION OF URINE, UNSPECIFIED SNOMED Code(s): 228021798 Plan: Continue tamsulosin, and leave Napier catheter in place to allow the bladder to regain tone. Consider left ureteral stent insertion, though with the patient's renal function having normalized there is no urgency to do this unless he develops severe pain, and we will thus wait until the patient's cardiac status is more clear. All of this was discussed at great length with the patient and his daughter. Time with Patient: Greater than 30
[2023-06-16] MEDS: HEPARIN SODIUM,PORCINE 5,000 UNIT/ML 1 ML VIAL SQ SCH (21:05)
[2023-06-16] MEDS: ATORVASTATIN 40 MG TAB PO SCH (21:05)
[2023-06-16] MEDS: HYDROmorphone 0.5 MG/0.5 ML SYRINGE IVP PRN (23:16)
[2023-06-16] MEDS: ALPRAZolam 0.25 MG TAB PO PRN (23:16)
[2023-06-17] MEDS: IPRATROPIUM-ALBUTEROL 3 ML NEB INHALATION SCH ×5 (01:09→21:42)
[2023-06-17] MEDS: AMPICILLIN-SULBACTAM 3 GM in SODIUM CHLORIDE 0.9% 100 ML IVPB SCH ×4 (01:29→19:51)
[2023-06-17 08:16] LABS: African American GFR (CKD) >90 (>60 ml/min/1.73 sqM); Anion Gap 2 mmol/L; Blood Urea Nitrogen 26 mg/dL (9-20); Calcium 8.7 mg/dL (8.4-10.2); Carbon Dioxide 29 mmol/L (22-30); Chloride 108 mmol/L (98-107); Glucose 84 mg/dL (74-99); Magnesium 1.9 mg/dL (1.6-2.3); Non-African American GFR(CKD) 80 (>60 ml/min/1.73 sqM); Potassium 4.1 mmol/L (3.5-5.1); Sodium 139 mmol/L (137-145)
[2023-06-17] MEDS: SYMBICORT 160-4.5 MCG INHALER INHALATION SCH ×2 (08:24→21:42)
[2023-06-17] MEDS: atenoloL 25 MG TAB PO SCH (09:38)
[2023-06-17] MEDS: VIT A,C & E-LUTEIN-MINERALS 1 EACH TAB PO SCH (09:38)
[2023-06-17] MEDS: MULTIVITAMINS, THERA 1 EACH TAB PO SCH (09:38)
[2023-06-17] MEDS: PANTOPRAZOLE 40 MG TABLET PO SCH (09:38)
[2023-06-17] MEDS: TAMSULOSIN 0.4 MG CAP.ER.24H PO SCH (09:38)
[2023-06-17] MEDS: ASPIRIN 81 MG PO SCH (09:38)
[2023-06-17] MEDS: HEPARIN SODIUM,PORCINE 5,000 UNIT/ML 1 ML VIAL SQ SCH ×2 (09:39→22:14)
[2023-06-17] MEDS: CLOPIDOGREL 75 MG TAB PO SCH (09:39)
--- NOTE | 2023-06-17 10:30 | XR ---
EXAMINATION TYPE: XR chest 2V DATE OF EXAM: 06/17/2023 10:07 AM CLINICAL INDICATION:Male, 88 years old with history of hypoxia; PH[facility] COMPARISON: Chest radiographs from 06/13/2023. TECHNIQUE: XR chest 2V Frontal and lateral views of the chest. FINDINGS: Lungs/Pleura: Low lung volumes are present. There is no evidence of pleural effusion, focal consolida tion, or pneumothorax. Pulmonary vascularity: Unremarkable. Heart/mediastinum: Cardiomediastinal silhouette is enlarged and stable. Musculoskeletal: No acute osseous pathology. Other findings: None IMPRESSION: Low lung volumes with a generalized hazy appearance which could represent atelectasis versus pulmonar y edema correlate with serum BNP.
--- NOTE | 2023-06-17 10:53 | P.PN ---
Subjective Patient is seen in follow-up for acute kidney injury. Renal function back to baseline. Napier catheter inserted for urinary retention. Denies chest pain or shortness of breath. Daughter present at bedside. Vital signs are stable. General: No acute distress. HEENT: Head exam is unremarkable. LUNGS: No audible rhonchi or wheezes. HEART: Rate and Rhythm are regular. ABDOMEN: Nontender. EXTREMITITES: No edema. Objective - Vital Signs Vital signs: Vital Signs Temp 96.8 F L 06/17/23 01:10 Pulse 68 06/17/23 08:35 Resp 16 06/17/23 08:00 BP 88/54 06/17/23 08:00 Pulse Ox 95 06/17/23 08:00 FiO2 Intake & Output 06/16/23 06/17/23 06/17/23 18:59 06:59 18:59 Intake Total 818 Output Total 1000 350 Balance -182 -350 Intake: Intake, IV Titration 700 Amount Ampicillin-Sulbactam 3 gm 100 In Sodium Chloride 0.9% 100 ml @ 200 mls/hr IVPB Q6H [facility] Rx#:[id number] Sodium Chloride 0.9% 1, 600 000 ml @ 50 mls/hr IV . Q20H [facility] Rx#:[id number] Oral 118 Output: Urine 1000 350 Other: Voiding Method Indwelling Catheter Indwelling Catheter Indwelling Catheter - Labs CBC & Chem 7: 06/16/23 07:39 06/17/23 06:46 Labs: Abnormal Lab Results - Last 24 Hours (Table) 06/17/23 Range/Units 06:46 Chloride 108 H (98-107) mmol/L BUN 26 H (9-20) mg/dL Microbiology - Last 24 Hours (Table) 06/13/23 18:07 Blood Culture - Preliminary Blood 06/13/23 21:37 Blood Culture - Preliminary Blood Assessment and Plan Plan: Assessment: 1. Acute kidney injury secondary to urinary retention. Creatinine peaked at 1.9 to this admission and is 0.78 today. Patient received IV contrast for CTA on 06/13/2023. Left-sided hydronephrosis noted on kidney ultrasound. Urology following. On Flomax. May undergo a left ureteral stent insertion. 2. Benign hypertension. Blood pressure on the lower side today. 3. Rhabdomyolysis secondary to fall. CK level improved. 4. Pneumonia maintained on antibiotics. Plan: Maintain gentle IV hydration. Amlodipine discontinued. Avoid nephrotoxins.
--- NOTE | 2023-06-17 12:04 | P.PN ---
Subjective Progress Note Date: 06/17/23 Principal diagnosis: Reason for follow-up is leukocytosis and pneumonia Patient is a 88-year-old male with a past medical history significant for hypertension COPD, osteoarthritis coronary artery disease former smoker patient was brought into the hospital after the patient did have a fall at home, patient was in the bathtub for more than 24 hours on admission to the hospital CT of the chest concerning for right lower lobe consolidation. On today's evaluation that is 06/17/2023, the patient continues to be afebrile patient is breathing comfortably on 2 L nasal cannula supplemental oxygen, patient denies any chest pain, the patient cough is decreased in intensity did have occasional sputum production,there was concern for possible choking on the food per the daughter at the bedside, no nausea no vomiting and no diarrhea has been reported Patient white count is 6.8 as of yesterday,, creatinine is 0.78 blood cultures pending Objective - Vital Signs Vital signs: Vital Signs Temp 96.8 F L 06/17/23 01:10 Pulse 75 06/17/23 11:26 Resp 16 06/17/23 08:00 BP 88/54 06/17/23 08:00 Pulse Ox 95 06/17/23 08:00 FiO2 Intake & Output 06/16/23 06/17/23 06/17/23 18:59 06:59 18:59 Intake Total 818 Output Total 1000 350 Balance -182 -350 Intake: Intake, IV Titration 700 Amount Ampicillin-Sulbactam 3 gm 100 In Sodium Chloride 0.9% 100 ml @ 200 mls/hr IVPB Q6H [facility] Rx#:[id number] Sodium Chloride 0.9% 1, 600 000 ml @ 50 mls/hr IV . Q20H [facility] Rx#:[id number] Oral 118 Output: Urine 1000 350 Other: Voiding Method Indwelling Catheter Indwelling Catheter Indwelling Catheter - Exam GENERAL DESCRIPTION: An elderly male lying in bed in no distress RESPIRATORY SYSTEM: Unlabored breathing , decreased breath sounds at bases HEART: S1 S2 regular rate and rhythm , ABDOMEN: Soft , no tenderness EXTREMITIES: No edema feet - Labs CBC & Chem 7: 06/16/23 07:39 06/17/23 06:46 Labs: Abnormal Lab Results - Last 24 Hours (Table) 06/17/23 Range/Units 06:46 Chloride 108 H (98-107) mmol/L BUN 26 H (9-20) mg/dL Microbiology - Last 24 Hours (Table) 06/13/23 18:07 Blood Culture - Preliminary Blood 06/13/23 21:37 Blood Culture - Preliminary Blood Assessment and Plan (1) Pneumonia Current Visit: Yes Status: Acute Code(s): J18.9 - PNEUMONIA, UNSPECIFIED ORGANISM SNOMED Code(s): 787091796 (2) Leukocytosis Current Visit: Yes Status: Acute Code(s): D72.829 - ELEVATED WHITE BLOOD CELL COUNT, UNSPECIFIED SNOMED Code(s): 586997337 Plan: 1patient presented to hospital with weakness and fall patient did have elevated white count also noticed to have right lower lobe consolidation mildly hypoxic concerning for pneumonia with a question of community-acquired versus aspiration etiology 2- patient is afebrile patient white count has normalized, patient currently be treated with the Unasyn will benefit from swallow evaluation family at the bedside multiple question concern answered Dictation was produced using [employer] dictation software. please excuse any grammatical, word or spelling errors. Time with Patient: Less than 30
--- NOTE | 2023-06-17 12:37 | P.PN ---
Subjective Progress Note Date: 06/17/23 Principal diagnosis: Left hydronephrosis secondary to obstructing left UPJ calculus The patient currently has an indwelling Napier catheter for urinary retention. When last seen in the office by Dr. Artis in July 2022, the postvoid residual was 37 mL. He reports low back pain overnight which he describes as fairly severe. Objective - Vital Signs Vital signs: Vital Signs Temp 96.8 F L 06/17/23 01:10 Pulse 64 06/17/23 01:25 Resp 16 06/17/23 01:10 BP 137/68 06/17/23 01:10 Pulse Ox 94 L 06/17/23 01:10 FiO2 Intake & Output 06/16/23 06/17/23 06/17/23 18:59 06:59 18:59 Intake Total 818 Output Total 1000 350 Balance -182 -350 Intake: Intake, IV Titration 700 Amount Ampicillin-Sulbactam 3 gm 100 In Sodium Chloride 0.9% 100 ml @ 200 mls/hr IVPB Q6H [facility] Rx#:[id number] Sodium Chloride 0.9% 1, 600 000 ml @ 50 mls/hr IV . Q20H [facility] Rx#:[id number] Oral 118 Output: Urine 1000 350 Other: Voiding Method Indwelling Catheter Indwelling Catheter - Constitutional General appearance: Present: average body habitus, cooperative, no acute distress - Psychiatric Psychiatric: Present: A&O x's 3 - Labs CBC & Chem 7: 06/16/23 07:39 06/17/23 06:46 Labs: Abnormal Lab Results - Last 24 Hours (Table) 06/16/23 06/16/23 Range/Units 07:39 07:39 Lymphocytes # 0.8 L (1.0-4.8) k/uL BUN 38 H (9-20) mg/dL Total Protein 5.6 L (6.3-8.2) g/dL Albumin 2.9 L (3.5-5.0) g/dL Microbiology - Last 24 Hours (Table) 06/13/23 18:07 Blood Culture - Preliminary Blood 06/13/23 21:37 Blood Culture - Preliminary Blood Assessment and Plan Assessment: The patient has undergone Napier catheter placement for urinary retention. He d eveloped hematuria following that, which is not uncommon, and this has improved. He has a large obstructing left UPJ calculus. His renal function has normalized, but he reports significant back pain which may be resulting from the calculus. His troponin level is mildly elevated, consistent with possible type II CT versus non-ST elevated CT. (1) Hydronephrosis with renal and ureteral calculous obstruction Current Visit: Yes Status: Acute Code(s): N13.2 - HYDRONEPHROSIS WITH RENAL AND URETERAL CALCULOUS OBSTRUCTION SNOMED Code(s): 440875126 (2) Urinary retention Current Visit: Yes Status: Acute Code(s): R33.9 - RETENTION OF URINE, UNSPECIFIED SNOMED Code(s): 983139373 Plan: Continue tamsulosin, and leave Napier catheter in place to allow the bladder to regain tone. Given the patient's pain, I would be in favor of performing cystoscopy with left ureteral stent insertion to relieve the obstruction. He could then undergo elective removal of the left UPJ calculus. I would like to place the stent later this week if cleared by Cardiology.
--- NOTE | 2023-06-17 14:25 | FL ---
EXAMINATION TYPE: FL barium swallow w video DATE OF EXAM: 06/17/2023 CLINICAL HISTORY: 88-year-old male with COPD and pneumonia, rule out aspiration. TECHNIQUE: Deglutition study is performed utilizing thin liquid barium, honey and nectar thick liqui d barium, barium thick applesauce, and barium coated cracker. Total fluoroscopy time: 2 minutes 24 seconds. Total images: None. Real-time fluoroscopy support was provided to speech pathology. DOSE AREA PRODUCT (DAP) UGY*M,MGY*CM: 214.06 COMPARISON: None. FINDINGS: Swallow initiation was mildly delayed with bolus free spilling to the level of the vallecula. The oral and pharyngeal phases show satisfactory initiation and propagation with all modalities teste d. Normal mastication is seen with solid modalities tested. There is no evidence of penetration or aspiration with any modality tested. There are moderate residuals within the vallecula and piriform s inuses. IMPRESSION: Slight delay in swallow. Moderate residuals. No penetration or aspiration seen. Please refer to speech therapist notes for further details if necessary.
--- NOTE | 2023-06-17 14:56 | P.PN ---
Subjective Progress Note Date: 06/17/23 Chief complaint: Change in mental status History of present illness: The patient is an 88-year-old gentleman with a past medical history significant for coronary artery disease and prior stenting of the RCA was performed in 2016 and also valvular heart disease a status post transcatheter aortic valve replacement as well as hypertension and dyslipidemia. The patient was brought into the hospital by his family after he fell in the bathtub and apparently possibly lost his consciousness. He developed injury on the left arm. His arm was extremely painful and he underwent venous to the x-ray showed no evidence of a DVT. Subsequently he underwent workup in the emergency department including an EKG showing sinus mechanism with diffuse nonspecific ST and T wave abnormalities and troponin came in to be slightly abnormal. The chest x-ray did not show any acute abnormalities. NT proBNP came in to be elevated. He underwent a d-dimer came in to be abnormal and subsequent the CT of the chest showed no evidence of pulmonary embolism. He has no pain in the chest and no shortness of breath and he doesn't seems to be in any overt heart failure at this point. 06/15 Patient is seen today in follow-up. Patient states prior to admission he had di arrhea and had fallen and the tub as he was trying to clean himself up. That is where patient had possible syncopal episode. Echocardiogram is pending. He has had an increase in his kidney function with BUN 58 creatinine 1.9 to be started on IV fluids for the next 24 hours. Blood pressure 133/71, heart rate 58, pulse ox 91% on 2 L nasal cannula. He has been afebrile. Dr. Perla is following for possible pneumonia. 06/16 Family member states the patient was quite uncomfortable yesterday and did have an exterior catheter in place found to have urinary retention a Napier catheter was put in with significant amount of urinary return. Patient was much more comfortable following that. Patient did have episode of chest pain this morning. EKG was reviewed. Patient was given Xanax and is somewhat sedated at the time of this evaluation. Blood pressure 110/63, heart rate in the 60s, pulse ox 97% on room air. Echocardiogram reveals preserved systolic function. Bioprosthetic valve with acceptable gradients. Yesterday, heparin drip was discontinued and we added a consult for nephrology, IV fluids were discontinued. 06/17 Patient's renal function significantly improved after renal retention resolved. No complaints of chest pain. On 06/29, patient has appointment with Dr. Hawk Diggs for TAVR recheck. Patient will plan to follow-up with his environmental studies department chair regarding ischemic workup with either stress testing or cardiac catheterization. Patient declined wanting to have cardiac catheterization performed on this hospitalization. Examination is remarkable for stable vital signs was diminished breathing sounds bilaterally and regular rate and rhythm with a systolic murmur at the right upper sternal border and no edema was noted in the lower extremities Assessment Change in mental status/syncope Diarrhea prior to hospitalization Possible pneumonia Mildly elevated troponin possible type II [place] versus non-ST elevated MO Coronary artery disease as described above Valvular heart disease as described above Multiple comorbid conditions Acute kidney injury Plan Continue medical treatment for the abnormal troponin Continue aspirin and beta jewel and statin Plan for outpatient stress testing or cardiac catheterization for ischemic workup with his primary environmental studies department chair Patient is cleared for discharge from cardiology. Plan for follow-up with his primary environmental studies department chair as scheduled. Cardiology will sign off this case and follow on an as-needed basis. Please reconsult for any new concerns. Nurse practitioner note has been reviewed, I agree with the documented findings and plan of care. Patient was seen and examined. Objective - Vital Signs Vital signs: Vital Signs Temp 96.8 F L 06/17/23 01:10 Pulse 68 06/17/23 08:35 Resp 16 06/17/23 08:00 BP 88/54 06/17/23 08:00 Pulse Ox 95 06/17/23 08:00 FiO2 Intake & Output 06/16/23 06/17/23 06/17/23 18:59 06:59 18:59 Intake Total 818 Output Total 1000 350 Balance -182 -350 Intake: Intake, IV Titration 700 Amount Ampicillin-Sulbactam 3 gm 100 In Sodium Chloride 0.9% 100 ml @ 200 mls/hr IVPB Q6H [facility] Rx#:[id number] Sodium Chloride 0.9% 1, 600 000 ml @ 50 mls/hr IV . Q20H [facility] Rx#:[id number] Oral 118 Output: Urine 1000 350 Other: Voiding Method Indwelling Catheter Indwelling Catheter Indwelling Catheter - Labs CBC & Chem 7: 06/16/23 07:39 06/17/23 06:46 Labs: Abnormal Lab Results - Last 24 Hours (Table) 06/17/23 Range/Units 06:46 Chloride 108 H (98-107) mmol/L BUN 26 H (9-20) mg/dL Microbiology - Last 24 Hours (Table) 06/13/23 18:07 Blood Culture - Preliminary Blood 06/13/23 21:37 Blood Culture - Preliminary Blood
--- NOTE | 2023-06-17 15:04 | P.PN ---
Subjective Progress Note Date: 06/17/23 Patient is evaluated on the cardiac floor, he has been admitted for heart failure, nstemi and acute renal failure. Creatinine today is 0.96 peaked at 1.92. He was found to have urinary retention had an abdomen/bladder US done showing a 9mm left midpole renal calculus with moderate hydronephrosis on the left. Correlate for ureteral obstruction. Multiple cortical cysts within the right kidney measuring up to 3.2cm. Incidental numerous gallstones measuring up to 1.7 cm. Urology has been consulted. IDC remains in place. He remains on oxygen support 3L nasal cannula does not wear oxygen at home. Procalcitonin level 0.18. 06/17/2023 Patient is evaluated again on cardiac floor. He remains on oxygen support with improving saturations. Chest xray showing low lung volumes with a generalized hazy appearance which could represent atelectasis versus pulmonary edema correlate with serum BNP. He continues on IV unasyn. There is concern for aspiration speech therapy consultation in place. Patient is being hydrated with normal saline. Urology follow up today recommends to continue on flomax, and leave the catheter in place. Consider left ureteral stent placement. Cardiology at this time has signed off. Review of Systems Constitutional: Denied any fatigue denied any fever. Cardio vascular: denied any chest pain, palpitations Gastrointestinal: denied any nausea, vomiting, diarrhea Pulmonary: Reports shortness of breath, cough Neurologic denied any new focal deficits All inpatient medications were reviewed and appropriate changes in these medications as dictated in the interval history and assessment and plan. PHYSICAL EXAMINATION: GENERAL: The patient is alert and oriented x3, not in any acute distress. Well developed, well nourished. on 2L nasal cannula HEENT: Pupils are round and equally reacting to light. EOMI. No scleral icterus. No conjunctival pallor. Normocephalic, atraumatic. No pharyngeal erythema. No thyromegaly. CARDIOVASCULAR: S1 and S2 present. No murmurs, rubs, or gallops. Diminished PULMONARY: Chest is clear to auscultation, no wheezing or crackles. ABDOMEN: Soft, nontender, nondistended, normoactive bowel sounds. No palpable organomegaly. MUSCULOSKELETAL: No joint swelling or deformity. EXTREMITIES: No cyanosis, clubbing, or pedal edema. Mild non pitting peripheral edema NEUROLOGICAL: Gross neurological examination did not reveal any focal deficits. Diffuse weakness no focal deficits SKIN: No rashes. Assessment Traumatic fall and acute rhabdomyolysis with elevated CK Troponin elevation and non ST elevation [place] managed medically Acute hypoxic respiratory failure secondary to acute heart failure exacerbation and COPD exacerbation Acute diastolic dysfunction with normal LV function Obstructive uropathy due to left renal calculus with moderate hypdronephrosis Acute kidney injury due to the obstructive uropathy Right lower lobe pneumonia community acquired being evaluated for aspiration Coronary artery disease with prior cardiac stenting Elevated D Dimer CTA negative for PE Hx of COPD Hx of DVT Gastroesophageal reflux disease Former smoker Hx of kidney stone with lithotripsy 3 years ago GI prophylaxis DVT prophylaxis Do Not Resuscitate/Do Not Intubate Plan Continue on IV unasyn with ID following closely. Sputum culture pending Recommending incentive spirometer 10 x an hour while awake Normal saline has been decreased Continue with indwelling catheter, urology considering left ureteral stent placement with cardiac clearance Continue aspirin, statin, and beta jewel therapy for optimized medical therapy due to the troponin elevation Patient recommending to undergo outpatient stres test outpatient as part of ischemic work up Repeat labs in am Speech therapy consultation rule out aspiration patient to undergo MBS today [facility] possibly in the next 24 to 48 hours. The impression and plan of care has been dictated by Christin Johnson Nurse Practitioner as directed. Dr. Bouchra MD I have performed a history and physical examination and medical decision making of this patient, discussed the same with the dictator, and agree with the dictators assessment and plan as written, documented as a scribe. Based on total visit time, I have performed more than 50% of this visit. Objective - Vital Signs Vital signs: Vital Signs Temp 96.8 F L 06/17/23 01:10 Pulse 68 06/17/23 08:35 Resp 16 06/17/23 01:10 BP 137/68 06/17/23 01:10 Pulse Ox 94 L 06/17/23 01:10 FiO2 Intake & Output 06/16/23 06/17/23 06/17/23 18:59 06:59 18:59 Intake Total 818 Output Total 1000 350 Balance -182 -350 Intake: Intake, IV Titration 700 Amount Ampicillin-Sulbactam 3 gm 100 In Sodium Chloride 0.9% 100 ml @ 200 mls/hr IVPB Q6H [facility] Rx#:[id number] Sodium Chloride 0.9% 1, 600 000 ml @ 50 mls/hr IV . Q20H [facility] Rx#:[id number] Oral 118 Output: Urine 1000 350 Other: Voiding Method Indwelling Catheter Indwelling Catheter - Labs CBC & Chem 7: 06/16/23 07:39 06/17/23 06:46 Labs: Abnormal Lab Results - Last 24 Hours (Table) 06/16/23 06/16/23 06/17/23 Range/Units 07:39 07:39 06:46 Lymphocytes # 0.8 L (1.0-4.8) k/uL Chloride 108 H (98-107) mmol/L BUN 38 H 26 H (9-20) mg/dL Total Protein 5.6 L (6.3-8.2) g/dL Albumin 2.9 L (3.5-5.0) g/dL Microbiology - Last 24 Hours (Table) 06/13/23 18:07 Blood Culture - Preliminary Blood 06/13/23 21:37 Blood Culture - Preliminary Blood Assessment and Plan Time with Patient: Less than 30
[2023-06-17] MEDS: HYDROcodone/APAP 5-325MG 1 EACH TAB PO PRN (16:19)
[2023-06-17] MEDS: polyethylene glycoL 3350 17 GM POWD.PACK PO SCH (18:03)
[2023-06-17] MEDS: SODIUM CHLORIDE 0.9% 1,000 ML IV SCH (19:51)
[2023-06-17] MEDS: ALPRAZolam 0.25 MG TAB PO PRN (22:14)
[2023-06-17] MEDS: ATORVASTATIN 40 MG TAB PO SCH (22:14)
[2023-06-17] MEDS: HYDROmorphone 0.5 MG/0.5 ML SYRINGE IVP PRN (22:15)
[2023-06-18] MEDS: TEMAZEPAM 15 MG CAP PO PRN ×2 (01:14→21:32)
[2023-06-18] MEDS: AMPICILLIN-SULBACTAM 3 GM in SODIUM CHLORIDE 0.9% 100 ML IVPB SCH ×4 (01:14→21:32)
[2023-06-18] MEDS: HYDROcodone/APAP 5-325MG 1 EACH TAB PO PRN (04:43)
[2023-06-18] MEDS: SODIUM CHLORIDE 0.9% 1,000 ML IV SCH (06:01)
[2023-06-18 07:40] LABS: African American GFR (CKD) >90 (>60 ml/min/1.73 sqM); Anion Gap 2 mmol/L; Blood Urea Nitrogen 17 mg/dL (9-20); Calcium 8.5 mg/dL (8.4-10.2); Carbon Dioxide 30 mmol/L (22-30); Chloride 108 mmol/L (98-107); Glucose 103 mg/dL (74-99); Non-African American GFR(CKD) 86 (>60 ml/min/1.73 sqM); Potassium 3.6 mmol/L (3.5-5.1); Sodium 140 mmol/L (137-145)
[2023-06-18] MEDS: SYMBICORT 160-4.5 MCG INHALER INHALATION SCH ×2 (08:03→20:23)
[2023-06-18] MEDS: IPRATROPIUM-ALBUTEROL 3 ML NEB INHALATION SCH ×4 (08:03→20:23)
[2023-06-18] MEDS: PANTOPRAZOLE 40 MG TABLET PO SCH (09:25)
[2023-06-18] MEDS: MULTIVITAMINS, THERA 1 EACH TAB PO SCH (09:25)
[2023-06-18] MEDS: ASPIRIN 81 MG PO SCH (09:25)
[2023-06-18] MEDS: HEPARIN SODIUM,PORCINE 5,000 UNIT/ML 1 ML VIAL SQ SCH ×2 (09:25→21:32)
[2023-06-18] MEDS: VIT A,C & E-LUTEIN-MINERALS 1 EACH TAB PO SCH (09:25)
[2023-06-18] MEDS: TAMSULOSIN 0.4 MG CAP.ER.24H PO SCH (09:25)
[2023-06-18] MEDS: CLOPIDOGREL 75 MG TAB PO SCH (09:25)
[2023-06-18] MEDS: polyethylene glycoL 3350 17 GM POWD.PACK PO SCH (09:25)
[2023-06-18] MEDS ORDERED: POTASSIUM CHLORIDE ER 20 MEQ TAB.ER PO STA (09:51)
--- NOTE | 2023-06-18 10:57 | P.PN ---
Subjective Progress Note Date: 06/18/23 Principal diagnosis: Left hydronephrosis secondary to obstructing left UPJ calculus, urinary retention The patient currently has an indwelling Napier catheter for urinary retention. When last seen in the office by Dr. Artis in July 2022, the postvoid residual was 37 mL. He reports persistent back pain but it is actually located in his upper back, left-sided, well above the kidney. Objective - Vital Signs Vital signs: Vital Signs Temp 98.3 F 06/17/23 19:54 Pulse 70 06/18/23 08:00 Resp 16 06/18/23 08:00 BP 148/78 06/18/23 08:00 Pulse Ox 90 L 06/18/23 08:00 FiO2 Intake & Output 06/17/23 06/18/23 06/18/23 18:59 06:59 18:59 Intake Total 180 540 180 Output Total 400 1100 Balance -220 -560 180 Intake: Oral 180 540 180 Output: Urine 400 1100 Other: Voiding Method Indwelling Catheter Indwelling Catheter - Constitutional General appearance: Present: average body habitus, cooperative, no acute distress - Psychiatric Psychiatric: Present: A&O x's 3 - Labs CBC & Chem 7: 06/16/23 07:39 06/18/23 06:53 Labs: Abnormal Lab Results - Last 24 Hours (Table) 06/18/23 Range/Units 06:53 Chloride 108 H (98-107) mmol/L Glucose 103 H (74-99) mg/dL Microbiology - Last 24 Hours (Table) 06/13/23 21:37 Blood Culture - Preliminary Blood Assessment and Plan Assessment: The patient has undergone Napier catheter placement for urinary retention. He developed hematuria following that, which has resolved. He has a large obstructing left UPJ calculus. His renal function has normalized. He reports significant back pain, which given its location is unlikely to be due to the UPJ calculus. His troponin level is mildly elevated, consistent with possible type II [place] versus non-ST elevated [place]. (1) Hydronephrosis with renal and ureteral calculous obstruction Current Visit: Yes Status: Acute Code(s): N13.2 - HYDRONEPHROSIS WITH RENAL AND URETERAL CALCULOUS OBSTRUCTION SNOMED Code(s): 820995092 (2) Urinary retention Current Visit: Yes Status: Acute Code(s): R33.9 - RETENTION OF URINE, UNSPECIFIED SNOMED Code(s): 399247317 Plan: The patient is being transferred to [facility] today. He should continue to take tamsulosin, and follow-up with Dr. Artis next week. The Napier catheter should be removed 12 hours prior to that appointment for a voiding trial. The patient has an appointment to see his communications tower technician on 06/29/2023. Subsequently, if cleared by cardiology, he may undergo elective removal of the left UPJ ca lculus. If he develops significant pain in the meantime, a ureteral stent can be placed. A KUB x-ray will be obtained prior to discharge as a baseline.
[2023-06-18 11:49] VITALS: BMI 30.7
--- NOTE | 2023-06-18 12:04 | P.PN ---
Subjective Patient is seen in follow-up for acute kidney injury. Renal function back to baseline. Has Napier catheter for urinary retention. Denies chest pain or shortness of breath. Daughter present at bedside. Vital signs are stable. General: No acute distress. HEENT: Head exam is unremarkable. LUNGS: No audible rhonchi or wheezes. HEART: Rate and Rhythm are regular. ABDOMEN: Nontender. EXTREMITITES: No edema. Objective - Vital Signs Vital signs: Vital Signs Temp 98.3 F 06/17/23 19:54 Pulse 68 06/18/23 11:31 Resp 16 06/18/23 08:00 BP 148/78 06/18/23 08:00 Pulse Ox 90 L 06/18/23 08:00 FiO2 Intake & Output 06/17/23 06/18/23 06/18/23 18:59 06:59 18:59 Intake Total 180 540 180 Output Total 400 1100 700 Balance -220 -560 -520 Weight 97.069 kg Intake: Oral 180 540 180 Output: Urine 400 1100 700 Other: Voiding Method Indwelling Catheter Indwelling Catheter Indwelling Catheter - Labs CBC & Chem 7: 06/16/23 07:39 06/18/23 06:53 Labs: Abnormal Lab Results - Last 24 Hours (Table) 06/18/23 Range/Units 06:53 Chloride 108 H (98-107) mmol/L Glucose 103 H (74-99) mg/dL Microbiology - Last 24 Hours (Table) 06/13/23 21:37 Blood Culture - Preliminary Blood Assessment and Plan Plan: Assessment: 1. Acute kidney injury secondary to urinary retention. Creatinine peaked at 1.9 to this admission and is 0.66 today. Patient received IV contrast for CTA on 06/13/2023. Left-sided hydronephrosis noted on kidney ultrasound. Urology following. On Flomax. May undergo a left ureteral stent insertion outpatient once cleared by cardiology. 2. Benign hypertension. Stable. 3. Rhabdomyolysis secondary to fall. CK level improved. 4. Pneumonia maintained on antibiotics. Plan: Hep-Lock IV fluids. Avoid nephrotoxins. Follow up outpatient 2 weeks post discharge.
[2023-06-18] MEDS ORDERED: bisacodyL 5 MG TABLET.DR PO STA (12:56)
--- NOTE | 2023-06-18 13:50 | P.DS ---
Providers Date of admission: 06/13/23 15:57 Attending physician: Feroz Molina Consults: 06/13/23 15:57 Consult Physician Urgent Consulting Provider: [facility] Consult Reason/Comments: nstemi, chf Do you want consulting provider notified?: Already Contacted 06/14/23 10:53 Consult Physician Routine Consulting Provider: Gómez Perla Consult Reason/Comments: pneumonia Do you want consulting provider notified?: Yes 06/15/23 10:25 Consult Physician Routine Consulting Provider: Jennifer Sullivan Consult Reason/Comments: BG Do you want consulting provider notified?: Yes 06/16/23 09:38 Consult Physician Routine Consulting Provider: Scott Rivas Consult Reason/Comments: Left ureteral obstruction/hydronephrosis Do you want consulting provider notified?: Yes Primary care physician: Lisha Martinez Hospital Course: Final Diagnosis Traumatic fall and acute rhabdomyolysis with elevated CK Troponin elevation and non ST elevation [place] managed medically Acute hypoxic respiratory failure secondary to acute heart failure exacerbation and COPD exacerbation Acute diastolic dysfunction with normal LV function Obstructive uropathy due to left renal calculus with moderate hypdronephrosis outpatient f/u Acute kidney injury due to the obstructive uropathy resolved Right lower lobe pneumonia community acquired being evaluated for aspiration Coronary artery disease with prior cardiac stenting Elevated D Dimer CTA negative for PE Hx of COPD Hx of DVT Gastroesophageal reflux disease Former smoker Insomnia Hx of kidney stone with lithotripsy 3 years ago GI prophylaxis DVT prophylaxis Do Not Resuscitate/Do Not Intubate Discharge Disposition Patient is stable for discharge to subacute rehab he is high risk for readmission. He has history of hemidiaphragm. He is wearing 2 L of oxygen via nasal cannula. He needs encouragement to use the IS. Patient to keep indwelling catheter on discharge and to continue on flomax. Patient to see urology in the office in 1 week and urology requesting that indwelling catheter be removed 12 hours prior to appointment for voiding trial. Taken off amlodipine and atenolol. Repeat labs in 2 to 3 days. Patient also needs to see cardiology on discharge. Cardiology recommending patient to follow up with his known tray checker regarding ischemic work up and outpatient stress testing or cardiac catheterization. ID recommending to complete course of antibiotics with 7 days of augmentin. 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 Hospital Course This is an 88 year old male with medical history of COPD, DVT, GERD, coronary artery disease, right hemidiaphragm has been admitted for heart failure, nstemi and acute renal failure. Patient was using the bathroom at home states he had an episode of diarrhea and fall unable to rule out as a syncopal episode. He landed in the bathtub. He did have elevated CK levels on admission with concern for rhabdomyolysis. Renal function normal initially. He also had troponin elevation. Admitted to the hospital for fall and nstemi. Nephrology and cardiology are consulted. CT brain and C-spine on admission shows no acute intracranial process there is stable appearing chronic ventricular white matter ischemic change. There is chronic degenerative changes in the cervical spine with no acute osseous abnormality. He did have a chest CT which was negative for pulmonary embolism with right lower lobe consolidation with air bronchograms correlate for pneumonia underlying mass should be considered. Had swelling of the left upper extremity with venous doppler negative for DVT. Cardiology orders an echocardiogram showing normal LV function with a bioprosthetic valve with acceptable gradients. Patient did develop an BG, Creatinine peaked at 1.92. He was found to have urinary retention had an abdomen/bladder US done showing a 9mm left midpole renal calculus with moderate hydronephrosis on the left. Correlate for ureteral obstruction. Multiple cortical cysts within the right kidney measuring up to 3.2cm. Incidental numerous gallstones measuring up to 1.7 cm. Urology has been consulted. IDC remains in place. He remains on oxygen support 3L nasal cannula does not wear oxygen at home. Procalcitonin level 0.18. ID has also been following with concerns for a community acquired pneumonia vs aspiration. He has been maintained on antibiotics with IV unasyn. He had a modified barium and speech therapy evaluating modified barium reveals slight delay in swallow. Moderate residuals, no penetration or aspiration seen. Now with catheter in place renal function has normalized. He had brief episode of hematuria thought to be insertional trauma which has improved. Urology recommending ureteral stent which will be done outpatient and patient to follow up with cardiology first on discharge for clearance. He does report feeling mild shortness of breath however lungs are clear and chest xray appears to be baseline he is encouraged to use incentive spirometer. Education done on this at bedside with patient and family. His lower extremity edema has resolved since admission. No chest pain. No nausea or abdominal pain. He is tolerating diet. Does report he needs to have a BM has been given miralax and will also receive a suppository today. Would recommend to have a BM prior to discharge. Additionally urology would like a baseline KUB xray prior to discharge. Cardiology recommending patient to follow up with his known tray checker regarding ischemic work up and outpatient stress testing or cardiac catheterization. ID recommending to complete course of antibiotics with 7 days of augmentin. He will be discharged home to subacute rehab at [facility]. Please see medication reconciliation for a list of current medication. Thank you for allowing us to participate in the care of this patient. The impression and plan of care has been dictated by Christin Johnson Nurse Practitioner as directed. Dr. Bouchra MD I have performed a history and physical examination and medical decision making of this patient, discussed the same with the dictator, and agree with the dictators assessment and plan as written, documented as a scribe. Based on total visit time, I have performed more than 50% of this visit. Patient Condition at Discharge: Fair Plan - Discharge Summary Discharge Rx Participant: No New Discharge Prescriptions: New Tamsulosin [Flomax] 0.4 mg PO PC-BRKFST cap Atorvastatin [Lipitor] 40 mg PO HS tab polyethylene glycoL 3350 [Miralax] 17 gm PO DAILY packet QUEtiapine [SEROquel] 12.5 mg PO HS #10 tab Budesonide-Formot 160-4.5 Mcg [Symbicort 160-4.5 Mcg Inhaler] 2 puff INHALATION RT-BID each ALPRAZolam [Xanax] 0.25 mg PO DAILY PRN #4 tab PRN Reason: Anxiety Ipratropium-Albuterol Nebulize [Duoneb 0.5 mg-3 mg/3 ml Soln] 3 ml INHALATION RT-QID each Heparin Sodium,Porcine (1 ml) [Heparin Sodium] 5,000 unit SQ Q12HR each Nystatin 100,000 Unit/gm Powd [Mycostatin Powder] 1 applic TOPICAL BID PRN each PRN Reason: rash HYDROcodone/APAP 5-325MG [[place] 5-325] 1 each PO Q6HR PRN #4 tab PRN Reason: Pain Continue Nitroglycerin Sl Tabs [Nitrostat] 0.4 mg SUBLINGUAL Q5M PRN #25 tab PRN Reason: Chest Pain Clopidogrel [Plavix] 75 mg PO DAILY #1 tab Pantoprazole Sodium [Protonix] 40 mg PO DAILY Aspirin [Adult Low Dose Aspirin EC] 81 mg PO DAILY Multivitamins, Thera [Multivitamin (formulary)] 1 tab PO DAILY Vit C/E/Zn/Coppr/Lutein/Zeaxan [Preservision Areds 2 Softgel] 1 cap PO DAILY Acetaminophen Tab [Tylenol] 650 mg PO Q6HR PRN tab PRN Reason: Mild Pain Or Fever > 100.5 Discontinued amLODIPine [Norvasc] 5 mg PO DAILY #30 tab atenoloL [Tenormin] 25 mg PO DAILY #30 tab Discharge Medication List Nitroglycerin Sl Tabs [Nitrostat] 0.4 mg SUBLINGUAL Q5M PRN #25 tab 03/18/16 [Rx] Clopidogrel [Plavix] 75 mg PO DAILY #1 tab 09/04/16 [Rx] Aspirin [Adult Low Dose Aspirin EC] 81 mg PO DAILY 02/21/20 [History] Pantoprazole Sodium [Protonix] 40 mg PO DAILY 02/21/20 [History] Vit C/E/Zn/Coppr/Lutein/Zeaxan [Preservision Areds 2 Softgel] 1 cap PO DAILY 01/01/23 [History] Acetaminophen Tab [Tylenol] 650 mg PO Q6HR PRN tab 01/05/23 [Rx] Multivitamins, Thera [Multivitamin (formulary)] 1 tab PO DAILY 06/13/23 [History] ALPRAZolam [Xanax] 0.25 mg PO DAILY PRN #4 tab 06/18/23 [Rx] Atorvastatin [Lipitor] 40 mg PO HS tab 06/18/23 [Rx] Budesonide-Formot 160-4.5 Mcg [Symbicort 160-4.5 Mcg Inhaler] 2 puff INHALATION RT-BID each 06/18/23 [Rx] HYDROcodone/APAP 5-325MG [[place] 5-325] 1 each PO Q6HR PRN #4 tab 06/18/23 [Rx] Heparin Sodium,Porcine (1 ml) [Heparin Sodium] 5,000 unit SQ Q12HR each 06/18/23 [Rx] Ipratropium-Albuterol Nebulize [Duoneb 0.5 mg-3 mg/3 ml Soln] 3 ml INHALATION RT-QID each 06/18/23 [Rx] Nystatin 100,000 Unit/gm Powd [Mycostatin Powder] 1 applic TOPICAL BID PRN each 06/18/23 [Rx] QUEtiapine [SEROquel] 12.5 mg PO HS #10 tab 06/18/23 [Rx] Tamsulosin [Flomax] 0.4 mg PO PC-BRKFST cap 06/18/23 [Rx] polyethylene glycoL 3350 [Miralax] 17 gm PO DAILY packet 06/18/23 [Rx] Follow up Appointment(s)/Referral(s): Lisha Martinez MD [Primary Care Provider] - 1-2 days Silver Artis MD [STAFF PHYSICIAN] - 1 Week Nancy Villa MD [STAFF PHYSICIAN] - 1 Week Ambulatory/Diagnostic Orders: Basic Metabolic Panel [LAB.AMB] Time Frame: 3 Days, Location: None Selected Complete Blood Count w/diff [LAB.AMB] Location: None Selected Activity/Diet/Wound Care/Special Instructions: Patient is to be transferred to [facility] with the Napier catheter. He shall continue to take tamsulosin and follow-up with Dr. Artis in 1 week. The Napier catheter should be removed 12 hours prior to that appointment for a voiding trial.
--- NOTE | 2023-06-18 14:57 | P.PN ---
Subjective Progress Note Date: 06/18/23 Principal diagnosis: Reason for follow-up is leukocytosis and pneumonia Patient is a 88-year-old male with a past medical history significant for hypertension COPD, osteoarthritis coronary artery disease former smoker patient was brought into the hospital after the patient did have a fall at home, patient was in the bathtub for more than 24 hours on admission to the hospital CT of the chest concerning for right lower lobe consolidation. On today's evaluation that is 06/18/2023 the patient denies having any fever or any chills, the patient is breathing comfortably on 2 L nasal cannula oxygen, patient denies chest pain cough has decreased in intensity, the patient denies having any abdominal pain no nausea vomiting and no diarrhea, rather patient complaining of constipation no bowel movement since admission to the hospital Patient white count is 6.8 as of 06/16/2023 creatinine is 0.66 blood cultures pending Objective - Vital Signs Vital signs: Vital Signs Temp 98.3 F 06/17/23 19:54 Pulse 68 06/18/23 11:31 Resp 16 06/18/23 08:00 BP 148/78 06/18/23 08:00 Pulse Ox 90 L 06/18/23 08:00 FiO2 Intake & Output 06/17/23 06/18/23 06/18/23 18:59 06:59 18:59 Intake Total 180 540 180 Output Total 400 1100 700 Balance -220 -560 -520 Weight 97.069 kg Intake: Oral 180 540 180 Output: Urine 400 1100 700 Other: Voiding Method Indwelling Catheter Indwelling Catheter Indwelling Catheter - Exam GENERAL DESCRIPTION: An elderly male lying in bed in no distress RESPIRATORY SYSTEM: Unlabored breathing , decreased breath sounds at bases HEART: S1 S2 regular rate and rhythm , ABDOMEN: Soft , no tenderness EXTREMITIES: No edema feet - Labs CBC & Chem 7: 06/16/23 07:39 06/18/23 06:53 Labs: Abnormal Lab Results - Last 24 Hours (Table) 06/18/23 Range/Units 06:53 Chloride 108 H (98-107) mmol/L Glucose 103 H (74-99) mg/dL Microbiology - Last 24 Hours (Table) 06/13/23 21:37 Blood Culture - Preliminary Blood Assessment and Plan (1) Pneumonia Current Visit: Yes Status: Acute Code(s): J18.9 - PNEUMONIA, UNSPECIFIED ORGANISM SNOMED Code(s): 057833354 (2) Leukocytosis Current Visit: Yes Status: Acute Code(s): D72.829 - ELEVATED WHITE BLOOD CELL COUNT, UNSPECIFIED SNOMED Code(s): 899303110 Plan: 1patient presented to hospital with weakness and fall patient did have elevated white count also noticed to have right lower lobe consolidation mildly hypoxic concerning for pneumonia with a question of community-acquired versus aspiration etiology 2- patient is afebrile patient white count has normalized, 3-patient did have improvement on Unasyn will finish therapy with a short course of oral Augmentin on discharge discussed with the COLD WATER MACHINE OPERATOR for admitting team Dictation was produced using [employer] dictation software. please excuse any grammatical, word or spelling errors. Time with Patient: Less than 30
--- NOTE | 2023-06-18 19:00 | XR ---
KUB HISTORY: Left renal calculus. COMPARISON: None. TECHNIQUE: 2 supine views of the brain were obtained FINDINGS: There is contrast within the right and transverse colon. Bowel gas pattern is nonspecific. There are 3 calcifications in the left aspect of the abdomen location of which are indeterminant and may be related to the right kidney or ureter. Largest of which is 17 mm. The second second largest is 9.3 mm and the third largest is a linear calcification approximately 7 mm in length. There are no ab normal calcifications within the pelvis in the region of the urinary bladder. There are marked degenerative changes in the lumbar spine. IMPRESSION: Limited study but there are 3 calcifications in left abdomen location of which are indeterminate and may or may not be related to the left kidney or collecting system.
[2023-06-18] MEDS: ATORVASTATIN 40 MG TAB PO SCH (21:26)
[2023-06-18] MEDS: ALPRAZolam 0.25 MG TAB PO PRN (21:31)
[2023-06-19] MEDS ORDERED: ALPRAZolam 0.5 MG TAB PO STA (03:03)
[2023-06-19] MEDS: AMPICILLIN-SULBACTAM 3 GM in SODIUM CHLORIDE 0.9% 100 ML IVPB SCH ×3 (03:12→17:29)
[2023-06-19] MEDS ORDERED: FUROSEMIDE 10 MG/ML 4 ML VIAL IV STA (07:09)
[2023-06-19] MEDS: polyethylene glycoL 3350 17 GM POWD.PACK PO SCH (08:39)
[2023-06-19] MEDS: TAMSULOSIN 0.4 MG CAP.ER.24H PO SCH (08:39)
[2023-06-19] MEDS: HEPARIN SODIUM,PORCINE 5,000 UNIT/ML 1 ML VIAL SQ SCH (08:39)
[2023-06-19] MEDS: ASPIRIN 81 MG PO SCH (08:40)
[2023-06-19] MEDS: CLOPIDOGREL 75 MG TAB PO SCH (08:40)
[2023-06-19] MEDS: VIT A,C & E-LUTEIN-MINERALS 1 EACH TAB PO SCH (08:40)
[2023-06-19] MEDS: MULTIVITAMINS, THERA 1 EACH TAB PO SCH (08:40)
[2023-06-19] MEDS: PANTOPRAZOLE 40 MG TABLET PO SCH (08:40)
[2023-06-19] MEDS: IPRATROPIUM-ALBUTEROL 3 ML NEB INHALATION SCH ×3 (09:07→15:11)
[2023-06-19] MEDS: SYMBICORT 160-4.5 MCG INHALER INHALATION SCH (09:07)
--- NOTE | 2023-06-19 10:26 | P.PN ---
Subjective Progress Note Date: 06/19/23 Principal diagnosis: Reason for follow-up is leukocytosis and pneumonia Patient is a 88-year-old male with a past medical history significant for hypertension COPD, osteoarthritis coronary artery disease former smoker patient was brought into the hospital after the patient did have a fall at home, patient was in the bathtub for more than 24 hours on admission to the hospital CT of the chest concerning for right lower lobe consolidation. On today's evaluation that is 06/19/2023 the patient remains to be afebrile, the patient is breathing comfortably on 2 L nasal cannula oxygen, patient currently sleepy as according to the daughter he hardly got any sleep last night no respiratory distress has been reported no nausea vomiting patient did not have any bowel movement Patient white count is 6.8 as of 06/16/2023 creatinine is 0.66 as of yesterday blood cultures pending Objective - Vital Signs Vital signs: Vital Signs Temp 98.2 F 06/19/23 04:00 Pulse 77 06/19/23 09:16 Resp 16 06/19/23 04:00 BP 158/74 06/19/23 04:00 Pulse Ox 94 L 06/19/23 09:10 FiO2 Intake & Output 06/18/23 06/19/23 06/19/23 18:59 06:59 18:59 Intake Total 1080 Output Total 900 2200 Balance 180 -2200 Weight 97.069 kg Intake: Oral 1080 Output: Urine 900 2200 Other: Voiding Method Indwelling Catheter Indwelling Catheter - Exam GENERAL DESCRIPTION: An elderly male lying in bed in no distress RESPIRATORY SYSTEM: Unlabored breathing , decreased breath sounds at bases HEART: S1 S2 regular rate and rhythm , ABDOMEN: Soft , no tenderness EXTREMITIES: No edema feet - Labs CBC & Chem 7: 06/16/23 07:39 06/18/23 06:53 Labs: Microbiology - Last 24 Hours (Table) 06/13/23 18:07 Blood Culture - Final Blood Assessment and Plan (1) Pneumonia Current Visit: Yes Status: Acute Code(s): J18.9 - PNEUMONIA, UNSPECIFIED ORGANISM SNOMED Code(s): 124923898 (2) Leukocytosis Current Visit: Yes Status: Acute Code(s): D72.829 - ELEVATED WHITE BLOOD CELL COUNT, UNSPECIFIED SNOMED Code(s): 164718145 Plan: 1patient presented to hospital with weakness and fall patient did have elevated white count also noticed to have right lower lobe consolidation mildly hypoxic concerning for pneumonia with a question of community-acquired versus aspiration etiology 2- patient is afebrile patient white count has normalized, 3-patient to continue with Unasyn while inpatient discussed with the daughter hospice may be a better option keeping in mind his overall clinical condition he will discuss it further with the medical team Dictation was produced using [employer] dictation software. please excuse any grammatical, word or spelling errors. Time with Patient: Less than 30
--- NOTE | 2023-06-19 11:25 | P.PN ---
Subjective Patient is seen in follow-up for acute kidney injury. Renal function back to baseline. Has Napier catheter for urinary retention. Oral intake poor. Daughter present at bedside. Considering hospice. Vital signs are stable. General: No acute distress. HEENT: Head exam is unremarkable. LUNGS: No audible rhonchi or wheezes. HEART: Rate and Rhythm are regular. ABDOMEN: Nontender. EXTREMITITES: No edema. Objective - Vital Signs Vital signs: Vital Signs Temp 98.2 F 06/19/23 04:00 Pulse 72 06/19/23 11:19 Resp 16 06/19/23 08:00 BP 175/82 06/19/23 08:00 Pulse Ox 94 L 06/19/23 09:10 FiO2 Intake & Output 06/18/23 06/19/23 06/19/23 18:59 06:59 18:59 Intake Total 1080 Output Total 900 2200 Balance 180 -2200 Weight 97.069 kg Intake: Oral 1080 Output: Urine 900 2200 Other: Voiding Method Indwelling Catheter Indwelling Catheter Indwelling Catheter - Labs CBC & Chem 7: 06/16/23 07:39 06/18/23 06:53 Labs: Microbiology - Last 24 Hours (Table) 06/13/23 18:07 Blood Culture - Final Blood Assessment and Plan Plan: Assessment: 1. Acute kidney injury secondary to urinary retention. Creatinine peaked at 1.9 to this admission - 0.66 yesterday. Patient received IV contrast for CTA on 06/13/2023. Left-sided hydronephrosis noted on kidney ultrasound. Urology following. On Flomax. May undergo a left ureteral stent insertion outpatient once cleared by cardiology. 2. Benign hypertension. 3. Rhabdomyolysis secondary to fall. CK level improved. 4. Pneumonia maintained on antibiotics. Plan: Off IV fluids. Status post IV Lasix this morning. Avoid nephrotoxins. Hospice is being considered.
[2023-06-19 11:44] VITALS: PULSE 72
--- NOTE | 2023-06-19 12:48 | P.PN ---
Subjective Progress Note Date: 06/19/23 Patient is evaluated on the cardiac floor, he has been admitted for heart failure, nstemi and acute renal failure. Creatinine today is 0.96 peaked at 1.92. He was found to have urinary retention had an abdomen/bladder US done showing a 9mm left midpole renal calculus with moderate hydronephrosis on the left. Correlate for ureteral obstruction. Multiple cortical cysts within the right kidney measuring up to 3.2cm. Incidental numerous gallstones measuring up to 1.7 cm. Urology has been consulted. IDC remains in place. He remains on oxygen support 3L nasal cannula does not wear oxygen at home. Procalcitonin level 0.18. 06/17/2023 Patient is evaluated again on cardiac floor. He remains on oxygen support with improving saturations. Chest xray showing low lung volumes with a generalized hazy appearance which could represent atelectasis versus pulmonary edema correlate with serum BNP. He continues on IV unasyn. There is concern for aspiration speech therapy consultation in place. Patient is being hydrated with normal saline. Urology follow up today recommends to continue on flomax, and leave the catheter in place. Consider left ureteral stent placement. Cardiology at this time has signed off. 06/19/2023 Patient has been cleared medically for discharge to subacute rehab. We did check a proBNP due to the mention of pulmonary edema on chest x-ray and proBNP was mildly elevated at 2590 for this reason he was given a dose of IV Lasix. He required 4L of oxygen overnight. 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 He continues to report shortness of breath. He was evaluated by speech therapy and cleared for thin liquid chopped diet. Urology recommend continuing the Napier catheter and removed 12 hours prior to his follow-up appointment next week. Patient's daughter and patient have decided today that he would like to meet with hospice informational session. They felt he has had a slow decline over the last 2 weeks prior to coming to the hospital. Review of Systems Constitutional: Denied any fatigue denied any fever. Cardio vascular: denied any chest pain, palpitations Gastrointestinal: denied any nausea, vomiting, diarrhea Pulmonary: Reports shortness of breath, cough Neurologic denied any new focal deficits All inpatient medications were reviewed and appropriate changes in these medications as dictated in the interval history and assessment and plan. PHYSICAL EXAMINATION: GENERAL: The patient is alert and oriented x3, not in any acute distress. Well developed, well nourished. on 2L nasal cannula HEENT: Pupils are round and equally reacting to light. EOMI. No scleral icterus. No conjunctival pallor. Normocephalic, atraumatic. No pharyngeal erythema. No thyromegaly. CARDIOVASCULAR: S1 and S2 present. No murmurs, rubs, or gallops. Diminished PULMONARY: Chest is clear to auscultation, no wheezing or crackles. ABDOMEN: Soft, nontender, nondistended, normoactive bowel sounds. No palpable organomegaly. MUSCULOSKELETAL: No joint swelling or deformity. EXTREMITIES: No cyanosis, clubbing, or pedal edema. Mild non pitting peripheral edema NEUROLOGICAL: Gross neurological examination did not reveal any focal deficits. Diffuse weakness no focal deficits SKIN: No rashes. Assessment Traumatic fall and acute rhabdomyolysis with elevated CK Troponin elevation and non ST elevation NH managed medically Acute hypoxic respiratory failure secondary to acute heart failure exacerbation and COPD exacerbation Acute diastolic dysfunction with normal LV function Obstructive uropathy due to left renal calculus with moderate hypdronephrosis Acute kidney injury due to the obstructive uropathy Right lower lobe pneumonia community acquired being evaluated for aspiration Coronary artery disease with prior cardiac stenting Elevated D Dimer CTA negative for PE Hx of COPD Hx of DVT Gastroesophageal reflux disease Former smoker Hx of kidney stone with lithotripsy 3 years ago GI prophylaxis DVT prophylaxis Do Not Resuscitate/Do Not Intubate Plan Continue on IV unasyn with ID following closely recommending 7 days of oral augmentin on discharge. Recommending incentive spirometer 10 x an hour while awake Normal saline has been decreased Continue with indwelling catheter, urology considering left ureteral stent placement with cardiac clearance outpatient basis. Urology requesting baseline KUB which has pasquale done. Continue aspirin, statin, and beta jewel therapy for optimized medical therapy due to the troponin elevation Patient recommending to undergo outpatient stres test outpatient as part of ischemic work up Continue on bowel regimen Repeat labs in am Plan is for [facility] on discharge possibly in the next 24 to 48 hours. Patient and family would like to meet with hospice for informational session. The impression and plan of care has been dictated by Christin Johnson Nurse Practitioner as directed. Dr. Bouchra MD I have performed a history and physical examination and medical decision making of this patient, discussed the same with the dictator, and agree with the dictators assessment and plan as written, documented as a scribe. Based on total visit time, I have performed more than 50% of this visit. Objective - Vital Signs Vital signs: Vital Signs Temp 98.2 F 06/19/23 04:00 Pulse 72 06/19/23 11:30 Resp 16 06/19/23 08:00 BP 175/82 06/19/23 08:00 Pulse Ox 94 L 06/19/23 09:10 FiO2 Intake & Output 06/18/23 06/19/23 06/19/23 18:59 06:59 18:59 Intake Total 1080 Output Total 900 2200 Balance 180 -2200 Weight 97.069 kg Intake: Oral 1080 Output: Urine 900 2200 Other: Voiding Method Indwelling Catheter Indwelling Catheter Indwelling Catheter - Labs CBC & Chem 7: 06/16/23 07:39 06/18/23 06:53 Labs: Microbiology - Last 24 Hours (Table) 06/13/23 18:07 Blood Culture - Final Blood Assessment and Plan Time with Patient: Less than 30
[2023-06-19 15:22] VITALS: BP 107/61; RESP 18; TEMP 98.1
== END 2023-06-19 18:30 | DRG 280 ==
LOC: EC 11:16 → 3SCARD 15:57
PROVIDERS: ADMIT Hospitalist; ATTEND Hospitalist
DX: I11.0 Hypertensive heart disease with heart failure (principal); I21.4 Non-ST elevation (NSTEMI) myocardial infarction; I50.33 Acute on chronic diastolic (congestive) heart failure; J96.01 Acute respiratory failure with hypoxia; N17.0 Acute kidney failure with tubular necrosis; J18.9 Pneumonia, unspecified organism; J44.0 Chronic obstructive pulmonary disease with (acute) lower respiratory infection; J44.1 Chronic obstructive pulmonary disease with (acute) exacerbation; N13.2 Hydronephrosis with renal and ureteral calculous obstruction; T79.6XXA Traumatic ischemia of muscle, initial encounter; J98.6 Disorders of diaphragm; E78.5 Hyperlipidemia, unspecified; Z66 Do not resuscitate; I25.10 Atherosclerotic heart disease of native coronary artery without angina pectoris; K21.9 Gastro-esophageal reflux disease without esophagitis; K44.9 Diaphragmatic hernia without obstruction or gangrene; K80.20 Calculus of gallbladder without cholecystitis without obstruction; M50.30 Other cervical disc degeneration, unspecified cervical region; N28.1 Cyst of kidney, acquired; R31.0 Gross hematuria; R33.9 Retention of urine, unspecified; M19.90 Unspecified osteoarthritis, unspecified site; G89.29 Other chronic pain; M54.50 Low back pain, unspecified; M25.512 Pain in left shoulder; M25.551 Pain in right hip; M25.552 Pain in left hip; G47.00 Insomnia, unspecified; R26.9 Unspecified abnormalities of gait and mobility; R15.9 Full incontinence of feces; Z79.82 Long term (current) use of aspirin; Z79.02 Long term (current) use of antithrombotics/antiplatelets; Z79.899 Other long term (current) drug therapy; Z95.5 Presence of coronary angioplasty implant and graft; Z87.891 Personal history of nicotine dependence; Z87.442 Personal history of urinary calculi; Z86.718 Personal history of other venous thrombosis and embolism; Z95.2 Presence of prosthetic heart valve; W18.2XXA Fall in (into) shower or empty bathtub, initial encounter; Y92.002 Bathroom of unspecified non-institutional (private) residence as the place of occurrence of the external cause; Y93.E1 Activity, personal bathing and showering; Z91.040 Latex allergy status
CPT/HCPCS: 36415; 70450; 71046; 71275; 72125; 72128; 72131; 72170; 74018; 74230; 76770; 80048; 80053; 81001; 82550; 83605; 83735; 83880; 84145; 84484; 85025; 85379; 85610; 85730; 87040; 87086; 87636; 93005; 93306; 94640; 94760; 96361; 96365; 96367; 96375; 99285

== ENCOUNTER 2023-07-14 15:31 | Emergency (ER) | payer MEDICARE, BC ==
--- NOTE | 2023-07-14 16:06 | ED ---
Weakness HPI - General Chief complaint: Weakness Stated complaint: Weakness,R Side Pain Time Seen by Provider: 07/14/23 15:46 Source: EMS, RN notes reviewed, old records reviewed Mode of arrival: EMS Limitations: no limitations - History of Present Illness Initial comments: This is a 88-year-old male to the ER for evaluation today. Patient in today for evaluation of a altered mental status. Patient has arm pain bilateral hip pain decreased activity level with altered mental status. Patient himself is a poor historian secondary to extremes of age MD Complaint: generalized weakness -: days(s) Location: generalized Severity: moderate Severity scale (1-10): 4 Consistency: constant Improves with: none Worsens with: none Context: recent illness, history of similar Associated Symptoms: denies other symptoms - Related Data Home Medications Medication Instructions Recorded Confirmed Aspirin [Adult Low Dose Aspirin EC] 81 mg PO DAILY 02/21/20 07/14/23 Pantoprazole Sodium [Protonix] 40 mg PO DAILY 02/21/20 07/14/23 Vit C/E/Zn/Coppr/Lutein/Zeaxan 1 cap PO DAILY 01/01/23 07/14/23 [Preservision Areds 2 Softgel] Multivitamins, Thera [Multivitamin 1 tab PO DAILY 06/13/23 07/14/23 (formulary)] Budesonide-Formot 160-4.5 Mcg 2 puff INHALATION RT-HS 07/14/23 07/14/23 [Symbicort 160-4.5 Mcg Inhaler] Cholecalciferol [Vitamin D3 (25 50 mcg PO DAILY 07/14/23 07/14/23 Mcg = 1000 Iu)] HYDROcodone/APAP 5-325MG [[place] 1 tab PO Q6HR PRN 07/14/23 07/14/23 5-325] Ipratropium-Albuterol Nebulize 3 ml INHALATION RT-QID@05,,,07/14/23 07/14/23 [Duoneb 0.5 mg-3 mg/3 ml Soln] Lac-Hydrin 5% Lotion 1 applic TOPICAL BID 07/14/23 07/14/23 Tamsulosin [Flomax] 0.4 mg PO DAILY 07/14/23 07/14/23 Previous Rx's Medication Instructions Recorded Nitroglycerin Sl Tabs [Nitrostat] 0.4 mg SUBLINGUAL Q5M PRN #25 tab 03/18/16 Clopidogrel [Plavix] 75 mg PO DAILY #1 tab 09/04/16 Acetaminophen Tab [Tylenol] 650 mg PO Q6HR PRN tab 01/05/23 ALPRAZolam [Xanax] 0.25 mg PO DAILY PRN #4 tab 06/18/23 Atorvastatin [Lipitor] 40 mg PO HS tab 06/18/23 QUEtiapine [SEROquel] 12.5 mg PO HS #10 tab 06/18/23 polyethylene glycoL 3350 [Miralax] 17 gm PO DAILY packet 06/18/23 Amoxic-Pot Clav 875-125Mg 1 tab PO Q12HR #20 tablet 07/14/23 [Augmentin 875-125] Allergies Allergy/AdvReac Type Severity Reaction Status Date / Time latex Allergy blisters Verified 07/14/23 17:56 in mouth venom-honey bee Allergy passed out Verified 07/14/23 17:56 [bee venom (honey bee)] venom-wasp [wasp venom] Allergy passed out Verified 07/14/23 17:56 Review of Systems ROS Statement: Those systems with pertinent positive or pertinent negative responses have been documented in the HPI. ROS Other: All systems not noted in ROS Statement are negative. Past Medical History Past Medical History: Coronary Artery Disease (CAD), COPD, Deep Vein Thrombosis (DVT), GERD/Reflux, GI Bleed, Hypertension, Osteoarthritis (OA) Additional Past Medical History / Comment(s): SOB, hx kidney stones, paralyzed diaphragm rt side, GI bleed 2016 History of Any Multi-Drug Resistant Organisms: None Reported Past Surgical History: Adenoidectomy, Appendectomy, Heart Catheterization With Stent, Hernia Repair, Tonsillectomy Additional Past Surgical History / Comment(s): lithotripsy x4, 3 cardiac stents, rt cataract, oral surgery Past Anesthesia/Blood Transfusion Reactions: Motion Sickness, Postoperative Nausea & Vomiting (PONV) Additional Past Anesthesia/Blood Transfusion Reaction / Comment(s): HAD MOTION SICKNESS WHEN YOUNGER, paralyzed diaphragm rt side Date of Last Stent Placement:: 03/2019 Past Psychological History: No Psychological Hx Reported Smoking Status: Former smoker Past Alcohol Use History: None Reported Past Drug Use History: None Reported - Past Family History Mother Family Medical History: Cancer Father Family Medical History: Myocardial Infarction (NE), Mitral Valve Prolapse (MVP) Additional Family Medical History / Comment(s): PT STATED HIS FATHER HAD 14 NE'S AND AT THE AGE OF 58 General Exam Limitations: no limitations General appearance: alert, in no apparent distress Head exam: Present: atraumatic, normocephalic, normal inspection Eye exam: Present: normal appearance, PERRL, EOMI. Absent: scleral icterus, conjunctival injection, periorbital swelling ENT exam: Present: normal exam, mucous membranes moist Neck exam: Present: normal inspection. Absent: tenderness, meningismus, lymphadenopathy Respiratory exam: Present: normal lung sounds bilaterally. Absent: respiratory distress, wheezes, rales, rhonchi, stridor Cardiovascular Exam: Present: normal rhythm, tachycardia, normal heart sounds. Absent: systolic murmur, diastolic murmur, rubs, gallop, clicks GI/Abdominal exam: Present: soft, normal bowel sounds. Absent: distended, tenderness, guarding, rebound, rigid Extremities exam: Present: normal inspection, full ROM, normal capillary refill. Absent: tenderness, pedal edema, joint swelling, calf tenderness Back exam: Present: normal inspection Neurological exam: Present: alert, oriented X3, CN II-XII intact Psychiatric exam: Present: normal affect, normal mood Skin exam: Present: warm, dry, intact, normal color. Absent: rash Course Vital Signs 07/14/23 07/14/23 07/14/23 15:43 18:01 18:05 Temperature 97.7 F Pulse Rate 109 H 117 H Respiratory 18 24 Rate Blood Pressure 157/84 174/81 O2 Sat by Pulse 94 L 93 L Oximetry - Reevaluation(s) Reevaluation #1: 07/14/23 19:18 Medical record is reviewed Reevaluation #2: 07/14/23 19:18 Patient symptoms are unchanged Reevaluation #3: 07/14/23 19:18 Patient informed of results and questions answered Reevaluation #4: Was pt. sent in by a medical professional or institution (, PA, SPECIAL TECHNICAL OPERATIONS OFFICER, urgent care, hospital, or long term...) When possible be specific @ -no Did you speak to anyone other than the patient for history (EMS, parent, family, police, friend...)? What history was obtained from this source @ -no Did you review nursing and triage notes (agree or disagree)? Why? @ -agree Are old charts reviewed (outside hosp., previous admission, EMS record, old EKG, old radiological studies, urgent care reports/EKG's, long term records)? Report findings @ -yes Differential Diagnosis (chest pain, altered mental status, abdominal pain women, abdominal pain men, vaginal bleeding, weakness, fever, dyspnea, syncope, headache, dizziness, GI bleed, back pain, seizure, CVA, palpatations, mental health, musculoskeletal)? @ -prior EKG interpreted by me (3pts min.). @ -yes X-rays interpreted by me (1pt min.). @ -yes negative for acute disease CT interpreted by me (1pt min.). @ -no U/S interpreted by me (1pt. min.). @ -no What testing was considered but not performed or refused? (CT, X-rays, U/S, l abs)? Why? @ -none What meds were considered but not given or refused? Why? @ -none Did you discuss the management of the patient with other professionals (professionals i.e. , PA, SPECIAL TECHNICAL OPERATIONS OFFICER, lab, RT, psych nurse, social media strategist, cell builder, teacher, protocol officer, pillowcase turner)? Give summary @ -no Was smoking cessation discussed for >3mins.? @ -no Was critical care preformed (if so, how long)? @ -no Were there social determinants of health that impacted care today? How? (Homelessness, low income, unemployed, alcoholism, drug addiction, transportation, low edu. Level, literacy, decrease access to med. care, detention, rehab)? @ -none Was there de-escalation of care discussed even if they declined (Discuss DNR or withdrawal of care, Hospice)? DNR status @ -no What co-morbidities impacted this encounter? (DM, HTN, Smoking, COPD, CAD, Cancer, CVA, ARF, Chemo, Hep., AIDS, mental health diagnosis, sleep apnea, morbid obesity)? @ -none Was patient admitted / discharged? Hospital course, mention meds given and route, prescriptions, significant lab abnormalities, going to OR and other pertinent info. @ - 88 male to the ER for evaluation of altered mental status and pain. Patient is pain control here in the ER, will be discharged home Discharge Undiagnosed new problem with uncertain prognosis? @ -no Drug Therapy requiring intensive monitoring for toxicity (Heparin, Nitro, Insulin, Cardizem)? @ -no Were any procedures done? @ -no Diagnosis/symptom? @ -Altered mental status and generalized pain Acute, or Chronic, or Acute on Chronic? @ -Acute Uncomplicated (without systemic symptoms) or Complicated (systemic symptoms)? @ -Complicated Side effects of treatment? @ -no Exacerbation, Progression, or Severe Exacerbation? @ -exacerbation Poses a threat to life or bodily function? How? (Chest pain, USA, NE, pneumonia, PE, COPD, DKA, ARF, appy, cholecystitis, CVA, Diverticulitis, Homicidal, Suicidal, threat to staff... and all critical care pts) @ -yes with extremes of age Reevaluation #5: Differential Altered Mental Status: Hypoglycemia, DKA, hypercapnia, ETOH, overdose, CO poisoning, trauma, myxedema coma, HTN encephalopathy, infection, encephalitis, psychosis, intercranial hemorrhage, hepatic encephalopathy, meningitis, CVA, this is not meant to be an all-inclusive list EKG Findings - EKG Comments: EKG Findings:: EKG is sinus tachycardia 118 AK 189 QRS 98 QTc 355 - EKG Results: EKG: interpreted by SUPRIYA Medical Decision Making - Medical Decision Making 88 male to the ER for evaluation of altered mental status and pain. Patient is pain control here in the ER, will be discharged home - Lab Data Result diagrams: 07/14/23 17:12 07/14/23 17:12 Lab Results 07/14/23 07/14/23 07/14/23 Range/Units 17:12 17:12 17:12 WBC 14.5 H (3.8-10.6) k/uL RBC 5.06 (4.30-5.90) m/uL Hgb 15.0 (13.0-17.5) gm/dL Hct 46.8 (39.0-53.0) % MCV 92.4 (80.0-100.0) fL MCH 29.7 (25.0-35.0) pg MCHC 32.1 (31.0-37.0) g/dL RDW 13.3 (11.5-15.5) % Plt Count 323 (150-450) k/uL MPV 7.3 Neutrophils % 86 % Lymphocytes % 6 % Monocytes % 5 % Eosinophils % 1 % Basophils % 0 % Neutrophils # 12.5 H (1.3-7.7) k/uL Lymphocytes # 0.9 L (1.0-4.8) k/uL Monocytes # 0.8 (0-1.0) k/uL Eosinophils # 0.1 (0-0.7) k/uL Basophils # 0.0 (0-0.2) k/uL PT 11.6 (10.0-12.5) sec INR 1.1 (<1.2) APTT 26.4 (22.0-30.0) sec Sodium 137 (137-145) mmol/L Potassium 4.7 (3.5-5.1) mmol/L Chloride 99 (98-107) mmol/L Carbon Dioxide 32 H (22-30) mmol/L Anion Gap 6 mmol/L BUN 22 H (9-20) mg/dL Creatinine 0.70 (0.66-1.25) mg/dL Est GFR (CKD-EPI)AfAm >90 (>60 ml/min/1.73 sqM) Est GFR (CKD-EPI)NonAf 84 (>60 ml/min/1.73 sqM) Glucose 107 H (74-99) mg/dL Calcium 9.6 (8.4-10.2) mg/dL Phosphorus 3.6 (2.5-4.5) mg/dL Magnesium 1.8 (1.6-2.3) mg/dL Total Bilirubin 0.8 (0.2-1.3) mg/dL AST 45 (17-59) U/L ALT 30 (4-49) U/L Alkaline Phosphatase 110 (38-126) U/L Troponin I (0.000-0.034) ng/mL Total Protein 7.0 (6.3-8.2) g/dL Albumin 3.6 (3.5-5.0) g/dL Urine Color Urine Appearance (Clear) Urine pH (5.0-8.0) Ur Specific [place] (1.001-1.035) Urine Protein (Negative) Urine Glucose (UA) (Negative) Urine Ketones (Negative) Urine Blood (Negative) Urine Nitrite (Negative) Urine Bilirubin (Negative) Urine Urobilinogen (<2.0) mg/dL Ur Leukocyte Esterase (Negative) Urine RBC (0-5) /hpf Urine WBC (0-5) /hpf Urine Bacteria (None) /hpf Urine Mucus (None) /hpf 07/14/23 07/14/23 Range/Units 17:12 19:30 WBC (3.8-10.6) k/uL RBC (4.30-5.90) m/uL Hgb (13.0-17.5) gm/dL Hct (39.0-53.0) % MCV (80.0-100.0) fL MCH (25.0-35.0) pg MCHC (31.0-37.0) g/dL RDW (11.5-15.5) % Plt Count (150-450) k/uL MPV Neutrophils % % Lymphocytes % % Monocytes % % Eosinophils % % Basophils % % Neutrophils # (1.3-7.7) k/uL Lymphocytes # (1.0-4.8) k/uL Monocytes # (0-1.0) k/uL Eosinophils # (0-0.7) k/uL Basophils # (0-0.2) k/uL PT (10.0-12.5) sec INR (<1.2) APTT (22.0-30.0) sec Sodium (137-145) mmol/L Potassium (3.5-5.1) mmol/L Chloride (98-107) mmol/L Carbon Dioxide (22-30) mmol/L Anion Gap mmol/L BUN (9-20) mg/dL Creatinine (0.66-1.25) mg/dL Est GFR (CKD-EPI)AfAm (>60 ml/min/1.73 sqM) Est GFR (CKD-EPI)NonAf (>60 ml/min/1.73 sqM) Glucose (74-99) mg/dL Calcium (8.4-10.2) mg/dL Phosphorus (2.5-4.5) mg/dL Magnesium (1.6-2.3) mg/dL Total Bilirubin (0.2-1.3) mg/dL AST (17-59) U/L ALT (4-49) U/L Alkaline Phosphatase (38-126) U/L Troponin I 0.072 H* (0.000-0.034) ng/mL Total Protein (6.3-8.2) g/dL Albumin (3.5-5.0) g/dL Urine Color Yellow Urine Appearance Cloudy (Clear) Urine pH 5.5 (5.0-8.0) Ur Specific [place] 1.019 (1.001-1.035) Urine Protein 2+ H (Negative) Urine Glucose (UA) Negative (Negative) Urine Ketones Negative (Negative) Urine Blood Trace H (Negative) Urine Nitrite Positive (Negative) Urine Bilirubin Negative (Negative) Urine Urobilinogen <2.0 (<2.0) mg/dL Ur Leukocyte Esterase Large H (Negative) Urine RBC 8 H (0-5) /hpf Urine WBC 136 H (0-5) /hpf Urine Bacteria Occasional H (None) /hpf Urine Mucus Rare H (None) /hpf - EKG Data -: EKG Interpreted by Me - Radiology Data Radiology results: report reviewed (Chest x-ray pelvis x-ray right arm x-ray negative for traumatic injury), image reviewed Disposition Clinical Impression: Weakness, Altered mental status, Right arm pain, UTI (urinary tract infection) Disposition: HOME SELF-CARE Condition: Good Instructions (If sedation given, give patient instructions): Weakness (ED), Arm Pain (ED) Prescriptions: Amoxic-Pot Clav 875-125Mg [Augmentin 875-125] 1 tab PO Q12HR #20 tablet Is patient prescribed a controlled substance at d/c from ED?: No Referrals: Lisha Martinez MD [Primary Care Provider] - 1-2 days Time of Disposition: 18:00
[2023-07-14 16:44] VITALS: TEMP 97.7
[2023-07-14 17:20] LABS: Basophils % (A) 0 %; Eosinophils # (A) 0.1 k/uL (0-0.7); Eosinophils % (A) 1 %; HCT 46.8 % (39.0-53.0); Lymphocytes # (A) 0.9 k/uL (1.0-4.8); Lymphocytes % (A) 6 %; MCH 29.7 pg (25.0-35.0); MCHC 32.1 g/dL (31.0-37.0); MCV 92.4 fL (80.0-100.0); Mean Platelet Volume 7.3; Monocytes # (A) 0.8 k/uL (0-1.0); Monocytes % (A) 5 %; Neutrophils # (A) 12.5 k/uL (1.3-7.7); Neutrophils % (A) 86 %; Platelet Count 323 k/uL (150-450); RBC 5.06 m/uL (4.30-5.90); RDW 13.3 % (11.5-15.5); WBC 14.5 k/uL (3.8-10.6)
--- NOTE | 2023-07-14 17:21 | XR ---
EXAMINATION TYPE: XR chest 1V, XR shoulder complete 3 views RT, XR Hip 2 views Bilateral and AP pelvi s, XR elbow complete 3 views RT DATE OF EXAM: 07/14/2023 COMPARISON: NONE HISTORY: 88-year-old male with pain FINDINGS: CHEST: Patient is obliqued and rotated toward the right altering the normal cardiac mediastinal contours. Lo w lung volumes and cardiovascular markings. Correlate to exclude mild pulmonary vascular congestion. Endovascular aortic valve replacement noted. There is loss of the subacromial space left shoulder com patible chronic full-thickness rotator cuff tear. Right shoulder: Loss of the subacromial space on this side as well. Multiple moderate degenerative spurring AC joint. Additional degenerative spurring glenohumeral joint. No acute fracture, subluxation, or dislocation seen. Right elbow: Scattered synovial calcification is noted. Anterior elbow joint effusion is present. Some elevation o f the posterior fat-pad of the elbow as well. No malalignment of the anterior humeral radiocapitellar lines. Questionable subtle lucency along the posterior cortex of the distal humerus on the lateral v iew extending into the posterior olecranon fossa. Pelvis and both hips: Mild degenerative change at the hips. Osteopenia. SI joints appear symmetric and intact as is the pub ic symphysis. No displaced fracture is seen. IMPRESSION: 1. Chest: Portable exam further limited by rotation, obliquity, and hypoventilatory changes. Cartilag e is mild pulmonary vascular congestion. 2. Right shoulder: Mild rotator cuff arthropathy with underlying chronic full-thickness rotator cuff tear. Incidentally, a chronic full-thickness rotator cuff tear is present on the contralateral left s sukhwinder as well. 3. Right elbow: Underlying elbow joint effusion. On the lateral view, questionable subtle nondisplace d supracondylar fracture involving the posterior cortex. 4. Pelvis and both hips: Mild bilateral hip OA. Osteopenia. No displaced fracture seen. Degenerative change L5-S1.
[2023-07-14] MEDS: SODIUM CHLORIDE 0.9% 1,000 ML IV STA (17:22)
[2023-07-14 17:30] LABS: ALT 30 U/L (4-49); AST 45 U/L (17-59); African American GFR (CKD) >90 (>60 ml/min/1.73 sqM); Albumin 3.6 g/dL (3.5-5.0); Alkaline Phosphatase 110 U/L (38-126); Anion Gap 6 mmol/L; Blood Urea Nitrogen 22 mg/dL (9-20); Calcium 9.6 mg/dL (8.4-10.2); Carbon Dioxide 32 mmol/L (22-30); Chloride 99 mmol/L (98-107); Glucose 107 mg/dL (74-99); Magnesium 1.8 mg/dL (1.6-2.3); Non-African American GFR(CKD) 84 (>60 ml/min/1.73 sqM); Phosphorus 3.6 mg/dL (2.5-4.5); Potassium 4.7 mmol/L (3.5-5.1); Sodium 137 mmol/L (137-145); Total Bilirubin 0.8 mg/dL (0.2-1.3)
[2023-07-14 17:59] LABS: INR 1.1 (<1.2); Partial Thromboplastin Time 26.4 sec (22.0-30.0); Prothrombin Time 11.6 sec (10.0-12.5)
[2023-07-14 18:07] VITALS: BP 174/81; PULSE 117; RESP 24
[2023-07-14] MEDS: cefTRIAXone IN SWFI 1,000 MG/10 ML SYRINGE IVP STA (19:17)
[2023-07-14 19:49] LABS: Bacteria,Urine Occasional /hpf; Mucus,Urine Rare /hpf; RBC,Urine 8 /hpf (0-5); WBC,Urine 136 /hpf (0-5)
[2023-07-14 20:01] LABS: Appearance,Urine Cloudy (Clear); Bilirubin,Urine Negative (Negative); Blood,Urine Trace (Negative); Color,Urine Yellow; Glucose,Urine (UA) Negative (Negative); Ketones,Urine Negative (Negative); Leukocyte Esterase,Urine Large (Negative); Nitrite,Urine Positive (Negative); PH, Urine 5.5 (5.0-8.0); Protein,Urine 2+ (Negative); Specific Gravity,Urine 1.019 (1.001-1.035); Urobilinogen,Urine <2.0 mg/dL (<2.0)
[2023-07-14] MEDS: AMOXIC-POT CLAV 875-125MG 1 EACH TAB PO STA (21:10)
== END 2023-07-14 23:37 | disposition home or self-care (01) ==
LOC: EC 15:31
DX: M79.601 Pain in right arm (principal); R53.1 Weakness; R41.82 Altered mental status, unspecified; N39.0 Urinary tract infection, site not specified; I25.10 Atherosclerotic heart disease of native coronary artery without angina pectoris; R00.0 Tachycardia, unspecified; F32.A Depression, unspecified; J44.9 Chronic obstructive pulmonary disease, unspecified; K21.9 Gastro-esophageal reflux disease without esophagitis; I10 Essential (primary) hypertension; Z87.891 Personal history of nicotine dependence; Z79.82 Long term (current) use of aspirin; Z79.899 Other long term (current) drug therapy; Z79.51 Long term (current) use of inhaled steroids; Z91.040 Latex allergy status; Z91.030 Bee allergy status
CPT/HCPCS: 99285; 96374; 96361; 36415; 93005; 80053; 83735; 84100; 84484; 85025; 85610; 85730; 81001; 87086; 73521; 73030; 73080; 71045; J0696

== ENCOUNTER 2023-10-21 05:56 | Day surgery (SDC) | payer MEDICARE, BC ==
--- NOTE | 2023-10-20 18:27 | P.GSHP ---
History of Present Illness H&P Date: 10/20/23 88 yo male in urine retention. He had a cmg showing that his bladder has recouperated. The patient had a cysto that identified an obstructing high riding bladder neck. He comes for a turp to resolve the retention. The risks and alternatives have been discussed. - Constitutional Constitutional: Denies chills, Denies fever - EENT Eyes: denies blurred vision, denies pain Ears, nose, mouth and throat: Denies headache, Denies sore throat - Cardiovascular Cardiovascular: Denies chest pain, Denies shortness of breath - Respiratory Respiratory: Denies cough, Denies 7 - Gastrointestinal Gastrointestinal: Denies abdominal pain, Denies diarrhea, Denies nausea, Denies vomiting - Genitourinary (Female) Genitourinary: Denies dysuria, Denies hematuria - Genitourinary (Male) Genitourinary: Denies dysuria, Denies hematuria - Musculoskeletal Musculoskeletal: Denies myalgias - Integumentary Integumentary: Denies pruritus, Denies rash - Neurological Neurological: Denies numbness, Denies weakness - Psychiatric Psychiatric: Denies anxiety, Denies depression - Endocrine Endocrine: Denies fatigue, Denies weight change Past Medical History Past Medical History: Coronary Artery Disease (CAD), COPD, Deep Vein Thrombosis (DVT), GERD/Reflux, GI Bleed, Hypertension, Osteoarthritis (OA) Additional Past Medical History / Comment(s): SOB, hx kidney stones, paralyzed diaphragm rt side, GI bleed 2016, (?)DVT - pt. denies, indwelling yip catheter, hx. UTI 2023 - hospitalized at [facility], hx. frequent falls/EC visits, hospitalized at [facility] for anxiety in early September 2023 related to past hx. falls History of Any Multi-Drug Resistant Organisms: None Reported Past Surgical History: Adenoidectomy, Appendectomy, Heart Catheterization With Stent, Hernia Repair, Tonsillectomy Additional Past Surgical History / Comment(s): lithotripsy x4, 3 cardiac stents, rt cataract, oral surgery, TAVR 2020 Past Anesthesia/Blood Transfusion Reactions: Motion Sickness, Postoperative Nausea & Vomiting (PONV) Additional Past Anesthesia/Blood Transfusion Reaction / Comment(s): HAD MOTION SICKNESS WHEN YOUNGER, paralyzed diaphragm rt side Date of Last Stent Placement:: 03/2019 Smoking Status: Former smoker - Past Family History Mother Family Medical History: Cancer Father Family Medical History: Myocardial Infarction (AK), Mitral Valve Prolapse (MVP) Additional Family Medical History / Comment(s): PT STATED HIS FATHER HAD 14 AK'S AND AT THE AGE OF 58 Medications and Allergies Home Medications Medication Instructions Recorded Confirmed Type Nitroglycerin Sl Tabs [Nitrostat] 0.4 mg SUBLINGUAL Q5M PRN #25 tab 03/18/16 10/15/23 Rx Clopidogrel [Plavix] 75 mg PO DAILY #1 tab 09/04/16 10/20/23 Rx Aspirin [Adult Low Dose Aspirin EC] 81 mg PO DAILY 02/21/20 10/20/23 History Pantoprazole Sodium [Protonix] 40 mg PO DAILY 02/21/20 10/15/23 History Acetaminophen Tab [Tylenol] 650 mg PO Q6HR PRN tab 01/05/23 10/15/23 Rx Atorvastatin [Lipitor] 40 mg PO HS tab 06/18/23 10/15/23 Rx Budesonide-Formot 160-4.5 Mcg 2 puff INHALATION RT-HS 07/14/23 10/15/23 History [Symbicort 160-4.5 Mcg Inhaler] Ipratropium-Albuterol Nebulize 3 ml INHALATION RT-QID@,,,07/14/23 10/15/23 History [Duoneb 0.5 mg-3 mg/3 ml Soln] Tamsulosin [Flomax] 0.4 mg PO DAILY 07/14/23 10/15/23 History Albuterol Inhaler [Ventolin Hfa 1 - 2 puff INHALATION Q6H PRN 10/15/23 10/15/23 History Inhaler] Citalopram Hydrobromide 10 mg PO DAILY 10/15/23 10/15/23 History [Citalopram HBr] QUEtiapine [SEROquel] 25 mg PO DAILY 10/15/23 10/15/23 History Allergies Allergy/AdvReac Type Severity Reaction Status Date / Time latex Allergy blisters Verified 10/15/23 13:24 in mouth venom-honey bee Allergy passed out Verified 10/15/23 13:24 [bee venom (honey bee)] venom-wasp [wasp venom] Allergy passed out Verified 10/15/23 13:24 Surgical - Exam - General well developed, well nourished, no distress - Eyes normal ocular movement, no icteric - ENT no hearing loss, no congestion - Neck no masses, trachea midline - Respiratory normal respiratory effort, clear to auscultation - Abdomen Abdomen: soft, non tender, no guarding, no rigid, no rebound - Genitourinary indwelling catheter. ENLARGED PROSTATE. - Integumentary no rash, no abnormal pigmentation - Neurologic no disoriented, no combative - Psychiatric oriented to time, oriented to person, oriented to place, speech is normal, memory intact Assessment and Plan Assessment: Impression: urine retention due to obstructing prostate acute and chronic Plan: bipolar turp
[~2023-10-21 05:56] MED LIST changes: -CYCLOPENTOLATE 1% OPHTH SOLN 2 ML BTL OP PRN; -LACTATED RINGERS 1,000 ML IV SCH; -MOXIFLOXACIN HCL 0.5% DROPS 3 ML BTL OP PRN; -PHENYLEPHRINE 2.5% OPHTH DRP 2ML OP PRN; -TETRACAINE 0.5% OPHTH (PF) DROPS 4 ML BTL OP PRN; -TIMOLOL 0.5% OPHTH DROPS 5 ML BTL OP PRN
[2023-10-21] MEDS: LACTATED RINGERS 1,000 ML IV SCH (06:47)
[2023-10-21] MEDS ORDERED: HYDROmorphone 0.5 MG/0.5 ML SYRINGE IVP PRN (07:00)
[2023-10-21] MEDS: DEXAMETHASONE SOD PHOSPHATE 4 MG/ML 1 ML VIAL IV ONE (07:19)
[2023-10-21] MEDS: ONDANSETRON 4 MG/2 ML VIAL IVP ONE (07:19)
[2023-10-21 07:20] LABS: Glucose,Whole Blood 96 mg/dL (70-110)
[2023-10-21] MEDS ORDERED: PHENYLEPHRINE-0.9% NACL SYG 1,000 MCG/10 ML SYRINGE ONE (07:21)
[2023-10-21] MEDS ORDERED: ePHEDrine 50 MG/ML 1 ML VIAL ONE (07:21)
[2023-10-21] MEDS ORDERED: SUCCINYLCHOLINE CHLORIDE 200 MG/10 ML VIAL IV ONE (07:21)
[2023-10-21] MEDS ORDERED: PROPOFOL 10 MG/ML 20 ML VIAL IV ONE (07:21)
[2023-10-21] MEDS ORDERED: fentaNYL (PF) 50 MCG/ML 2 ML AMP ONE (07:21)
[2023-10-21] MEDS ORDERED: ROCURONIUM 10 MG/ML (5 ML VIAL) IV ONE (07:21)
[2023-10-21] MEDS ORDERED: GLYCOPYRROLATE 0.2 MG/ML 2 ML VIAL ONE (07:21)
[2023-10-21] MEDS ORDERED: NEOSTIGMINE 1 MG/ML 10 ML VIAL ONE (07:21)
[2023-10-21] MEDS ORDERED: WATER FOR INJECTION, STERILE 10 ML VIAL IV ONE (07:21)
[2023-10-21] MEDS: SODIUM CHLORIDE 0.9% IV ONE (07:48)
[2023-10-21] MEDS: GENTAMICIN IV ONE (07:48)
[2023-10-21] MEDS ORDERED: NITROGLYCERIN SL TABS 0.4 MG TAB SUBLINGUAL PRN (08:32)
[2023-10-21] MEDS ORDERED: ACETAMINOPHEN TAB 325 MG TAB PO PRN (08:32)
[2023-10-21] MEDS ORDERED: ALBUTEROL NEBULIZED 2.5 MG/3 ML INHALATION PRN (08:32)
[2023-10-21] MEDS ORDERED: MAG HYDROX/AL HYDROX/SIMETH 30 ML CUP PO PRN (08:34)
--- NOTE | 2023-10-21 08:40 | P.OP ---
Date of Procedure: 10/21/23 Preoperative Diagnosis: urine retention secondary to BPH Postoperative Diagnosis: same Procedure(s) Performed: bipolar TURP with plasma button Anesthesia: RABIA Surgeon: Silver Artis Estimated Blood Loss (ml): 25 Pathology: none sent Condition: stable Disposition: PACU Indications for Procedure: 8-year-old gentleman and persistent urinary retention. CMG shows bladder activity. He comes for a bipolar TURP Description of Procedure: patient brought to the operating suite. Given a general anesthetic. He is prepped and draped sterilely. Napier catheter was previously removed. Under direct vision the 25-Canadian sheath and direct vision obturator and Foroblique lenses introduced in the urethra. The anterior urethra is normal. The prostatic urethra shows a high riding bladder neck with some lateral lobe obstruction apically. The bladder was inspected and shows catheter edema and trabeculation. The bladder is somewhat thin. The prostate is not huge therefore plasma button will be used to. With the plasma button first vaporize the left lateral lobe from 6:00 to 12:00 bladder neck to verumontanum. I do the same on the right side. I then vaporized the redundant floor tissue as well as of the redundant anterior tissue. Bleeding was controlled electrocautery. Then of the procedure I secured to the verumontanum the bladder neck is wide open. I removed the resectoscope and coud the bladder with a strong stream. A Napier catheters introduced, 18-Canadian latex free. The urine drained clear. The patient's awake and returned recovery in good condition. Blood loss is 25 mL. The patient was placed in the hospital overnight because of his age and health.
[2023-10-21] MEDS: droPERidol 5 MG/2 ML VIAL IVP ONE (14:17)
[2023-10-21] MEDS: DEXTROSE 5%-0.45% NACL 1,000 ML IV SCH (14:45)
[2023-10-21] MEDS: PANTOPRAZOLE 40 MG TABLET PO SCH (15:14)
[2023-10-21] MEDS: QUEtiapine 25 MG TAB PO SCH (15:14)
[2023-10-21] MEDS: SULFAMETHOX-TMP 800-160MG 1 EACH TAB PO SCH (15:15)
[2023-10-21] MEDS: TAMSULOSIN 0.4 MG CAP.ER.24H PO SCH (15:15)
[2023-10-21] MEDS: CITALOPRAM HYDROBROMIDE 10 MG TAB PO SCH (15:15)
[2023-10-21] MEDS: IPRATROPIUM-ALBUTEROL 3 ML NEB INHALATION SCH (16:21)
[2023-10-21] MEDS: SYMBICORT 160-4.5 MCG INHALER INHALATION SCH (21:36)
[2023-10-22 03:14] VITALS: RESP 15
[2023-10-22] MEDS: HYDROcodone/APAP 5-325MG 1 EACH TAB PO PRN (04:31)
[2023-10-22 07:24] VITALS: BP 132/55; TEMP 97.5
[2023-10-22 08:18] VITALS: PULSE 76
--- NOTE | 2023-10-22 09:01 | P.DS ---
Providers Attending physician: Silver Artis Primary care physician: Lisha [place] [facility] Course: 88 yo male admitted yesterday for a turp was admitted overnight HE did well without problems. He will be d/c home with the yip and rv next week for catheter removal Plan - Discharge Summary Discharge Rx Participant: No New Discharge Prescriptions: No Action Nitroglycerin Sl Tabs [Nitrostat] 0.4 mg SUBLINGUAL Q5M PRN #25 tab PRN Reason: Chest Pain Clopidogrel [Plavix] 75 mg PO DAILY #1 tab Pantoprazole Sodium [Protonix] 40 mg PO DAILY Aspirin [Adult Low Dose Aspirin EC] 81 mg PO DAILY Atorvastatin [Lipitor] 40 mg PO HS tab Ipratropium-Albuterol Nebulize [Duoneb 0.5 mg-3 mg/3 ml Soln] 3 ml INHALATION RT-QID@,,, QUEtiapine [SEROquel] 25 mg PO DAILY Albuterol Inhaler [Ventolin Hfa Inhaler] 1 - 2 puff INHALATION Q6H PRN PRN Reason: Shortness Of Breath Acetaminophen Tab [Tylenol] 650 mg PO Q6HR PRN tab PRN Reason: Mild Pain Or Fever > 100.5 Budesonide-Formot 160-4.5 Mcg [Symbicort 160-4.5 Mcg Inhaler] 2 puff INHALATION RT-HS Tamsulosin [Flomax] 0.4 mg PO DAILY Citalopram Hydrobromide [Citalopram HBr] 10 mg PO DAILY Discharge Medication List Nitroglycerin Sl Tabs [Nitrostat] 0.4 mg SUBLINGUAL Q5M PRN #25 tab 03/18/16 [Rx] Clopidogrel [Plavix] 75 mg PO DAILY #1 tab 09/04/16 [Rx] Aspirin [Adult Low Dose Aspirin EC] 81 mg PO DAILY 02/21/20 [History] Pantoprazole Sodium [Protonix] 40 mg PO DAILY 02/21/20 [History] Acetaminophen Tab [Tylenol] 650 mg PO Q6HR PRN tab 01/05/23 [Rx] Atorvastatin [Lipitor] 40 mg PO HS tab 06/18/23 [Rx] Budesonide-Formot 160-4.5 Mcg [Symbicort 160-4.5 Mcg Inhaler] 2 puff INHALATION RT-HS 07/14/23 [History] Ipratropium-Albuterol Nebulize [Duoneb 0.5 mg-3 mg/3 ml Soln] 3 ml INHALATION RT-QID@05,11,17,23 07/14/23 [History] Tamsulosin [Flomax] 0.4 mg PO DAILY 07/14/23 [History] Albuterol Inhaler [Ventolin Hfa Inhaler] 1 - 2 puff INHALATION Q6H PRN 10/15/23 [History] Citalopram Hydrobromide [Citalopram HBr] 10 mg PO DAILY 10/15/23 [History] QUEtiapine [SEROquel] 25 mg PO DAILY 10/15/23 [History] Follow up Appointment(s)/Referral(s): Silver Artis MD [STAFF PHYSICIAN] - 10/27/23 (home with yip) Discharge Disposition: HOME SELF-CARE
== END 2023-10-22 11:06 | disposition home or self-care (01) ==
LOC: OR 05:56 → 4SSUR 08:22 → OR 10-22 11:06
PROVIDERS: ATTEND Urology
DX: N40.1 Benign prostatic hyperplasia with lower urinary tract symptoms (principal); R33.8 Other retention of urine; K21.9 Gastro-esophageal reflux disease without esophagitis; Z79.02 Long term (current) use of antithrombotics/antiplatelets; Z79.51 Long term (current) use of inhaled steroids; Z79.82 Long term (current) use of aspirin; Z79.899 Other long term (current) drug therapy; Z86.718 Personal history of other venous thrombosis and embolism; Z87.440 Personal history of urinary (tract) infections; Z87.891 Personal history of nicotine dependence; Z90.49 Acquired absence of other specified parts of digestive tract; Z91.030 Bee allergy status; Z91.040 Latex allergy status; Z95.2 Presence of prosthetic heart valve; Z95.5 Presence of coronary angioplasty implant and graft; Z98.890 Other specified postprocedural states
CPT/HCPCS: 94640 ×3; 94760; 52601; J0330; J1580; J1100; J2710; J0690; J2405; J3010; J2704; J2371

== ENCOUNTER 2023-11-16 01:47 | Emergency (ER) | payer MEDICARE, BC ==
--- NOTE | 2023-11-16 02:20 | ED ---
General Adult HPI - General Chief complaint: Urogenital Stated complaint: Hematuria, Painful Urination Time Seen by Provider: 11/16/23 02:07 Source: patient, RN notes reviewed Mode of arrival: wheelchair Limitations: no limitations - History of Present Illness Initial comments: 88-year-old male presenting to the ED with complaint of dysuria. Patient has history significant for TURP on 10/22/[address] Artis. Had a Yip catheter placed for a week which was removed. States tonight around 6 started to notice urgency and passage of blood clots with difficulty completely voiding. Also notes pain with urination and a burning sensation of his urethra. Denies abdominal pain. Denies flank pain. Denies fever or chills. No chest pain or shortness of breath. No other complaints at this time. - Related Data Home Medications Medication Instructions Recorded Confirmed Aspirin [Adult Low Dose Aspirin EC] 81 mg PO DAILY 02/21/20 10/20/23 Pantoprazole Sodium [Protonix] 40 mg PO DAILY 02/21/20 10/21/23 Budesonide-Formot 160-4.5 Mcg 2 puff INHALATION RT-HS 07/14/23 10/21/23 [Symbicort 160-4.5 Mcg Inhaler] Ipratropium-Albuterol Nebulize 3 ml INHALATION RT-QID@,,,07/14/23 10/21/23 [Duoneb 0.5 mg-3 mg/3 ml Soln] Tamsulosin [Flomax] 0.4 mg PO DAILY 07/14/23 10/21/23 Albuterol Inhaler [Ventolin Hfa 1 - 2 puff INHALATION Q6H PRN 10/15/23 10/21/23 Inhaler] Citalopram Hydrobromide 10 mg PO DAILY 10/15/23 10/21/23 [Citalopram HBr] QUEtiapine [SEROquel] 25 mg PO DAILY 10/15/23 10/21/23 Previous Rx's Medication Instructions Recorded Nitroglycerin Sl Tabs [Nitrostat] 0.4 mg SUBLINGUAL Q5M PRN #25 tab 03/18/16 Clopidogrel [Plavix] 75 mg PO DAILY #1 tab 09/04/16 Acetaminophen Tab [Tylenol] 650 mg PO Q6HR PRN tab 01/05/23 Atorvastatin [Lipitor] 40 mg PO HS tab 06/18/23 Allergies Allergy/AdvReac Type Severity Reaction Status Date / Time latex Allergy blisters Verified 11/16/23 01:59 in mouth venom-honey bee Allergy passed out Verified 11/16/23 01:59 [bee venom (honey bee)] venom-wasp [wasp venom] Allergy passed out Verified 11/16/23 01:59 Review of Systems ROS Statement: Those systems with pertinent positive or pertinent negative responses have been documented in the HPI. ROS Other: All systems not noted in ROS Statement are negative. Past Medical History Past Medical History: Coronary Artery Disease (CAD), COPD, Deep Vein Thrombosis (DVT), GERD/Reflux, GI Bleed, Hypertension, Osteoarthritis (OA) Additional Past Medical History / Comment(s): SOB, hx kidney stones, paralyzed diaphragm rt side, GI bleed 2016, (?)DVT - pt. denies, indwelling yip catheter, hx. UTI 2023 - hospitalized at [facility], hx. frequent falls/EC visits, hospitalized at [facility] for anxiety in early September 2023 related to past hx. falls History of Any Multi-Drug Resistant Organisms: None Reported Past Surgical History: Adenoidectomy, Appendectomy, Heart Catheterization With Stent, Hernia Repair, Tonsillectomy Additional Past Surgical History / Comment(s): lithotripsy x4, 3 cardiac stents, rt cataract, oral surgery, TAVR 2020 Past Anesthesia/Blood Transfusion Reactions: Motion Sickness, Postoperative Nausea & Vomiting (PONV) Additional Past Anesthesia/Blood Transfusion Reaction / Comment(s): HAD MOTION SICKNESS WHEN YOUNGER, paralyzed diaphragm rt side Date of Last Stent Placement:: 03/2019 Past Psychological History: Anxiety Smoking Status: Former smoker Past Alcohol Use History: None Reported Past Drug Use History: None Reported - Past Family History Mother Family Medical History: Cancer Father Family Medical History: Myocardial Infarction (CT), Mitral Valve Prolapse (MVP) Additional Family Medical History / Comment(s): PT STATED HIS FATHER HAD 14 [address]'S AND AT THE AGE OF 58 General Exam Limitations: no limitations General appearance: alert, in no apparent distress Eye exam: Present: normal appearance Neck exam: Present: normal inspection Respiratory exam: Present: normal lung sounds bilaterally Cardiovascular Exam: Present: regular rate GI/Abdominal exam: Present: soft (Suprapubic tenderness to palpation.), normal bowel sounds, other (No CVA tenderness to percussion bilaterally.) Neurological exam: Present: alert, oriented X3 Skin exam: Present: warm, dry Course Vital Signs 11/16/23 11/16/23 01:55 04:25 Temperature 97.5 F L Pulse Rate 104 H 89 Respiratory 20 22 Rate Blood Pressure 195/98 122/66 O2 Sat by Pulse 94 L 94 L Oximetry Procedures - Procedures Initial comment: 16 Ukrainian catheter inserted after bedside bladder scan showed greater than 999 cc. Patient tolerated the procedure well with no complications. Medical Decision Making - Medical Decision Making Was pt. sent in by a medical professional or institution (, PA, MULTIMEDIA MANAGER, urgent care, hospital, or snf...) When possible be specific @ -No Did you speak to anyone other than the patient for history (EMS, parent, family, police, friend...)? What history was obtained from this source @ -No Did you review nursing and triage notes (agree or disagree)? Why? @ -I reviewed and agree with nursing and triage notes Were old charts reviewed (outside hosp., previous admission, EMS record, old EKG, old radiological studies, urgent care reports/EKG's, snf records)? Report findings @ -No old charts were reviewed Differential Diagnosis (chest pain, altered mental status, abdominal pain women, abdominal pain men, vaginal bleeding, weakness, fever, dyspnea, syncope, headache, dizziness, GI bleed, back pain, seizure, CVA, palpatations, mental health, musculoskeletal)? @ -Differential Abdominal Pain Men: Appendicitis, cholecystitis, diverticulosis, ischemic bowel, pancreatitis, hepatitis, UTI, gastroenteritis, AAA, incarcerated hernia, bowel obstruction, constipation, inflammatory bowel, hepatitis, peptic ulcer disease, splenic infarction, perforated viscus, testicular torsion, this is not meant to be an all-inclusive list EKG interpreted by me (3pts min.). @ -None X-rays interpreted by me (1pt min.). @ -None done CT interpreted by me (1pt min.). @ -None done U/S interpreted by me (1pt. min.). @ -None done What testing was considered but not performed or refused? (CT, X-rays, U/S, labs)? Why? @ -None What meds were considered but not given or refused? Why? @ -None Did you discuss the management of the patient with other professionals (professionals i.e. DrIesha, PA, MULTIMEDIA MANAGER, lab, RT, psych nurse, clinical social work aide, steeplechase jockey, teacher, staff electronic warfare officer, nurse case management)? Give summary @ -Case discussed with Dr. Artis, of urology, who advises close outpatient follow-up with Yip catheter in place. Was smoking cessation discussed for >3mins.? @ -No Was critical care preformed (if so, how long)? @ -No Were there social determinants of health that impacted care today? How? (Homelessness, low income, unemployed, alcoholism, drug addiction, transportation, low edu. Level, literacy, decrease access to med. care, detention, rehab)? @ -No Was there de-escalation of care discussed even if they declined (Discuss DNR or withdrawal of care, Hospice)? DNR status @ -No What co-morbidities impacted this encounter? (DM, HTN, Smoking, COPD, CAD, Cancer, CVA, ARF, Chemo, Hep., AIDS, mental health diagnosis, sleep apnea, morbid obesity)? @ -None Was patient admitted / discharged? Hospital course, mention meds given and route, prescriptions, significant lab abnormalities, going to OR and other pertinent info. @ -Discharge 88-year-old male status post TURP on 10/22/2023 presenting to the ED with complaints of urgency, difficulty urinating, and passage of blood clots. Bladd er scan here showed greater than 999 mL. Yip catheter was inserted with successful drainage and passage of clots. Case discussed with Dr. Artis, who advised close outpatient follow-up with Yip catheter in place. Patient discharged home in stable condition. Discussed return precautions with patient and family who verbalized agreement. Undiagnosed new problem with uncertain prognosis? @ -No Drug Therapy requiring intensive monitoring for toxicity (Heparin, Nitro, Insulin, Cardizem)? @ -No Were any procedures done? @ -Yes, I inserted a Yip catheter myself. For further details please see procedure note. Diagnosis/symptom? @ -Urinary retention Acute, or Chronic, or Acute on Chronic? @ -Acute Uncomplicated (without systemic symptoms) or Complicated (systemic symptoms)? @ -Uncomplicated Side effects of treatment? @ -No Exacerbation, Progression, or Severe Exacerbation? @ -No Poses a threat to life or bodily function? How? (Chest pain, USA, CT, pneumonia, PE, COPD, DKA, ARF, appy, cholecystitis, CVA, Diverticulitis, Homicidal, Suicidal, threat to staff... and all critical care pts) @ -No - Lab Data Result diagrams: 11/16/23 02:53 Lab Results 11/16/23 11/16/23 Range/Units 02:53 03:45 WBC 11.7 H (3.8-10.6) k/uL RBC 4.84 (4.30-5.90) m/uL Hgb 14.1 (13.0-17.5) gm/dL Hct 44.5 (39.0-53.0) % MCV 92.1 (80.0-100.0) fL MCH 29.3 (25.0-35.0) pg MCHC 31.8 (31.0-37.0) g/dL RDW 13.9 (11.5-15.5) % Plt Count 310 (150-450) k/uL MPV 7.4 Neutrophils % 89 % Lymphocytes % 6 % Monocytes % 4 % Eosinophils % 0 % Basophils % 0 % Neutrophils # 10.4 H (1.3-7.7) k/uL Lymphocytes # 0.6 L (1.0-4.8) k/uL Monocytes # 0.5 (0-1.0) k/uL Eosinophils # 0.1 (0-0.7) k/uL Basophils # 0.1 (0-0.2) k/uL Urine Color Red Urine Appearance Bloody (Clear) Urine RBC >182 H (0-5) /hpf Urine WBC 125 H (0-5) /hpf Disposition Clinical Impression: Urinary retention Disposition: HOME SELF-CARE Condition: Good Additional Instructions: Please return to the Emergency Department if symptoms worsen or any other concerns. Please follow-up with urology. Is patient prescribed a controlled substance at d/c from ED?: No Referrals: Lisha Martinez MD [Primary Care Provider] - 1-2 days Silver Artis MD [STAFF PHYSICIAN] - 1-2 days Time of Disposition: 05:15
[2023-11-16] MEDS: KETOROLAC 15 MG/ML 1 ML VIAL IVP STA (02:52)
[2023-11-16] MEDS: SODIUM CHLORIDE 0.9% 500 ML 500 ML IV STA (02:52)
[2023-11-16 03:12] LABS: Basophils # (A) 0.1 k/uL (0-0.2); Basophils % (A) 0 %; Eosinophils # (A) 0.1 k/uL (0-0.7); Eosinophils % (A) 0 %; HCT 44.5 % (39.0-53.0); HGB 14.1 gm/dL (13.0-17.5); Lymphocytes # (A) 0.6 k/uL (1.0-4.8); Lymphocytes % (A) 6 %; MCH 29.3 pg (25.0-35.0); MCHC 31.8 g/dL (31.0-37.0); MCV 92.1 fL (80.0-100.0); Mean Platelet Volume 7.4; Monocytes # (A) 0.5 k/uL (0-1.0); Monocytes % (A) 4 %; Neutrophils # (A) 10.4 k/uL (1.3-7.7); Neutrophils % (A) 89 %; Platelet Count 310 k/uL (150-450); RBC 4.84 m/uL (4.30-5.90); RDW 13.9 % (11.5-15.5); WBC 11.7 k/uL (3.8-10.6)
[2023-11-16 04:16] LABS: ALT 15 U/L (4-49); AST 23 U/L (17-59); African American GFR (CKD) >90 (>60 ml/min/1.73 sqM); Alkaline Phosphatase 114 U/L (38-126); Anion Gap 8 mmol/L; Blood Urea Nitrogen 18 mg/dL (9-20); Calcium 9.7 mg/dL (8.4-10.2); Carbon Dioxide 28 mmol/L (22-30); Chloride 102 mmol/L (98-107); Glucose 122 mg/dL (74-99); Non-African American GFR(CKD) 81 (>60 ml/min/1.73 sqM); Potassium 4.8 mmol/L (3.5-5.1); Sodium 138 mmol/L (137-145); Total Bilirubin 0.7 mg/dL (0.2-1.3); Total Protein 7.3 g/dL (6.3-8.2)
[2023-11-16 04:43] LABS: RBC,Urine >182 /hpf (0-5); WBC,Urine 125 /hpf (0-5)
[2023-11-16 04:47] LABS: Appearance,Urine Bloody (Clear); Color,Urine Red
[2023-11-16 05:45] VITALS: BP 129/79; PULSE 79; RESP 18; TEMP 97.6
== END 2023-11-16 05:43 | disposition home or self-care (01) ==
LOC: EC 01:47
DX: R33.9 Retention of urine, unspecified (principal); Z91.040 Latex allergy status; Z91.030 Bee allergy status; Z87.891 Personal history of nicotine dependence
CPT/HCPCS: 36415; 80053; 85025; 81001; 99284; 96374; 51702; J1885

== ENCOUNTER 2023-11-16 19:46 | Emergency (ER) | payer MEDICARE, BC ==
--- NOTE | 2023-11-16 20:08 | ED ---
General Adult HPI - General Source: RN notes reviewed, old records reviewed <Carlos Enrique Christopher - Last Filed: 11/16/23 20:09> <Hayden Vigil - Last Filed: 11/16/23 21:45> - General Stated complaint: Cath issues Time Seen by Provider: 11/16/23 20:02 - History of Present Illness Initial comments: Quick note Patient status post TURP on 10/22/[address] Artis. Patient seen last night secondary to urgency and difficulties urinating. Bladder scan at that time showed greater than 999 cc. Yip catheter was placed and drained well. Per daughter, despite flushing the catheter at home with saline has started to not drain well. (Carlos Enrique Christopher) 88-year-old male presenting with chief complaint of occluded Yip catheter. Patient had a TURP on 10/22/[address] Artis. He was seen here earlier today with complaints of urinary retention. 16 Chinese Yip catheter was placed and drained well. Later on today the catheter was not draining, the patient's daughter attempted to flush it at home multiple times, however she got no return of the saline that she had irrigated with. Patient is having suprapubic discomfort. (Hayden Vigil) - Related Data Home Medications Medication Instructions Recorded Confirmed Aspirin [Adult Low Dose Aspirin EC] 81 mg PO DAILY 02/21/20 10/20/23 Pantoprazole Sodium [Protonix] 40 mg PO DAILY 02/21/20 10/21/23 Budesonide-Formot 160-4.5 Mcg 2 puff INHALATION RT-HS 07/14/23 10/21/23 [Symbicort 160-4.5 Mcg Inhaler] Ipratropium-Albuterol Nebulize 3 ml INHALATION RT-QID@05,,,07/14/23 10/21/23 [Duoneb 0.5 mg-3 mg/3 ml Soln] Tamsulosin [Flomax] 0.4 mg PO DAILY 07/14/23 10/21/23 Albuterol Inhaler [Ventolin Hfa 1 - 2 puff INHALATION Q6H PRN 10/15/23 10/21/23 Inhaler] Citalopram Hydrobromide 10 mg PO DAILY 10/15/23 10/21/23 [Citalopram HBr] QUEtiapine [SEROquel] 25 mg PO DAILY 10/15/23 10/21/23 Previous Rx's Medication Instructions Recorded Nitroglycerin Sl Tabs [Nitrostat] 0.4 mg SUBLINGUAL Q5M PRN #25 tab 03/18/16 Clopidogrel [Plavix] 75 mg PO DAILY #1 tab 09/04/16 Acetaminophen Tab [Tylenol] 650 mg PO Q6HR PRN tab 01/05/23 Atorvastatin [Lipitor] 40 mg PO HS tab 06/18/23 Allergies Allergy/AdvReac Type Severity Reaction Status Date / Time latex Allergy blisters Verified 11/16/23 20:13 in mouth venom-honey bee Allergy passed out Verified 11/16/23 20:13 [bee venom (honey bee)] venom-wasp [wasp venom] Allergy passed out Verified 11/16/23 20:13 Review of Systems ROS Other: All systems not noted in ROS Statement are negative. <Carlos Enrique Christopher - Last Filed: 11/16/23 20:09> ROS Other: All systems not noted in ROS Statement are negative. <Hayden Vigil - Last Filed: 11/16/23 21:45> ROS Statement: Those systems with pertinent positive or pertinent negative responses have been documented in the HPI. Past Medical History Past Medical History: Coronary Artery Disease (CAD), COPD, Deep Vein Thrombosis (DVT), GERD/Reflux, GI Bleed, Hypertension, Osteoarthritis (OA) Additional Past Medical History / Comment(s): SOB, hx kidney stones, paralyzed diaphragm rt side, GI bleed 2016, (?)DVT - pt. denies, indwelling yip catheter, hx. UTI 2023 - hospitalized at [facility], hx. frequent falls/EC visits, hospitalized at [facility] for anxiety in early September 2023 related to past hx. falls History of Any Multi-Drug Resistant Organisms: None Reported Past Surgical History: Adenoidectomy, Appendectomy, Heart Catheterization With Stent, Hernia Repair, Tonsillectomy Additional Past Surgical History / Comment(s): lithotripsy x4, 3 cardiac stents, rt cataract, oral surgery, TAVR 2020 Past Anesthesia/Blood Transfusion Reactions: Motion Sickness, Postoperative Nausea & Vomiting (PONV) Additional Past Anesthesia/Blood Transfusion Reaction / Comment(s): HAD MOTION SICKNESS WHEN YOUNGER, paralyzed diaphragm rt side Date of Last Stent Placement:: 03/2019 Past Psychological History: Anxiety Smoking Status: Former smoker Past Alcohol Use History: None Reported Past Drug Use History: None Reported - Past Family History Mother Family Medical History: Cancer Father Family Medical History: Myocardial Infarction (AR), Mitral Valve Prolapse (MVP) Additional Family Medical History / Comment(s): PT STATED HIS FATHER HAD 14 AR'S AND AT THE AGE OF 58 <Carlos Enrique Christopher - Last Filed: 11/16/23 20:09> General Exam <Carlos Enrique Christopher - Last Filed: 11/16/23 20:09> General appearance: alert, in no apparent distress Head exam: Present: atraumatic, normocephalic Eye exam: Present: normal appearance, EOMI Neck exam: Present: normal inspection. Absent: meningismus Respiratory exam: Absent: respiratory distress Neurological exam: Present: alert, oriented X3 Psychiatric exam: Present: normal affect, normal mood Skin exam: Present: normal color <Hayden Vigil - Last Filed: 11/16/23 21:45> - General Exam Comments Initial Comments: Visual Physical Exam Vital signs reviewed General: Well-appearing, nontoxic, no acute distress. Head: Normocephalic, atraumatic Eyes: PERRLA, EOMI ENT: Airway patent Chest: Nonlabored breathing Skin: No visual rash, normal skin tone Neuro: Alert and oriented 3 Musculoskeletal: No gross abnormalities (Carlos Enrique Christopher) Course Vital Signs 11/16/23 20:07 Temperature 98.0 F Pulse Rate 101 H Respiratory 18 Rate Blood Pressure 177/88 O2 Sat by Pulse 95 Oximetry Medical Decision Making <Carlos Enrique Christopher - Last Filed: 11/16/23 20:09> <Hayden Vigil - Last Filed: 11/16/23 21:45> - Medical Decision Making Quicknote portion performed. Signed Carlos Enrique Christopher PA-C (Carlos Enrique Christopher) Was pt. sent in by a medical professional or institution ([facility]TIM[facility] Erazo, ALLERGY PHYSICIAN, urgent care, hospital, or halfway...) When possible be specific @ -No Did you speak to anyone other than the patient for history (EMS, parent, family, police, friend...)? What history was obtained from this source @ -No Did you review nursing and triage notes (agree or disagree)? Why? @ -I reviewed and agree with nursing and triage notes Were old charts reviewed (outside hosp., previous admission, EMS record, old EKG, old radiological studies, urgent care reports/EKG's, halfway records)? Report findings @ -No old charts were reviewed Differential Diagnosis (chest pain, altered mental status, abdominal pain women, abdominal pain men, vaginal bleeding, weakness, fever, dyspnea, syncope, headache, dizziness, GI bleed, back pain, seizure, CVA, palpatations, mental health, musculoskeletal)? @ -Differential includes occlusion caused by clot, decreased urine production, anticholinergic medication, malignancy, stone, this is not an all-inclusive list EKG interpreted by me (3pts min.). @ -As above X-rays interpreted by me (1pt min.). @ -None done CT interpreted by me (1pt min.). @ -None done U/S interpreted by me (1pt. min.). @ -None done What testing was considered but not performed or refused? (CT, X-rays, U/S, labs)? Why? @ -None What meds were considered but not given or refused? Why? @ -None Did you discuss the management of the patient with other professionals (professionals i.e. , PA, ALLERGY PHYSICIAN, lab, RT, psych nurse, long term care social worker, canned food reconditioning inspector, teacher, campus security officer, case work aide)? Give summary @ -No Was smoking cessation discussed for >3mins.? @ -No Was critical care preformed (if so, how long)? @ -No Were there social determinants of health that impacted care today? How? (Homelessness, low income, unemployed, alcoholism, drug addiction, transportation, low edu. Level, literacy, decrease access to med. care, [place] [facility], rehab)? @ -No Was there de-escalation of care discussed even if they declined (Discuss DNR or withdrawal of care, Hospice)? DNR status @ -No What co-morbidities impacted this encounter? (DM, HTN, Smoking, COPD, CAD, Cancer, CVA, ARF, Chemo, Hep., AIDS, mental health diagnosis, sleep apnea, morbid obesity)? @ -None Was patient admitted / discharged? Hospital course, mention meds given and route, prescriptions, significant lab abnormalities, going to OR and other pertinent info. @ -88-year-old male presenting with chief complaint of occluded Yip catheter. Patient currently has [address] His daughter attempted to flush this at home multiple times. Yip is replaced with a 20 Chinese catheter. He has adequate drainage. Dark bloody urine output. Patient does have a scheduled follow-up appointment with his urologist. Discharged home. Follow-up with PCP. Report back to ER with any new or worsening symptoms. Discussed return parameters and answered all questions. Patient conveyed verbal understanding and agreed to the plan. I discussed this case in detail with my attending Dr. Garcia Undiagnosed new problem with uncertain prognosis? @ -No Drug Therapy requiring intensive monitoring for toxicity (Heparin, Nitro, Insulin, Cardizem)? @ -No Were any procedures done? @ -No Diagnosis/symptom? @ -Hematuria, encounter for replacement of Yip catheter, urinary retention Acute, or Chronic, or Acute on Chronic? @ -Acute Uncomplicated (without systemic symptoms) or Complicated (systemic symptoms)? @ -Uncomplicated Side effects of treatment? @ -No Exacerbation, Progression, or Severe Exacerbation? @ -No Poses a threat to life or bodily function? How? (Chest pain, USA, AR, pneumonia, PE, COPD, DKA, ARF, appy, cholecystitis, CVA, Diverticulitis, Homicidal, Suicidal, threat to staff... and all critical care pts) @ -Low likelihood (Hayden Vigil) Disposition <Carlos Enrique Christopher - Last Filed: 11/16/23 20:09> Is patient prescribed a controlled substance at d/c from ED?: No Time of Disposition: 21:29 <Hayden Vigil - Last Filed: 11/16/23 21:45> Clinical Impression: Urinary retention, Hematuria, Encounter for Yip catheter replacement Disposition: HOME SELF-CARE Condition: Fair Instructions (If sedation given, give patient instructions): Yip Catheter Placement and Care (ED), Hematuria (ED) Additional Instructions: Follow-up with your PCP and urologist. Report back to ER with any new or worsening symptoms. Referrals: Lisha Martinez MD [Primary Care Provider] - 1-2 days Silver Artis MD [STAFF PHYSICIAN] - 1-2 days
[2023-11-16 20:13] VITALS: TEMP 98
[2023-11-16 21:45] VITALS: BP 110/78; PULSE 98; RESP 20
== END 2023-11-16 21:45 | disposition home or self-care (01) ==
LOC: EC 19:46
DX: R33.9 Retention of urine, unspecified (principal); R31.9 Hematuria, unspecified; Z46.6 Encounter for fitting and adjustment of urinary device; Z91.040 Latex allergy status; Z91.030 Bee allergy status; Z91.038 Other insect allergy status; Z87.891 Personal history of nicotine dependence
CPT/HCPCS: 51702; 51798; 99283